=== PATIENT | female | born 1960 | race Two or more races ===

== ENCOUNTER 2020-08-23 09:58 | Outpatient (REF) | payer OTHER, SELFPAY ==
--- NOTE | 2020-08-23 10:12 | XR_ITS ---
EXAMINATION: XR KNEE, BILATERAL XR KNEE, RIGHT CLINICAL INFORMATION: Knee pain. COMPARISON: 08/08/2018 TECHNIQUE: AP bilateral knees one view. Right knee one view. FINDINGS: RIGHT KNEE: Moderate medial compartment arthritis, slight progression from previous. Marginal osteophytes in the lateral compartment. Genu varus. Likely narrowing of the patellofemoral joint space as seen on the lateral projection. Small ossification along the anterior aspect of the tibia on the lateral projection. No effusion. No fracture or dislocation. LEFT KNEE: Moderate medial compartment arthritis. Marginal spurring in the lateral compartment. IMPRESSION: Tricompartment arthritis right knee, more prominent in the medial compartment. Interval progression from previous.
== END 2020-08-23 09:59 | disposition home or self-care (01) ==
LOC: HO.XRAY 09:58
PROVIDERS: PCP Internal Medicine; Visit Provider Orthopaedic Surgery
DX: M17.0 Bilateral primary osteoarthritis of knee (principal)
CPT/HCPCS: 73560; 73565

== ENCOUNTER 2020-09-13 09:06 | Outpatient (REF) | payer OTHER, SELFPAY ==
--- NOTE | 2020-09-13 10:56 | ECG_ITS ---
Test Reason : CP Blood Pressure : / mmHG Vent. Rate : 087 BPM Atrial Rate : 087 BPM P-R Int : 124 ms QRS Dur : 088 ms QT Int : 378 ms P-R-T Axes : 057 026 -61 degrees QTc Int : 454 ms Sinus rhythm with Premature ventricular complexes Nonspecific ST abnormality Inferior leads Lateral leads Left ventricular hypertrophy with repolarization abnormality Abnormal ECG When compared with ECG of 09-MAY-2018 12:28, Premature ventricular complexes are now Present ST more depressed Lateral leads Referred By: Yokasta Lantigua Electronically Signed By:JESSE NARAYANAN MD
[2020-09-13 11:50] LABS: MANUAL DIFF FLAG NO
[2020-09-13 11:53] LABS: Basophils Percent Auto 0.6 % (0-2); Eosinophils Absolute Auto 0.1 X10*3/uL (0.0-0.4); Hematocrit 42.8 % (37-47); Hemoglobin 14.4 g/dl (12.0-16.0); Imm Gran Abs Auto 0.01 X10*3/uL (0.00-0.03); Imm Gran Pct Auto 0.2 % (0.0-0.4); Lymphocytes Absolute Auto 1.9 X10*3/uL (1.2-4.9); Lymphocytes Percent Auto 36.5 % (20-40); Mean Corpuscular HGB Conc 33.6 g/dl (31.0-35.0); Mean Corpuscular Hemoglobin 30.6 pg (27.0-33.0); Mean Corpuscular Volume 91.1 fL (80-98); Mean Platelet Volume 10.8 fL (9.4-12.3); Monocytes Absolute Auto 0.4 X10*3/uL (0.1-1.2); Monocytes Percent Auto 8.3 % (2-11); Neutrophils Absolute Auto 2.8 X10*3/uL (2.0-8.3); Neutrophils Percent Auto 53.4 % (45-73); Platelet Count 216 X10*3/uL (160-400); Red Cell Distribution Width 11.7 % (11.0-16.0); White Blood Count 5.2 X10*3/uL (4.8-10.8)
[2020-09-13 12:28] LABS: Anion Gap 12 (12-20); Blood Urea Nitrogen 20 mg/dL (9-16); Calcium 9.1 mg/dL (8.4-10.2); Carbon Dioxide 28 mmol/L (22-29); Chloride 106 mmol/L (96-108); Estimated Glomerular Filt Rate > 60; Glucose Random 119 mg/dL (60-115); Potassium 4.3 mmol/l (3.3-5.1); Sodium 142 mmol/L (135-145)
== END 2020-09-13 09:07 | disposition home or self-care (01) ==
LOC: HO.LAB 09:06
PROVIDERS: PCP Internal Medicine; Referring Provider Physician Assistant; Visit Provider Orthopaedic Surgery
DX: Z01.810 Encounter for preprocedural cardiovascular examination (principal); Z01.812 Encounter for preprocedural laboratory examination
CPT/HCPCS: 36415; 80048; 85025; 93005

== ENCOUNTER 2020-09-20 07:44 | Outpatient (RCR) | payer OTHER, SELFPAY ==
--- NOTE | 2020-09-20 11:51 | MHC.PT.EP ---
[facility] [place] Office [place] Office [place] Office [address] Braulio Gonzales [address] [phone] F: [phone] F: [phone] F: [phone] F: [phone] Physical Therapy Plan of Care Date of Evaluation: 09/20/20 Date of Surgery: Diagnosis: This is a 60 yo female presenting to skilled PT with a script for prehab primary OA of L knee Assessment: This is a 60 yo female presenting to skilled PT with a script for prehab primary OA of L knee. The patient comes in today for preparation of R knee surgery. Ortho reports a known history for many years of OA for both her knees. Per ortho note she has reached the point where she would like to consider doing the total knee arthroplasty (R is worse than the L at this time). She has had injections in the past but these were not helping. She reports some swelling but no locking or giving way. She has pain in the anterior and medial aspects of the knee. She has a hard time with walking and performing stairs. She is scheduled for her surgery on 10/17/20. She has not tried PT for her knees before. Assessment demos pain mainly in the AM and with weightbearing increasing to an 8/10. She has good ROM and strength at assessment but decreased gait pattern due to pain. She is set up for surgery at the beginning of Oct. Already reports good compliance with some exercises at home 2x/day. Spent time educating her on the rehab process and provided good HEP. She has a high co-pay and as she is compliant at home already patient to continue HEP on own. She is very motivated. She is an excellent candidate for PT following surgery based on age, functional limitations, gross anatomy and PMHx. Frequency and Duration: The patient will be seen 1x/wk as needed for 4wks Short Term Goals: I in HEP and understands rehab goals and expectations following surgery [employer] Goals: Maintain good ROM and MMT Treatment Plan: Modalities to reduce pain, spasms and effusion. Manual therapy to restore motion and function. Therapeutic exercise to improve strength and flexibility. Neuromuscular re-education for posture and balance. Therapeutic activities to return to functional activities of daily living. Please sign and return to therapist. Thank you for your referral.
--- NOTE | 2020-10-18 08:08 | MHC.PT.DC ---
[facility] [place] Office [place] Office [place] Office [address] Braulio Gonzales [address] [phone] F: [phone] F: [phone] F: [phone] F: [phone] Physical Therapy Discharge Report Diagnosis: This is a 60 yo female presenting to skilled PT with a script for prehab primary OA of L knee Date of Surgery: Date of Evaluation: 09/20/20 Date of Discharge: 10/18/20 Treatments to Date: 1 Cancellations to Date: 0 No Shows to Date: 0 Discharge Status: Achieved Goals Discharge Summary: This is a 60 yo female presenting to skilled PT with a script for prehab primary OA of L knee. The patient comes in today for preparation of R knee surgery. Ortho reports a known history for many years of OA for both her knees. Per ortho note she has reached the point where she would like to consider doing the total knee arthroplasty (R is worse than the L at this time). She has had injections in the past but these were not helping. She reports some swelling but no locking or giving way. She has pain in the anterior and medial aspects of the knee. She has a hard time with walking and performing stairs. She is scheduled for her surgery on 10/17/20. She has not tried PT for her knees before. Assessment demos pain mainly in the AM and with weightbearing increasing to an 8/10. She has good ROM and strength at assessment but decreased gait pattern due to pain. She is set up for surgery at the beginning of Oct. Already reports good compliance with some exercises at home 2x/day. Spent time educating her on the rehab process and provided good HEP. She has a high co-pay and as she is compliant at home already patient to continue HEP on own. She is very motivated. She is an excellent candidate for PT following surgery based on age, functional limitations, gross anatomy and PMHx. I kept her chart open for 30 days after eval and educated her on outpatient PT following operation Electronically signed by: Karrie Ojeda, PT Please sign and return to therapist. Thank you for your referral.
== END 2020-10-20 11:58 | disposition home or self-care (01) ==
LOC: HO.PTCHIC 07:44
PROVIDERS: PCP Internal Medicine; Visit Provider Physician Assistant
DX: M17.11 Unilateral primary osteoarthritis, right knee (principal)
CPT/HCPCS: 97110; 97161; 97530

== ENCOUNTER → 2020-10-05 12:02 | Outpatient (BNVA) | payer OTHER, SELFPAY | PROVIDERS: Visit Provider Physician Assistant | DX: Z76.89 Persons encountering health services in other specified circumstances (principal) ==

== ENCOUNTER 2020-10-08 08:32 | Outpatient (REF) | payer OTHER, SELFPAY | END 2020-10-08 08:33 | disposition home or self-care (01) | LOC: HO.LAB 08:32 | PROVIDERS: PCP Internal Medicine; Visit Provider Physician Assistant | DX: Z13.89 Encounter for screening for other disorder (principal) ==

== ENCOUNTER 2020-12-05 08:40 | Day surgery (SDC) | payer OTHER, SELFPAY ==
--- NOTE | 2020-11-14 | ECG_ITS ---
Test Reason : PREOP Blood Pressure : / mmHG Vent. Rate : 080 BPM Atrial Rate : 080 BPM P-R Int : 134 ms QRS Dur : 088 ms QT Int : 396 ms P-R-T Axes : 057 016 000 degrees QTc Int : 456 ms Sinus rhythm with Premature atrial complexes Left ventricular hypertrophy with repolarization abnormality Abnormal ECG When compared with ECG of 13-SEP-2020 12:02, Premature ventricular complexes are no longer Present Premature atrial complexes are now Present Referred By: Janet Herman Electronically Signed By:Radu Harry
[2020-11-14 14:00] VITALS: BP 156/79; PULSE 76; RESP 16; O2SAT 97; BMI 31.4
--- NOTE | 2020-11-14 14:17 | HO.ANESPROP2 ---
HPI - Anesthesia Eval Consult details Narrative: 60yo F for R TKA PCP cleared PONV Rescheduled d/t COVID [facility] Past Medical History Medical History (Updated 11/14/20 @ 13:59 by Marilee Cabral) Anxiety Arthritis GERD (gastroesophageal reflux disease) Hypertension Insomnia PONV (postoperative nausea and vomiting) Family History Family History Father No problems noted. Mother Heart disease Arthritis Blindness CVD (cardiovascular disease) Family history of problems with anesthesia: No Surgical History Surgical History (Updated 11/14/20 @ 13:58 by Marilee Cabral) History of arthroscopy of left knee (~01/2012) History of arthroscopy of right knee (~04/2012) History of breast mammoplasty (~2008) History of hysterectomy History of rectal sphincterotomy (~2001) History of tubal ligation Hx of cholecystectomy (~2001) History of Problems with Anesthesia: Yes (PONV) Social History Social History (Updated 11/14/20 @ 13:57 by Marilee Cabral) Alcohol intake: never Smoking Status: Never smoker Tobacco Type: Cigarette 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 14 day quarantine. No continuing respiratory symptoms. Remains without taste or smell. No CP. Some BRISENO at baseline. Activity limited to pain. Meds Allergies Allergy/AdvReac Type Severity Reaction Status Date / Time No Known Allergies Allergy Unknown Verified 11/14/20 13:57 Home Medications Medication Instructions Recorded Confirmed Type alendronate 70 mg tablet 70 mg PO QWEEK 08/13/20 11/14/20 History lisinopril 20 mg tablet 20 mg PO DAILY 08/13/20 11/14/20 History dicyclomine 10 mg capsule 10 mg PO DAILY cap 09/13/20 11/14/20 History naproxen 250 mg PO DAILY 11/14/20 11/14/20 History omeprazole [Prilosec] 20 mg PO DAILY 11/14/20 11/14/20 History Exam Exam Date and Time: November 14, 2020 1417 Height,Weight and Vital Signs: Height 5 ft Weight 73.028 kg Last Vital Signs Pulse 76 11/14/20 14:00 Resp 16 11/14/20 14:00 BP 156/79 H 11/14/20 14:00 Pulse Ox 97 11/14/20 14:00 Pertinent Lab Results Pertinent Lab Results: Laboratory Tests 10/08/20 08:45 Blood Type O Positive Antibody Screen NEGATIVE Laboratory Tests 09/13/20 09/13/20 11:15 11:15 WBC 5.2 Hgb 14.4 Hct 42.8 Plt Count 216 Sodium 142 Potassium 4.3 Chloride 106 Carbon Dioxide 28 BUN 20 H Creatinine 0.69 Narrative Narrative: EKG 11/14/19: SR with PAC's @ 80, LVH with repol abn Airway Mallampati Class: II TM Dist: >3cm Neck ROM: Full (Sore L trap) Loose/Missing/Broken Teeth: Yes (Molars missing, 1xcrown molar) Heart: Irreg Lungs: CTAB Assessment and Plan Assessment Anesthesia Assessment: Anesthesia Plan Discussed and PAT Visit
[2020-11-14 16:08] LABS: MRSA Nasal PCR NEGATIVE (Negative); SA Nasal PCR NEGATIVE (Negative)
--- NOTE | 2020-12-02 11:41 | HO.ANESPROP2 ---
Documented by User: Janet Arandaney 12/02/20 11:45 HPI - Anesthesia Eval Consult details Narrative: 60yo F for R TKA PCP cleared PONV Rescheduled d/t COVID policies [facility] Past Medical History Medical History Anxiety Arthritis GERD (gastroesophageal reflux disease) Hypertension Insomnia PONV (postoperative nausea and vomiting) Family History Family History Father No problems noted. Mother Heart disease Arthritis Blindness CVD (cardiovascular disease) Surgical History Surgical History History of arthroscopy of left knee (~01/2012) History of arthroscopy of right knee (~04/2012) History of breast mammoplasty (~2008) History of hysterectomy History of rectal sphincterotomy (~2001) History of tubal ligation Hx of cholecystectomy (~2001) Social History Social History Are you a primary hemodialysis patient care specialist to a significant other at home: No Do you presently have visiting nurse or other home services: No Alcohol intake: never Smoking Status: Never smoker Tobacco Type: Cigarette Use of substances other than those prescribed or required for medical reasons: No Have you been hit, kicked, punched, or otherwise hurt by someone within the past year? 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 Meds Allergies Allergy/AdvReac Type Severity Reaction Status Date / Time No Known Allergies Allergy Unknown Verified 11/14/20 13:57 Home Medications Medication Instructions Recorded Confirmed Type alendronate 70 mg tablet 70 mg PO QWEEK 08/13/20 11/14/20 History lisinopril 20 mg tablet 20 mg PO DAILY 08/13/20 11/14/20 History dicyclomine 10 mg capsule 10 mg PO DAILY cap 09/13/20 11/14/20 History naproxen 250 mg PO DAILY 11/14/20 11/14/20 History omeprazole [Prilosec] 20 mg PO DAILY 11/14/20 11/14/20 History diltiazem HCl 12/05/20 12/05/20 History Exam Exam Date and Time: Seen in PAT 11/14/20 Height,Weight and Vital Signs: Height 5 ft Weight 73.028 kg Last Vital Signs Pulse 76 11/14/20 14:00 Resp 16 11/14/20 14:00 BP 156/79 H 11/14/20 14:00 Pulse Ox 97 11/14/20 14:00 Pertinent Lab Results Pertinent Lab Results: Laboratory Tests 10/08/20 11/14/20 11/14/20 08:45 14:25 14:45 Nasal Screen MRSA (PCR) NEGATIVE Nasal S. aureus Screen NEGATIVE Nasal MRSA/S.aureus Interp SEE NOTE Blood Type O Positive O Positive Antibody Screen NEGATIVE NEGATIVE Laboratory Tests 09/13/20 09/13/20 11:15 11:15 WBC 5.2 Hgb 14.4 Hct 42.8 Plt Count 216 Sodium 142 Potassium 4.3 Chloride 106 Carbon Dioxide 28 BUN 20 H Creatinine 0.69 Narrative Narrative: EKG 11/14/19: SR with PAC's @ 80, LVH with repol abn Airway Mallampati Class: II TM Dist: >3cm Neck ROM: Full (sore left trap) Loose/Missing/Broken Teeth: Yes (molars missing, 1 x crowned molar) Heart: Irreg Lungs: CTAB Assessment and Plan Assessment Anesthesia Assessment: Anesthesia Plan Discussed and PAT Visit Documented by User: Julio Costa MD 12/05/20 09:57 [facility] Past Medical History Medical History Anxiety Arthritis GERD (gastroesophageal reflux disease) Hypertension Insomnia PONV (postoperative nausea and vomiting) Family History Family History Father No problems noted. Mother Heart disease Arthritis Blindness CVD (cardiovascular disease) Surgical History Surgical History History of arthroscopy of left knee (~01/2012) History of arthroscopy of right knee (~04/2012) History of breast mammoplasty (~2008) History of hysterectomy History of rectal sphincterotomy (~2001) History of tubal ligation Hx of cholecystectomy (~2001) Social History Social History Are you a primary hemodialysis patient care specialist to a significant other at home: No Do you presently have visiting nurse or other home services: No Alcohol intake: never Smoking Status: Never smoker Tobacco Type: Cigarette Use of substances other than those prescribed or required for medical reasons: No Have you been hit, kicked, punched, or otherwise hurt by someone within the past year? 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 Meds Allergies Allergy/AdvReac Type Severity Reaction Status Date / Time No Known Allergies Allergy Unknown Verified 11/14/20 13:57 Home Medications Medication Instructions Recorded Confirmed Type alendronate 70 mg tablet 70 mg PO QWEEK 08/13/20 11/14/20 History lisinopril 20 mg tablet 20 mg PO DAILY 08/13/20 11/14/20 History dicyclomine 10 mg capsule 10 mg PO DAILY cap 09/13/20 11/14/20 History naproxen 250 mg PO DAILY 11/14/20 11/14/20 History omeprazole [Prilosec] 20 mg PO DAILY 11/14/20 11/14/20 History diltiazem HCl 12/05/20 12/05/20 History Assessment and Plan Assessment Anesthesia Assessment: Anesthesia Plan Discussed, PAT Visit and Chart Reviewed Final Anesthetic Review NPO: Yes ASA Class: II Final Preanesthetic Review: No Changes in Pt Med Stat, Meds/Allgs Chart Reviewed, Consent Obtained/Reviewed and Anes Risks/Benef Reviewed Patient Risk: Intermediate Procedure Risk: Intermediate Anesthetic Plan Anesthetic Plan: MAC:, Spinal and Regional Block Disposition: Standard PACU
[2020-12-05] VITALS (11 sets, daily range): BP systolic 91–143; BP diastolic 57–87; PULSE 61–103; RESP 14–18; TEMP 36.3–37.2; O2SAT 94–100
--- NOTE | 2020-12-05 07:43 | MHC.SHP ---
Pre-Procedural Eval Section A The patient is an INPATIENT: No Changes since office visit: No Cold of Flu in the past 2 weeks, No New Medical Problems, No Changes in Medication and No Patient answered all questions The History & Physical has been completed within 30 days and I have reviewed it.: Yes Section B Chief Complaint: Osteoarthritis Right Knee Allergies: Allergies Allergy/AdvReac Type Severity Reaction Status Date / Time No Known Allergies Allergy Unknown Verified 11/14/20 13:57 Plan I have reviewed the history and physical and performed a pertinent physical examination on my patient. No changes have occurred unless specified.
[2020-12-05] MEDS: Gabapentin 600 MG TABLET PO (09:05)
[2020-12-05] MEDS: Scopolamine 1.5 MG PATCH.TD.3 TRANSDERMA (09:05)
[2020-12-05 09:12] LABS: COVID-19 Test Negative (Negative)
[2020-12-05] MEDS: ceFAZolin Sodium/Dextrose,Iso 2 GM/50 ML PIGGYBACK IV ×2 (09:12→16:22)
--- NOTE | 2020-12-05 11:01 | P.PCNOP_ITS ---
Brief Operative Note Date of procedure: 12/05/20 Pre-op diagnosis: OA RIGHT KNEE Post-op diagnosis: same Procedure: RIGHT TKA Anesthesia: regional and spinal Surgeon: Meagan Stewart Adult Basic Studies Teacher: Yokasta Lantigua Estimated blood loss (mL): 50 Condition: stable Disposition: PACU
[2020-12-05] MEDS: ondansetron HCL 4 MG/2 ML VIAL IVPUSH (12:00)
--- NOTE | 2020-12-05 14:40 | PC.NURSE ---
PT ARRIVED TO UNIT FROM PACU AROUND 1245. SLEEPING BUT AROUSABLE. DENIES PAIN AT THIS TIME. TOLERATING SMALL AMOUNTS LIQUID PO. DRESSING TO RIGHT KNEE D/I. UNABLE TO VOID. BLADDER SCANNED FOR 304ML. ENCOURAGED TO DRINK FLUIDS
[2020-12-05] MEDS: Lactated Ringers 500 ML 50 ML IV (15:06)
[2020-12-05] MEDS: oxyCODONE HCl Immed Release 5 MG TABLET 10 MG PO ×2 (16:20→23:50)
--- NOTE | 2020-12-05 16:46 | OP_ITS ---
SURGEON: Meagan Stewart MD PREOPERATIVE DIAGNOSIS: Osteoarthritis, right knee. POSTOPERATIVE DIAGNOSIS: Osteoarthritis, right knee. PROCEDURE PERFORMED: Right total knee arthroplasty - NexGen CR-Flex GSF, size E right femur, 5 x 10 mm monoblock tibial component, 32 mm monoblock patellar component. ESTIMATED BLOOD LOSS: COMPLICATIONS: ANESTHESIA: ASSISTANTS: ANG Lanza SPECIMENS: CLINICAL NOTE: This pleasant lady has had ongoing problems with osteoarthritis involving the right knee. She has failed nonoperative management; therefore, after explaining the risks, benefits, and alternatives and answering all her questions, it was mutually agreed upon to carry out the following procedure. DESCRIPTION OF PROCEDURE: Under a regional spinal anesthetic, the patient was placed supine on the operating table. Pneumatic tourniquet cuff was placed around the upper right thigh, inflated to 300 mmHg at the beginning of the case. The right knee was then prepped and draped in standard fashion with the right leg free. Surgical time-out was then performed. The patient was identified, procedure confirmed, site confirmed. Medical analogy and history reviewed. Preoperative antibiotics were given. Standard DVT prophylaxis was in place. Tranexamic acid was given as well. All other items were discussed and agreed upon. A standard midline incision to the knee was carried out, taken down through subcutaneous tissues. Hemostasis was achieved along the way using electrocautery, brought us down to the level of the extensor mechanism, where a medial parapatellar arthrotomy in a subvastus technique was performed. The patella was retracted to lateral gutter. Soft tissues elevated from the anterior aspect of the femur subperiosteally. At the level of the tibia, on the medial side, soft tissue was elevated subperiosteally, portion of the meniscus was excised, and the medial side of soft tissues were protected. Similarly on the lateral side, portion of the fat pad, portion of the meniscus excised, soft tissue elevated protecting the lateral side of soft tissues. The ACL was resected. We turned our attention to the femur. Standard intramedullary hole was established. Cutting guide was set for 5 degrees of valgus with standard cut. The cutting guide was held in place with pins. The surface was resected flat. The guide was removed. It was too tight to do the femoral sizing and therefore we turned our attention to the tibia. The remainder of the medial and lateral menisci were removed. The extramedullary guide was used in standard fashion roughening off the tibial tubercle, subcutaneous port of the tibia, and the middle of the ankle. The slope was set. A minimal resection referencing the medial side was selected. The surface was resected flat. We then turned our attention to the femur. Sizing guide was used in standard fashion. It sized to a size E. 3 degree external rotation pins were set. The all-in-one cutting guide was centered over the distal cut and held in place with pins. Following this, the anterior and anterior chamfer, posterior and posterior chamfer, and patellar recess cuts were all made. The lug holes were made. All the bony fragments were removed. The cutting guide was removed and we then turned our attention to the tibia. The tibia was sized to a size E and it was aligned as the extramedullary guide had been. It was held in place. A 10 mm trial liner was put into place along with a size E right used GSF femur and this demonstrated full extension, full flexion, excellent alignment, stable mediolaterally at 0, 30, 60, and 90 degrees of flexion. Turning our attention to the patella, the surface was resected flat. The size of 32 lug hole was made. Trial components put into place, fit nicely, tracked centrally with flexion and extension; therefore, the size E right CR-Flex GSF femur with a 5 x 10 mm monoblock tibial component, a 32 mm monoblock patellar component was selected and brought up on the table. All the trial components were removed after the peg holes for the tibia were made. Tourniquet was let down. Total tourniquet time of 39 minutes. The knee was examined. There was no significant bleeding. It was thoroughly irrigated. The permanent components were brought up the table, the tibia, followed by the femur, followed by patellar were all successfully and nicely press-fit into place. The knee was checked. It had full extension, full flexion, it was stable mediolaterally at 0, 30, 60, and 90 degrees of flexion and the patella tracked centrally and therefore proceeded to closure. Wound was thoroughly irrigated. The extensor mechanism was closed with #2 Quill suture. Skin was approximated using interrupted 2-0 Dexon. Skin was closed with garry. Sterile dressing was then applied. The patient was then transferred supine to the room bed and taken to recovery room in good condition. Intraoperatively, there was approximately 50 mL of blood loss. A second unit of tranexamic acid was given at the time of closure. There were no complications. MD JERRY Alejo/CRISTINA / [id number]
[2020-12-05] MEDS: Ketorolac Tromethamine 15 MG/ML VIAL IVPUSH (18:21)
--- NOTE | 2020-12-05 20:07 | CONS_ITS ---
DATE OF SERVICE: 12/05/2020 CONSULTING PHYSICIAN: Dr. Meagan Navarro [facility]. REASON FOR CONSULTATION: Medical management. HISTORY OF PRESENTING COMPLAINT: This is a 60-year-old female patient of Dr. Darell Inman, with past medical history significant for hypertension and osteoarthritis of both knees. The patient this morning underwent right total knee arthroplasty due to significant pain, not responding to pain medication, weight reduction. At the present time, the patient is complaining of right knee pain. She feels nauseous and unable to void. The patient also complaining of dry mouth. PAST MEDICAL HISTORY: Significant for history of hypertension, history of gastritis, history of osteoarthritis. PAST SURGICAL HISTORY: 1. She is status post bilateral knee arthroscopy in 2011. 2. History of breast mammoplasty. 3. History of hysterectomy. 4. Status post rectal sphincterotomy. 5. History of tubal ligation. 6. History of cholecystectomy in 2001. MEDICATIONS: The patient's medications upon admission are Fosamax 70 mg every weekly, vitamin D3 of 25 mcg daily, dicyclomine 10 mg daily, hydrocodone/Tylenol 1 tablet daily as needed, lisinopril 20 mg daily, Naprosyn 250 b.i.d., and trazodone 100 mg p.o. at bedtime. SOCIAL HISTORY: The patient lives with her daughter and sister. She denies history of smoking. No alcohol abuse. FAMILY HISTORY: The patient's father is . Her mother is also dizzy. She had coronary artery disease, arthritis, . ALLERGIES: THE PATIENT HAS NO KNOWN DRUG ALLERGIES. REVIEW OF SYSTEMS: HOUSE CARPENTER: The patient denies any headache or lightheadedness. CV: She denies any chest pain or palpitation. GASTROINTESTINAL: She complained of nausea. No vomiting, no abdominal pain or diarrhea. : She has difficulty voiding. Otherwise, no urinary frequency or urgency. All other systems are reviewed and are negative. PHYSICAL EXAMINATION: GENERAL: The patient resting in bed. The patient has difficulty talking due to dry mouth. VITAL SIGNS: Blood pressure 123/66, respiratory rate 17, she is afebrile, O2 saturation 100% on room air. HEENT: Pupils equal, round, and reactive to light and accommodation. Extraocular muscles are intact. Anicteric sclerae. NECK: Supple. LUNGS: Clear to auscultation bilaterally. HEART: Regular rate and rhythm. ABDOMEN: Obese, soft, nontender. Bowel sounds are audible. EXTREMITIES: Without clubbing, cyanosis, or edema. Right knee dressing is in place. NEURO: Nonfocal. DIAGNOSTIC DATA: EKG from November 14 reviewed and showed sinus rhythm with premature atrial complexes. LABORATORY DATA: Last obtained was in September of 2020, that showed a hematocrit of 42.8, hemoglobin 14.4. Sodium 142, potassium 4.3, chloride 106, bicarb 28, BUN 20, and a creatinine of 0.69, random blood sugar 119. Normal LFTs in the past. ASSESSMENT AND PLAN: This is a 60-year-old female patient with past medical history significant for hypertension and multiple surgeries, presented for an elective right total knee arthroplasty postoperative day 0, being followed for hypertension and medication management. 1. Right total knee arthroplasty postoperative day 0. The patient will be continued on current pain medications including Tylenol, Toradol, morphine sulfate, and oxycodone. We will follow the patient's CBC and electrolytes closely. We will add incentive spirometry, stool softeners, PT consult as per Ortho. 2. History of hypertension. As per patient, she takes lisinopril daily, which will be continued. Follow blood pressure. 3. Insomnia. Continue trazodone 100 mg at bedtime. Thank you for allowing us to participate in the care of this patient. We will follow the patient along with you. MD AGUILA Jesus/CRISTINA / [phone]
[2020-12-05] MEDS: traZODone HCL 100 MG TABLET PO (20:10)
[2020-12-05] MEDS: Acetaminophen 325 MG TABLET 650 MG PO (20:14)
[2020-12-05] MEDS: 0.9 % Sodium Chloride Flush 3 ML SYRINGE IVFLUSH (23:43)
[2020-12-06] VITALS (9 sets, daily range): BP systolic 108–140; BP diastolic 55–83; PULSE 86–100; RESP 16–18; TEMP 36.4–37.4; O2SAT 92–97; BMI 31.4
--- NOTE | 2020-12-06 | XR_ITS ---
EXAMINATION: XR KNEE, RIGHT CLINICAL INFORMATION: Total knee arthroplasty COMPARISON: Standing AP knees and right knee radiographs 08/23/2020 TECHNIQUE: AP and lateral views of the right knee are obtained portably. FINDINGS: There has been total knee arthroplasty. The hardware is intact. There is no fracture or dislocation. There is suprapatellar effusion, subcutaneous emphysema, and overlying skin garry as expected. XR/XR knee RT 2V IMPRESSION: Status post right total knee arthroplasty.
[2020-12-06] MEDS: Morphine Sulfate 2 MG/ML CARTRIDGE IVPUSH ×2 (04:06→16:31)
[2020-12-06 06:18] LABS: MANUAL DIFF FLAG NO
[2020-12-06] MEDS: Omeprazole 20 MG CAPSULE.DR PO (06:20)
[2020-12-06] MEDS: oxyCODONE HCl Immed Release 5 MG TABLET 10 MG PO ×3 (06:25→21:16)
[2020-12-06 06:51] LABS: Basophils Percent Auto 0.1 % (0-2); Hematocrit 36.4 % (37-47); Hemoglobin 12.2 g/dl (12.0-16.0); Imm Gran Abs Auto 0.03 X10*3/uL (0.00-0.03); Imm Gran Pct Auto 0.3 % (0.0-0.4); Lymphocytes Percent Auto 10.4 % (20-40); Mean Corpuscular HGB Conc 33.5 g/dl (31.0-35.0); Mean Corpuscular Hemoglobin 30.4 pg (27.0-33.0); Mean Corpuscular Volume 90.8 fL (80-98); Mean Platelet Volume 10.7 fL (9.4-12.3); Monocytes Absolute Auto 1.3 X10*3/uL (0.1-1.2); Monocytes Percent Auto 13.5 % (2-11); Neutrophils Absolute Auto 7.2 X10*3/uL (2.0-8.3); Neutrophils Percent Auto 75.7 % (45-73); Platelet Count 182 X10*3/uL (160-400); Red Blood Count 4.01 X10*6/uL (4.20-5.50); Red Cell Distribution Width 12.1 % (11.0-16.0); White Blood Count 9.6 X10*3/uL (4.8-10.8)
[2020-12-06 06:56] LABS: Anion Gap 13 (12-20); Blood Urea Nitrogen 17 mg/dL (9-16); Calcium 8.6 mg/dL (8.4-10.2); Carbon Dioxide 26 mmol/L (22-29); Chloride 104 mmol/L (96-108); Creatinine Clr Calc Pharmacy 78.8; Estimated Glomerular Filt Rate > 60; Glucose Fasting 142 mg/dL (60-99); Sodium 139 mmol/L (135-145)
--- NOTE | 2020-12-06 07:48 | P.PNOP_ITS ---
Subjective Subjective Date of Service: 12/06/20 Interval history: POD1 s/p RTKA. Pt. resting comfortably in bed. Pain well managed. No overnight events. Physical Exam Vital Signs: Vital Signs: Last Vital Signs Temp 99.4 F 12/06/20 03:24 Pulse 89 12/06/20 03:24 Resp 18 12/06/20 04:06 BP 114/55 L 12/06/20 03:24 Pulse Ox 92 12/06/20 03:24 Body Mass Index 31.4 Const: General: cooperative, healthy appearing and no acute distress Resp: Effort & Inspection: normal respiratory effort and able to speak in complete sentences Cardio: Rate: regular rate Peripheral pulses: Peripheral pulses 2+ throughout GI: Palpation (GI): Soft to palpation Skin: Lesions: no lesions Rashes: no rashes Extrem: Other: rt knee no ecchymosis, redness, drainage. Bandage is clean, dry, and intact. NVI Progress Note: A&P Assessment and plan (1) S/P total knee arthroplasty: Status: Acute Assessment and Plan: Continue pain mgmnt Begin ASA dvt ppx begin PT for rt knee TKA Dispo planning-Pending PT eval, pain mgmnt Fall Risk Details Current Medications: Current Medications Generic Name Dose Route Start Last Admin Trade Name Freq PRN Reason Stop Dose Admin Acetaminophen 650 mg 12/05/20 12:57 12/05/20 20:14 Acetaminophen 325 Mg Tablet PO 650 mg Q6H PRN Administration Pain, Mild (Pain Scale 1-3) Aspirin 325 mg 12/06/20 10:00 Aspirin 325 Mg Tablet PO BID [facility] Dicyclomine HCl 10 mg 12/06/20 09:00 Dicyclomine Hcl 10 Mg Capsule PO DAILY [facility] Ketorolac Tromethamine 15 mg 12/05/20 12:57 12/05/20 18:21 Ketorolac Tromethamine 15 Mg/Ml Vial IVPUSH 15 mg Q6H PRN Administration Pain, Mild (Pain Scale 1-3) Morphine Sulfate 2 mg 12/05/20 12:57 12/06/20 04:06 Morphine Sulfate 2 Mg/Ml Cartridge IVPUSH 2 mg Q2H PRN Administration Pain, Severe (Pain Scale 7-10) Naloxone HCl 0.2 mg 12/05/20 12:57 Naloxone Hcl 0.4 Mg/Ml Vial IVPUSH Q2M PRN Excessive sedation or RR < 8 Omeprazole 20 mg 12/06/20 06:30 12/06/20 06:20 Omeprazole 20 Mg Capsule.Dr PO 20 mg DAILY@0630 JUAN CARLOS Administration Ondansetron HCl 4 mg 12/05/20 12:57 Ondansetron Hcl 4 Mg/2 Ml Vial IVPUSH Q8H PRN Nausea and Vomiting Oxycodone HCl 10 mg 12/05/20 12:57 12/06/20 06:25 Oxycodone Hcl Immed Release 5 Mg Tablet PO 10 mg Q6H PRN Administration Pain, Moderate (Pain Scale 4-6 Senna 17.2 mg 12/05/20 12:57 Sennosides 8.6 Mg Tablet PO BEDTIME PRN Constipation Sodium Chloride 3 ml 12/05/20 16:00 12/05/20 23:43 0.9 % Sodium Chloride Flush 3 Ml Syringe IVFLUSH 3 ml QSHIFT JUAN CARLOS Administration Trazodone HCl 100 mg 12/05/20 21:00 12/05/20 20:10 Trazodone Hcl 100 Mg Tablet PO 100 mg BEDTIME JUAN CARLOS Administration Vitamin D 25 mcg 12/06/20 09:00 Cholecalciferol (Vitamin D3) 25 Mcg Tablet PO DAILY [facility] Time Spent With Patient Time: Total time spent is greater than 50% in coordination of care (as documented) at patient's floor/unit and/or counseling patient: Time with patient: less than 15 minutes
[2020-12-06] MEDS: Cholecalciferol (Vitamin D3) 25 MCG TABLET PO (08:27)
[2020-12-06] MEDS: Aspirin 325 MG TABLET PO ×2 (08:27→21:11)
[2020-12-06] MEDS: Dicyclomine HCl 10 MG CAPSULE PO (08:27)
[2020-12-06] MEDS: 0.9 % Sodium Chloride Flush 3 ML SYRINGE IVFLUSH ×3 (08:29→21:12)
--- NOTE | 2020-12-06 09:39 | MHC.CM.PN ---
EMR REVIEWED, CM MET WITH PT WHO IS ALERT AND ORIENTED, PT LIVES WITH SISTER AND DAUGHTER, PT REPORTS SHE IS INDEPENDENT AT HOME WITH ALL CARE, PT DENIES USE OF DME AND REPORTS HER SISTER HAS A WALKER AT HOME SHE CAN USE IF NECESSARY, PT DENIES ANY IN HOME SERVICES SUCH VNA OR SUPERVISOR PLASMA, PT WOULD LIKE TO COMPLETE HEALTH CARE PROXY WITH CM, CM WILL COMPLETE WITH PT LATER THIS MORNING, PT ABLE TO VERIFY PCP AND PHARMACY. PHARMACY: [facility]ED. PCP: SUKHDEV DON[facility] [place] [facility] [place] UNKNOWN BY PT, PT REPORTS HE ORDERS HER TRAZODONE, PT REPORTS ANXIETY FOR A LONG TIME AND FEELS STABLE ON MEDICATION, DENIES CURRENT SUICIDAL IDEATION.
--- NOTE | 2020-12-06 11:21 | HO.POSTANES ---
Post Anesthesia Evaluation Post Anesthesia Evaluation Vital Signs: Vital Signs Temp Pulse Resp BP Pulse Ox 12/06/20 08:58 86 128/64 97 12/06/20 07:00 97.5 F 86 16 128/64 97 12/06/20 04:06 18 12/06/20 03:24 99.4 F 89 18 114/55 L 92 Anesthesia: Spinal Mental Status: Awake Pain Control: Satisfactory Nausea/Vomiting: None Hydration: Adequate Anesthesia-Related Issues: No Anes. Related Issues
--- NOTE | 2020-12-06 13:43 | HO.PM.IMPN ---
Subjective Subjective Date of Service: 12/06/20 Interval History: Patient feels better this a.m. complaining of nausea knee pain is tolerable, no acute issues overnight able to keep breakfast down. Review of Systems General no headache, no dizziness no fever chills. CVS no chest pain, no palpitation. Respiratory no cough, no shortness of breath Gastrointestinal pos. nausea, no vomiting, no abdominal pain Physical Exam Vital Signs: Vital Signs: Last Vital Signs Temp 99.2 F 12/06/20 11:00 Pulse 88 12/06/20 12:44 Resp 18 12/06/20 11:00 BP 122/72 12/06/20 12:44 Pulse Ox 95 12/06/20 12:44 Body Mass Index 31.4 General patient resting comfortably ,no acute distress. Neck is supple no JVD. CVS regular rate rhythm, Respiratory lungs clear to auscultation, no respiratory distress, no wheeze, no rhonchi. Gastrointestinal abdomen soft, nontender, bowel sounds audible, no guarding , no rigidity. Extremities right knee dressing in place Neuro nonfocal , speech clear. Skin no rash Objective Data Current Medications Generic Name Dose Route Start Last Admin Trade Name Freq PRN Reason Stop Dose Admin Acetaminophen 650 mg 12/05/20 12:57 12/05/20 20:14 Acetaminophen 325 Mg Tablet PO 650 mg Q6H PRN Administration Pain, Mild (Pain Scale 1-3) Aspirin 325 mg 12/06/20 10:00 12/06/20 08:27 Aspirin 325 Mg Tablet PO 325 mg BID JUAN CARLOS Administration Dicyclomine HCl 10 mg 12/06/20 09:00 12/06/20 08:27 Dicyclomine Hcl 10 Mg Capsule PO 10 mg DAILY JUAN CARLOS Administration Ketorolac Tromethamine 15 mg 12/05/20 12:57 12/05/20 18:21 Ketorolac Tromethamine 15 Mg/Ml Vial IVPUSH 15 mg Q6H PRN Administration Pain, Mild (Pain Scale 1-3) Morphine Sulfate 2 mg 12/05/20 12:57 12/06/20 04:06 Morphine Sulfate 2 Mg/Ml Cartridge IVPUSH 2 mg Q2H PRN Administration Pain, Severe (Pain Scale 7-10) Naloxone HCl 0.2 mg 12/05/20 12:57 Naloxone Hcl 0.4 Mg/Ml Vial IVPUSH Q2M PRN Excessive sedation or RR < 8 Omeprazole 20 mg 12/06/20 06:30 12/06/20 06:20 Omeprazole 20 Mg Capsule. PO 20 mg DAILY@0630 JUAN CARLOS Administration Ondansetron HCl 4 mg 12/05/20 12:57 Ondansetron Hcl 4 Mg/2 Ml Vial IVPUSH Q8H PRN Nausea and Vomiting Oxycodone HCl 10 mg 12/05/20 12:57 12/06/20 12:02 Oxycodone Hcl Immed Release 5 Mg Tablet PO 10 mg Q6H PRN Administration Pain, Moderate (Pain Scale 4-6 Senna 17.2 mg 12/05/20 12:57 Sennosides 8.6 Mg Tablet PO BEDTIME PRN Constipation Sodium Chloride 3 ml 12/05/20 16:00 12/06/20 08:29 0.9 % Sodium Chloride Flush 3 Ml Syringe IVFLUSH 3 ml QSHIFT JUAN CARLOS Administration Trazodone HCl 100 mg 12/05/20 21:00 12/05/20 20:10 Trazodone Hcl 100 Mg Tablet PO 100 mg BEDTIME JUAN CARLOS Administration Vitamin D 25 mcg 12/06/20 09:00 12/06/20 08:27 Cholecalciferol (Vitamin D3) 25 Mcg Tablet PO 25 mcg DAILY JUAN CARLOS Administration Labs CBC & Chem 7: 12/06/20 05:56 12/06/20 05:56 Assessment and Plan (1) S/P total knee arthroplasty: Status: Acute (2) Hypertension: Status: Acute Assessment and Plan: 60-year-old female patient with past medical history significant for hypertension and multiple surgeries, presented for an elective right total kneerthroplasty postoperative day 0, being followed for hypertension and medication management. 1. Right total knee arthroplasty postoperative day 1 Good pain control, hematocrit dropped but stable, continue current pain medication, encourage incentive spirometry, continue PT. on aspirin for DVT prophylaxis. will add colace 2. History of hypertension. BP stable continue to hold lisinopril , patient does not take Cardizem at home. 3. Insomnia. Continue trazodone 100 mg at bedtime.
[2020-12-06] MEDS: Docusate Sodium 100 MG CAPSULE PO (21:12)
[2020-12-06] MEDS: traZODone HCL 100 MG TABLET PO (21:12)
[2020-12-07 03:39] VITALS: BP 131/61; PULSE 103; RESP 18; TEMP 37.2; O2SAT 91
[2020-12-07] MEDS: Omeprazole 20 MG CAPSULE.DR PO (06:14)
[2020-12-07 06:26] LABS: MANUAL DIFF FLAG NO
[2020-12-07 06:48] LABS: Basophils Percent Auto 0.3 % (0-2); Hematocrit 33.9 % (37-47); Hemoglobin 11.4 g/dl (12.0-16.0); Imm Gran Abs Auto 0.04 X10*3/uL (0.00-0.03); Imm Gran Pct Auto 0.3 % (0.0-0.4); Lymphocytes Absolute Auto 1.6 X10*3/uL (1.2-4.9); Lymphocytes Percent Auto 13.2 % (20-40); Mean Corpuscular HGB Conc 33.6 g/dl (31.0-35.0); Mean Corpuscular Hemoglobin 30.6 pg (27.0-33.0); Mean Corpuscular Volume 91.1 fL (80-98); Monocytes Absolute Auto 1.4 X10*3/uL (0.1-1.2); Monocytes Percent Auto 11.6 % (2-11); Neutrophils Absolute Auto 8.7 X10*3/uL (2.0-8.3); Neutrophils Percent Auto 74.6 % (45-73); Platelet Count 170 X10*3/uL (160-400); Red Blood Count 3.72 X10*6/uL (4.20-5.50); Red Cell Distribution Width 12.3 % (11.0-16.0); White Blood Count 11.7 X10*3/uL (4.8-10.8)
[2020-12-07 07:11] LABS: Anion Gap 13 (12-20); Blood Urea Nitrogen 11 mg/dL (9-16); Calcium 8.3 mg/dL (8.4-10.2); Carbon Dioxide 27 mmol/L (22-29); Chloride 101 mmol/L (96-108); Creatinine Clr Calc Pharmacy 86.7; Estimated Glomerular Filt Rate > 60; Glucose Fasting 117 mg/dL (60-99); Potassium 4.2 mmol/l (3.3-5.1); Sodium 137 mmol/L (135-145)
[2020-12-07 07:27] VITALS: BP 140/83; PULSE 104; RESP 17; TEMP 37.2; O2SAT 94
[2020-12-07] MEDS: oxyCODONE HCl Immed Release 5 MG TABLET 10 MG PO (07:34)
[2020-12-07] MEDS: Aspirin 325 MG TABLET PO (07:34)
[2020-12-07] MEDS: Dicyclomine HCl 10 MG CAPSULE PO (07:35)
[2020-12-07] MEDS: 0.9 % Sodium Chloride Flush 3 ML SYRINGE IVFLUSH (07:35)
[2020-12-07] MEDS: Docusate Sodium 100 MG CAPSULE PO (07:35)
[2020-12-07] MEDS: Cholecalciferol (Vitamin D3) 25 MCG TABLET PO (07:35)
[2020-12-07 08:27] VITALS: BP 140/83; PULSE 104; O2SAT 94
[2020-12-07] MEDS: Morphine Sulfate 2 MG/ML CARTRIDGE IVPUSH (09:26)
--- NOTE | 2020-12-07 09:42 | P.DS_ITS ---
DS: Providers Provider Date of Service: 12/07/20 Primary care physician: Darell Inman MD Consults: 12/05/20 12:57 Consult to Hospitalist Routine Consulting Provider: Hospitalist Reason for consultation: Medical Management DS: Diagnosis Discharge Diagnosis (1) S/P total knee arthroplasty: Status: Acute Problem details: Ms. Hawkins is a 60 yo female who presented to the office with ongoing right knee pain. She was found to have OA of the right knee and had failed all conservative treatment. She continued to have difficulty with ambulation and daily activities; therefore she consented to move forward with Right total knee arthroplasty. DS: Medications Discharge Medications Home Medications: Home Medications Medication Instructions Recorded Confirmed alendronate 70 mg tablet 70 mg PO QWEEK 08/13/20 11/14/20 lisinopril 20 mg tablet 20 mg PO DAILY 08/13/20 11/14/20 dicyclomine 10 mg capsule 10 mg PO DAILY cap 09/13/20 11/14/20 omeprazole 20 mg PO DAILY 11/14/20 11/14/20 diltiazem HCl 12/05/20 12/05/20 Previous Rx's Medication Instructions Recorded cholecalciferol (vitamin D3) 25 25 mcg PO DAILY 90 Days #90 cap 08/15/20 mcg (1,000 unit) capsule trazodone 100 mg tablet 100 mg PO BEDTIME #90 tab 11/14/20 acetaminophen 650 mg PO Q6H PRN 30 Days #240 tab 12/07/20 aspirin 325 mg PO BID 14 Days #28 tab 12/07/20 docusate sodium 100 mg PO BID 30 Days #60 cap 12/07/20 ondansetron HCl [Zofran] 4 mg PO Q8H PRN 7 Days #21 tab 12/07/20 oxycodone 10 mg PO Q6H PRN 7 Days #28 tab 12/07/20 DS: Summary Hospital Course Hospital Course: The patient underwent a successful right knee arthroplasty, was transferred to PACU and then to the floor to recover. During their stay, their vitals were stable, afebrile at 99.0F. Labs were unremarkable, H/H . POD 1 the patient was started on ASA for DVT ppx, they also received P.T. services twice a day. Prior to discharge, their dressing was changed, incision clean dry and intact, new Aquacel dressing applied and the plan was to be discharged home with VNA service s. Time Spent with Patient Time attestation: Total time spent providing and/or coordinating discharge services: Discharge coordination time: Less than 30 minutes (30 mins) Physical Exam Vital Signs: Vital Signs: Last Vital Signs Temp 99.0 F 12/07/20 07:27 Pulse 104 H 12/07/20 08:27 Resp 17 12/07/20 07:27 BP 140/83 H 12/07/20 08:27 Pulse Ox 94 12/07/20 08:27 Body Mass Index 31.4 Const: General: cooperative, healthy appearing and no acute distress Resp: Effort & Inspection: normal respiratory effort and able to speak in complete sentences Cardio: Rate: regular rate Peripheral pulses: Peripheral pulses 2+ throughout GI: Palpation (GI): Soft to palpation Skin: Lesions: no lesions Rashes: no rashes Extrem: Other: Rt knee no ecchymosis, redness or drainage. Bandage changed. Wound is well approximated, garry intact, no drainage. NVI. Calf supple nontender. DS: Data Data Completed and Pending Pending studies at discharge: Pending at discharge 12/05/20 10:48 Surgical [PTH] Routine Labs on day of discharge: Laboratory Tests 10/08/20 11/14/20 11/14/20 08:45 14:25 14:45 WBC RBC Hgb Hct MCV MCH MCHC RDW Plt Count MPV Immature Gran % (Auto) Neut % (Auto) Lymph % (Auto) [place] % (Auto) Eos % (Auto) Baso % (Auto) Lymph # (Auto) [place] # (Auto) Eos # (Auto) Baso # (Auto) Abs Immat Gran (auto) Absolute Neuts (auto) Absolute Nucleated RBC Nucleated RBC % (auto) Sodium Potassium Chloride Carbon Dioxide Anion Gap BUN Creatinine Estim Creat Clear Calc Estimated GFR Fasting Glucose Calcium Nasal Screen MRSA (PCR) NEGATIVE Nasal S. aureus Screen NEGATIVE Nasal MRSA/S.aureus Interp SEE NOTE COVID-19 ([facility]) COVID-19 Clin Com Blood Type O Positive O Positive Antibody Screen NEGATIVE NEGATIVE 12/05/20 12/05/20 12/06/20 08:44 08:56 05:56 WBC 9.6 RBC 4.01 L Hgb 12.2 Hct 36.4 L MCV 90.8 MCH 30.4 MCHC 33.5 RDW 12.1 Plt Count 182 MPV 10.7 Immature Gran % (Auto) 0.3 Neut % (Auto) 75.7 H Lymph % (Auto) 10.4 L [place] % (Auto) 13.5 H Eos % (Auto) 0.0 Baso % (Auto) 0.1 Lymph # (Auto) 1.0 L [place] # (Auto) 1.3 H Eos # (Auto) 0.0 Baso # (Auto) 0.0 Abs Immat Gran (auto) 0.03 Absolute Neuts (auto) 7.2 Absolute Nucleated RBC 0.000 Nucleated RBC % (auto) 0.0 Sodium Potassium Chloride Carbon Dioxide Anion Gap BUN Creatinine Estim Creat Clear Calc Estimated GFR Fasting Glucose Calcium Nasal Screen MRSA (PCR) Nasal S. aureus Screen Nasal MRSA/S.aureus Interp COVID-19 ([facility]) Negative COVID-19 Clin Com See Note Blood Type O Positive Antibody Screen NEGATIVE 12/06/20 12/07/20 12/07/20 05:56 06:01 06:01 WBC 11.7 H RBC 3.72 L Hgb 11.4 L Hct 33.9 L MCV 91.1 MCH 30.6 MCHC 33.6 RDW 12.3 Plt Count 170 MPV 11.0 Immature Gran % (Auto) 0.3 Neut % (Auto) 74.6 H Lymph % (Auto) 13.2 L [place] % (Auto) 11.6 H Eos % (Auto) 0.0 Baso % (Auto) 0.3 Lymph # (Auto) 1.6 [place] # (Auto) 1.4 H Eos # (Auto) 0.0 Baso # (Auto) 0.0 Abs Immat Gran (auto) 0.04 H Absolute Neuts (auto) 8.7 H Absolute Nucleated RBC 0.000 Nucleated RBC % (auto) 0.0 Sodium 139 137 Potassium 4.0 4.2 Chloride 104 101 Carbon Dioxide 26 27 Anion Gap 13 13 BUN 17 H 11 Creatinine 0.66 0.60 Estim Creat Clear Calc 78.8 86.7 Estimated GFR > 60 > 60 Fasting Glucose 142 H 117 H Calcium 8.6 8.3 L Nasal Screen MRSA (PCR) Nasal S. aureus Screen Nasal MRSA/S.aureus Interp COVID-19 ([facility]) COVID-19 Clin Com Blood Type Antibody Screen Discharge Plan Discharge Patient Disposition: Home Health Service Referrals: [facility] [Outside] Meagan Stewart MD [Physician] - Yokasta Lantigua PA-C [Physician Chain Saw Operator] - Discharge Medications: New acetaminophen 325 mg Tablet 650 mg PO Q6H PRN (Reason: Pain, Mild (Pain Scale 1-3)) 30 Days Qty: 240 RF: 0 aspirin 325 mg Tablet 325 mg PO BID 14 Days Qty: 28 RF: 0 oxycodone 10 mg tablet 10 mg PO Q6H PRN (Reason: Pain, Moderate (Pain Scale 4-6) 7 Days Qty: 28 RF: 0 docusate sodium 100 mg Capsule 100 mg PO BID 30 Days Qty: 60 RF: 0 ondansetron HCl [Zofran] 4 mg tablet 4 mg PO Q8H PRN (Reason: nausea and vomiting) 7 Days Qty: 21 RF: 0 Continued cholecalciferol (vitamin D3) 25 mcg (1,000 unit) capsule 25 mcg PO DAILY 90 Days Qty: 90 RF: 1 trazodone 100 mg tablet 100 mg PO BEDTIME Qty: 90 RF: 8 omeprazole 20 mg Capsule,Delayed Release(Dr/Ec) 20 mg PO DAILY RF: 0 diltiazem HCl 30 mg Tablet RF: 0 alendronate 70 mg tablet 70 mg PO QWEEK RF: 0 lisinopril 20 mg tablet 20 mg PO DAILY RF: 0 dicyclomine 10 mg capsule 10 mg PO DAILY RF: 0 Discontinued hydrocodone-acetaminophen 5-325 mg tablet 1 tab PO DAILY PRN (Reason: pain) Qty: 30 RF: 0 naproxen 250 mg tablet 250 mg PO DAILY RF: 0 Discharge Orders: Discharge Order (Routine); Ordered 12/07/20 Ordered By: Magaly Brown Activity Restrictions/Additional Instructions: Physical Therapy for ROM 0-120, quad strength, gait training. Use walker for ambulation Limit stair climbing, No shower, No tub bath, No driving Continue aspirin anticoagulant x 2weeks Keep Aquacel dressing clean, dry and intact. Follow up with orthopedics in 2 weeks
--- NOTE | 2020-12-07 10:15 | W.MHC.F2F ---
Service Date Service Date: 12/07/20 Reasons for Services Reason for physical therapy: home safety and mobility, therapeutic exercises, restore joint function, gait/transfer training and ADL training Reason for occupational therapy: home safety and mobility, therapeutic exercises, restore joint function, gait/transfer training and ADL training MD Overseeing Care: Meagan Stewart Homebound: Leaving the home is medically contraindicated at this time without the asist of a device and/or another person due th the listed conditions above and below. Reason homebound: unsteady gait / fall risk, leg weakness, pain with ambulation, poor balance / fall risk and unable to drive Homebound supporting statement: Pt. is considered homebound due to recent surgery. Unable to drive, poor balance, poor gait mechanics. Certification: Based on the above findings, I certify that this patient is confined to the home and needs intermittent group home care, physical therapy and/or speech therapy, or continues to need occupational therapy. The patient is under my care, and I have initiated the establishment of the plan of care. The patient will be followed by a physician who will periodically review the plan of care.
--- NOTE | 2020-12-07 10:54 | MHC.CM.PN ---
Addendum entered by Kiara Tucker RN 12/07/20 12:01: PER [facility] PT DOES NOT NEED [facility] ONLY HOME OT/PT, [facility] AWARE. Original Note: PT DISCHARGING TODAY WITH [facility] FOR HOME OT/PT, ORTHO PA MESSAGED REGARDING NEED FOR [facility], DAUGHTER TO TRANSPORT.
--- NOTE | 2020-12-07 11:30 | P.PNIM_ITS ---
Subjective Subjective Date of Service: 12/07/20 Interval History: Patient in good spirits, just took pain medication, good pain control, ambulated and did stairs with no difficulty this morning, gives history of fluctuating BP is at home. She denies lightheadedness dizziness no acute overnight issues. Review of Systems General no headache, no dizziness no fever chills. CVS no chest pain, no palpitation. Respiratory no cough, no shortness of breath Gastrointestinal no nausea, no vomiting, no abdominal pain Physical Exam Vital Signs: Vital Signs: Last Vital Signs Temp 99.0 F 12/07/20 07:27 Pulse 104 H 12/07/20 08:27 Resp 17 12/07/20 07:27 BP 140/83 H 12/07/20 08:27 Pulse Ox 94 12/07/20 08:27 Body Mass Index 31.4 General patient resting comfortably ,no acute distress. Neck is supple no JVD. CVS regular rate rhythm, Respiratory lungs clear to auscultation, no respiratory distress, no wheeze, no rhonchi. Gastrointestinal abdomen soft, nontender, bowel sounds audible, no guarding , no rigidity. Extremities right knee dressing in place Neuro nonfocal , speech clear. Skin no rash Objective Data Current Medications Generic Name Dose Route Start Last Admin Trade Name Freq PRN Reason Stop Dose Admin Aspirin 325 mg 12/06/20 10:00 12/07/20 07:34 Aspirin 325 Mg Tablet PO 325 mg BID JUAN CARLOS Administration Dicyclomine HCl 10 mg 12/06/20 09:00 12/07/20 07:35 Dicyclomine Hcl 10 Mg Capsule PO 10 mg DAILY JUAN CARLOS Administration Docusate Sodium 100 mg 12/06/20 21:00 12/07/20 07:35 Docusate Sodium 100 Mg Capsule PO 100 mg BID JUAN CARLOS Administration Ketorolac Tromethamine 15 mg 12/05/20 12:57 12/05/20 18:21 Ketorolac Tromethamine 15 Mg/Ml Vial IVPUSH 15 mg Q6H PRN Administration Pain, Mild (Pain Scale 1-3) Lisinopril 10 mg 12/07/20 09:00 12/07/20 09:26 Lisinopril 10 Mg Tablet PO 10 mg DAILY JUAN CARLOS Administration Protocol Morphine Sulfate 2 mg 12/05/20 12:57 12/07/20 09:26 Morphine Sulfate 2 Mg/Ml Cartridge IVPUSH 2 mg Q2H PRN Administration Pain, Severe (Pain Scale 7-10) Naloxone HCl 0.2 mg 12/05/20 12:57 Naloxone Hcl 0.4 Mg/Ml Vial IVPUSH Q2M PRN Excessive sedation or RR < 8 Omeprazole 20 mg 12/06/20 06:30 12/07/20 06:14 Omeprazole 20 Mg Capsule. PO 20 mg DAILY@0630 JUAN CARLOS Administration Ondansetron HCl 4 mg 12/05/20 12:57 Ondansetron Hcl 4 Mg/2 Ml Vial IVPUSH Q8H PRN Nausea and Vomiting Senna 17.2 mg 12/05/20 12:57 Sennosides 8.6 Mg Tablet PO BEDTIME PRN Constipation Sodium Chloride 3 ml 12/05/20 16:00 12/07/20 07:35 0.9 % Sodium Chloride Flush 3 Ml Syringe IVFLUSH 3 ml QSHIFT JUAN CARLOS Administration Trazodone HCl 100 mg 12/05/20 21:00 12/06/20 21:12 Trazodone Hcl 100 Mg Tablet PO 100 mg BEDTIME JUAN CARLOS Administration Vitamin D 25 mcg 12/06/20 09:00 12/07/20 07:35 Cholecalciferol (Vitamin D3) 25 Mcg Tablet PO 25 mcg DAILY JUAN CARLOS Administration Labs CBC & Chem 7: 12/07/20 06:01 12/07/20 06:01 Assessment and Plan (1) S/P total knee arthroplasty: Problem details: Ms. Hawkins is a 60 yo female who presented to the office with ongoing right knee pain. She was found to have OA of the right knee and had failed all conservative treatment. She continued to have difficulty with ambulation and daily activities; therefore she consented to move forward with Right total knee arthroplasty. Status: Acute (2) Primary osteoarthritis of right knee: Status: Acute (3) Hypertension: Status: Acute Assessment and Plan: 60-year-old female patient with past medical history significant for hypertension and multiple surgeries, presented for an elective right total kneerthroplasty postoperative day 0, being followed for hypertension and med ication management. 1. Right total knee arthroplasty postoperative day 1 Good pain control, hematocrit dropped further but stable, patient asymptomatic with no chest pain no shortness of breath or dizziness, continue current pain medication, encourage incentive spirometry, continue PT. on aspirin for DVT prophylaxis. Recommend to take increase fiber in diet and stool softeners to avoid constipation with pain meds. Patient medically stable for discharge. 2. History of hypertension. BP few high readings started patient on lisinopril 10 mg by mouth daily patient takes lisinopril 20 mg a day recommend her to take half pill at home and to increase dose of lisinopril if noted to have elevated blood pressure , also recommended to take lisinopril 10 mg b.i.d. if noted to have high blood pressure at night, patient does not take Cardizem at home. 3. Insomnia. Continue trazodone 100 mg at bedtime.
== END 2020-12-07 14:00 | disposition home health service (06) ==
LOC: HO.SSS 12-06 15:27 → HO.S3 12-06 15:27
PROVIDERS: Nurse Practitioner; Physician Assistant; PCP Internal Medicine; Visit Provider Orthopaedic Surgery
PROC: (CPT 27447; principal; 2020-12-05 10:10)
DX: M17.11 Unilateral primary osteoarthritis, right knee (principal); I10 Essential (primary) hypertension; R11.0 Nausea; G47.00 Insomnia, unspecified; Z79.899 Other long term (current) drug therapy
CPT/HCPCS: 27447; 36415; 73560; 80048; 85025; 86850; 86900; 86901; 87635; 87640; 87641; 88305; 88311; 93005; 97110; 97116; 97162; C1776; J0690; J1885; J2250; J2270; J2370; J2405

== ENCOUNTER → 2020-12-21 10:37 | Outpatient (BNVA) | payer OTHER, SELFPAY | PROVIDERS: PCP Internal Medicine; Visit Provider Physician Assistant ==

== ENCOUNTER → 2021-01-18 10:36 | Outpatient (BNVA) | payer OTHER, SELFPAY | PROVIDERS: PCP Internal Medicine; Visit Provider Orthopaedic Surgery ==

== ENCOUNTER 2021-02-14 15:00 | Outpatient (RCR) | payer OTHER, SELFPAY ==
--- NOTE | 2021-01-02 14:07 | MHC.PT.EP ---
[facility] [place] [facility] [place] Office [place] Office [address] Braulio Gonzales [address] [phone] F: [phone] F: [phone] F: [phone] F: [phone] Physical Therapy Plan of Care Date of Evaluation: 01/02/21 Date of Surgery: 12/05/20 Diagnosis: R TKR Assessment: Pt is a 60 y/o female s/p right TKR on 12/05/[address] Stewart. She received home PT until 12/26/20 and has been compliant w/ her exercises. She demonstrates 0-3-110 degrees of right knee ROM. She reports 8/10 pain. Assessment reveals decreased knee ROM, tenderness to palpation, impaired hip and knee strength, mild gait deviations, mild weight shifting and proprioceptive impairments, inflammation, pain, and decreased patella mobility. 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 Pt is an excellent PT candidate and will be seen 1x/week (high copay) for 8-10 weeks. Frequency and Duration: The patient will be seen 1x/week for 10 weeks Short Term Goals: -In 3 weeks, Pt to demonstrate 120 degrees right knee flexion ROM w/ heel slides. -In 5 weeks, Pt to demonstrate the ability to ascend/descend a flight of stairs in a reciprocal pattern. Skilled Nursing Goals: -In 8 weeks, Pt to provide return demonstration of occupation-specific activities w/ <4/10 pain. -In 10 weeks, Pt will improve LEFI by at least 10 points. Treatment Plan: Modalities to reduce pain, spasms and effusion. Manual therapy to restore motion and function. Therapeutic exercise to improve strength and flexibility. Neuromuscular re-education for posture and balance. Therapeutic activities to return to functional activities of daily living. Electronically signed by: Elise Mckinney PT, DPT Please sign and return to therapist. Thank you for your referral.
--- NOTE | 2021-07-04 14:47 | MHC.PT.DC ---
[facility] [place] [facility] [place] Office [address] Braulio Gonzales [address] [phone] F: [phone] F: [phone] F: [phone] F: [phone] Physical Therapy Discharge Report Diagnosis: R TKR Date of Surgery: 12/05/20 Date of Evaluation: 01/02/21 Date of Discharge: 07/04/21 Treatments to Date: 7 Cancellations to Date: 0 No Shows to Date: 0 Discharge Status: Improved Function Independent with HEP Discharge Summary: Pt did not f/u with final visit but was I with HEP Electronically signed by: Franchesca Brothers PT Please sign and return to therapist. Thank you for your referral.
== END 2021-07-04 14:47 | disposition home or self-care (01) ==
LOC: HO.PT 15:00
PROVIDERS: PCP Internal Medicine; Visit Provider Physician Assistant
DX: Z47.1 Aftercare following joint replacement surgery (principal); Z96.651 Presence of right artificial knee joint
CPT/HCPCS: 97110; 97140; 97161; 97530

== ENCOUNTER 2021-03-07 07:53 | Outpatient (REF) | payer OTHER, SELFPAY ==
--- NOTE | ~2021-03-07 | XR_ITS ---
EXAMINATION: 1. STANDING AP BILATERAL KNEE RADIOGRAPHS 2. LATERAL RIGHT KNEE X-RAY CLINICAL INFORMATION: Pain COMPARISON: Knee x-rays December 06, 2020 and August 23, 2020 TECHNIQUE: Standing AP views of both knees were obtained in addition to a lateral view of the right knee FINDINGS: Patient is status post right knee arthroplasty. Components are in expected orientation. No periprosthetic fracture is identified. No suprapatellar joint effusion. Mild soft tissue swelling of the anterior knee. Subtle vascular calcifications. Standing AP view of the left knee demonstrate moderately decreased medial joint space height with mildly decreased lateral joint space height. Mild tricompartmental marginal osteophytes are noted within the left knee. XR/XR knee standing BI IMPRESSION: -Expected postoperative appearance of the right knee without periprosthetic fracture or dislocation. -Similar moderate degenerative changes of the left knee.
--- NOTE | ~2021-03-07 | XR_ITS ---
EXAMINATION: 1. STANDING AP BILATERAL KNEE RADIOGRAPHS 2. LATERAL RIGHT KNEE X-RAY CLINICAL INFORMATION: Pain COMPARISON: Knee x-rays December 06, 2020 and August 23, 2020 TECHNIQUE: Standing AP views of both knees were obtained in addition to a lateral view of the right knee FINDINGS: Patient is status post right knee arthroplasty. Components are in expected orientation. No periprosthetic fracture is identified. No suprapatellar joint effusion. Mild soft tissue swelling of the anterior knee. Subtle vascular calcifications. Standing AP view of the left knee demonstrate moderately decreased medial joint space height with mildly decreased lateral joint space height. Mild tricompartmental marginal osteophytes are noted within the left knee. XR/XR knee RT 2V IMPRESSION: -Expected postoperative appearance of the right knee without periprosthetic fracture or dislocation. -Similar moderate degenerative changes of the left knee.
== END 2021-03-07 07:54 | disposition home or self-care (01) ==
LOC: HO.HOSX 07:53
PROVIDERS: Visit Provider Orthopaedic Surgery
DX: T84.84XA Pain due to internal orthopedic prosthetic devices, implants and grafts, initial encounter (principal); M25.562 Pain in left knee; Z96.651 Presence of right artificial knee joint
CPT/HCPCS: 73560; 73565

== ENCOUNTER 2021-03-24 15:45 | Outpatient (REF) | payer OTHER, SELFPAY ==
--- NOTE | ~2021-03-24 | XR_ITS ---
EXAMINATION: XR CERVICAL SPINE CLINICAL INFORMATION: Neck pain. COMPARISON: None TECHNIQUE: 3 views of the cervical spine were obtained. FINDINGS: There are no prevertebral soft tissue or bony abnormalities demonstrated. No compression fractures or subluxations are identified. Alignment is maintained at the atlanto-axial articulation. The disc spaces are preserved. No endplate changes are seen. The prevertebral soft tissues are normal. The foramina are patent. XR/XR cervical spine 2V IMPRESSION: Unremarkable cervical spine examination.
== END 2021-03-24 15:46 | disposition home or self-care (01) ==
LOC: HO.XRAY 15:45
PROVIDERS: PCP Internal Medicine; Visit Provider Internal Medicine
DX: M54.2 Cervicalgia (principal)
CPT/HCPCS: 72040

== ENCOUNTER 2021-06-08 09:00 | Outpatient (RCR) | payer OTHER, SELFPAY ==
--- NOTE | 2021-05-16 18:34 | MHC.PT.EP ---
[facility] [place] Office [place] Office [place] Office [address] [phone] F: [phone] F: [phone] F: [phone] F: [phone] Physical Therapy Plan of Care Date of Evaluation: Date of Surgery: Diagnosis: Cervicalgia Assessment: Pt is a 60yo F who presents to PT with L neck/UT pain for 6 mo. Pt presents with current impairments in pain, ROM, strength, posture, and soft tissue restrictions. Her signs and symptoms may be consistent with UT muscle spasm. She is limited functionally by turning her head, mopping at work, driving, and sleeping. She will benefit from skilled PT to address current impairments and facilitate return to pain-free PLOF. Frequency and Duration: The patient will be seen 2x/week for 4 weeks Short Term Goals: Pt will be I with HEP to promote self management of symptoms. 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 Pt will demonstrate statistically significant improvement in Neck Pain Disability Index Questionnaire. Pt will report pain 3/10 or less after functional activities. Treatment Plan: Modalities to reduce pain, spasms and effusion. Manual therapy to restore motion and function. Therapeutic exercise to improve strength and flexibility. Neuromuscular re-education for posture and balance. Therapeutic activities to return to functional activities of daily living. Electronically signed by: Princess Kimball, PT, DPT Please sign and return to therapist. Thank you for your referral.
--- NOTE | 2021-06-12 14:55 | MHC.PT.DC ---
[facility] [place] [facility] [place] Office [place] Office [address] Braulio Gonzales [address] [phone] F: [phone] F: [phone] F: [phone] F: [phone] Physical Therapy Discharge Report Diagnosis: Cervicalgia Date of Surgery: Date of Evaluation: 05/16/21 Date of Discharge: 06/12/21 Treatments to Date: 4 Cancellations to Date: 1 No Shows to Date: 3 Discharge Status: Independent with HEP Patient Elected to Stop Discharge Summary: Pt is being D/C from skilled PT services per her request. She is I with current HEP. Her plan is return to MD for further testing and obtain a heating pad. Electronically signed by: Princess Kimball PT, DPT Please sign and return to therapist. Thank you for your referral.
== END 2021-06-12 14:56 | disposition home or self-care (01) ==
LOC: HO.PT 09:00
PROVIDERS: PCP Internal Medicine; Visit Provider Internal Medicine
DX: M54.2 Cervicalgia (principal)
CPT/HCPCS: 97110; 97161

== ENCOUNTER 2021-07-14 08:56 | Outpatient (REF) | payer OTHER, SELFPAY ==
--- NOTE | ~2021-07-14 | XR_ITS ---
EXAMINATION: XR HIP, LEFT CLINICAL INFORMATION: Pain. COMPARISON: 06/18/2018 TECHNIQUE: Two views of the left hip. FINDINGS: There is no evidence of acute fracture or dislocation of the left hip. Left hip joint space is maintained. No significant spurring is appreciated. No abnormal lytic or sclerotic lesions are seen. XR/XR hip LT 1V IMPRESSION: No left hip abnormality appreciated.
[2021-07-14 09:21] LABS: MANUAL DIFF FLAG NO
[2021-07-14 09:27] LABS: Basophils Percent Auto 0.7 % (0-2); Eosinophils Absolute Auto 0.1 X10*3/uL (0.0-0.4); Eosinophils Percent Auto 1.3 % (0-4); Hemoglobin 14.8 g/dl (12.0-16.0); Imm Gran Abs Auto 0.01 X10*3/uL (0.00-0.03); Imm Gran Pct Auto 0.2 % (0.0-0.4); Lymphocytes Absolute Auto 1.8 X10*3/uL (1.2-4.9); Lymphocytes Percent Auto 40.9 % (20-40); Mean Corpuscular HGB Conc 33.6 g/dl (31.0-35.0); Mean Corpuscular Hemoglobin 30.6 pg (27.0-33.0); Mean Corpuscular Volume 90.9 fL (80-98); Mean Platelet Volume 10.1 fL (9.4-12.3); Monocytes Absolute Auto 0.4 X10*3/uL (0.1-1.2); Monocytes Percent Auto 9.6 % (2-11); Neutrophils Absolute Auto 2.1 X10*3/uL (2.0-8.3); Neutrophils Percent Auto 47.3 % (45-73); Platelet Count 195 X10*3/uL (160-400); Red Blood Count 4.84 X10*6/uL (4.20-5.50); Red Cell Distribution Width 12.2 % (11.0-16.0); White Blood Count 4.5 X10*3/uL (4.8-10.8)
[2021-07-14 09:57] LABS: Alanine Aminotransferase 22 U/L (0-31); Albumin Level 4.4 g/dL (3.5-5.0); Alkaline Phosphatase 58 U/L (39-117); Anion Gap 9 (12-20); Aspartate Amino Transferase 20 U/L (5-31); Bilirubin Total 0.8 mg/dL (0.0-1.0); Blood Urea Nitrogen 12 mg/dL (9-16); Calcium 9.5 mg/dL (8.4-10.2); Carbon Dioxide 28 mmol/L (22-29); Chloride 107 mmol/L (96-108); Cholesterol 216 mg/dL; Estimated Glomerular Filt Rate > 60; Glucose Fasting 95 mg/dL (60-99); HDL Cholesterol 56 mg/dL; LDL Cholesterol Calculated 135 mg/dl; Potassium 4.7 mmol/L (3.3-5.1); Sodium 139 mmol/L (135-145); Total Protein 7.2 g/dL (6.5-8.0); Triglycerides 128 mg/dL
[2021-07-14 10:12] LABS: Thyroid Stimulating Hormone 0.58 uIU/mL (0.32-4.0)
== END 2021-07-14 08:57 | disposition home or self-care (01) ==
LOC: HO.XRAY 08:56
PROVIDERS: PCP Internal Medicine; Visit Provider Internal Medicine
DX: Z00.00 Encounter for general adult medical examination without abnormal findings (principal); E11.9 Type 2 diabetes mellitus without complications; E03.9 Hypothyroidism, unspecified; M25.552 Pain in left hip
CPT/HCPCS: 36415; 73501; 80053; 80061; 84443; 85025

== ENCOUNTER 2021-07-20 14:23 | Outpatient (REF) | payer OTHER, SELFPAY ==
--- NOTE | ~2021-07-20 | MM_ITS ---
EXAMINATION: MM SCREENING DIGITAL BREAST TOMOSYNTHESIS, BILATERAL CLINICAL INFORMATION: Screening. Asymptomatic. Prior history breast reduction mammoplasty. The lifetime risk of breast cancer based on the Tyrer-Cuzick Model is 10%. COMPARISON: Mammography: 10/06/2019, 07/18/2018, 05/24/2017 TECHNIQUE: Digital breast tomosynthesis is performed in both the craniocaudal and mediolateral oblique views along with computer-aided detection (CAD). Synthesized 2D images are generated from the tomosynthesis. Additional bilateral exaggerated CC views and left MLO view are provided. FINDINGS: There are scattered areas of fibroglandular density (ACR BI-RADS breast composition Category b). There are no significant masses, abnormal calcifications, or other abnormalities. Parenchymal pattern is similar to prior studies. There is no developing density. Minor scarring consistent with reduction mammoplasty is stable. The axilla are unremarkable. No significant changes. MM/MM tomosynthesis screening BI IMPRESSION: No mammographic evidence of malignancy. ASSESSMENT: BI-RADS 2: Benign RECOMMENDATION: Routine annual mammography screening. This patient's information was entered into a reminder system with a target due date for their next mammogram.
== END 2021-07-20 14:24 | disposition home or self-care (01) ==
LOC: HO.MAMMO 14:23
PROVIDERS: PCP Internal Medicine; Visit Provider Internal Medicine
DX: Z12.31 Encounter for screening mammogram for malignant neoplasm of breast (principal)
CPT/HCPCS: 77063; 77067

== ENCOUNTER 2022-02-12 12:13 | Outpatient (REF) | payer OTHER, SELFPAY ==
--- NOTE | ~2022-02-12 | XR_ITS ---
EXAMINATION: XR KNEE, BILATERAL XR KNEE, RIGHT CLINICAL INFORMATION: Pain COMPARISON: 03/07/2021 TECHNIQUE: AP standing view of both knees. Lateral and sunrise views of the right knee. FINDINGS: Right knee: There is a total right knee arthroplasty. The femoral component articulates appropriately with the tibial and patellar components. No periprosthetic lucency or fracture. No joint effusion. The soft tissues are unremarkable. Left knee: No fracture or subluxation. Mild medial compartment joint space narrowing with small osteophytes of the medial and lateral compartments. XR/XR knee RT 2V IMPRESSION: Total right knee arthroplasty without evidence of failure. Mild degenerative changes of the left knee medial and lateral compartments.
--- NOTE | ~2022-02-12 | XR_ITS ---
EXAMINATION: XR KNEE, BILATERAL XR KNEE, RIGHT CLINICAL INFORMATION: Pain COMPARISON: 03/07/2021 TECHNIQUE: AP standing view of both knees. Lateral and sunrise views of the right knee. FINDINGS: Right knee: There is a total right knee arthroplasty. The femoral component articulates appropriately with the tibial and patellar components. No periprosthetic lucency or fracture. No joint effusion. The soft tissues are unremarkable. Left knee: No fracture or subluxation. Mild medial compartment joint space narrowing with small osteophytes of the medial and lateral compartments. XR/XR knee standing BI IMPRESSION: Total right knee arthroplasty without evidence of failure. Mild degenerative changes of the left knee medial and lateral compartments.
== END 2022-02-12 12:14 | disposition home or self-care (01) ==
LOC: HO.HOSX 12:13
PROVIDERS: Visit Provider Orthopaedic Surgery
DX: Z47.1 Aftercare following joint replacement surgery (principal); Z96.651 Presence of right artificial knee joint
CPT/HCPCS: 73560; 73565

== ENCOUNTER 2022-04-02 06:53 | Emergency (ER) | payer OTHER, SELFPAY ==
--- NOTE | ~2022-04-02 | XR_ITS ---
EXAMINATION: XR CHEST CLINICAL INFORMATION: Shortness of breath. Covid positive COMPARISON: None TECHNIQUE: Frontal view of the chest was obtained. FINDINGS: Lungs are grossly clear. Heart and pulmonary vessels are normal. XR/XR chest 1V IMPRESSION: No active disease.
[2022-04-02 07:08] VITALS: BP 177/81; PULSE 86; RESP 18; TEMP 36.9; O2SAT 97; BMI 33.9
--- NOTE | 2022-04-02 09:09 | ED.URI ---
HPI - URI/Sore Throat General Chief Complaint: Upper Respiratory Symptoms Stated Complaint: ammonia Time Seen by Provider: 04/02/22 08:29 Source: patient Mode of arrival: ambulatory Limitations: no limitations History of Present Illness HPI Narrative: 61-year-old female history of high blood pressure presents to ED for cough, loss of voice, and mild shortness of breath only when she has cough. Patient states having coughing fit due to recent COVID positive diagnosis that occurred last . Patient denies any shortness of breath at rest or exertion. Patient states only when coughing. Patient states having laryngitis. Patient denies any leg swelling, calf pain, coughing up blood, chest pain on inspiration, estrogen hormonal use, recent long travel, recent surgery, or any history of blood clots. Patient states vaccinated with Moderna booster with [email or web address]. Patient states no chest pain. Related Data Home Medications Medication Instructions Recorded Confirmed dicyclomine 10 mg capsule 10 mg PO DAILY cap 09/13/20 03/27/22 Previous Rx's Medication Instructions Recorded acetaminophen 325 mg tablet 650 mg PO Q6H PRN 30 Days #240 tab 12/07/20 docusate sodium 100 mg capsule 100 mg PO BID 30 Days #60 cap 12/07/20 ondansetron HCl 4 mg tablet 4 mg PO Q8H PRN 7 Days #21 tab 12/07/20 (Zofran) alendronate 70 mg tablet 70 mg PO QWEEK #14 tab 04/04/21 triamcinolone acetonide 0.5 % 1 appl TOPICAL TID #15 g 07/13/21 topical cream cholecalciferol (vitamin D3) 25 25 mcg PO DAILY #90 tab 10/16/21 mcg (1,000 unit) tablet lisinopril 20 mg tablet 20 mg PO DAILY #90 tab 01/16/22 meloxicam 15 mg tablet 15 mg PO DAILY #30 tab 02/12/22 hydrocodone 5 mg-acetaminophen 325 1 tab PO BID PRN 28 Days #28 tab 03/07/22 mg tablet trazodone 100 mg tablet 100 mg PO BEDTIME #90 tab 03/12/22 amoxicillin 250 mg capsule 250 mg PO Q8H #30 cap 03/27/22 omeprazole 20 mg capsule,delayed 40 mg PO DAILY #180 cap 03/29/22 release nirmatrelvir 300 mg (150 mg x See Rx Instructions PO PER PKG DIR 05/20/22 2)-ritonavir 100 mg tablet (EUA) #30 tab (Paxlovid 300 mg () Allergies Allergy/AdvReac Type Severity Reaction Status Date / Time No Known Allergies Allergy Unknown Verified 03/27/22 11:42 Review of Systems Review of Systems: COVID. Coughing. Yes all other systems are reviewed and are negative [facility] Past Medical History Medical History Anxiety Arthritis Back pain GERD (gastroesophageal reflux disease) Hypertension Hypertension Insomnia Obesity PONV (postoperative nausea and vomiting) Surgical History History of arthroscopy of left knee (~01/2012) History of breast mammoplasty (~2008) History of hysterectomy History of rectal sphincterotomy (~2001) History of tubal ligation Hx of cholecystectomy (~2001) S/P total knee arthroplasty Family History Family History Father No problems noted. 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 Cognitive needs: No Hearing needs: No Vision needs: Yes Physical Exam Vital Signs: Vital Signs: Last Vital Signs Temp 98.4 F 04/02/22 07:08 Pulse 86 04/02/22 07:08 Resp 18 04/02/22 07:08 BP 177/81 H 04/02/22 07:08 Pulse Ox 97 04/02/22 07:08 BMI result Body Mass Index 33.9 Const: General: cooperative, healthy appearing, comfortable, no acute distress, well developed, alert, awake and Physically active Orientation/consciousness: oriented to time and patient oriented x3 HEENT: Head: Yes normal to inspection, Yes No palpable skull fracture present, Yes normocephalic, Yes atraumatic and No abrasion Ears: hearing grossly normal bilaterally, external ears normal, TM's normal bilaterally, TM normal on the right, EAC's normal, mastoids normal and no periauricular adenopathy Throat: Yes posterior oropharynx normal, Yes tonsils normal and Yes uvula midline Eyes: General: appearance normal, both eyes and all related structures Neck: Neck: Yes normal visual inspection, Yes full ROM, Yes no lymphadenopathy, Yes no meningeal signs, Yes trachea midline, Yes supple, No anterior neck swelling and No tender Chest: Chest palpation & inspection: normal inspection of the chest and normal palpation of entire chest wall Resp: Effort & Inspection: normal respiratory effort and able to speak in complete sentences Auscultation: clear to auscultation bilaterally Cardio: Jugular venous distension: no JVD Heart sounds: S1 normal heart sound present and S2 normal heart sound present GI: Inspection: Yes normal to inspection, No abdominal wall ecchymosis and No caput medusae present Palpation (GI): Soft to palpation, not firm, nontender, no guarding and not rigid : General: No CVA tenderness and Yes no CVA tenderness Back/Spine/Pelvis: Back: no CVA tenderness, No CVA tenderness and No back tenderness Skin: General skin exam: no rashes or lesions noted and elasticity normal Neuro: General: oriented to time, patient oriented x3, gait normal and no meningeal signs Cranial nerves: Yes CN's II-XII intact bilaterally Extrem: Other: Lower extremities negative for swelling, pitting edema, or calf tenderness. General: Yes normal to inspection and Yes full ROM Psych: Appearance: grossly normal, well kempt and not disheveled Course Course Course Narrative: chest x-ray ordered. Reevaluation(s) Reevaluation #1: Chest x-ray negative for COVID pneumonia. Patient vital signs stable. Patient is not hypoxic. On O2 ambulation test oxygen saturation maintained at 97%. Not suspecting any heart attack, pulmonary embolus, CHF, or myocarditis. No indication for EKG or labs. Patient's main complaint was just coughing and loss of voice. Patient informed to return to the ED immediately if she has shortness of breath on rest on exertion, coughing up blood, leg swelling, calf pain, chest pain, or any other concerning symptoms. Time: 21:14 MDM - URI/Sore Throat MDM Narrative Medical decision making narrative: COVID Discharge Plan Discharge Clinical Impression: COVID-19 Patient Disposition: Home, Self-Care Instructions: COVID-19 (Coronavirus Disease 2019) (ED) Additional Instructions: return to the ED immediately for any chest pain, shortness of breath, coughing up blood, chest pain on inspiration, leg swelling, calf pain, or any other concerning symptoms. Recommend using [id number] portable pulse ox to check for oxygen level. Return to the ED immediately if oxygen saturation falls below 94/ 93%. Please follow-up with primary care provider. Prescriptions: No Action alendronate 70 mg tablet 70 mg PO QWEEK Qty: 14 4RF Rx Instructions: Tuesdays cholecalciferol (vitamin D3) 25 mcg (1,000 unit) tablet 25 mcg PO DAILY Qty: 90 1RF lisinopril 20 mg tablet 20 mg PO DAILY Qty: 90 8RF hydrocodone-acetaminophen 5-325 mg tablet 1 tab PO BID PRN (Reason: pain) 28 Days Qty: 28 0RF trazodone 100 mg tablet 100 mg PO BEDTIME Qty: 90 0RF omeprazole 20 mg capsule,delayed release(DR/EC) 40 mg PO DAILY Qty: 180 1RF Paxlovid (EUA) 150 mg x 2- 100 mg tablet See Rx Instructions PO PER PKG DIR Qty: 30 0RF Rx Instructions: PO PER PKG DIR acetaminophen 325 mg Tablet 650 mg PO Q6H PRN (Reason: Pain, Mild (Pain Scale 1-3)) 30 Days Qty: 240 0RF docusate sodium 100 mg Capsule 100 mg PO BID 30 Days Qty: 60 0RF ondansetron HCl [Zofran] 4 mg tablet 4 mg PO Q8H PRN (Reason: nausea and vomiting) 7 Days Qty: 21 0RF triamcinolone acetonide 0.5 % cream 1 appl topical TID Qty: 15 0RF amoxicillin 250 mg capsule 250 mg PO Q8H Qty: 30 0RF dicyclomine 10 mg capsule 10 mg PO DAILY 0RF meloxicam 15 mg tablet 15 mg PO DAILY Qty: 30 2RF Stand Alone Forms: Work/School Release Interventions: ED Discharge Assessment Last Done: 04/02/22 09:26 Discharge Date/Time: 04/02/22 09:26 Print Language: Guamanian
== END 2022-04-02 09:26 | disposition home or self-care (01) ==
PROVIDERS: Emergency Provider Emergency Medicine; PCP Internal Medicine
DX: U07.1 COVID-19 (principal)
CPT/HCPCS: 71045; 99283

== ENCOUNTER 2022-04-24 07:02 | Outpatient (REF) | payer OTHER, SELFPAY ==
--- NOTE | ~2022-04-24 | XR_ITS ---
EXAMINATION: XR HIP, LEFT CLINICAL INFORMATION: Hip pain COMPARISON: Radiographs left hip 07/14/2021, radiographs pelvis and left hip 06/18/2018. Pelvic ultrasound 07/10/2017. TECHNIQUE: AP view of the pelvis is performed along with AP and frog-lateral projections left hip. FINDINGS: There is probable transitional vertebrae at lumbosacral junction with degenerative disc changes. The SI joints and pubis show no diastases. The bony pelvis is intact. No destructive process. Normal bony mineralization. There is mild spurring superior aspect right hip greater trochanter similar to pelvic radiograph 2018. Left hip shows no fracture, dislocation, or destructive process. No hip joint narrowing or erosive change or chondrocalcinosis. Bowel gas unremarkable. Density left pelvis likely stool in sigmoid colon similar to pelvic radiograph 2018. Ultrasound report 2017 notes previous hysterectomy and oophorectomy. XR/XR hip LT w PEL1V IMPRESSION: -Normal left hip. -Degenerative disc changes lumbosacral junction with probable transitional vertebral body
== END 2022-04-24 07:03 | disposition home or self-care (01) ==
LOC: HO.HOSX 07:02
PROVIDERS: Visit Provider Physician Assistant
DX: M70.62 Trochanteric bursitis, left hip (principal); M79.18 Myalgia, other site
CPT/HCPCS: 20610; 73502; J1040

== ENCOUNTER 2022-07-26 14:49 | Outpatient (REF) | payer OTHER, SELFPAY ==
--- NOTE | ~2022-07-26 | MM_ITS ---
EXAMINATION: MM SCREENING DIGITAL BREAST TOMOSYNTHESIS, BILATERAL CLINICAL INFORMATION: Screening. Asymptomatic. Prior history reduction mammoplasty, 2009. The lifetime risk of breast cancer based on the Tyrer-Cuzick Model is 11%. COMPARISON: Mammography: 07/20/2021, 10/06/2019, 07/18/2018. TECHNIQUE: Digital breast tomosynthesis is performed in both the craniocaudal and mediolateral oblique views along with computer-aided detection (CAD). Synthesized 2D images are generated from the tomosynthesis. FINDINGS: There are scattered areas of fibroglandular density (ACR BI-RADS breast composition Category b). There are no significant masses, abnormal calcifications, or other abnormalities. Parenchymal pattern is similar to prior exams. No significant changes. MM/MM tomosynthesis screening BI IMPRESSION: No mammographic evidence of malignancy. ASSESSMENT: BI-RADS 1: Negative RECOMMENDATION: Routine annual mammography screening. This patient's information was entered into a reminder system with a target due date for their next mammogram.
== END 2022-07-26 14:50 | disposition home or self-care (01) ==
LOC: HO.MAMMO 14:49
PROVIDERS: PCP Internal Medicine; Visit Provider Internal Medicine
DX: Z12.31 Encounter for screening mammogram for malignant neoplasm of breast (principal)
CPT/HCPCS: 77063; 77067

== ENCOUNTER 2022-07-31 06:13 | Outpatient (REF) | payer OTHER, SELFPAY ==
[2022-07-31 06:31] LABS: MANUAL DIFF FLAG NO
[2022-07-31 07:18] LABS: Basophils Percent Auto 0.5 % (0-2); Eosinophils Absolute Auto 0.2 X10*3/uL (0.0-0.4); Hemoglobin 13.9 g/dl (12.0-16.0); Imm Gran Abs Auto 0.02 X10*3/uL (0.00-0.03); Imm Gran Pct Auto 0.4 % (0.0-0.4); Lymphocytes Absolute Auto 1.9 X10*3/uL (1.2-4.9); Lymphocytes Percent Auto 33.9 % (20-40); Mean Corpuscular HGB Conc 33.9 g/dl (31.0-35.0); Mean Corpuscular Hemoglobin 30.8 pg (27.0-33.0); Mean Corpuscular Volume 90.7 fL (80.0-98.0); Mean Platelet Volume 10.8 fL (9.4-12.3); Monocytes Absolute Auto 0.5 X10*3/uL (0.1-1.2); Monocytes Percent Auto 9.3 % (2-11); Neutrophils Percent Auto 52.9 % (45-73); Platelet Count 209 X10*3/uL (160-400); Red Blood Count 4.52 X10*6/uL (4.20-5.50); Red Cell Distribution Width 12.3 % (11.0-16.0); White Blood Count 5.6 X10*3/uL (4.8-10.8)
[2022-07-31 07:54] LABS: Alanine Aminotransferase 25 U/L (0-31); Albumin Level 4.2 g/dL (3.5-5.0); Alkaline Phosphatase 60 U/L (39-117); Anion Gap 14 (12-20); Aspartate Amino Transferase 24 U/L (5-31); Bilirubin Total 0.7 mg/dL (0.0-1.0); Blood Urea Nitrogen 13 mg/dL (9-16); Calcium 9.2 mg/dL (8.4-10.2); Carbon Dioxide 26 mmol/L (22-29); Chloride 104 mmol/L (96-108); Cholesterol 195 mg/dL; Estimated Glomerular Filt Rate > 60; Glucose Fasting 99 mg/dL (60-99); HDL Cholesterol 46 mg/dL; LDL Cholesterol Calculated 128 mg/dl; Potassium 4.2 mmol/L (3.3-5.1); Sodium 140 mmol/L (135-145); Total Protein 6.9 g/dL (6.5-8.0); Triglycerides 106 mg/dL
[2022-07-31 08:17] LABS: Thyroid Stimulating Hormone 0.85 uIU/mL (0.32-4.0)
== END 2022-07-31 06:14 | disposition home or self-care (01) ==
LOC: HO.LAB 06:13
PROVIDERS: PCP Internal Medicine; Visit Provider Internal Medicine
DX: E03.9 Hypothyroidism, unspecified (principal); E78.5 Hyperlipidemia, unspecified; I10 Essential (primary) hypertension; Z13.0 Encounter for screening for diseases of the blood and blood-forming organs and certain disorders involving the immune mechanism
CPT/HCPCS: 36415; 80053; 80061; 84443; 85025

== ENCOUNTER 2023-05-30 14:20 | Emergency (ER) | payer OTHER, SELFPAY ==
--- NOTE | ~2023-05-30 | CT_ITS ---
EXAMINATION: CT HEAD WITHOUT CONTRAST CLINICAL INFORMATION: Acute right-sided headache. COMPARISON: CT head 07/20/2019. TECHNIQUE: Contiguous axial imaging was performed from the skull base to vertex without intravenous administration of contrast. This CT examination was performed using dose optimization techniques as appropriate, variously including the following: *Automated exposure control *Adjustment of mA and/or kV according to patient size (this includes techniques or standardized protocols for targeted exams where dose is matched to indication/reason for exam; i.e. extremities or head) *Use of iterative reconstruction technique DLP: 641 mGy-cm FINDINGS: Unchanged largely calcified right anterior parafalcine extra-axial density (coronal image 85, series 7). Unchanged 0.6 cm noncalcified extra-axial soft tissue density along the high left frontoparietal convexity (coronal image 108, series 7). There is no evidence of acute intracranial hemorrhage or edematous territorial infarction. A few foci of hypoattenuation in the periventricular and deep white matter are consistent with mild microangiopathy. Chronic hypodensities in the bilateral basal ganglia, stable. Mena-white matter differentiation is preserved. Proportional prominence of the ventricles and sulcal spaces. No evidence for obstructive hydrocephalus. No abnormal mass effect or midline shift. No extra-axial fluid collections. No acute soft tissue or osseous abnormalities. Mucus retention cyst in the anterior right maxillary sinus. No air-fluid levels in the paranasal sinuses. The mastoids and middle ear cavities are clear. CT/CT head/brain wo IV con IMPRESSION: 1. No evidence of acute intracranial hemorrhage or edematous territorial infarction. 2. Stable subcentimeter extra-axial observations in the right anterior parafalcine region and high left frontoparietal convexity. These are suggestive of meningiomas and stability since 07/20/2019 is reassuring. However, definite characterization could be obtained with an MRI of the brain with and without IV contrast.
--- NOTE | ~2023-05-30 | XR_ITS ---
EXAMINATION: XR CHEST CLINICAL INFORMATION: Shortness of breath COMPARISON: Chest x-ray 04/02/2022 TECHNIQUE: 2 views of the chest were obtained. FINDINGS: No significant abnormality is noted involving the heart, lungs, mediastinum, bony thorax or soft tissues. Surgical clips right upper quadrant of the abdomen XR/XR chest 2V IMPRESSION: Unremarkable examination.
[2023-05-30 14:32] VITALS: BP 154/65; PULSE 46; RESP 16; TEMP 36.3; O2SAT 97; BMI 34.7
--- NOTE | 2023-05-30 14:32 | ED_ITS ---
HPI - General Adult General Chief complaint: Arrhythmia/Palpitations Stated complaint: Headache, pulse 41, SOB Time Seen by Provider: 05/30/23 15:28 Source: patient and family Limitations: no limitations History of Present Illness HPI narrative: 62-year-old female presents with headache and low heart rate. Patient has had right-sided headache for. At 3 days. The headache is moderate nature. Is not associated photo or phonophobia. There is no vision changes. No nausea or vomiting. Patient felt generally unwell and a little bit lightheaded earlier today. She took her blood pressure was slightly hypertensive in her pulse rate was read as 40. She got particularly nervous and came to the emergency department. Stressed the headache goes, there is no clear relieving or exacerbating features. She does not typically have headaches. She denies any focal neurologic deficits. She has no history of temporal arteritis or PMR. Patient denies any chest pain, palpitations. She has had no shortness of breath or shortness of breath with exertion. 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 Related Data Home Medications Medication Instructions Recorded Confirmed dicyclomine 10 mg capsule 10 mg PO DAILY 09/13/20 07/17/22 clobetasol 0.05 % topical ointment g topical 04/24/22 07/17/22 Previous Rx's Medication Instructions Recorded docusate sodium 100 mg capsule 100 mg PO BID 30 days #60 caps 12/07/20 ondansetron HCl 4 mg tablet 4 mg PO Q8H PRN nausea and 12/07/20 (Zofran) vomiting 7 days #21 tabs triamcinolone acetonide 0.5 % 1 appl topical TID #15 grams 07/13/21 topical cream trazodone 100 mg tablet 100 mg PO BEDTIME #90 tabs 06/07/22 alendronate 70 mg tablet 70 mg PO QWEEK #14 tabs 06/11/22 lisinopril 20 mg tablet 20 mg PO DAILY #90 tabs 01/28/23 hydrocodone 5 mg-acetaminophen 325 1 tab PO BID PRN pain 28 days #28 05/02/23 mg tablet tabs cholecalciferol (vitamin D3) 25 25 mcg PO DAILY #90 tabs 05/13/23 mcg (1,000 unit) tablet omeprazole 40 mg capsule,delayed 40 mg PO DAILY #90 caps 05/21/23 release Allergies Allergy/AdvReac Type Severity Reaction Status Date / Time No Known Allergies Allergy Unknown Verified 05/30/23 14:32 Review of Systems Review of Systems: CONSTITUTIONAL: Denies weight loss, fever and chills. HEENT: Denies changes in vision and hearing. RESPIRATORY: Denies SOB and cough. CV: Denies palpitations no CP. GI: Denies abdominal pain, nausea, vomiting and diarrhea. : Denies dysuria and urinary frequency. MSK: Denies myalgia and joint pain. SKIN: Denies rash and pruritus. NEUROLOGICAL: + headache and no syncope. PSYCHIATRIC: Denies recent changes in mood. Denies anxiety and depression. All other ROS are negative unless in HPI PMFSH Past Medical History Medical History Anxiety Arthritis Back pain GERD (gastroesophageal reflux disease) Hypertension Hypertension Insomnia Obesity PONV (postoperative nausea and vomiting) Surgical History History of arthroscopy of left knee (~01/2012) History of breast mammoplasty (~2008) History of hysterectomy History of rectal sphincterotomy (~2001) History of tubal ligation Hx of cholecystectomy (~2001) S/P total knee arthroplasty Family History Family History Father No problems noted. Mother Heart disease Arthritis Blindness CVD (cardiovascular disease) Social History Social History Household Members: Family Housing: Apartment Are you a primary animal care technician to a significant other at home: No Do you presently have visiting nurse or other home services: No Alcohol intake: never Patient Tobacco Use Status: Never used Tobacco Smoked in Last 30 Days: No e-Cigarette/Vaping Use: Never Used Second Hand Smoke Exposure: No Use of substances other than those prescribed or required for medical reasons: No Advance Directives: Yes Advance Directives on File: Yes Advance Directives Date on File: 12/08/20 Patient : No service: No Current occupational status: employed 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 Cognitive needs: No Hearing needs: No Vision needs: Yes Physical Exam ED Vital Signs: Vital Signs - 24 hr 05/30/23 14:32 05/30/23 16:01 05/30/23 17:53 Temperature 97.3 F 98.2 F Pulse Rate 46 L 78 82 Respiratory Rate 16 18 16 Blood Pressure 154/65 H 147/72 H 128/59 L Pulse Oximetry 97 98 98 Oxygen Delivery Method Room Air Room Air Room Air BMI result Body Mass Index 34.7 GEN: Well developed, no acute distress, alert, oriented HEENT: Normocephalic, atraumatic, normal external ears, nose appears normal, no oropharyngeal edema or exudates Eyes: Normal to appearance Neck: Supple, no lymphadenopathy Respiratory: Talks in complete sentences, no respiratory distress, clear to auscultation bilaterally Cardiovascular: Regular rate and rhythm, no murmurs rubs or gallops Abdomen: Soft, nontender, nondistended, no guarding, no rebound Back: No CVA tenderness Extremities: No clubbing cyanosis or edema Neurologic: No focal neurologic deficits, cranial nerves 2-12 intact, strength is 5/5 bilaterally Skin: No rash Course Course Course Narrative: This is an RME: Additional HPI, ROS, PE not included below will be deferred to primary provider. This is a 62-year-old female, with a past medical history of anxiety, arthritis, back pain, GERD, HTN, and insomnia, presenting to the emergency department with a complaint of headaches and tiredness x 5 days. Pt states that she has the headaches have been intermittent, had one at work today and she took her blood pressure and was noted to have a blood pressure at 154/79 and pulse of 41. Pt reporting right sided headache rating her pain, pulse dropped from 80 to 40s, no changes in her symptoms. She was told she has a hx of irregular heart rate, however has never been told she has atrial fibrillation and has not been seen by a lease administration supervisor. She is not on AC. She states +BRISENO, worsening since the onset of her symptoms. Plan: Labs, EKG , cxr Reevaluation(s) Reevaluation #1: Patient's workup is complete. She has no chest pain, shortness breath or palpitations. EKG did show bigeminy. Telemetry monitoring demonstrated frequent PVCs but no sustained V-tach or other cardiac dysrhythmia. There is no significant anemia, electrolyte abnormality, hypo or hyperglycemia as far as her headache goes, her ESR was 3. She does not have temporal arteritis. She does have some meningiomas that do not appear to cause any significant mass effect. I will refer her back to her primary care provider for a potential MRI to further characterize lesion seen on CT scan. She is aware of this finding. I will also refer the patient to a lease administration supervisor for the bigeminy to make sure there is no additional structural heart disease. Patient would like to be discharged at this time. Her headache has moderated. She feels comfortable going home. Time: 18:11 Medications Administered Discontinued Medications Generic Name Dose Route Start Last Admin Trade Name Ana PRN Reason Stop Dose Admin Acetaminophen 975 mg 05/30/23 16:10 05/30/23 16:41 Acetaminophen 325 Mg Tablet PO 05/30/23 16:11 975 mg ONCE ONE Administration Metoclopramide HCl 10 mg 05/30/23 16:10 05/30/23 16:42 Metoclopramide Hcl 10 Mg/2 Ml Vial IVPUSH 05/30/23 16:11 10 mg ONCE ONE Administration Medical Decision Making Medical Decision Making [facility] Narrative: 62-year-old female presents with right-sided headache and low heart rate. Examination was unremarkable. Her EKG shows bigeminy. She will be placed on a weaver dobby loom. Will check a CBC, chemistry, ESR. Will obtain a CT scan of the head to rule out mass effect especially given her age. Differential diagnosis of her headache includes migraine, temporal arteritis, tension headache, cluster headache, mass effect. Differential diagnosis for her heart rate is cardiac dysrhythmia, atrial fibrillation, atrial flutter, PACs, PVCs, heart block. Differential Diagnosis Differential Diagnoses: The differential diagnosis associated with the presentation includes (See above) Admission/Observation Consideration of admission/observation: Escalation of care including admission/observation considered Lab Data [facility] Lab Attestation statement: I reviewed the patient's lab results. 05/30/23 14:59 05/30/23 14:59 Labs: Lab Results 05/30/23 05/30/23 05/30/23 Range/Units 14:59 14:59 14:59 WBC 6.1 (4.8-10.8) X10*3/uL RBC 4.59 (4.20-5.50) X10*6/uL Hgb 14.2 (12.0-16.0) g/dl Hct 41.2 (37.0-47.0) % MCV 89.8 (80.0-98.0) fL MCH 30.9 (27.0-33.0) pg MCHC 34.5 (31.0-35.0) g/dl RDW 12.0 (11.0-16.0) % Plt Count 214 (160-400) X10*3/uL MPV 10.6 (9.4-12.3) fL Immature Gran % (Auto) 0.3 (0.0-0.4) % Neut % (Auto) 51.5 (45-73) % Lymph % (Auto) 37.3 (20-40) % [place] % (Auto) 8.1 (2-11) % Eos % (Auto) 2.0 (0-4) % Baso % (Auto) 0.8 (0-2) % Lymph # (Auto) 2.3 (1.2-4.9) X10*3/uL [place] # (Auto) 0.5 (0.1-1.2) X10*3/uL Eos # (Auto) 0.1 (0.0-0.4) X10*3/uL Baso # (Auto) 0.1 (0.0-0.2) X10*3/uL Abs Immat Gran (auto) 0.02 (0.00-0.03) X10*3/uL Absolute Neuts (auto) 3.2 (2.0-8.3) x10*3/uL Absolute Nucleated RBC 0.000 (0.0-0.012) X10*3/uL Nucleated RBC % (auto) 0.0 (0.0-0.2) /100WBC ESR (0-20) MM/HR Sodium 140 (135-145) mmol/L Potassium 3.6 (3.3-5.1) mmol/L Chloride 106 (96-108) mmol/L Carbon Dioxide 23 (22-29) mmol/L Anion Gap 16 (12-20) BUN 14 (9-16) mg/dL Creatinine 0.87 (0.5-1.4) mg/dL Estim Creat Clear Calc 58.9 Estimated GFR > 60 Random Glucose 118 H (60-115) mg/dL Calcium 9.8 D (8.4-10.2) mg/dL Total Bilirubin 0.4 (0.0-1.0) mg/dL Direct Bilirubin 0.1 (0.0-0.5) mg/dL AST 23 (5-31) U/L ALT 32 H (0-31) U/L Alkaline Phosphatase 75 (39-117) U/L Troponin I High Sens < 2.7 (<3.5-17.0) ng/L B-Natriuretic Peptide (<100) pg/mL Total Protein 7.3 (6.5-8.0) g/dL Albumin 4.3 (3.5-5.0) g/dL 05/30/23 05/30/23 Range/Units 14:59 16:10 WBC (4.8-10.8) X10*3/uL RBC (4.20-5.50) X10*6/uL Hgb (12.0-16.0) g/dl Hct (37.0-47.0) % MCV (80.0-98.0) fL MCH (27.0-33.0) pg MCHC (31.0-35.0) g/dl RDW (11.0-16.0) % Plt Count (160-400) X10*3/uL MPV (9.4-12.3) fL Immature Gran % (Auto) (0.0-0.4) % Neut % (Auto) (45-73) % Lymph % (Auto) (20-40) % [place] % (Auto) (2-11) % Eos % (Auto) (0-4) % Baso % (Auto) (0-2) % Lymph # (Auto) (1.2-4.9) X10*3/uL [place] # (Auto) (0.1-1.2) X10*3/uL Eos # (Auto) (0.0-0.4) X10*3/uL Baso # (Auto) (0.0-0.2) X10*3/uL Abs Immat Gran (auto) (0.00-0.03) X10*3/uL Absolute Neuts (auto) (2.0-8.3) x10*3/uL Absolute Nucleated RBC (0.0-0.012) X10*3/uL Nucleated RBC % (auto) (0.0-0.2) /100WBC ESR 3 (0-20) MM/HR Sodium (135-145) mmol/L Potassium (3.3-5.1) mmol/L Chloride (96-108) mmol/L Carbon Dioxide (22-29) mmol/L Anion Gap (12-20) BUN (9-16) mg/dL Creatinine (0.5-1.4) mg/dL Estim Creat Clear Calc Estimated GFR Random Glucose (60-115) mg/dL Calcium (8.4-10.2) mg/dL Total Bilirubin (0.0-1.0) mg/dL Direct Bilirubin (0.0-0.5) mg/dL AST (5-31) U/L ALT (0-31) U/L Alkaline Phosphatase (39-117) U/L Troponin I High Sens (<3.5-17.0) ng/L B-Natriuretic Peptide 48 (<100) pg/mL Total Protein (6.5-8.0) g/dL Albumin (3.5-5.0) g/dL Independent Interpretation I performed an independent interpretation of an: EKG (Sinus rhythm heart rate 88 with bigeminy. Save LVH, nonspecific ST T wave changes.), Rhythm Strip (Frequent PVCs.) and CT Scan (Head: No acute intracranial bleeding) Radiology Impression Discussion of test interpretation with radiology: I have reviewed the radiologis t's reading. Radiologist Impression: CT/CT head/brain wo IV con IMPRESSION: 1.? No evidence of acute intracranial hemorrhage or edematous territorial infarction. 2.? Stable subcentimeter extra-axial observations in the right anterior parafalcine region and high left frontoparietal convexity. These are suggestive of meningiomas and stability since 07/20/2019 is reassuring. However, definite characterization could be obtained with an MRI of the brain with and without IV contrast. ? ? Dictated By: Lidia Ochoa Signed By: <Electronically signed by Doris Ochoa in [place]> 05/30/23 [id number] Independent Historian Clinical information obtained from an independent historian. History obtained from or confirmed by: Other (Family) Tests considered The following testing was considered but not selected: MRI brain Prescription Management I considered prescription management with: Pain Medication Chronic Conditions Patient?s care impacted by: Hypertension Discharge Plan Discharge Clinical Impression: Right-sided headache, Bigeminy Patient Disposition: Home, Self-Care Instructions: Acute Headache (ED) Prescriptions: No Action trazodone 100 mg tablet 100 mg PO BEDTIME Qty: 90 7RF alendronate 70 mg tablet 70 mg PO QWEEK Qty: 14 4RF Rx Instructions: Tuesdays lisinopril 20 mg tablet 20 mg PO DAILY Qty: 90 8RF hydrocodone-acetaminophen 5-325 mg tablet 1 tab PO BID PRN (Reason: pain) 28 Days Qty: 28 0RF cholecalciferol (vitamin D3) 25 mcg (1,000 unit) tablet 25 mcg PO DAILY Qty: 90 1RF omeprazole 40 mg capsule,delayed release(DR/EC) 40 mg PO DAILY Qty: 90 3RF docusate sodium 100 mg Capsule 100 mg PO BID 30 Days Qty: 60 0RF ondansetron HCl [Zofran] 4 mg tablet 4 mg PO Q8H PRN (Reason: nausea and vomiting) 7 Days Qty: 21 0RF triamcinolone acetonide 0.5 % cream 1 appl topical TID Qty: 15 0RF dicyclomine 10 mg capsule 10 mg PO DAILY clobetasol 0.05 % ointment topical Referrals: Radu Harry MD [Physician] -
--- NOTE | 2023-05-30 14:39 | ECG_ITS ---
Test Reason : BRADYCARDIA Blood Pressure : / mmHG Vent. Rate : 088 BPM Atrial Rate : 088 BPM P-R Int : 126 ms QRS Dur : 090 ms QT Int : 386 ms P-R-T Axes : 053 008 -11 degrees QTc Int : 467 ms Sinus rhythm with Premature supraventricular complexes and with frequent Premature ventricular complexes Minimal voltage criteria for LVH, may be normal variant ( R in aVL ) Nonspecific ST and T wave abnormality Abnormal ECG When compared with ECG of 14-NOV-2020 15:05, Premature ventricular complexes are now Present Referred By: Praveena Cooper Electronically Signed By:Radu Harry
[2023-05-30 15:05] LABS: MANUAL DIFF FLAG NO
[2023-05-30 15:19] LABS: Basophils Absolute Auto 0.1 X10*3/uL (0.0-0.2); Basophils Percent Auto 0.8 % (0-2); Eosinophils Absolute Auto 0.1 X10*3/uL (0.0-0.4); Hematocrit 41.2 % (37.0-47.0); Hemoglobin 14.2 g/dl (12.0-16.0); Imm Gran Abs Auto 0.02 X10*3/uL (0.00-0.03); Imm Gran Pct Auto 0.3 % (0.0-0.4); Lymphocytes Absolute Auto 2.3 X10*3/uL (1.2-4.9); Lymphocytes Percent Auto 37.3 % (20-40); Mean Corpuscular HGB Conc 34.5 g/dl (31.0-35.0); Mean Corpuscular Hemoglobin 30.9 pg (27.0-33.0); Mean Corpuscular Volume 89.8 fL (80.0-98.0); Mean Platelet Volume 10.6 fL (9.4-12.3); Monocytes Absolute Auto 0.5 X10*3/uL (0.1-1.2); Monocytes Percent Auto 8.1 % (2-11); Neutrophils Absolute Auto 3.2 x10*3/uL (2.0-8.3); Neutrophils Percent Auto 51.5 % (45-73); Platelet Count 214 X10*3/uL (160-400); Red Blood Count 4.59 X10*6/uL (4.20-5.50); White Blood Count 6.1 X10*3/uL (4.8-10.8)
[2023-05-30 15:32] LABS: B Type Natriuretic Peptide 48 pg/mL (<100)
[2023-05-30 15:39] LABS: Troponin-I High Sensitivity < 2.7 ng/L (<3.5-17.0)
[2023-05-30 15:52] LABS: Alanine Aminotransferase 32 U/L (0-31); Albumin Level 4.3 g/dL (3.5-5.0); Alkaline Phosphatase 75 U/L (39-117); Anion Gap 16 (12-20); Aspartate Amino Transferase 23 U/L (5-31); Bilirubin Direct 0.1 mg/dL (0.0-0.5); Bilirubin Total 0.4 mg/dL (0.0-1.0); Blood Urea Nitrogen 14 mg/dL (9-16); Calcium 9.8 mg/dL (8.4-10.2); Carbon Dioxide 23 mmol/L (22-29); Chloride 106 mmol/L (96-108); Creatinine Clr Calc Pharmacy 58.9; Estimated Glomerular Filt Rate > 60; Glucose Random 118 mg/dL (60-115); Potassium 3.6 mmol/L (3.3-5.1); Sodium 140 mmol/L (135-145); Total Protein 7.3 g/dL (6.5-8.0)
[2023-05-30 16:01] VITALS: BP 147/72; PULSE 78; RESP 18; O2SAT 98
[2023-05-30] MEDS: Acetaminophen 325 MG TABLET 975 MG PO (16:41)
[2023-05-30] MEDS: Metoclopramide HCl 10 MG/2 ML VIAL IVPUSH (16:42)
[2023-05-30 17:13] LABS: Erythrocyte Sedimentation Rate 3 MM/HR (0-20)
[2023-05-30 17:53] VITALS: BP 128/59; PULSE 82; RESP 16; TEMP 36.8; O2SAT 98
== END 2023-05-30 18:35 | disposition home or self-care (01) ==
PROVIDERS: Physician Assistant Medical; Emergency Provider Emergency Medicine; PCP Internal Medicine
DX: R51.9 Headache, unspecified (principal); R00.8 Other abnormalities of heart beat; R06.00 Dyspnea, unspecified; I10 Essential (primary) hypertension; Z79.899 Other long term (current) drug therapy
CPT/HCPCS: 36415; 70450; 71046; 80048; 80076; 83880; 84484; 85025; 85652; 93005; 99284; 99285; J2765

== ENCOUNTER → 2023-05-30 14:39 | Outpatient (BNV) | payer OTHER, SELFPAY | PROVIDERS: Emergency Provider Emergency Medicine; PCP Internal Medicine; Visit Provider Internal Medicine Cardiovascular Disease | DX: R00.1 Bradycardia, unspecified (principal) | CPT/HCPCS: 93010 ==

== ENCOUNTER 2023-07-03 14:28 | Outpatient (AMB) | payer OTHER, SELFPAY ==
[2023-07-03 14:31] VITALS: BP 150/64; PULSE 49; BMI 34.2
--- NOTE | 2023-07-03 14:31 | A.OFFVIS_ITS ---
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 Flute Polisher Required: No Accompanied by: Self / Same As Patient Allergies No Known Allergies Allergy (Unknown, Verified 07/03/23 14:33) Medication List - Last Reconciled 07/03/23 by Radu Harry MD alendronate 70 mg PO QWEEK cholecalciferol (vitamin D3) 25 mcg PO DAILY clobetasol 0.05% grams topical dicyclomine 10 mg PO DAILY lisinopril 20 mg PO DAILY omeprazole 40 mg PO DAILY trazodone 100 mg PO BEDTIME triamcinolone acetonide 0.5% 1 appl topical TID HPI HPI Comments History of Present Illness Details [age] year female who is here for 1st office visit. Recently she was and [facility] for headache. She had EKG performed at that time which showed ventricular bigeminy. Her heart rate was 40 beats per minute and the PVCs were not perfused. She did not have any dizziness or palpitations at that time and mainly presented for headache and elevated blood pressure. She said she was observed and discharged home eventually. She has strong family history of coronary disease. She has hypertension and currently taking lisinopril. She has longstanding history of dyspnea on exertion. She is not an asthmatic. She is saying her weight has been stable but she is overweight. 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 [facility] Medical History Anxiety Arthritis Back pain GERD (gastroesophageal reflux disease) Hypertension Hypertension Insomnia Obesity PONV (postoperative nausea and vomiting) Surgical History History of arthroscopy of left knee (~01/2012) History of breast mammoplasty (~2008) History of hysterectomy History of rectal sphincterotomy (~2001) History of tubal ligation Hx of cholecystectomy (~2001) S/P total knee arthroplasty Family History Father No problems noted. 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 Cognitive needs: No Hearing needs: No Vision needs: Yes Review of Systems Const Denies chills, Denies daytime sleepiness, Denies fatigue, Denies fever(s), Denies frequent falls, Denies night sweats, Denies snoring, Denies weakness, Denies weight gain and Denies weight loss Eyes Denies loss of vision ENT Denies dizziness and Denies hearing loss Card Denies chest pain, Denies chest pain with activity, Denies syncope, Denies rapid heart rate, Denies edema, Denies claudication, Denies leg edema, Denies lightheadedness, Denies palpitations, Denies dyspnea, Denies dyspnea on exertion and Denies orthopnea Resp Denies cough, Denies excessive phlegm production, Denies dyspnea, Denies dyspnea on exertion, Denies snoring and Denies wheezing GI Denies abdominal pain, Denies hematochezia, Denies change in bowel habits, Denies change in stool character, Denies heartburn, Denies nausea and Denies vomiting Denies hematuria, Denies urinary frequency and Denies dysuria Musc Denies arthralgias, Denies muscle weakness, Denies numbness and Denies tingling Skin/Breast Denies nail changes and Denies rash Neuro Denies Abnormal speech present, Denies dizziness, Denies syncope, Denies frequent falls, Denies loss of vision, Denies memory loss, Denies numbness, Denies tingling and Denies weakness Psych Denies depression and Denies memory loss Endo Denies fatigue and Denies palpitations Aller/Immun Denies wheezing Physical Exam Vital Signs: Last Vital Signs Pulse 49 L 07/03/23 14:31 BP 150/64 H 07/03/23 14:31 BMI result Body Mass Index 34.2 GENERAL APPEARANCE: in no acute distress, pleasant. NECK: no carotid bruit, no jugular venous distention. SKIN: no suspicious lesions, warm and dry. HEART: no murmurs, regular rate and rhythm. Bradycardic. LUNGS: clear to auscultation bilaterally. ABDOMEN: soft, nontender. EXTREMITIES: no edema. PERIPHERAL PULSES: equal. NEUROLOGIC: No gross deficits, AAO X 3 Neuro Speech: No Abnormal speech present Assessment & Plan Assessment & Plan (1) Hypertension: Code(s): I10 - Essential (primary) hypertension (2) Chest pain: Code(s): R07.9 - Chest pain, unspecified (3) Asymptomatic PVCs: Code(s): I49.3 - Ventricular premature depolarization Plan 62 year female who is here for ventricular bigeminy diagnosed while she was in the ER for headaches. Blood pressure control is not good currently. I am adding hydrochlorothiazide. She is bradycardic because she does not perfuse the premature ventricular complexes. She is asymptomatic from bradycardia point of view currently. Given her frequent premature ventricular complexes and dyspnea, I will check echocardiogram to rule out any cardiomyopathy. Also she has been experiencing chest discomfort and shortness of breath with activities. She has strong family history of coronary artery disease. We will arrange exercise stress test for her. Will also see the response of premature ventricular complexes with activity. If they are suppressed with exercise then that he is generally consider a good sign. Thank you for allowing me to participate in the care of your patient. Please feel free to contact me if you have any questions. Orders: Orders CA stress test Today R07.9 - Chest pain, unspecified CA echo transthoracic complete Today I49.3 - Ventricular premature depolarization Medications: New hydrochlorothiazide 12.5 mg PO DAILY 60 tabs 3RF I10 - Essential (primary) hypertension Coding Level of Care Code New Pt Level 4 (95371) Diagnoses Hypertension I10 Chest pain R07.9 Asymptomatic PVCs I49.3
== END 2023-07-03 15:00 | disposition home or self-care (01) ==
PROVIDERS: PCP Internal Medicine; Referring Provider Internal Medicine; Visit Provider Internal Medicine Cardiovascular Disease
DX: I10 Essential (primary) hypertension (principal); R07.9 Chest pain, unspecified; I49.3 Ventricular premature depolarization
CPT/HCPCS: 99204

== ENCOUNTER → 2023-07-03 14:28 | Outpatient (BNVA) | payer OTHER, SELFPAY | PROVIDERS: PCP Internal Medicine; Referring Provider Internal Medicine; Visit Provider Internal Medicine Cardiovascular Disease ==

== ENCOUNTER 2023-07-18 09:31 | Outpatient (AMB) | payer OTHER, SELFPAY ==
[2023-07-18 09:39] VITALS: BP 132/54; PULSE 46; O2SAT 98; BMI 33.2
--- NOTE | 2023-07-18 09:39 | MHC.PC.OV ---
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: No Accompanied by: Self / Same As Patient Allergies No Known Allergies Allergy (Unknown, Verified 07/18/23 09:40) Medication List - Last Reconciled 07/18/23 by Darell Inman MD alendronate 70 mg PO QWEEK cholecalciferol (vitamin D3) 25 mcg PO DAILY clobetasol 0.05% grams topical dicyclomine 10 mg PO DAILY hydrochlorothiazide 12.5 mg PO DAILY hydrocodone-acetaminophen 5-325 mg 1 tab PO BID PRN 28 days lisinopril 20 mg PO DAILY omeprazole 40 mg PO DAILY trazodone 100 mg PO BEDTIME triamcinolone acetonide 0.5% 1 appl topical TID Tobacco use date assessed: 03/27/22 Fall risk assessment: No Falls in past year Last assessed Fall Risk: 07/18/23 Dental Screening Dental Screen Date: 07/18/23 Did you have a dental visit in the last 12 months?: Yes Did you have a dental problem in the last 6 months where you did not have access to dental care?: No Was dental information given to patient?: Patient has dentist HPI Annual Exam HPI Details HTN osteoporosis and chronic back pain; stable [facility] Medical History Obesity Back pain Hypertension PONV (postoperative nausea and vomiting) Arthritis GERD (gastroesophageal reflux disease) Anxiety Insomnia Hypertension Surgical History S/P total knee arthroplasty History of breast mammoplasty (~2008) History of rectal sphincterotomy (~2001) Hx of cholecystectomy (~2001) History of tubal ligation History of arthroscopy of left knee (~01/2012) History of hysterectomy Family History Father No problems noted. 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 Cognitive needs: No Hearing needs: No Vision needs: Yes Questionnaire Thrive Questionnaire Date Thrive assessed: 07/18/23 I am a: Patient What is your living situation today?: I have a steady place to live Within the past 12 months, did the food you bought not last and you didn't have the money to get more?: Never true Within the past 12 months, did you worry whether your food would run out before you got money to buy more?: Never true Do you have trouble paying for medicines?: No Do you have trouble getting transportation to medical appointments?: No Do you have trouble paying your heating and electricity bill?: No Do you have trouble taking care of your child, family member or friend?: No Do you have trouble with day-to-day activities such as bathing, preparing meals, shopping, managing finances, etc.?: No Are you currently unemployed and looking for a job?: No Are you interested in more education?: No Please select the resources that you would like help with: None Currently or been in a relationship where the following occur: no concerns reported AUDIT C Alcohol Use Questionnaire (AUDIT-C) 1. How often do you have a drink containing alcohol?: 2-4 times a month 2. How many drinks containing alcohol do you have on a typical day when you are drinking?: 1 or 2 3. How often do you have six or more drinks on one occasion?: Never Total Score: 2 Score Reviewed/Action Taken: Yes KAYLIN-7 AMB Questionnaire KAYLIN-7 Date KAYLIN - 7 assessed: 07/18/23 Feeling nervous, anxious, or on edge: 0 = Not at all Not being able to stop or control worryin = Not at all Worrying too much about different things: 0 = Not at all Trouble relaxin = Not at all Being so restless that it is hard to sit still: 0 = Not at all Becoming easily annoyed or irritable: 0 = Not at all Feeling afraid as if something awful might happen: 0 = Not at all Total KAYLIN-7 score (0-4 normal; 5-9 mild; 10-14 moderate; 15-21 severe): 0 Source: Developed by Drs. Luis Corona, Kerry Kelly, Robbi Coley and colleagues, with an educational alin from [employer]. Review of Systems Const Denies chills, Denies fatigue, Denies headache(s) and Denies weight loss Eyes Denies change in vision, Denies diplopia and Denies eye pain ENT Denies vertigo, Denies dizziness, Denies headache(s) and Denies nasal discharge Card Denies chest pain, Denies rapid heart rate and Denies dyspnea on exertion Resp Denies chest congestion, Denies cough, Denies pain with cough and Denies dyspnea on exertion GI Denies abdominal pain, Denies hematochezia and Denies change in bowel habits Musc Denies myalgias, Denies arthralgias and Denies joint swelling Skin/Breast Denies lesions and Denies unusual bruising Neuro Denies vertigo, Denies dizziness, Denies headache(s) and Denies focal weakness Endo Denies fatigue Physical exam (Primary Care) Vital Signs: Last Vital Signs Pulse 46 L 07/18/23 09:39 BP 132/54 L 07/18/23 09:39 Pulse Ox 98 07/18/23 09:39 Oxygen Delivery Method Room Air 07/18/23 09:39 BMI result Body Mass Index 33.2 Tobacco/Smoking Status: Tobacco use Status Tobacco use date assessed 03/27/22 07/18/23 09:45 Patient Tobacco Use Status Never used Tobacco 07/18/23 09:45 e-Cigarette/Vaping Use Never Used 07/18/23 09:45 Thrive Assessment: Date of Thrive Assessment Date Thrive assessed 07/18/23 07/18/23 09:45 Currently or been in a relationship where the following occur: no concerns reported Const General: cooperative, healthy appearing and no acute distress Orientation/consciousness: oriented to person, oriented to place and oriented to time [facility] Head: Yes normal to inspection, Yes normocephalic and Yes atraumatic Mouth: Normal oral and palatal mucosa present and tongue normal Throat: Yes posterior oropharynx normal and Yes uvula midline Eyes General: appearance normal, both eyes and all related structures Neck Neck: Yes normal visual inspection, Yes full ROM and Yes no lymphadenopathy Thyroid: Thyroid normal Carotids: normal carotid upstroke Chest Chest palpation & inspection: normal inspection of the chest Resp Effort & Inspection: normal respiratory effort and able to speak in complete sentences Auscultation: clear to auscultation bilaterally Cardio Jugular venous distension: no JVD Palpation: normal PMI Rate: regular rate Rhythm: regular rhythm Heart sounds: S1 normal heart sound present and S2 normal heart sound present GI Inspection: Yes normal to inspection Palpation (GI): Soft to palpation and No hepatosplenomegaly present Auscultation: normal bowel sounds General: Yes no CVA tenderness Back/Spine/Pelvis Back: no CVA tenderness Skin General skin exam: no rashes or lesions noted Neuro General: oriented to person, oriented to place and oriented to time Extrem General: Yes normal to inspection and Yes full ROM Assessment and Plan Assessment & Plan (1) Physical exam: Code(s): Z00.00 - Encounter for general adult medical examination without abnormal findings (2) Hypertension: Code(s): I10 - Essential (primary) hypertension Qualifiers: Hypertension type: primary hypertension Qualified Code(s): I10 - Essential (primary) hypertension (3) Osteoporosis: Code(s): M81.0 - Age-related osteoporosis without current pathological fracture Qualifiers: Osteoporosis type: age-related Orders: Orders Lipid Panel Today E78.5 - Hyperlipidemia, unspecified Thyroid Stimulating Hormone Today E03.9 - Hypothyroidism, unspecified Complete Blood Count Auto Diff Today D64.9 - Anemia, unspecified Comprehensive [place]. Panel Fast Today N28.9 - Disorder of kidney and ureter, unspecified Coding Level of Care Code Est Pt Prev Care >65y(41443) Diagnoses Physical exam Z00.00 Primary hypertension I10 Hypertension type: primary hypertension Osteoporosis M81.0 Osteoporosis type: age-related
== END 2023-07-18 10:14 | disposition home or self-care (01) ==
PROVIDERS: Visit Provider Internal Medicine
DX: Z00.00 Encounter for general adult medical examination without abnormal findings (principal); I10 Essential (primary) hypertension; M81.0 Age-related osteoporosis without current pathological fracture
CPT/HCPCS: 99397

== ENCOUNTER 2023-07-19 06:04 | Outpatient (REF) | payer OTHER, SELFPAY ==
[2023-07-19 06:12] LABS: MANUAL DIFF FLAG NO
[2023-07-19 07:18] LABS: Basophils Percent Auto 0.5 % (0-2); Eosinophils Absolute Auto 0.1 X10*3/uL (0.0-0.4); Eosinophils Percent Auto 1.4 % (0-4); Hematocrit 42.5 % (37.0-47.0); Hemoglobin 14.6 g/dl (12.0-16.0); Imm Gran Abs Auto 0.02 X10*3/uL (0.00-0.03); Imm Gran Pct Auto 0.3 % (0.0-0.4); Lymphocytes Absolute Auto 2.5 X10*3/uL (1.2-4.9); Lymphocytes Percent Auto 32.3 % (20-40); Mean Corpuscular HGB Conc 34.4 g/dl (31.0-35.0); Mean Corpuscular Hemoglobin 31.2 pg (27.0-33.0); Mean Corpuscular Volume 90.8 fL (80.0-98.0); Monocytes Absolute Auto 0.8 X10*3/uL (0.1-1.2); Monocytes Percent Auto 10.4 % (2-11); Neutrophils Absolute Auto 4.2 x10*3/uL (2.0-8.3); Neutrophils Percent Auto 55.1 % (45-73); Platelet Count 228 X10*3/uL (160-400); Red Blood Count 4.68 X10*6/uL (4.20-5.50); Red Cell Distribution Width 11.9 % (11.0-16.0); White Blood Count 7.6 X10*3/uL (4.8-10.8)
[2023-07-19 07:43] LABS: Alanine Aminotransferase 35 U/L (0-31); Albumin Level 4.6 g/dL (3.5-5.0); Alkaline Phosphatase 71 U/L (39-117); Anion Gap 13 (12-20); Aspartate Amino Transferase 27 U/L (5-31); Bilirubin Total 0.7 mg/dL (0.0-1.0); Blood Urea Nitrogen 23 mg/dL (9-16); Calcium 10.4 mg/dL (8.4-10.2); Carbon Dioxide 29 mmol/L (22-29); Chloride 102 mmol/L (96-108); Cholesterol 218 mg/dL (<200); Estimated Glomerular Filt Rate > 60; Glucose Fasting 108 mg/dL (60-99); HDL Cholesterol 45 mg/dL (>40); LDL Cholesterol Calculated 146 mg/dL (<100); Potassium 4.6 mmol/L (3.3-5.1); Sodium 139 mmol/L (135-145); Total Protein 7.7 g/dL (6.5-8.0); Triglycerides 135 mg/dL (<150)
== END 2023-07-19 06:05 | disposition home or self-care (01) ==
LOC: HO.LAB 06:04
PROVIDERS: PCP Internal Medicine; Visit Provider Internal Medicine
DX: D64.9 Anemia, unspecified (principal); N28.9 Disorder of kidney and ureter, unspecified; E78.5 Hyperlipidemia, unspecified; E03.9 Hypothyroidism, unspecified
CPT/HCPCS: 36415; 80053; 80061; 84443; 85025

== ENCOUNTER → 2023-08-01 07:35 | Outpatient (REF) | payer OTHER, SELFPAY ==
--- NOTE | 2023-08-01 07:38 | CA_ITS ---
Transthoracic Echocardiogram Patient (Last, First, Middle): Ute Hawkins, Gender: Female Date of : 1960 Age: 63 Procedure Date: 08/01/2023 Procedure Type: Transthoracic Echocardiogram Location: OP Height: 149.86 cm Weight: 74.84 kg BSA: 1.70 m2 Heart Rate: 61 bpm BP: 138 / 64 mmHg Family Consumer Science Teacher: SB Referring MD: Radu Harry MD Rn Admissions: Radu Harry MD Symptoms: I49.3 - Ventricular premature depolarization Study Quality: Adequate w contrast ECG Rhythm: Frequent ventricular premature beats Conclusions: - There is normal left ventricular wall thickness. The left ventricular systolic function is borderline reduced. The visually estimated ejection fraction is between 45-50%. - LV is dilated. - Normal right ventricular cavity size and systolic function. Findings Procedure Information Contrast agent, definity, is being given per protocol without apparent complications. Left Ventricle There is normal left ventricular wall thickness. The left ventricular systolic function is borderline reduced. The visually estimated ejection fraction is between 45-50%. Abnormal diastolic function is noted. Spectral Doppler is indicative of a pseudonormal filling pattern. E/E prime ratio is >15, consistent with elevated filling pressures. LV is dilated. Right Ventricle Normal right ventricular cavity size and systolic function. Atria The left atrium is normal in size. Aortic Valve Normal aortic valve structure and function. There is no aortic valve stenosis. There is no aortic valve regurgitation. Mitral Valve The mitral valve appears normal. There is trace mitral valve regurgitation. There is no mitral valve stenosis. Pulmonic Valve The pulmonic valve is normal. There is trace pulmonic valve regurgitation. Tricuspid Valve Likely normal tricuspid valve structure and function. Tricuspid regurgitation envelope is inadequate for calculation of right ventricular systolic pressure. Normal right atrial pressure. Great Vessels All visible segments of the aorta are normal in size. The visualized portions of the pulmonary artery and branches are normal. Venous The inferior vena cava is normal in size and collapses greater than 50% with inspiration. Pericardium/Pleural There is no evidence of pericardial effusion. Prior Study Comparison Changes noted compared to prior study dated: 06/10/2018. Borderline LV dysfunction with LV is dilated now. Measurements 2D Linear Measurements IVSd: 0.95 0.6-0.9/0.6-1.0 cm LVIDd: 5.91 3.9-5.3/4.2-5.9 cm LVIDd Index: 3.48 2.4-3.2/2.2-3.1 cm/m2 LVIDs: 4.54 2.0-3.6 cm LVPWd: 0.61 0.7-1.1 cm LA Diam: 3.90 2.7-3.8/3.0-4.0 cm LAIDs Index: 2.29 1.5-2.3 cm/m2 LV Mass: 219.17 67-162/88-224 g LV Mass Index: 128.92 43-95/49-115 g/m2 LVOT Diam: 2.10 3.0+(-)1.3 cm 2D Systolic Function EF 4C: 59.40 >55% EF 2C: 52.70 >55% EF BiP: 56.70 >55% Mitral Valve MV Pk E: 0.83 MV PK A: 0.78 MV Decel Time: 208.00 E/A: 1.10 E'Lateral: 6.53 E'Medial: 4.90 E/E' Med: 17.00 E/E' Lat: 12.70 PHT: 61.00 MVA PHT: 3.61 Decel [place]: 4.00 Aortic Valve AoV Pk Jac: 1.00 AoV Pk Grad: 4.00 PANCHO: 2.17 LVOT LVOT Pk Jac: 0.61 LVOT Mn Jac: 0.44 LVOT VTI: 0.16 LVOT Pk Grad: 1.00 LVOT Mn Grad: 1.00 LVOT Diam: 2.10 LVOT Area: 3.46 Diastolic Function MV Pk E: 0.83 MV Pk A: 0.78 E/A: 1.10 E'Medial: 4.90 E/E' Med: 17.00 E' Laterial: 6.53 E/E' Lat: 12.70 Right Ventricle TAPSE (mm): 23.60 TVS' Jac: 10.00 Tricuspid Valve RA Press: 3.00 Great Vessels Aorta Sinus of Valsalva: 2.70 2.0-3.5 cm Ao Asc: 3.10 2.1-3.4 cm Pulmonary Valve PV Pk Jac: 0.98 Peak PV Grad: 4.00 Updated in Other Vendor System with Status of Final Radu Harry MD electronically signed on 08/01/2023 2:10:39 PM with status of Final
--- NOTE | 2023-08-01 07:38 | CA_ITS ---
Acquisition Time: 2023-08-01 08:48:14 Total Exercise Time: 00:05:06 Test Indications: Abnormal ECG CP Medications: LISINOPRIL OMEPRAZOLE TRAZADONE OMEPRAZOLE HCTZ Protocol: MIKHAIL Max HR: 146 BPM 94% of Pred: 155 BPM Max BP: 184/082 mmHG Max Work Load: 7.0 METS Exercise stress test exercise 5 min 6 sec of Mikhail protocol achieving 94% MPHR, with 8/10 chest tightness with poking feeling, with isolated PVCs and Vetricular bigeminy, with normotensive response to exercise, with horizontal ST depressions. Chest pain gradually improved to 0/10 with rest. Test reviewed with Dr. Harry. Referred By: Radu Harry Overread By: Aisha Stein
== END ==
LOC: HO.CARD 07:35
PROVIDERS: PCP Internal Medicine; Visit Provider Internal Medicine Cardiovascular Disease
DX: R07.9 Chest pain, unspecified (principal); I49.3 Ventricular premature depolarization
CPT/HCPCS: 93017; 93306; Q9957

== ENCOUNTER → 2023-08-01 07:38 | Outpatient (BNV) | payer OTHER, SELFPAY | PROVIDERS: PCP Internal Medicine; Visit Provider Nurse Practitioner | DX: R07.89 Other chest pain (principal); R94.31 Abnormal electrocardiogram [ECG] [EKG] | CPT/HCPCS: 93016; 93018; 93306 ==

== ENCOUNTER 2023-08-01 14:23 | Outpatient (REF) | payer OTHER, SELFPAY ==
--- NOTE | ~2023-08-01 | MM_ITS ---
EXAMINATION: MM SCREENING DIGITAL BREAST TOMOSYNTHESIS, BILATERAL CLINICAL INFORMATION: Screening. Asymptomatic. The patient is status post bilateral breast reduction. COMPARISON: Mammography: This study is compared with prior exams dating back to 2017. TECHNIQUE: Digital breast tomosynthesis is performed in both the craniocaudal and mediolateral oblique views along with computer-aided detection (CAD). Synthesized 2D images are generated from the tomosynthesis. FINDINGS: There are scattered areas of fibroglandular density (ACR BI-RADS breast composition Category b). There are no significant masses, abnormal calcifications, or other abnormalities. Post reduction changes are present. MM/MM tomosynthesis screening BI IMPRESSION: No mammographic evidence of malignancy. ASSESSMENT: BI-RADS BI-RADS 2 - Benign Findings RECOMMENDATION: Routine annual mammography screening. 1 year F/U This examination should not preclude the clinical evaluation of a suspicious palpable abnormality. This patient's information was entered into a reminder system with a target due date for their next mammogram.
== END 2023-08-01 14:24 | disposition home or self-care (01) ==
LOC: HO.MAMMO 14:23
PROVIDERS: PCP Internal Medicine; Visit Provider Internal Medicine
DX: Z12.31 Encounter for screening mammogram for malignant neoplasm of breast (principal)
CPT/HCPCS: 77063; 77067

== ENCOUNTER → 2023-08-01 15:00 | Outpatient (BNV) | payer OTHER, SELFPAY | PROVIDERS: PCP Internal Medicine; Visit Provider Radiology Diagnostic Radiology | DX: Z12.31 Encounter for screening mammogram for malignant neoplasm of breast (principal) | CPT/HCPCS: 77063; 77067 ==

== ENCOUNTER 2023-08-13 09:06 | Outpatient (REF) | payer OTHER, SELFPAY ==
[2023-08-13 10:33] LABS: Hematocrit 42.5 % (37.0-47.0); Hemoglobin 14.7 g/dl (12.0-16.0); Mean Corpuscular HGB Conc 34.6 g/dl (31.0-35.0); Mean Corpuscular Volume 89.7 fL (80.0-98.0); Platelet Count 233 X10*3/uL (160-400); Red Blood Count 4.74 X10*6/uL (4.20-5.50); Red Cell Distribution Width 12.2 % (11.0-16.0); White Blood Count 5.2 X10*3/uL (4.8-10.8)
[2023-08-13 10:38] LABS: Prothrombin Time 11.6 SEC (11.1-13.3)
[2023-08-13 10:59] LABS: Anion Gap 11 (12-20); Blood Urea Nitrogen 12 mg/dL (9-16); Calcium 9.6 mg/dL (8.4-10.2); Carbon Dioxide 27 mmol/L (22-29); Chloride 103 mmol/L (96-108); Estimated Glomerular Filt Rate > 60; Glucose Random 100 mg/dL (60-115); Potassium 4.1 mmol/L (3.3-5.1); Sodium 137 mmol/L (135-145)
== END 2023-08-13 09:07 | disposition home or self-care (01) ==
LOC: HO.LAB 09:06
PROVIDERS: PCP Internal Medicine; Visit Provider Internal Medicine Cardiovascular Disease
DX: I42.9 Cardiomyopathy, unspecified (principal)
CPT/HCPCS: 36415; 80048; 85027; 85610

== ENCOUNTER → 2023-08-15 23:59 | Outpatient (BNV) | payer OTHER, SELFPAY | PROVIDERS: PCP Internal Medicine; Visit Provider Internal Medicine Cardiovascular Disease | DX: I42.9 Cardiomyopathy, unspecified (principal) | CPT/HCPCS: 93458; 99152 ==

== ENCOUNTER 2023-08-29 13:04 | Outpatient (AMB) | payer OTHER, SELFPAY ==
[2023-08-29 13:10] VITALS: BP 132/60; PULSE 46; BMI 33.7
--- NOTE | 2023-08-29 13:10 | A.OFFVIS_ITS ---
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 Custodian Required: No Allergies No Known Allergies Allergy (Unknown, Verified 08/29/23 13:12) Medication List - Last Reconciled 08/29/23 by Aisha Stein NP alendronate 70 mg PO QWEEK cholecalciferol (vitamin D3) 25 mcg PO DAILY clobetasol 0.05% grams topical dicyclomine 10 mg PO DAILY hydrochlorothiazide 12.5 mg PO DAILY hydrocodone-acetaminophen 5-325 mg 1 tab PO BID PRN 28 days lisinopril 20 mg PO DAILY omeprazole 40 mg PO DAILY spironolactone 25 mg PO DAILY trazodone 100 mg PO BEDTIME triamcinolone acetonide 0.5% 1 appl topical TID HPI HPI Comments History of Present Illness Details 63-year-old female presents for a follow -up after cardiac cath. She feels the same. She has very mild bruising on her right radial artery that is appropriately healing,. She reports palpitations are less often. Cardiac cath shows normal coronary artieres with recommendation of risk factor reduction. [facility] Medical History Obesity Back pain Hypertension PONV (postoperative nausea and vomiting) Arthritis GERD (gastroesophageal reflux disease) Anxiety Insomnia Hypertension Surgical History S/P total knee arthroplasty History of breast mammoplasty (~2008) History of rectal sphincterotomy (~2001) Hx of cholecystectomy (~2001) History of tubal ligation History of arthroscopy of left knee (~01/2012) History of hysterectomy Family History Father No problems noted. 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 Cognitive needs: No Hearing needs: No Vision needs: Yes Review of Systems ENT Reports dizziness Card Denies chest pain, Denies chest pain at rest, Denies chest pain with activity, Denies rapid heart rate, Denies pedal edema, Denies edema, Denies leg edema, Denies lightheadedness, Denies palpitations, Denies dyspnea, Denies dyspnea on exertion and Denies orthopnea Resp Denies cough, Denies dyspnea and Denies dyspnea on exertion GI Denies hematochezia and Denies change in stool character Musc Denies abnormal gait, Reports limited range of motion, Reports muscle cramps, Denies muscle weakness, Denies numbness, Denies radiating pain into limb, Denies stiffness and Denies tingling Neuro Denies abnormal gait, Reports dizziness, Denies numbness and Denies tingling Endo Denies palpitations Physical Exam Vital Signs: Last Vital Signs Pulse 46 L 08/29/23 13:10 BP 132/60 08/29/23 13:10 BMI result Body Mass Index 33.7 Assessment & Plan Assessment & Plan Patient Instructions: Advised heart healthy diet -discussed in details. Tight control on blood pressure. Physical activity encouraged. If PVCs occur more often - report to the office. Physical activity as tolerated and weight reduction encouraged. Return in six months to see Dr. Harry. Sooner if needed. Will discuss with Dr. Harry about cholesterol panel/medications. Coding Level of Care Code Est Pt Level 3 (43971)
== END 2023-08-29 13:37 | disposition home or self-care (01) ==
PROVIDERS: PCP Internal Medicine; Visit Provider Nurse Practitioner
DX: I42.9 Cardiomyopathy, unspecified (principal); Z98.890 Other specified postprocedural states
CPT/HCPCS: 99213

== ENCOUNTER → 2023-08-29 13:04 | Outpatient (BNVA) | payer OTHER, SELFPAY | PROVIDERS: PCP Internal Medicine; Visit Provider Nurse Practitioner ==

== ENCOUNTER 2023-08-29 13:40 | Outpatient (REF) | payer OTHER, SELFPAY ==
[2023-08-29 15:28] LABS: Appearance Urine Clear; Color Urine Straw; Glucose Urine UA Negative (Negative); Leukocyte Esterase Urine Negative (Negative); Nitrite Urine Negative (Negative); PH 6.5 (5.0-9.0); Specific Gravity - Urine 1.015 (1.005-1.025); Urine Blood Negative (Negative); Urine Ketones Negative (Negative); Urine Protein Negative (Neg-Trace)
== END 2023-08-29 13:41 | disposition home or self-care (01) ==
LOC: HO.LAB 13:40
PROVIDERS: PCP Physician Assistant; Visit Provider Physician Assistant
DX: R30.0 Dysuria (principal)
CPT/HCPCS: 81003

== ENCOUNTER → 2023-09-04 07:49 | Outpatient (REF) | payer OTHER, SELFPAY ==
--- NOTE | 2023-09-04 07:52 | HM_ITS ---
Conclusion: 1. Patient was monitored for total period of 1 day 2. Baseline was normal sinus with average heart of 82 beats per minute 3. No significant pauses noted 4. Very frequent PVCs noted with total burden of 26.6% 5. No patient reported events MTDD
== END ==
LOC: HO.CARD 07:49
PROVIDERS: PCP Internal Medicine; Visit Provider Nurse Practitioner
DX: I49.3 Ventricular premature depolarization (principal)
CPT/HCPCS: 93225

== ENCOUNTER → 2023-09-04 07:52 | Outpatient (BNV) | payer OTHER, SELFPAY | PROVIDERS: PCP Internal Medicine; Visit Provider Internal Medicine Cardiovascular Disease | DX: I49.3 Ventricular premature depolarization (principal) | CPT/HCPCS: 93227 ==

== ENCOUNTER 2023-09-24 08:39 | Outpatient (AMB) | payer OTHER, SELFPAY ==
--- NOTE | 2023-09-24 09:13 | AM.OFFVISNUR ---
Intake Intake Visit Reasons: EKG Allergies No Known Allergies Allergy (Unknown, Verified 08/29/23 13:12) Nursing Note EKG patient on flecainide 50 MG. Patient reports feeling good, no complaints. EKG left on Dr. Wolfe desk. Office Procedures EKG 29439-[id number], Complete Coding CPT Codes EKG - CPT: 65490-Gfztshdsiwvyxypon, Complete ([id number])
== END 2023-09-24 08:52 | disposition home or self-care (01) ==
PROVIDERS: PCP Internal Medicine; Visit Provider Internal Medicine Cardiovascular Disease
DX: I49.3 Ventricular premature depolarization (principal); R94.31 Abnormal electrocardiogram [ECG] [EKG]
CPT/HCPCS: 93010

== ENCOUNTER → 2023-09-24 08:39 | Outpatient (BNVA) | payer OTHER, SELFPAY | PROVIDERS: PCP Internal Medicine; Visit Provider Internal Medicine Cardiovascular Disease | DX: I49.3 Ventricular premature depolarization (principal); R00.8 Other abnormalities of heart beat | CPT/HCPCS: 93005 ==

== ENCOUNTER 2023-10-12 07:48 | Outpatient (REF) | payer OTHER, SELFPAY ==
[2023-10-12 08:37] LABS: Anion Gap 14 (12-20); Blood Urea Nitrogen 17 mg/dL (9-16); Calcium 9.8 mg/dL (8.4-10.2); Carbon Dioxide 25 mmol/L (22-29); Chloride 104 mmol/L (96-108); Cholesterol 115 mg/dL (<200); Estimated Glomerular Filt Rate > 60; Glucose Random 106 mg/dL (60-115); HDL Cholesterol 43 mg/dL (>40); LDL Cholesterol Calculated 54 mg/dL (<100); Potassium 4.3 mmol/L (3.3-5.1); Sodium 139 mmol/L (135-145); Triglycerides 90 mg/dL (<150)
== END 2023-10-12 07:49 | disposition home or self-care (01) ==
LOC: HO.LAB 07:48
PROVIDERS: Visit Provider Nurse Practitioner
DX: E78.00 Pure hypercholesterolemia, unspecified (principal)
CPT/HCPCS: 36415; 80048; 80061

== ENCOUNTER 2023-10-14 14:41 | Outpatient (AMB) | payer OTHER, SELFPAY ==
[2023-10-14 14:46] VITALS: BP 130/62; PULSE 65; BMI 33.0
--- NOTE | 2023-10-14 14:46 | A.OFFVIS_ITS ---
Intake Vital Signs 10/14/23 14:46 Height 4 ft 11 in Weight 163 lb 9.328 oz BMI 33.0 BP 130/62 Blood Pressure Location Lt brachial Position Sitting Pulse 65 Pulse Source Pulse Oximeter Intake Visit Reasons: 3 mth f/up Intake Note: 3 mnth f/u patient feel ok Meal Temperer Required: No Accompanied by: Self / Same As Patient Allergies No Known Allergies Allergy (Unknown, Verified 10/14/23 14:48) Medication List - Last Reconciled 10/14/23 by Radu Harry MD alendronate 70 mg PO QWEEK atorvastatin 40 mg PO DAILY cholecalciferol (vitamin D3) 25 mcg PO DAILY dicyclomine 10 mg PO DAILY flecainide 100 mg PO Q12H 90 days hydrochlorothiazide 12.5 mg PO DAILY hydrocodone-acetaminophen 5-325 mg 1 tab PO BID PRN 28 days lisinopril 20 mg PO DAILY metoprolol succinate ER 25 mg PO DAILY omeprazole 40 mg PO DAILY spironolactone 25 mg PO DAILY trazodone 100 mg PO BEDTIME triamcinolone acetonide 0.5% 1 appl topical TID HPI HPI Comments History of Present Illness Details 63-year-old female who is here for 1st o ffice visit. Recently she was and [facility] for headache. She had EKG performed at that time which showed ventricular bigeminy. Her heart rate was 40 beats per minute and the PVCs were not perfused. She did not have any dizziness or palpitations at that time and mainly presented for headache and elevated blood pressure. She said she was observed and discharged home eventually. She has strong family history of coronary disease. She has hypertension and currently taking lisinopril. She has longstanding history of dyspnea on exertion. She is not an asthmatic. She is saying her weight has been stable but she is overweight. 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 10/14/2023: She returns for follow-up. She underwent cardiac catheterization which did not show any significant coronary disease. After that she was started on flecainide 50 mg twice a day. Subsequent EKG showed frequent premature ventricular complexes. She was advised to increase the flecainide 100 mg twice a day. She returns today and is complaining of a lot of GI complaints. She has previous GI issues include a acid reflux but is saying that since she increase the medications she feels bloated and get some dominant discomfort. She is saying she was getting these symptoms before but there were since we increased the flecainide. Her pulse is quite regular today and is in 60s compared with 40s before because she previously did not perfuse the premature ventricular complexes. Other complaints currently. [facility] Medical History Obesity Back pain Hypertension PONV (postoperative nausea and vomiting) Arthritis GERD (gastroesophageal reflux disease) Anxiety Insomnia Hypertension Surgical History S/P total knee arthroplasty History of breast mammoplasty (~2008) History of rectal sphincterotomy (~2001) Hx of cholecystectomy (~2001) History of tubal ligation History of arthroscopy of left knee (~01/2012) History of hysterectomy Family History Father No problems noted. 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 Cognitive needs: No Hearing needs: No Vision needs: Yes Review of Systems Const Reports chills, Reports fatigue, Reports fever(s), Reports frequent falls, Reports weakness, Reports weight gain and Reports weight loss ENT Reports dizziness Card Reports chest pain, Reports leg edema, Reports lightheadedness, Reports palpitations, Reports dyspnea and Reports dyspnea on exertion Resp Reports cough, Reports dyspnea and Reports dyspnea on exertion GI Reports hematochezia Musc Reports abnormal gait, Reports muscle weakness, Reports numbness, Reports radiating pain into limb and Reports tingling Neuro Reports abnormal gait, Reports dizziness, Reports frequent falls, Reports numbness, Reports tingling and Reports weakness Endo Reports fatigue and Reports palpitations Physical Exam Vital Signs: Last Vital Signs Pulse 65 10/14/23 14:46 BP 130/62 10/14/23 14:46 BMI result Body Mass Index 33.0 GENERAL APPEARANCE: in no acute distress, pleasant. NECK: no carotid bruit, no jugular venous distention. SKIN: no suspicious lesions, warm and dry. HEART: no murmurs, regular rate and rhythm. LUNGS: clear to auscultation bilaterally. ABDOMEN: soft, nontender. EXTREMITIES: no edema. PERIPHERAL PULSES: equal. NEUROLOGIC: No gross deficits, AAO X 3 Assessment & Plan Assessment & Plan (1) Cardiomyopathy: Code(s): I42.9 - Cardiomyopathy, unspecified (2) Hypertension: Code(s): I10 - Essential (primary) hypertension Qualifiers: Hypertension type: primary hypertension Qualified Code(s): I10 - Essential (primary) hypertension (3) PVC (premature ventricular contraction): Code(s): I49.3 - Ventricular premature depolarization Plan Pleasant 63 female is here for follow-up. She has frequent premature ventricular complexes and mild cardiomyopathy. Cardiac catheterization did not show any significant coronary disease. She was started on flecainide and the dose was increased to 100 mg twice a day but it appears she cannot tolerate the does well. We discussed about options and we have decided to decrease the morning dose to 50 mg once a day and continue the evening dose at 100 mg daily. If with this strategy the PVCs are suppressed we will continue the same dose. On the other hand if she cannot tolerate it then we may have to look at other options. I have also discussed with her about alternatives to medications including ablation. Currently we have decided to continue medications to see if he can make some progress. Once her PVCs were suppressed consistently for few months we will check the echocardiogram. Thank you for allowing me to participate in the care of your patient. Please feel free to contact me if you have any questions. Medications: New flecainide 1 tablet in morning and 2 tablets in the evening orally every 12 hours; 180 tabs 3RF Discontinued flecainide Discontinued Reason: None 100 mg PO Q12H 180 tabs 1RF 90 days Coding Level of Care Code Est Pt Level 4 (20356) Diagnoses Cardiomyopathy I42.9 Primary hypertension I10 Hypertension type: primary hypertension PVC (premature ventricular contraction) I49.3
== END 2023-10-14 15:10 | disposition home or self-care (01) ==
PROVIDERS: PCP Internal Medicine; Visit Provider Internal Medicine Cardiovascular Disease
DX: I42.9 Cardiomyopathy, unspecified (principal); I10 Essential (primary) hypertension; I49.3 Ventricular premature depolarization
CPT/HCPCS: 99214

== ENCOUNTER → 2023-10-14 14:41 | Outpatient (BNVA) | payer OTHER, SELFPAY | PROVIDERS: PCP Internal Medicine; Visit Provider Internal Medicine Cardiovascular Disease ==

== ENCOUNTER 2023-12-18 14:37 | Outpatient (AMB) | payer OTHER, SELFPAY ==
[2023-12-18 15:20] VITALS: BP 120/60; PULSE 56; BMI 32.0
--- NOTE | 2023-12-18 15:20 | A.OFFVIS_ITS ---
Intake Vital Signs 12/18/23 15:20 Height 4 ft 11 in Weight 158 lb 4.67 oz BMI 32.0 BP 120/60 Blood Pressure Location Lt brachial Position Sitting Pulse 56 Intake Visit Reasons: 2 mth f/up Intake Note: pt its here in office for a 2 month f/up pt states that lately shes been noticing more of shortness of breath. Senior Qc Technician Required: No Accompanied by: Self / Same As Patient Allergies No Known Allergies Allergy (Unknown, Verified 10/14/23 14:48) Medication List - Last Reconciled 12/18/23 by Radu Harry MD alendronate 70 mg PO QWEEK atorvastatin 40 mg PO DAILY cholecalciferol (vitamin D3) 25 mcg PO DAILY dicyclomine 10 mg PO DAILY 30 days flecainide 1 tablet in morning and 2 tablets in the evening orally every 12 hours; hydrochlorothiazide 12.5 mg PO DAILY 90 days hydrocodone-acetaminophen 5-325 mg 1 tab PO BID PRN 28 days lisinopril 20 mg PO DAILY metoprolol succinate ER 25 mg PO DAILY 90 days omeprazole 40 mg PO DAILY spironolactone 25 mg PO DAILY trazodone 100 mg PO BEDTIME triamcinolone acetonide 0.5% 1 appl topical TID HPI HPI Comments History of Present Illness Details 63-year-old female who is here for 1st o ffice visit. Recently she was and [facility] for headache. She had EKG performed at that time which showed ventricular bigeminy. Her heart rate was 40 beats per minute and the PVCs were not perfused. She did not have any dizziness or palpitations at that time and mainly presented for headache and elevated blood pressure. She said she was observed and discharged home eventually. She has strong family history of coronary disease. She has hypertension and currently taking lisinopril. She has longstanding history of dyspnea on exertion. She is not an asthmatic. She is saying her weight has been stable but she is overweight. 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 10/14/2023: She returns for follow-up. She underwent cardiac catheterization which did not show any significant coronary disease. After that she was started on flecainide 50 mg twice a day. Subsequent EKG showed frequent premature ventricular complexes. She was advised to increase the flecainide 100 mg twice a day. She returns today and is complaining of a lot of GI complaints. She has previous GI issues include a acid reflux but is saying that since she increase the medications she feels bloated and get some dominant discomfort. She is saying she was getting these symptoms before but there were since we increased the flecainide. Her pulse is quite regular today and is in 60s compared with 40s before because she previously did not perfuse the premature ventricular complexes. Other complaints currently. 12/18/23: She returns for follow-up. She has been doing well. No palpitations. Repeat EKG here showing sinus bradycardia without any PVCs. She is tolerating flecainide 50 mg in the morning and 100 at night better then 100 mg twice a day. No symptoms/signs of heart failure. [facility] Medical History Obesity Back pain Hypertension PONV (postoperative nausea and vomiting) Arthritis GERD (gastroesophageal reflux disease) Anxiety Insomnia Hypertension Surgical History S/P total knee arthroplasty History of breast mammoplasty (~2008) History of rectal sphincterotomy (~2001) Hx of cholecystectomy (~2001) History of tubal ligation History of arthroscopy of left knee (~01/2012) History of hysterectomy Family History Father No problems noted. 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 Cognitive needs: No Hearing needs: No Vision needs: Yes Review of Systems Const Denies chills, Denies fatigue, Denies fever(s), Denies frequent falls, Denies weakness, Denies weight gain and Denies weight loss ENT Denies dizziness Card Denies chest pain, Denies leg edema, Denies lightheadedness, Denies palpitations, Denies dyspnea and Denies dyspnea on exertion Resp Denies cough, Denies dyspnea and Denies dyspnea on exertion GI Denies hematochezia Musc Denies abnormal gait, Denies muscle weakness, Denies numbness, Denies radiating pain into limb and Denies tingling Neuro Denies abnormal gait, Denies dizziness, Denies frequent falls, Denies numbness, Denies tingling and Denies weakness Endo Denies fatigue and Denies palpitations Physical Exam Vital Signs: Last Vital Signs Pulse 56 12/18/23 15:20 BP 120/60 12/18/23 15:20 BMI result Body Mass Index 32.0 GENERAL APPEARANCE: in no acute distress, pleasant. NECK: no carotid bruit, no jugular venous distention. SKIN: no suspicious lesions, warm and dry. HEART: no murmurs, regular rate and rhythm. Bradycardic. LUNGS: clear to auscultation bilaterally. ABDOMEN: soft, nontender. EXTREMITIES: no edema. PERIPHERAL PULSES: equal. NEUROLOGIC: No gross deficits, AAO X 3 Office Procedures EKG Details: Sinus bradycardia, can not rule out inferior infarct, normal axis, nonspecific T-wave changes, QTC 409 milliseconds. [id number], Complete Assessment & Plan Assessment & Plan (1) PVC (premature ventricular contraction): Code(s): I49.3 - Ventricular premature depolarization (2) Cardiomyopathy: Code(s): I42.9 - Cardiomyopathy, unspecified Plan Very pleasant 63-year-old female who is here for follow-up. She has background history of hypertension and premature ventricular complexes. Her echocardiography showed EF 45-50%. She had cardiac catheterization which showed no coronary disease. She was started on flecainide and we were able to suppress the PVCs quite well at this stage. Clinically stable. We will repeat limited echocardiogram on her to reassess the ejection fraction. If EF is stable then she will stay on flecainide long-term. On the other hand if she can not tolerate flecainide then we may have to look for alternative medications or refer her for ablation. I have discussed this in detail with the patient. Follow-up with us in 3 months. Thank you for allowing me to participate in the care of your patient. Please feel free to contact me if you have any questions. Coding Level of Care Code Est Pt Level 4 (16496) Diagnoses PVC (premature ventricular contraction) I49.3 Cardiomyopathy I42.9 CPT Codes EKG - CPT: 53295-[id number], Complete ([id number])
== END 2023-12-18 15:52 | disposition home or self-care (01) ==
PROVIDERS: PCP Internal Medicine; Visit Provider Internal Medicine Cardiovascular Disease
DX: I49.3 Ventricular premature depolarization (principal); I42.9 Cardiomyopathy, unspecified
CPT/HCPCS: 93010; 99214

== ENCOUNTER → 2023-12-18 14:37 | Outpatient (BNVA) | payer OTHER, SELFPAY | PROVIDERS: PCP Internal Medicine; Visit Provider Internal Medicine Cardiovascular Disease | DX: I49.3 Ventricular premature depolarization (principal); I42.9 Cardiomyopathy, unspecified | CPT/HCPCS: 93005 ==

== ENCOUNTER 2024-01-15 13:04 | Outpatient (AMB) | payer OTHER, SELFPAY ==
[2024-01-15 13:05] VITALS: BP 114/68; PULSE 68; O2SAT 98; BMI 31.5
--- NOTE | 2024-01-15 13:05 | MHC.PC.OV ---
Vital Signs 01/15/24 13:05 Height 4 ft 11 in Weight 156 lb BMI 31.5 BP 114/68 Blood Pressure Location Lt brachial Position Sitting Pulse 68 Pulse Source Pulse Oximeter Pulse Oximetry (%) 98 Oxygen Delivery Method Room Air Intake Visit Reasons: ongoing cough Web Coordinator Required: No It Support Manager: Not Required per policy Accompanied by: Self / Same As Patient Allergies No Known Allergies Allergy (Unknown, Verified 01/15/24 13:05) Medication List - Last Reconciled 01/16/24 by Darell Inman MD albuterol sulfate 90 mcg/actuation (ProAir HFA) 2 puffs PO Q6H PRN alendronate 70 mg PO QWEEK atorvastatin 40 mg PO DAILY cephalexin 250 mg PO Q6H cholecalciferol (vitamin D3) 25 mcg PO DAILY dicyclomine 10 mg PO DAILY 30 days flecainide 1 tablet in morning and 2 tablets in the evening orally every 12 hours; hydrochlorothiazide 12.5 mg PO DAILY 90 days hydrocodone-acetaminophen 5-325 mg 1 tab PO BID PRN 28 days lisinopril 20 mg PO DAILY metoprolol succinate ER 25 mg PO DAILY 90 days omeprazole 40 mg PO DAILY spironolactone 25 mg PO DAILY trazodone 100 mg PO BEDTIME triamcinolone acetonide 0.5% 1 appl topical TID Tobacco use date assessed: 01/15/24 Fall risk assessment: No Falls in past year Last assessed Fall Risk: 01/15/24 Dental Screening Dental Screen Date: 01/15/24 Did you have a dental visit in the last 12 months?: No Did you have a dental problem in the last 6 months where you did not have access to dental care?: No Was dental information given to patient?: Patient has dentist HPI ongoing cough HPI Details cough and congestion for a few weeks [facility] Medical History Obesity Back pain Hypertension PONV (postoperative nausea and vomiting) Arthritis GERD (gastroesophageal reflux disease) Anxiety Insomnia Hypertension Surgical History S/P total knee arthroplasty History of breast mammoplasty (~2008) History of rectal sphincterotomy (~2001) Hx of cholecystectomy (~2001) History of tubal ligation History of arthroscopy of left knee (~01/2012) History of hysterectomy Family History Father No problems noted. 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 1. Little interest or pleasure in doing things: not at all 2. Feeling down, depressed, or hopeless: not at all 3. Trouble falling or staying asleep, or sleeping too much: not at all 4. Feeling tired or having little energy: not at all 5. Poor appetite or overeating: not at all 6. Feeling bad about yourself - or that you are a failure or have let yourself or your family down: not at all 7. Trouble concentrating on things, such as reading the newspaper or watching television: not at all 8. Moving or speaking so slowly that other people could have noticed. Or the opposite - being so fidgety or restless that you have been moving around a lot more than usual: not at all 9. Thoughts that you would be better off or of hurting yourself in some way: not at all Total score: 0 Depression Screening Interpretation: Negative Depression Screening Done: Yes Source: Developed by Drs. Luis Corona, Kerry Kelly, Robbi Coley and colleagues, with an educational alin from [employer]. Thrive Questionnaire Date Thrive assessed: 01/15/24 I am a: Patient What is your living situation today?: I have a steady place to live Within the past 12 months, did the food you bought not last and you didn't have the money to get more?: Never true Within the past 12 months, did you worry whether your food would run out before you got money to buy more?: Never true Do you have trouble paying for medicines?: No Do you have trouble getting transportation to medical appointments?: No Do you have trouble paying your heating and electricity bill?: No Do you have trouble taking care of your child, family member or friend?: No Do you have trouble with day-to-day activities such as bathing, preparing meals, shopping, managing finances, etc.?: No Are you currently unemployed and looking for a job?: No Are you interested in more education?: No Please select the resources that you would like help with: None THRIVE Score: 0 AUDIT C Alcohol Use Questionnaire (AUDIT-C) 1. How often do you have a drink containing alcohol?: 2-4 times a month 2. How many drinks containing alcohol do you have on a typical day when you are drinking?: 1 or 2 3. How often do you have six or more drinks on one occasion?: Never Total Score: 2 Score Reviewed/Action Taken: Yes KAYLIN-7 AMB Questionnaire KAYLIN-7 Date KAYLIN - 7 assessed: 01/15/24 Feeling nervous, anxious, or on edge: 0 = Not at all Not being able to stop or control worryin = Not at all Worrying too much about different things: 0 = Not at all Trouble relaxin = Not at all Being so restless that it is hard to sit still: 0 = Not at all Becoming easily annoyed or irritable: 0 = Not at all Feeling afraid as if something awful might happen: 0 = Not at all Total KAYLIN-7 score (0-4 normal; 5-9 mild; 10-14 moderate; 15-21 severe): 0 Source: Developed by Drs. Luis Corona, Kerry Kelly, Robbi Coley and colleagues, with an educational alin from [employer]. Review of Systems Const Denies chills, Denies headache(s) and Denies weight loss ENT Denies headache(s) Card Denies chest pain, Denies syncope and Denies irregular heart rhythm Resp Denies chest congestion GI Denies abdominal pain, Denies change in stool character, Denies nausea and Denies vomiting Musc Denies deformity and Denies joint swelling Neuro Denies syncope and Denies headache(s) Physical exam (Primary Care) Vital Signs: Last Vital Signs Pulse 68 01/15/24 13:05 BP 114/68 01/15/24 13:05 Pulse Ox 98 01/15/24 13:05 Oxygen Delivery Method Room Air 01/15/24 13:05 BMI result Body Mass Index 31.5 Tobacco/Smoking Status: Tobacco use Status Tobacco use date assessed 01/15/24 01/15/24 13:07 Patient Tobacco Use Status Never used Tobacco 01/15/24 13:07 e-Cigarette/Vaping Use Never Used 01/15/24 13:07 PHQ-9: PHQ-9 Score PHQ-9: Total score 0 01/15/24 13:17 Depression Screening Interpretation: Negative Thrive Assessment: Date of Thrive Assessment Date Thrive assessed 01/15/24 01/15/24 13:07 Const General: cooperative, comfortable, no acute distress and alert Neck Neck: Yes no lymphadenopathy Thyroid: Thyroid normal Resp Effort & Inspection: normal respiratory effort Auscultation: clear to auscultation bilaterally Percussion: percussion normal Cardio Jugular venous distension: no JVD Palpation: normal PMI Rate: regular rate Rhythm: regular rhythm Heart sounds: S1 normal heart sound present and S2 normal heart sound present GI Inspection: Yes normal to inspection Palpation (GI): No hepatosplenomegaly present Skin General skin exam: no rashes or lesions noted Extrem General: Yes no clubbing, cyanosis or edema Assessment and Plan Assessment & Plan (1) Cough: Code(s): R05.9 - Cough, unspecified Plan: cxr and rx Orders: Orders XR chest 2V 01/15/24 R05.9 - Cough, unspecified Medications: New cephalexin 250 mg PO Q6H 20 caps 0RF albuterol sulfate 90 mcg/actuation (ProAir HFA) 2 puffs PO Q6H PRN 18 grams 8RF bronchospasm Coding Level of Care Code Est Pt Level 3 (24172) Diagnoses Cough R05.9 Additional Codes PHQ-9 - 18961 - PHQ-9 Billing: ([id number])
== END 2024-01-15 13:32 | disposition home or self-care (01) ==
PROVIDERS: PCP Internal Medicine; Visit Provider Internal Medicine
DX: R05.9 Cough, unspecified (principal)
CPT/HCPCS: 99213

== ENCOUNTER 2024-01-15 13:39 | Outpatient (REF) | payer OTHER, SELFPAY ==
--- NOTE | ~2024-01-15 | XR_ITS ---
EXAMINATION: XR CHEST CLINICAL INFORMATION: Cough, unspecified COMPARISON: Chest 05/30/2023 TECHNIQUE: 2 views of the chest were obtained. FINDINGS: No significant abnormality is noted involving the heart, lungs, mediastinum, bony thorax or soft tissues. Surgical clips in the right upper quadrant are consistent with prior cholecystectomy. XR/XR chest 2V IMPRESSION: Unremarkable examination.
== END 2024-01-15 13:40 | disposition home or self-care (01) ==
LOC: HO.XRAY 13:39
PROVIDERS: PCP Internal Medicine; Visit Provider Internal Medicine
DX: R05.9 Cough, unspecified (principal)
CPT/HCPCS: 71046

== ENCOUNTER 2024-02-18 06:47 | Emergency (ER) | payer OTHER, SELFPAY ==
[2024-02-18 07:14] VITALS: BP 117/60; PULSE 64; RESP 16; TEMP 36.2; O2SAT 97; BMI 30.9
--- NOTE | 2024-02-18 07:33 | ED_ITS ---
HPI - URI/Sore Throat General Chief Complaint: Upper Respiratory Symptoms Stated Complaint: throat pain Time Seen by Provider: 02/18/24 07:19 Source: patient Mode of arrival: ambulatory Limitations: no limitations History of Present Illness HPI Narrative: patient with 2 months of sore throat and cough. Patient was recently on PCN with no improvement, describes post nasal drip MD elicited complaint: cough and sore throat Onset (ago): month(s) Consistency: intermittent Severity: mild Related Data Previous Rx's ?Medication ?Instructions ?Recorded triamcinolone acetonide 0.5 % 1 appl topical TID #15 grams 07/13/21 topical cream omeprazole 40 mg capsule,delayed 40 mg PO DAILY #90 caps 05/21/23 release trazodone 100 mg tablet 100 mg PO BEDTIME #90 tabs 06/10/23 atorvastatin 40 mg tablet 40 mg PO DAILY #90 tabs 09/02/23 alendronate 70 mg tablet 70 mg PO QWEEK #14 tabs 09/04/23 flecainide 50 mg tablet See Rx Instructions PO Q12H #180 10/14/23 tabs dicyclomine 10 mg capsule 10 mg PO DAILY 30 days #30 caps 11/07/23 spironolactone 25 mg tablet 25 mg PO DAILY #60 tabs 11/07/23 cholecalciferol (vitamin D3) 25 25 mcg PO DAILY #90 tabs 11/10/23 mcg (1,000 unit) tablet hydrochlorothiazide 12.5 mg tablet 12.5 mg PO DAILY 90 days #90 tabs 11/12/23 metoprolol succinate 25 mg 25 mg PO DAILY 90 days #90 tabs 11/12/23 tablet,extended release 24 hr albuterol sulfate 90 mcg/actuation 2 puff PO Q6H PRN bronchospasm #18 01/15/24 aerosol inhaler (ProAir HFA) grams cephalexin 250 mg capsule 250 mg PO Q6H #20 caps 01/15/24 hydrocodone 5 mg-acetaminophen 325 1 tab PO BID PRN pain 28 days #28 02/03/24 mg tablet tabs lisinopril 20 mg tablet 20 mg PO DAILY #90 tabs 02/03/24 fluticasone furoate 27.5 1 spray intranasal DAILY #9.1 mL 02/18/24 mcg/actuation nasal spray,suspension (Flonase Sensimist) Allergies Allergy/AdvReac Type Severity Reaction Status Date / Time No Known Allergies Allergy Unknown Verified 02/18/24 07:17 Review of Systems Review of Systems: Yes all other systems are reviewed and are negative Neurologic: Denies Sensory deficit (Neuro) [facility] Past Medical History Medical History Obesity Back pain Hypertension PONV (postoperative nausea and vomiting) Arthritis GERD (gastroesophageal reflux disease) Anxiety Insomnia Hypertension Surgical History S/P total knee arthroplasty History of breast mammoplasty (~2008) History of rectal sphincterotomy (~2001) Hx of cholecystectomy (~2001) History of tubal ligation History of arthroscopy of left knee (~01/2012) History of hysterectomy Family History Family History Father No problems noted. 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 Cognitive needs: No Hearing needs: No Vision needs: Yes Physical Exam Vital Signs: Vital Signs: Last Vital Signs Temp 97.2 F 02/18/24 07:14 Pulse 64 02/18/24 07:14 Resp 16 02/18/24 07:14 BP 117/60 02/18/24 07:14 Pulse Ox 97 02/18/24 07:14 O2 Del Method Room Air 02/18/24 07:14 BMI result Body Mass Index 30.9 Const: General: healthy appearing Nutritional Appearance: average body habitus Orientation/consciousness: oriented to person and patient oriented x3 Limitations: no limitations HEENT: Head: Yes normal to inspection Ears: external ears normal General nose exam: Normal external nose present Mouth: Normal oral and palatal mucosa present and oropharynx normal Throat: Yes posterior oropharynx normal Eyes: General: appearance normal, both eyes and all related structures Neck: Other: supple Neck: Yes normal visual inspection Chest: Chest palpation & inspection: normal inspection of the chest Resp: Auscultation: clear to auscultation bilaterally Cardio: Jugular venous distension: no JVD Rate: regular rate Rhythm: regular rhythm Heart sounds: S1 normal heart sound present and S2 normal h eart sound present GI: Inspection: Yes normal to inspection Palpation (GI): Soft to palpation, nontender and No hepatosplenomegaly present Auscultation: normal bowel sounds : General: Yes no CVA tenderness Back/Spine/Pelvis: Back: no CVA tenderness Skin: General skin exam: no rashes or lesions noted Neuro: General: oriented to person and patient oriented x3 Cranial nerves: Yes CN's II-XII intact bilaterally Motor exam (neuro): 5/5 motor strength present throughout Sensory Exam: No Sensory deficit (Neuro) Extrem: General: Yes normal to inspection Psych: Appearance: grossly normal Course Reevaluation(s) Reevaluation #1: patient with normal ears, throat, lung and neck exam. will check RSV, COVID, Flu and strep but most likely post nasal drip will treat with flonase for sinusitis Time: 07:36 Reevaluation #2: strep and viral panel negative will dc on flonase Time: 08:34 Medical Decision Making Differential Diagnosis Differential Diagnoses: The differential diagnosis associated with the presentation includes (strep throat, RSV, Flu, covid, and sinusitis were all considered) Lab Data Labs: Lab Results 02/18/24 Range/Units 07:21 Influenza Type A (PCR) NEGATIVE (Negative) Influenza Type B (PCR) NEGATIVE (Negative) RSV RNA Qual (PCR) NEGATIVE (Negative) SARS-CoV-2 RNA (RT-PCR) NEGATIVE (Negative) S. pyogenes GrpA LANCE Negative (Negative) Tests considered The following testing was considered but not selected: CXR considered but patient afebrile, clear lungs, normal oxygen Prescription Management I considered prescription management with: Antibiotic (No evidence of bacterial infection ) Discharge Plan Discharge Clinical Impression: Sinusitis Patient Disposition: Home, Self-Care Instructions: Rhinosinusitis (ED) Prescriptions: New Flonase Sensimist 27.5 mcg/actuation spray,suspension 1 spray intranasal DAILY Qty: 9.1 0RF Rx Instructions: into each nostril No Action omeprazole 40 mg capsule,delayed release(DR/EC) 40 mg PO DAILY Qty: 90 3RF trazodone 100 mg tablet 100 mg PO BEDTIME Qty: 90 7RF atorvastatin 40 mg tablet 40 mg PO DAILY Qty: 90 1RF Rx Instructions: OBTAIN FASTING LAB WORK IN 3 MONTHS alendronate 70 mg tablet 70 mg PO QWEEK Qty: 14 4RF Rx Instructions: Tuesdays spironolactone 25 mg tablet 25 mg PO DAILY Qty: 60 11RF dicyclomine 10 mg capsule 10 mg PO DAILY 30 Days Qty: 30 0RF cholecalciferol (vitamin D3) 25 mcg (1,000 unit) tablet 25 mcg PO DAILY Qty: 90 1RF hydrochlorothiazide 12.5 mg tablet 12.5 mg PO DAILY 90 Days Qty: 90 3RF metoprolol succinate 25 mg tablet extended release 24 hr 25 mg PO DAILY 90 Days Qty: 90 3RF hydrocodone-acetaminophen 5-325 mg tablet 1 tab PO BID PRN (Reason: pain) 28 Days Qty: 28 0RF lisinopril 20 mg tablet 20 mg PO DAILY Qty: 90 8RF triamcinolone acetonide 0.5 % cream 1 appl topical TID Qty: 15 0RF cephalexin 250 mg capsule 250 mg PO Q6H Qty: 20 0RF albuterol sulfate [ProAir HFA] 90 mcg/actuation HFA aerosol inhaler 2 puff PO Q6H PRN (Reason: bronchospasm) Qty: 18 8RF flecainide 50 mg tablet See Rx Instructions PO Q12H Qty: 180 3RF Rx Instructions: 1 tablet in morning and 2 tablets in the evening orally every 12 hours; Referrals: Darell Inman MD [Primary Care Provider] - 5 days Print Language: Cuban
[2024-02-18 08:02] LABS: IDNOW Serial# 08D9AD1C; Strep A Nucleic Acid Negative (Negative)
[2024-02-18 08:10] LABS: Influenza A PCR NEGATIVE (Negative); Influenza B PCR NEGATIVE (Negative); Resp Syncy Virus RNA Qual PCR NEGATIVE (Negative); SARS COV2 PCR INHOUSE NEGATIVE (Negative)
[2024-02-18 09:20] VITALS: BP 112/66
[2024-02-18 09:22] VITALS: O2SAT 98
[2024-02-18 09:25] VITALS: BP 112/66; PULSE 58; RESP 18; TEMP 36.1; O2SAT 99
== END 2024-02-18 09:26 | disposition home or self-care (01) ==
PROVIDERS: Emergency Provider Emergency Medicine; PCP Internal Medicine
DX: J32.9 Chronic sinusitis, unspecified (principal); J02.9 Acute pharyngitis, unspecified; R05.9 Cough, unspecified; I10 Essential (primary) hypertension; Z79.899 Other long term (current) drug therapy; Z03.818 Encounter for observation for suspected exposure to other biological agents ruled out
CPT/HCPCS: 0241U; 87651; 99283; 99284

== ENCOUNTER 2024-03-03 08:49 | Outpatient (AMB) | payer OTHER, SELFPAY ==
[2024-03-03 08:51] VITALS: BP 100/58; PULSE 53; O2SAT 98; BMI 30.3
--- NOTE | 2024-03-03 08:51 | A.OFFPC_ITS ---
Vital Signs 03/03/24 08:51 Height 4 ft 11 in Weight 150 lb BMI 30.3 BP 100/58 L Blood Pressure Location Lt brachial Position Sitting Pulse 53 Pulse Source Pulse Oximeter Pulse Oximetry (%) 98 Oxygen Delivery Method Room Air Intake Visit Reasons: sore throat, coughing since 01/15/24 Grocery Associate Required: No Director Sales: Not Required per policy Accompanied by: Self / Same As Patient Allergies No Known Allergies Allergy (Unknown, Verified 03/03/24 08:52) Medication List - Last Reconciled 03/03/24 by Darell Inman MD albuterol sulfate 90 mcg/actuation (ProAir HFA) 2 puffs PO Q6H PRN alendronate 70 mg PO QWEEK atorvastatin 40 mg PO DAILY cephalexin 250 mg PO Q6H cholecalciferol (vitamin D3) 25 mcg PO DAILY dicyclomine 10 mg PO DAILY 30 days flecainide 1 tablet in morning and 2 tablets in the evening orally every 12 hours; fluticasone furoate 27.5 mcg/actuation (Flonase Sensimist) 1 spray intranasal DAILY hydrochlorothiazide 12.5 mg PO DAILY 90 days hydrocodone-acetaminophen 5-325 mg 1 tab PO BID PRN 28 days lisinopril 20 mg PO DAILY metoprolol succinate ER 25 mg PO DAILY 90 days omeprazole 40 mg PO DAILY spironolactone 25 mg PO DAILY trazodone 100 mg PO BEDTIME triamcinolone acetonide 0.5% 1 appl topical TID Tobacco use date assessed: 01/15/24 Fall risk assessment: No Falls in past year Last assessed Fall Risk: 03/03/24 Dental Screening Dental Screen Date: 01/15/24 HPI sore throat, coughing since 01/15/24 HPI Details sore throat for 6 weeks; neg covid [facility] Medical History Obesity Back pain Hypertension PONV (postoperative nausea and vomiting) Arthritis GERD (gastroesophageal reflux disease) Anxiety Insomnia Hypertension Surgical History S/P total knee arthroplasty History of breast mammoplasty (~2008) History of rectal sphincterotomy (~2001) Hx of cholecystectomy (~2001) History of tubal ligation History of arthroscopy of left knee (~01/2012) History of hysterectomy Family History Father No problems noted. 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 Luis Corona, Kerry Kelly, Robbi Coley and colleagues, with an educational alin from [employer]. Review of Systems Const Denies chills, Denies headache(s) and Denies weight loss ENT Denies headache(s) Card Denies chest pain, Denies syncope, Denies irregular heart rhythm and Denies dyspnea Resp Denies chest congestion, Denies cough and Denies dyspnea GI Denies abdominal pain, Denies change in stool character, Denies nausea and Denies vomiting Musc Denies deformity and Denies joint swelling Neuro Denies syncope and Denies headache(s) Physical exam (Primary Care) Vital Signs: Last Vital Signs Pulse 53 03/03/24 08:51 BP 100/58 L 03/03/24 08:51 Pulse Ox 98 03/03/24 08:51 Oxygen Delivery Method Room Air 03/03/24 08:51 BMI result Body Mass Index 30.3 Tobacco/Smoking Status: Tobacco use Status Tobacco use date assessed 01/15/24 03/03/24 08:52 Patient Tobacco Use Status Never used Tobacco 03/03/24 08:52 e-Cigarette/Vaping Use Never Used 03/03/24 08:52 Thrive Assessment: Date of Thrive Assessment Date Thrive assessed 01/15/24 03/03/24 08:52 Const General: cooperative, comfortable, no acute distress and alert [facility] Other: normal Neck Neck: Yes no lymphadenopathy Thyroid: Thyroid normal Resp Effort & Inspection: normal respiratory effort Auscultation: clear to auscultation bilaterally Percussion: percussion normal Cardio Jugular venous distension: no JVD Palpation: normal PMI Rate: regular rate Rhythm: regular rhythm Heart sounds: S1 normal heart sound present and S2 normal heart sound present GI Inspection: Yes normal to inspection Palpation (GI): No hepatosplenomegaly present Skin General skin exam: no rashes or lesions noted Extrem General: Yes no clubbing, cyanosis or edema Assessment and Plan Assessment & Plan (1) Throat pain: Code(s): R07.0 - Pain in throat Plan: rx and ent ref Orders: Referrals Ear/Nose/Throat Referral R07.0 - Pain in throat Medications: New doxycycline hyclate 100 mg PO BID 30 tabs 0RF Refilled hydrocodone-acetaminophen 5-325 mg 1 tab PO BID 28 days PRN 28 tabs 0RF pain Coding Level of Care Code Est Pt Level 3 (13755) Diagnoses Throat pain R07.0
== END 2024-03-03 09:09 | disposition home or self-care (01) ==
PROVIDERS: PCP Internal Medicine; Visit Provider Internal Medicine
DX: R07.0 Pain in throat (principal)
CPT/HCPCS: 99213

== ENCOUNTER 2024-03-04 14:35 | Outpatient (AMB) | payer OTHER, SELFPAY ==
[2024-03-04 15:11] VITALS: BP 116/60; PULSE 55; O2SAT 98; BMI 30.1
--- NOTE | 2024-03-04 15:11 | A.OFFVIS_ITS ---
Vital Signs 03/04/24 15:11 Height 4 ft 11 in Weight 149 lb BMI 30.1 BP 116/60 Blood Pressure Location Lt brachial Position Sitting Pulse 55 Pulse Source Monitor Pulse Oximetry (%) 98 Oxygen Delivery Method Room Air Intake Visit Reasons: r/s 03/03/24 6 mos followup km pt Intake Note: 6 month followup pt feels good with ekg Allergies No Known Allergies Allergy (Unknown, Verified 03/03/24 08:52) Medication List - Last Reconciled 03/04/24 by Aisha Stein NP albuterol sulfate 90 mcg/actuation (ProAir HFA) 2 puffs PO Q6H PRN alendronate 70 mg PO QWEEK atorvastatin 40 mg PO DAILY cephalexin 250 mg PO Q6H cholecalciferol (vitamin D3) 25 mcg PO DAILY dicyclomine 10 mg PO DAILY 30 days doxycycline hyclate 100 mg PO BID flecainide 1 tablet in morning and 2 tablets in the evening orally every 12 hours; fluticasone furoate 27.5 mcg/actuation (Flonase Sensimist) 1 spray intranasal DAILY hydrochlorothiazide 12.5 mg PO DAILY 90 days hydrocodone-acetaminophen 5-325 mg 1 tab PO BID PRN 28 days lisinopril 20 mg PO DAILY metoprolol succinate ER 25 mg PO DAILY 90 days omeprazole 40 mg PO DAILY spironolactone 25 mg PO DAILY trazodone 100 mg PO BEDTIME triamcinolone acetonide 0.5% 1 appl topical TID HPI Comments Details: 63-year-old female presents today for follow-up. She reports she has been doing well. She is tolerating flecanide without any concerns. She denies chest pains, palpitations, or shortness of breath. 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 [facility] Medical History Obesity Back pain Hypertension PONV (postoperative nausea and vomiting) Arthritis GERD (gastroesophageal reflux disease) Anxiety Insomnia Hypertension Surgical History S/P total knee arthroplasty History of breast mammoplasty (~2008) History of rectal sphincterotomy (~2001) Hx of cholecystectomy (~2001) History of tubal ligation History of arthroscopy of left knee (~01/2012) History of hysterectomy Family History Father No problems noted. 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 Cognitive needs: No Hearing needs: No Vision needs: Yes (glasses) Review of Systems Const Denies weakness ENT Denies dizziness Card Denies chest pain, Denies chest pain with activity, Denies syncope, Denies rapid heart rate, Denies pedal edema, Denies edema, Denies leg edema, Denies lightheadedness, Denies palpitations, Denies dyspnea, Denies dyspnea on exertion and Denies orthopnea Resp Denies cough, Denies dyspnea and Denies dyspnea on exertion GI Denies hematochezia and Denies change in stool character Musc Denies abnormal gait, Denies muscle cramps, Denies muscle weakness, Denies numbness, Denies radiating pain into limb and Denies tingling Neuro Denies abnormal gait, Denies dizziness, Denies syncope, Denies numbness, Denies tingling and Denies weakness Endo Denies palpitations Physical Exam Vital Signs: Last Vital Signs Pulse 55 03/04/24 15:11 BP 116/60 03/04/24 15:11 Pulse Ox 98 03/04/24 15:11 Oxygen Delivery Method Room Air 03/04/24 15:11 BMI result Body Mass Index 30.1 Const General: healthy appearing and no acute distress Orientation/consciousness: patient oriented x3 HEENT Head: Yes normal to inspection Eyes General: appearance normal, both eyes and all related structures Neck Neck: Yes normal visual inspection Chest Chest palpation & inspection: normal inspection of the chest Resp Effort & Inspection: normal respiratory effort Auscultation: clear to auscultation bilaterally Cardio Jugular venous distension: no JVD Palpation: normal PMI Rate: regular rate Rhythm: regular rhythm Heart sounds: S1 normal heart sound present, S2 normal heart sound present, no click, no gallops, no murmurs and no rubs GI Inspection: Yes normal to inspection Palpation (GI): Soft to palpation Skin General skin exam: no rashes or lesions noted Neuro General: patient oriented x3 Extrem General: Yes normal to inspection Psych Appearance: grossly normal Office Procedures EKG Details: EKG today. Sinus Bradycardia. Nonspecific ST abnormality. Rate 54 pm. QRS 92ms. QTc 403ms. MI 172ms. [id number], Complete Assessment & Plan Assessment & Plan (1) Asymptomatic PVCs: Code(s): I49.3 - Ventricular premature depolarization Category: Medical Plan: EKG today shows sinus rhythm. Cardiac Catherization showed no CAD. PVCs suppressed with Flecanide use. (2) Cardiomyopathy: Code(s): I42.9 - Cardiomyopathy, unspecified Category: Medical Plan: Will repeat limited echocardiogram on her to reassess the ejection fraction. In 07/2023 ejection fraction is between 45-50%. Orders: Orders CA echo limited 03/04/24 I42.9 - Cardiomyopathy, unspecified, I49.3 - Ventricular premature depolarization Medications: Changed From spironolactone 25 mg PO DAILY 60 tabs 11RF To spironolactone 25 mg PO DAILY 90 days 90 tabs 3RF Coding Level of Care Code Est Pt Level 3 (35833) Diagnoses Asymptomatic PVCs I49.3 Cardiomyopathy I42.9 CPT Codes EKG - CPT: 00581-[id number], Complete ([id number])
== END 2024-03-04 15:39 | disposition home or self-care (01) ==
PROVIDERS: PCP Internal Medicine; Visit Provider Nurse Practitioner
DX: I49.3 Ventricular premature depolarization (principal); I42.9 Cardiomyopathy, unspecified
CPT/HCPCS: 93010; 99213

== ENCOUNTER → 2024-03-04 14:35 | Outpatient (BNVA) | payer OTHER, SELFPAY | PROVIDERS: PCP Internal Medicine; Visit Provider Nurse Practitioner | DX: I49.3 Ventricular premature depolarization (principal); I42.9 Cardiomyopathy, unspecified | CPT/HCPCS: 93005 ==

== ENCOUNTER → 2024-03-25 07:48 | Outpatient (REF) | payer OTHER, SELFPAY ==
--- NOTE | 2024-03-25 07:51 | CA_ITS ---
Transthoracic Echocardiogram Patient (Last, First, Middle): Ute Hawkins, Gender: Female Date of : 1960 Age: 63 Procedure Date: 03/25/2024 Procedure Type: Transthoracic Echocardiogram Location: OP Height: 149.86 cm Weight: 67.59 kg BSA: 1.63 m2 Heart Rate: 52 bpm BP: 120 / 64 mmHg [place] Superintendent: LILLIAN Referring MD: Aisha Stein NP Cost Manager: Larry Ravi MD Symptoms: I42.9 - Cardiomyopathy, unspecified Study Quality: Fair w contrast ECG Rhythm: Bradycardia Conclusions: - Normal LV ejection fraction 55-60% with impaired relaxation filling pattern Findings Left Ventricle Normal left ventricular size, thickness, and systolic function. The visually estimated ejection fraction is between 55-60%. Spectral Doppler is indicative of an impaired relaxation filling pattern. Prior Study Comparison Changes noted compared to prior study dated: 08/01/2023. LV function has improved Measurements 2D Linear Measurements IVSd: 0.75 0.6-0.9/0.6-1.0 cm LVIDd: 5.59 3.9-5.3/4.2-5.9 cm LVIDd Index: 3.43 2.4-3.2/2.2-3.1 cm/m2 LVIDs: 3.77 2.0-3.6 cm LVPWd: 0.81 0.7-1.1 cm LV Mass: 198.16 67-162/88-224 g LV Mass Index: 121.57 43-95/49-115 g/m2 LVOT Diam: 1.80 3.0+(-)1.3 cm 2D Systolic Function EF 4C: 50.90 >55% EF 2C: 60.30 >55% EF BiP: 56.20 >55% Mitral Valve MV Pk E: 0.70 MV PK A: 0.76 MV Decel Time: 216.00 E/A: 0.90 E'Lateral: 7.29 E'Medial: 4.68 E/E' Med: 15.00 E/E' Lat: 9.70 PHT: 63.00 MVA PHT: 3.49 Decel Cottle: 3.25 LVOT LVOT Pk Jac: 0.77 LVOT Mn Jac: 0.47 LVOT VTI: 0.19 LVOT Pk Grad: 2.00 LVOT Mn Grad: 1.00 LVOT Diam: 1.80 LVOT Area: 2.54 Diastolic Function MV Pk E: 0.70 MV Pk A: 0.76 E/A: 0.90 E'Medial: 4.68 E/E' Med: 15.00 E' Laterial: 7.29 E/E' Lat: 9.70 Right Ventricle TAPSE (mm): 17.80 Tricuspid Valve RA Press: 3.00 Updated in Other Vendor System with Status of Final Larry Ravi MD electronically signed on 03/25/2024 2:01:28 PM with status of Final
== END ==
LOC: HO.CARD 07:48
PROVIDERS: PCP Internal Medicine; Visit Provider Nurse Practitioner
DX: I42.9 Cardiomyopathy, unspecified (principal); I49.3 Ventricular premature depolarization
CPT/HCPCS: 93308; Q9957

== ENCOUNTER → 2024-03-25 07:51 | Outpatient (BNV) | payer OTHER, SELFPAY | PROVIDERS: PCP Internal Medicine; Visit Provider Internal Medicine Cardiovascular Disease | DX: I42.9 Cardiomyopathy, unspecified (principal); R93.1 Abnormal findings on diagnostic imaging of heart and coronary circulation | CPT/HCPCS: 93308; 93321 ==

== ENCOUNTER 2024-04-15 15:41 | Outpatient (AMB) | payer OTHER, SELFPAY ==
[2024-04-15 15:44] VITALS: BP 100/50; PULSE 57; BMI 29.9
--- NOTE | 2024-04-15 15:44 | MHC.OFFVIS ---
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: No Accompanied by: Self / Same As Patient Allergies No Known Allergies Allergy (Unknown, Verified 03/03/24 08:52) Medication List - Last Reconciled 04/15/24 by Radu Harry MD albuterol sulfate 90 mcg/actuation (ProAir HFA) 2 puffs PO Q6H PRN alendronate 70 mg PO QWEEK atorvastatin 40 mg PO DAILY cholecalciferol (vitamin D3) 25 mcg PO DAILY dicyclomine 10 mg PO DAILY 30 days doxycycline hyclate 100 mg PO BID flecainide 1 tablet in morning and 2 tablets in the evening orally every 12 hours; fluticasone furoate 27.5 mcg/actuation (Flonase Sensimist) 1 spray intranasal DAILY hydrochlorothiazide 12.5 mg PO DAILY 90 days hydrocodone-acetaminophen 5-325 mg 1 tab PO BID PRN 28 days lisinopril 20 mg PO DAILY metoprolol succinate ER 25 mg PO DAILY 90 days omeprazole 40 mg PO DAILY spironolactone 25 mg PO DAILY 90 days trazodone 100 mg PO BEDTIME triamcinolone acetonide 0.5% 1 appl topical TID HPI Comments Details: 63-year-old female who is here for 1st office visit. Recently she was and [facility] for headache. She had EKG performed at that time which showed ventricular bigeminy. Her heart rate was 40 beats per minute and the PVCs were not perfused. She did not have any dizziness or palpitations at that time and mainly presented for headache and elevated blood pressure. She said she was observed and discharged home eventually. She has strong family history of coronary disease. She has hypertension and currently taking lisinopril. She has longstanding history of dyspnea on exertion. She is not an asthmatic. She is saying her weight has been stable but she is overweight. 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 10/14/2023: She returns for follow-up. She underwent cardiac catheterization which did not show any significant coronary disease. After that she was started on flecainide 50 mg twice a day. Subsequent EKG showed frequent premature ventricular complexes. She was advised to increase the flecainide 100 mg twice a day. She returns today and is complaining of a lot of GI complaints. She has previous GI issues include a acid reflux but is saying that since she increase the medications she feels bloated and get some dominant discomfort. She is saying she was getting these symptoms before but there were since we increased the flecainide. Her pulse is quite regular today and is in 60s compared with 40s before because she previously did not perfuse the premature ventricular complexes. Other complaints currently. 12/18/23: She returns for follow-up. She has been doing well. No palpitations. Repeat EKG here showing sinus bradycardia without any PVCs. She is tolerating flecainide 50 mg in the morning and 100 at night better then 100 mg twice a day. No symptoms/signs of heart failure. 04/15/24: She is here for follow-up. Complaining of dizziness and lightheadedness. Blood pressure is 100/50. She is saying she has lost some weight and it appears she lost approximately 20 lb since 10/30/2023. I have advised her to stop the hydrochlorothiazide. Repeat echocardiography from 03/30/2024 has shown normal ejection fraction 55-60% without any wall motion abnormalities. [facility] Medical History Obesity Back pain Hypertension PONV (postoperative nausea and vomiting) Arthritis GERD (gastroesophageal reflux disease) Anxiety Insomnia Hypertension Surgical History S/P total knee arthroplasty History of breast mammoplasty (~2008) History of rectal sphincterotomy (~2001) Hx of cholecystectomy (~2001) History of tubal ligation History of arthroscopy of left knee (~01/2012) History of hysterectomy Family History Father No problems noted. 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 Cognitive needs: No Hearing needs: No Vision needs: Yes (glasses) Review of Systems Const Denies chills, Denies fatigue, Denies fever(s), Denies frequent falls, Denies weakness, Denies weight gain and Denies weight loss ENT Denies dizziness Card Denies chest pain, Denies leg edema, Denies lightheadedness, Denies palpitations, Denies dyspnea and Denies dyspnea on exertion Resp Denies cough, Denies dyspnea and Denies dyspnea on exertion GI Denies hematochezia Musc Denies abnormal gait, Denies muscle weakness, Denies numbness, Denies radiating pain into limb and Denies tingling Neuro Denies abnormal gait, Denies dizziness, Denies frequent falls, Denies numbness, Denies tingling and Denies weakness Endo Denies fatigue and Denies palpitations Physical Exam Vital Signs: Last Vital Signs Pulse 57 04/15/24 15:44 BP 100/50 L 04/15/24 15:44 BMI result Body Mass Index 29.9 GENERAL APPEARANCE: in no acute distress, pleasant. NECK: no carotid bruit, no jugular venous distention. SKIN: no suspicious lesions, warm and dry. HEART: no murmurs, regular rate and rhythm. Bradycardic. LUNGS: clear to auscultation bilaterally. ABDOMEN: soft, nontender. EXTREMITIES: no edema. PERIPHERAL PULSES: equal. NEUROLOGIC: No gross deficits, AAO X 3 Office Procedures EKG Details: Sinus bradycardia 57 beats per minute, inferior infarct, QTC 424 milliseconds. [id number], Complete Assessment & Plan Assessment & Plan (1) PVC (premature ventricular contraction): Code(s): I49.3 - Ventricular premature depolarization Category: Medical (2) Cardiomyopathy: Code(s): I42.9 - Cardiomyopathy, unspecified Category: Medical (3) Hypertension: Code(s): I10 - Essential (primary) hypertension Category: Medical Qualifiers: Hypertension type: primary hypertension Qualified Code(s): I10 - Essential (primary) hypertension Plan 63 year female who is here for follow-up. She was seen for incidental diagnosis of premature ventricular complexes and nonischemic cardiomyopathy with mildly reduced ejection fraction. Clinically she has not developed any congestive heart failure. She underwent cardiac catheterization which did not show any coronary artery disease. Subsequent to that she was started on flecainide and metoprolol and since then had significant improvement in PVC burden and echocardiography in 03/30/2024 is showing normal ejection fraction. I have advised her to continue same medications with the exception of hydrochlorothiazide which we are stopping because of low blood pressure and dizziness. I have advised her to keep herself well hydrated. She will see us back in 4-6 months. Thank you for allowing me to participate in the care of your patient. Please feel free to contact me if you have any questions. Medications: Discontinued hydrochlorothiazide Discontinued Reason: Doctor's Order 12.5 mg PO DAILY 90 days 90 tabs 3RF I10 - Essential (primary) hypertension Coding Level of Care Code Est Pt Level 4 (89019) Diagnoses PVC (premature ventricular contraction) I49.3 Cardiomyopathy I42.9 Primary hypertension I10 Hypertension type: primary hypertension CPT Codes EKG - CPT: 64390-[id number], Complete ([id number])
== END 2024-04-15 16:05 | disposition home or self-care (01) ==
PROVIDERS: PCP Internal Medicine; Visit Provider Internal Medicine Cardiovascular Disease
DX: I49.3 Ventricular premature depolarization (principal); I42.9 Cardiomyopathy, unspecified; I10 Essential (primary) hypertension
CPT/HCPCS: 93010; 99214

== ENCOUNTER → 2024-04-15 15:41 | Outpatient (BNVA) | payer OTHER, SELFPAY | PROVIDERS: PCP Internal Medicine; Visit Provider Internal Medicine Cardiovascular Disease | DX: I10 Essential (primary) hypertension (principal); I49.3 Ventricular premature depolarization; I42.9 Cardiomyopathy, unspecified; R51.9 Headache, unspecified | CPT/HCPCS: 93005 ==

== ENCOUNTER 2024-07-06 14:32 | Outpatient (REF) | payer OTHER, SELFPAY ==
[2024-07-06 15:16] LABS: MANUAL DIFF FLAG NO
[2024-07-06 15:51] LABS: Basophils Absolute Auto 0.1 X10*3/uL (0.0-0.2); Basophils Percent Auto 0.8 % (0-2); Eosinophils Absolute Auto 0.2 X10*3/uL (0.0-0.4); Eosinophils Percent Auto 3.9 % (0-4); Hematocrit 39.5 % (37.0-47.0); Hemoglobin 13.8 g/dl (12.0-16.0); Imm Gran Abs Auto 0.02 X10*3/uL (0.00-0.03); Imm Gran Pct Auto 0.3 % (0.0-0.4); Lymphocytes Absolute Auto 2.5 X10*3/uL (1.2-4.9); Lymphocytes Percent Auto 40.5 % (20-40); Mean Corpuscular HGB Conc 34.9 g/dl (31.0-35.0); Mean Corpuscular Hemoglobin 31.7 pg (27.0-33.0); Mean Corpuscular Volume 90.6 fL (80.0-98.0); Mean Platelet Volume 10.1 fL (9.4-12.3); Monocytes Absolute Auto 0.5 X10*3/uL (0.1-1.2); Monocytes Percent Auto 8.4 % (2-11); Neutrophils Absolute Auto 2.8 x10*3/uL (2.0-8.3); Neutrophils Percent Auto 46.1 % (45-73); Platelet Count 242 X10*3/uL (160-400); Red Blood Count 4.36 X10*6/uL (4.20-5.50); Red Cell Distribution Width 11.9 % (11.0-16.0); White Blood Count 6.2 X10*3/uL (4.8-10.8)
[2024-07-08 06:58] LABS: Class Alternaria alternata 0; Class Aspergillus fumigatus 0; Class Bermuda Grass 0; Class Birch 0; Class Cat Dander 0; Class Cladosporium herbarum 0; Class Cockroach 0; Class Common Ragweed 0; Class Cottonwood 0; Class Derm. pterony 0; Class Dermatophagoides farinae 0; Class Dog Dander 0; Class Elm 0; Class Maple Box Elder 0; Class Mountain Cedar 0; Class Mouse Urine Protein 0; Class Mugwort 0; Class Oak 0; Class Penicillium crysogenum 0; Class Rough Pigweed 0; Class Sheep Sorrel 0; Class Sycamore 0; Class Timothy Grass 0; Class Walnut Tree 0; Class White Ash 0; Class White Mulberry 0; D001 IgE D pteronyssinus <0.10 kU/L; D002 - IgE D farinae <0.10 kU/L; E001 - IgE Cat Dander <0.10 kU/L; E005 - IgE Dog Dander <0.10 kU/L; E072-IgE Mouse Urine <0.10 kU/L; G002 IgE Bermuda Grass <0.10 kU/L; G006 - IgE Timothy Grass <0.10 kU/L; I006-IgE Cockroach, German <0.10 kU/L; Immunoglobulin E 15 kU/L (<OR=114); M001 IgE Penicillium chrysogen <0.10 kU/L; M002 - IgE Cladosporium herbar <0.10 kU/L; M003 - IgE Aspergillus fumigat <0.10 kU/L; M006 - IgE Alternaria alternat <0.10 kU/L; T001 IgE Maple/Box Elder <0.10 kU/L; T003 IgE Common Silver Birch <0.10 kU/L; T006 - IgE Cedar, Mountain <0.10 kU/L; T007 - IgE Oak, White <0.10 kU/L; T008 IgE Elm, American <0.10 kU/L; T010 - IgE Walnut <0.10 kU/L; T011 - IgE Maple Leaf Sycamore <0.10 kU/L; T014 - IgE Cottonwood <0.10 kU/L; T015 - IgE Ash, White <0.10 kU/L; T070 - IgE White Mulberry <0.10 kU/L; W001 - IgE Ragweed, Short <0.10 kU/L; W006 - IgE Mugwort <0.10 kU/L; W014 IgE Pigweed, Common <0.10 kU/L; W018 IgE Sheep Sorrel <0.10 kU/L
== END 2024-07-06 14:33 | disposition home or self-care (01) ==
LOC: HO.LAB 14:32
PROVIDERS: PCP Internal Medicine; Referring Provider Internal Medicine; Visit Provider Nurse Practitioner Family
DX: Z91.09 Other allergy status, other than to drugs and biological substances (principal)
CPT/HCPCS: 36415; 82785; 85025; 86003

== ENCOUNTER 2024-07-06 14:32 | Outpatient (AMB) | payer OTHER, SELFPAY ==
[2024-07-06 14:36] VITALS: BP 128/74; PULSE 55; O2SAT 99; BMI 29.8
--- NOTE | 2024-07-06 14:36 | MHC.OFFVIS ---
Vital Signs 07/06/24 14:36 Height 4 ft 11 in Weight 147 lb 11.355 oz BMI 29.8 BP 128/74 Blood Pressure Location Lt brachial Position Sitting Pulse 55 Pulse Source Pulse Oximeter Pulse Oximetry (%) 99 Oxygen Delivery Method Room Air Intake Visit Reasons: Cough Allergies No Known Allergies Allergy (Unknown, Verified 07/06/24 14:40) HPI HPI Cough: Details: Ute is a pleasant 63 year old female, never smoker with underlying nonischemic cardiomyopathy, HTN, GERD and anxiety. She was referred by PCP for pulmonary evaluation. She reports progressively worsning dry cough, wheezing and dyspnea with exertion. She was given keflex and sent for CXR in January with no improvement in cough and CXR unremarkable. She was also given an albuterol inhaler at this time with minimal effect. In February given doxycyline for sore throat, with no change in cough. She reports seasonal allergies, using flonase PRN with good effect. She has been evaluated by cardiology, right heart cath 2022 with no evidence of CAD, LVEF mildly reduced. She denies prior h/o asthma. She reports multiple first degree family members with asthma and allergies. She denies any occupational exposures. [facility] Medical History Obesity Back pain Hypertension PONV (postoperative nausea and vomiting) Arthritis GERD (gastroesophageal reflux disease) Anxiety Insomnia Hypertension Surgical History S/P total knee arthroplasty History of breast mammoplasty (~2008) History of rectal sphincterotomy (~2001) Hx of cholecystectomy (~2001) History of tubal ligation History of arthroscopy of left knee (~01/2012) History of hysterectomy Family History Father No problems noted. 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 Cognitive needs: No Hearing needs: No Vision needs: Yes (glasses) Review of Systems Const Denies chills, Denies excessive sweating, Denies fever(s), Denies headache(s) and Denies night sweats Eyes Denies dry eyes, Denies irritation and Denies itchy eyes ENT Reports Normal hearing present, Denies headache(s), Denies nasal congestion, Denies nasal discharge, Denies post nasal drip and Denies sore throat Card Denies chest pain, Denies chest pain at rest, Denies chest pain with activity, Denies claudication, Denies leg edema, Denies dyspnea, Denies orthopnea and Denies paroxysmal nocturnal dyspnea Resp Denies chest congestion, Denies excessive phlegm production, Denies pain on inspiration, Denies pain with cough, Denies dyspnea and Denies stridor Musc Denies myalgias Neuro Reports Normal hearing present and Denies headache(s) Endo Denies excessive sweating Jose Martin/Lymph Denies lymphadenopathy Aller/Immun Denies itchy eyes and Denies seasonal rhinorrhea Physical Exam Vital Signs: Last Vital Signs Pulse 55 07/06/24 14:36 BP 128/74 07/06/24 14:36 Pulse Ox 99 07/06/24 14:36 Oxygen Delivery Method Room Air 07/06/24 14:36 BMI result Body Mass Index 29.8 Const General: cooperative, healthy appearing, comfortable, no acute distress, well developed and alert Orientation/consciousness: patient oriented x3 Limitations: no limitations HEENT Head: Yes normal to inspection, Yes normocephalic and Yes atraumatic Ears: hearing grossly normal bilaterally and external ears normal Eyes General: appearance normal, both eyes and all related structures Eyelids: Yes eyelids normal Sclerae: sclerae normal EOM: EOMs intact bilaterally Neck Neck: Yes normal visual inspection and Yes no lymphadenopathy Lymphatic: no lymphadenopathy noted Chest Chest palpation & inspection: normal inspection of the chest Resp Effort & Inspection: normal respiratory effort, able to speak in complete sentences, no audible wheezes, no cough, no stridor, not tachypneic, no tripod positioning and no use of accessory muscles Auscultation: clear to auscultation bilaterally Cardio Jugular venous distension: no JVD Rate: regular rate Rhythm: regular rhythm Skin Other: warm, dry General skin exam: no rashes or lesions noted Neuro General: patient oriented x3 Cranial nerves: Yes Normal hearing present Cognition (Neuro): normal cognition Gait exam (Neuro): Normal gait present Extrem General: Yes normal to inspection, Yes capillary refill normal, Yes no clubbing, cyanosis or edema and Yes no pedal edema Psych Appearance: grossly normal and well kempt Speech and movement: Normal speech and movement present and Clear speech present Affect: normal affect Attitude: cooperative Thought process: Normal thought process present Thought content: Normal thought content present Insight: Good insight present (Psych) Judgement: Good judgement present (Psych) Results Reviewed Results Reviewed: [address] [address] XRay Report Signed Patient: Ute Hawkins MR#: [id number] : 1960 Acct:[id number] Age/Sex: 63 / F ADM Date: 01/15/24 Loc: [facility] Attending Dr: Darell Inman MD Ordering Physician: Darell Inman MD Date of Service: 01/15/24 Procedure(s): XR chest 2V Accession Number(s): [id number] cc: Darell Inman MD~ EXAMINATION: XR CHEST CLINICAL INFORMATION: Cough, unspecified COMPARISON: Chest 05/30/2023 TECHNIQUE: 2 views of the chest were obtained. FINDINGS: No significant abnormality is noted involving the heart, lungs, mediastinum, bony thorax or soft tissues. Surgical clips in the right upper quadrant are consistent with prior cholecystectomy. XR/XR chest 2V IMPRESSION: Unremarkable examination. 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 Unclear etiology of cough. CXR unremarkable, will send for CT chest. Will send for RAST to assess for an allergic component. Will also send for PFT to assess for any obstructive defect contributing to symptoms. All questions were answered and patient is in agreement of plan. Will follow up to review results or sooner if needed. Orders: Orders CT chest wo IV con Today R05.9 - Cough, unspecified Resp Allergy Profile Region I 07/06/24 Z91.09 - Other allergy status, other than to drugs and biological substances Complete Blood Count Auto Diff 07/06/24 Z91.09 - Other allergy status, other than to drugs and biological substances Immunoglobulin E 07/06/24 Z91.09 - Other allergy status, other than to drugs and biological substances PFT pulmonary function test Today R05.9 - Cough, unspecified, R06.09 - Other forms of dyspnea Coding Level of Care Code New Pt Level 4 (17806) Diagnoses Cough R05.9 Dyspnea on exertion R06.09 Environmental allergies Z91.09
== END 2024-07-06 15:02 | disposition home or self-care (01) ==
PROVIDERS: PCP Internal Medicine; Referring Provider Internal Medicine; Visit Provider Nurse Practitioner Family
DX: R05.9 Cough, unspecified (principal); R06.09 Other forms of dyspnea; Z91.09 Other allergy status, other than to drugs and biological substances
CPT/HCPCS: 99204

== ENCOUNTER 2024-07-30 07:39 | Outpatient (REF) | payer OTHER, SELFPAY ==
--- NOTE | ~2024-07-30 | FL_ITS ---
EXAMINATION: XR FLUOROSCOPY UPPER GI WITH AIR CLINICAL INFORMATION: Dysphagia COMPARISON: None TECHNIQUE: Fluoroscopic air contrast upper GI examination was performed utilizing standard techniques with thin and thick barium and effervescent granules. Numerous spot images were obtained. FINDINGS: Lateral cine images of the oropharynx and hypopharynx demonstrate normal swallow mechanism with normal epiglottic inversion and soft palate elevation. No tracheal penetration, glottic or subglottic aspiration identified. No nasopharyngeal reflux present. Hypopharyngeal structures appear normal without evidence of mass or diverticulum. There was no significant cricopharyngeal achalasia. Dual and single contrast images of the esophagus demonstrate normal caliber and contour. There is felinization of the mid and distal esophageal mucosa. No stricture, mass, or ulcerations identified. Esophageal peristalsis is moderately disorganized. There is [id number] narrowing of the GE junction with smooth bird beak appearance, most consistent achalasia. A small type I hiatal hernia is present. Minimal gastroesophageal reflux is seen in the distal esophagus. Dual contrast and single contrast images of the stomach demonstrated a normal contour. The areae gastricae have a minimally prominent appearance, possible mild gastritis. No masses or ulcerations are identified. Small round filling defect in the antrum is most consistent with a small hyperplastic polyp. Contrast freely passed into the gastric antrum and duodenal bulb without delay. Single and air-contrast images of the duodenal bulb demonstrate no abnormality. The duodenal sweep has a normal appearance, course, and mucosal fold appearance. The imaged proximal jejunum has a normal fold pattern and caliber. There are cholecystectomy clips present. FLUOROSCOPY TIME: 4 minutes 14 seconds Number of Spot Images: 9 Number of Cine: 14 DOSE AREA PRODUCT: 2755 uGy-m2 (microgray-meter squared) FL/FL barium swallow with air IMPRESSION: 1. Felinization of the mid and distal esophageal mucosa. This is a benign finding associated with chronic reflux. 2. Moderately disorganized esophageal peristalsis 3. Mild to moderate narrowing of the GE junction that most likely represents achalasia. 4. Minimally prominent appearance of the areae gastrica, suggestive of possible mild gastritis. 5. Small type I hiatal hernia with minimal gastroesophageal reflux. This procedure was performed by Garry Duong PA-C, and supervised by Dr. Stein Electronically signed by: Lukas Stein MD 07/30/2024 01:21 PM EDT RP
== END 2024-07-30 07:40 | disposition home or self-care (01) ==
LOC: HO.XRAY 07:39
PROVIDERS: PCP Internal Medicine; Visit Provider Otolaryngology
DX: R13.10 Dysphagia, unspecified (principal)
CPT/HCPCS: 74221

== ENCOUNTER → 2024-07-30 07:43 | Outpatient (BNV) | payer OTHER, SELFPAY | PROVIDERS: PCP Internal Medicine; Visit Provider Radiology Diagnostic Radiology | DX: R13.10 Dysphagia, unspecified (principal) | CPT/HCPCS: 74246 ==

== ENCOUNTER 2024-08-04 15:43 | Outpatient (REF) | payer OTHER, SELFPAY ==
--- NOTE | ~2024-08-04 | MM_ITS ---
EXAMINATION: MM SCREENING DIGITAL BREAST TOMOSYNTHESIS, BILATERAL CLINICAL INFORMATION: Screening. Asymptomatic. COMPARISON: Mammography: Comparison is made with available priors TECHNIQUE: Digital breast mammography with tomosynthesis is performed in both the craniocaudal and mediolateral oblique views along with computer-aided detection (CAD). FINDINGS: There are scattered areas of fibroglandular density (ACR BI-RADS breast composition Category b). Bilateral reduction mammoplasty. There are no significant masses, abnormal calcifications, or other abnormalities. MM/MM tomosynthesis screening BI IMPRESSION: No mammographic evidence of malignancy. ASSESSMENT: BI-RADS BI-RADS 2 - Benign Findings RECOMMENDATION: Routine annual mammography screening. 1 year F/U This examination should not preclude the clinical evaluation of a suspicious palpable abnormality. This patient's information was entered into a reminder system with a target due date for their next mammogram. Electronically signed by: Mary Tenorio DO 08/16/2024 05:30 PM EDT
== END 2024-08-04 15:44 | disposition home or self-care (01) ==
LOC: HO.MAMMO 15:43
PROVIDERS: PCP Internal Medicine; Visit Provider Internal Medicine
DX: Z12.31 Encounter for screening mammogram for malignant neoplasm of breast (principal)
CPT/HCPCS: 77063; 77067

== ENCOUNTER → 2024-08-04 15:45 | Outpatient (BNV) | payer OTHER, SELFPAY | PROVIDERS: PCP Internal Medicine; Visit Provider Internal Medicine | DX: Z12.31 Encounter for screening mammogram for malignant neoplasm of breast (principal) | CPT/HCPCS: 77063; 77067 ==

== ENCOUNTER 2024-08-17 13:36 | Outpatient (AMB) | payer OTHER, SELFPAY ==
[2024-08-17 13:41] VITALS: BP 126/72; PULSE 71; O2SAT 97; BMI 28.9
--- NOTE | 2024-08-17 13:41 | MHC.PC.OV ---
Vital Signs 08/17/24 13:41 Height 4 ft 11 in Weight 143 lb BMI 28.9 BP 126/72 Blood Pressure Location Lt brachial Position Sitting Pulse 71 Pulse Source Pulse Oximeter Pulse Oximetry (%) 97 Oxygen Delivery Method Room Air Intake Visit Reasons: annual exam Treating Inspector Required: No Accompanied by: Self / Same As Patient Allergies No Known Allergies Allergy (Unknown, Verified 08/17/24 13:43) Medication List - Last Reconciled 08/18/24 by Darell Inman MD albuterol sulfate 90 mcg/actuation (ProAir HFA) 2 puffs PO Q6H PRN alendronate 70 mg PO QWEEK atorvastatin 40 mg PO DAILY cholecalciferol (vitamin D3) 25 mcg PO DAILY dicyclomine 10 mg PO DAILY 30 days flecainide 1 tablet in morning and 2 tablets in the evening orally every 12 hours; fluticasone furoate 27.5 mcg/actuation (Flonase Sensimist) 1 spray intranasal DAILY hydrocodone-acetaminophen 5-325 mg 1 tab PO BID PRN 28 days metoprolol succinate ER 25 mg PO DAILY 90 days omeprazole 40 mg PO DAILY spironolactone 25 mg PO DAILY 90 days trazodone 100 mg PO BEDTIME triamcinolone acetonide 0.5% 1 appl topical TID Tobacco use date assessed: 01/15/24 Fall risk assessment: No Falls in past year Last assessed Fall Risk: 08/17/24 Dental Screening Dental Screen Date: 01/15/24 HPI annual exam HPI Details hyperlipidemia osteoporosis and afib on rx; doing well and compliant [facility] Medical History Obesity Back pain Hypertension PONV (postoperative nausea and vomiting) Arthritis GERD (gastroesophageal reflux disease) Anxiety Insomnia Hypertension Surgical History S/P total knee arthroplasty History of breast mammoplasty (~2008) History of rectal sphincterotomy (~2001) Hx of cholecystectomy (~2001) History of tubal ligation History of arthroscopy of left knee (~01/2012) History of hysterectomy Family History Father No problems noted. 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 1. Little interest or pleasure in doing things: not at all 2. Feeling down, depressed, or hopeless: not at all 3. Trouble falling or staying asleep, or sleeping too much: not at all 4. Feeling tired or having little energy: not at all 5. Poor appetite or overeating: not at all 6. Feeling bad about yourself - or that you are a failure or have let yourself or your family down: not at all 7. Trouble concentrating on things, such as reading the newspaper or watching television: not at all 8. Moving or speaking so slowly that other people could have noticed. Or the opposite - being so fidgety or restless that you have been moving around a lot more than usual: not at all 9. Thoughts that you would be better off or of hurting yourself in some way: not at all Total score: 0 Depression Screening Interpretation: Negative Depression Screening Done: Yes 62895 - PHQ-9 Billing: Yes Source: Developed by Drs. Luis Corona, Kerry Kelly, Robbi Coley and colleagues, with an educational alin from [employer]. Thrive Questionnaire Date Thrive assessed: 01/15/24 KAYLIN-7 AMB Questionnaire KAYLIN-7 Date KAYLIN - 7 assessed: 01/15/24 Source: Developed by Drs. Luis Corona, Kerry Kelly, Robbi Coley and colleagues, with an educational alin from [employer]. Review of Systems Const Denies chills, Denies fatigue, Denies headache(s) and Denies weight loss Eyes Denies change in vision, Denies diplopia and Denies eye pain ENT Denies vertigo, Denies dizziness, Denies headache(s) and Denies nasal discharge Card Denies chest pain, Denies rapid heart rate and Denies dyspnea on exertion Resp Denies chest congestion, Denies cough, Denies pain with cough and Denies dyspnea on exertion GI Denies abdominal pain, Denies hematochezia and Denies change in bowel habits Musc Denies myalgias, Denies arthralgias and Denies joint swelling Skin/Breast Denies lesions and Denies unusual bruising Neuro Denies vertigo, Denies dizziness, Denies headache(s) and Denies focal weakness Endo Denies fatigue Physical exam (Primary Care) Vital Signs: Last Vital Signs Pulse 71 08/17/24 13:41 BP 126/72 08/17/24 13:41 Pulse Ox 97 08/17/24 13:41 Oxygen Delivery Method Room Air 08/17/24 13:41 BMI result Body Mass Index 28.9 Tobacco/Smoking Status: Tobacco use Status Tobacco use date assessed 01/15/24 08/17/24 13:41 Patient Tobacco Use Status Never used Tobacco 08/17/24 13:41 Tobacco use type Cigarette 08/17/24 13:46 e-Cigarette/Vaping Use Never Used 08/17/24 13:41 PHQ-9: PHQ-9 Score PHQ-9: Total score 0 08/17/24 13:46 Depression Screening Interpretation: Negative Thrive Assessment: Date of Thrive Assessment Date Thrive assessed 01/15/24 08/17/24 13:41 Const General: cooperative, healthy appearing and no acute distress Orientation/consciousness: oriented to person, oriented to place and oriented to time [facility] Head: Yes normal to inspection, Yes normocephalic and Yes atraumatic Mouth: Normal oral and palatal mucosa present and tongue normal Throat: Yes posterior oropharynx normal and Yes uvula midline Eyes General: appearance normal, both eyes and all related structures Neck Neck: Yes normal visual inspection, Yes full ROM and Yes no lymphadenopathy Thyroid: Thyroid normal Carotids: normal carotid upstroke Chest Chest palpation & inspection: normal inspection of the chest Resp Effort & Inspection: normal respiratory effort and able to speak in complete sentences Auscultation: clear to auscultation bilaterally Cardio Jugular venous distension: no JVD Palpation: normal PMI Rate: regular rate Rhythm: regular rhythm Heart sounds: S1 normal heart sound present and S2 normal heart sound present GI Inspection: Yes normal to inspection Palpation (GI): Soft to palpation and No hepatosplenomegaly present Auscultation: normal bowel sounds General: Yes no CVA tenderness Back/Spine/Pelvis Back: no CVA tenderness Skin General skin exam: no rashes or lesions noted Neuro General: oriented to person, oriented to place and oriented to time Extrem General: Yes normal to inspection and Yes full ROM Coding Level of Care Code Est Pt Prev Care >65y(49661) Diagnoses Physical exam Z00.00 Osteoporosis M81.0 Osteoporosis type: age-related Hypercholesteremia E78.00 Assessment & Plan Assessment & Plan (1) Physical exam: Code(s): Z00.00 - Encounter for general adult medical examination without abnormal findings Category: Medical Plan: stable; do labs (2) Osteoporosis: Code(s): M81.0 - Age-related osteoporosis without current pathological fracture Category: Medical Qualifiers: Osteoporosis type: age-related Plan: stable; same rx (3) Hypercholesteremia: Code(s): E78.00 - Pure hypercholesterolemia, unspecified Category: Medical Plan: stable; same rx Orders: Orders Lipid Panel 08/17/24 Z13.220 - Encounter for screening for lipoid disorders Comprehensive [place]. Panel Fast 08/17/24 Z13.9 - Encounter for screening, unspecified
== END 2024-08-17 14:00 | disposition home or self-care (01) ==
PROVIDERS: PCP Internal Medicine; Visit Provider Internal Medicine
DX: Z00.00 Encounter for general adult medical examination without abnormal findings (principal); M81.0 Age-related osteoporosis without current pathological fracture; E78.00 Pure hypercholesterolemia, unspecified

== ENCOUNTER → 2024-08-17 13:36 | Outpatient (BNVA) | payer OTHER, SELFPAY | PROVIDERS: PCP Internal Medicine; Visit Provider Internal Medicine ==

== ENCOUNTER 2024-08-21 13:36 | Outpatient (REF) | payer OTHER, SELFPAY ==
--- NOTE | ~2024-08-21 | CT_ITS ---
EXAMINATION: CT CHEST WITHOUT CONTRAST CLINICAL INFORMATION: Cough COMPARISON: Chest radiograph 05/30/2023 TECHNIQUE: Multidetector volumetric CT imaging of the chest was done. Axial MIP volume rendering provided. Sagittal and coronal reformatted images were obtained. This CT examination was performed using dose optimization techniques as appropriate, variously including the following: *Automated exposure control *Adjustment of mA and/or kV according to patient size (this includes techniques or standardized protocols for targeted exams where dose is matched to indication/reason for exam; i.e. extremities or head) *Use of iterative reconstruction technique DLP: 143 mGy-cm FINDINGS: UNLOADER: Surgical clips are present in the gallbladder fossa. Heart size normal. LUNGS AND PLEURA: No significant emphysematous changes are seen. There is mild bronchial thickening without bronchiectasis. No infiltrates, effusions or lung masses are seen. MEDIASTINUM: There is a 1.8 cm rim calcified right thyroid nodule present. Dedicated thyroid ultrasound would be useful for further evaluation. Heart size is normal. No mediastinal or hilar lymphadenopathy. CORONARY ARTERY CALCIFICATION: None visualized on this study. AXILLA: No lymphadenopathy. UPPER ABDOMEN: Surgical clips are present in the gallbladder fossa OSSEOUS STRUCTURES: Unremarkable. CT/CT chest wo IV con IMPRESSION: 1. Mild bronchial thickening without bronchiectasis. 2. 1.8 cm rim calcified right thyroid nodule. Dedicated thyroid ultrasound would be useful for further evaluation. Fleischner guidelines were followed. Electronically signed by: Yahir Carcamo MD 10/06/2024 03:24 PM [facility] [place]
== END 2024-08-21 13:37 | disposition home or self-care (01) ==
LOC: HO.CT 13:36
PROVIDERS: PCP Internal Medicine; Visit Provider Nurse Practitioner Family
DX: R05.9 Cough, unspecified (principal)
CPT/HCPCS: 71250

== ENCOUNTER 2024-08-31 13:29 | Outpatient (AMB) | payer OTHER, SELFPAY ==
--- NOTE | 2024-08-31 13:32 | MHC.OFFVIS ---
Vital Signs 08/31/24 13:34 Height 4 ft 11 in Weight 148 lb 12.992 oz BMI 30.1 BP 142/68 H Blood Pressure Location Rt brachial Position Sitting Pulse 58 Pulse Source Pulse Oximeter Pulse Oximetry (%) 97 Oxygen Delivery Method Room Air Intake Visit Reasons: Cough Allergies No Known Allergies Allergy (Unknown, Verified 08/31/24 13:37) HPI HPI Cough: Details: Ute is a pleasant 63 year old female, never smoker with underlying nonischemic cardiomyopathy, HTN, GERD and anxiety. She was initially referred for worsening dry cough, wheezing and dyspnea on exertion with suboptimal response to Keflex, doxycycline and antihistamines. She reports improvement overall and cough however continues with dyspnea and wheezing. Today she presents to review PFT. Chest CT has not been officially read by Radiology at this time. Of note, she did undergo barium swallow evaluation which revealed chronic GERD and has an appointment with GI in November. She is moderately controlled on omeprazole reporting intermittent in reflux symptoms. [facility] Medical History Obesity Back pain Hypertension PONV (postoperative nausea and vomiting) Arthritis GERD (gastroesophageal reflux disease) Anxiety Insomnia Hypertension Surgical History S/P total knee arthroplasty History of breast mammoplasty (~2008) History of rectal sphincterotomy (~2001) Hx of cholecystectomy (~2001) History of tubal ligation History of arthroscopy of left knee (~01/2012) History of hysterectomy Family History Father No problems noted. 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 Cognitive needs: No Hearing needs: No Vision needs: Yes (glasses) Review of Systems Const Denies chills, Denies excessive sweating, Denies fever(s), Denies headache(s) and Denies night sweats Eyes Denies dry eyes, Denies irritation and Denies itchy eyes ENT Reports Normal hearing present, Denies headache(s), Denies nasal congestion, Denies nasal discharge, Denies post nasal drip and Denies sore throat Card Denies chest pain, Denies chest pain at rest, Denies chest pain with activity, Denies claudication, Denies leg edema, Denies orthopnea and Denies paroxysmal nocturnal dyspnea Resp Denies chest congestion, Denies excessive phlegm production, Denies pain on inspiration, Denies pain with cough and Denies stridor Musc Denies myalgias Neuro Reports Normal hearing present and Denies headache(s) Endo Denies excessive sweating Jose Martin/Lymph Denies lymphadenopathy Aller/Immun Denies itchy eyes and Denies seasonal rhinorrhea Physical Exam Vital Signs: Last Vital Signs Pulse 58 08/31/24 13:34 BP 142/68 H 08/31/24 13:34 Pulse Ox 97 08/31/24 13:34 Oxygen Delivery Method Room Air 08/31/24 13:34 BMI result Body Mass Index 30.1 Const General: cooperative, healthy appearing, comfortable, no acute distress, well developed and alert Orientation/consciousness: patient oriented x3 Limitations: no limitations HEENT Head: Yes normal to inspection, Yes normocephalic and Yes atraumatic Ears: hearing grossly normal bilaterally and external ears normal Eyes General: appearance normal, both eyes and all related structures Eyelids: Yes eyelids normal Sclerae: sclerae normal EOM: EOMs intact bilaterally Neck Neck: Yes normal visual inspection and Yes no lymphadenopathy Lymphatic: no lymphadenopathy noted Chest Chest palpation & inspection: normal inspection of the chest Resp Effort & Inspection: normal respiratory effort, able to speak in complete sentences, no audible wheezes, no cough, no stridor, not tachypneic, no tripod positioning and no use of accessory muscles Auscultation: clear to auscultation bilaterally Cardio Jugular venous distension: no JVD Rate: regular rate Rhythm: regular rhythm Skin Other: warm, dry General skin exam: no rashes or lesions noted Neuro General: patient oriented x3 Cranial nerves: Yes Normal hearing present Cognition (Neuro): normal cognition Gait exam (Neuro): Normal gait present Extrem General: Yes normal to inspection, Yes capillary refill normal, Yes no clubbing, cyanosis or edema and Yes no pedal edema Psych Appearance: grossly normal and well kempt Speech and movement: Normal speech and movement present and Clear speech present Affect: normal affect Attitude: cooperative Thought process: Normal thought process present Thought content: Normal thought content present Insight: Good insight present (Psych) Judgement: Good judgement present (Psych) Assessment & Plan Assessment & Plan (1) Asthma: Code(s): J45.909 - Unspecified asthma, uncomplicated Category: Medical (2) Cough: Code(s): R05.9 - Cough, unspecified Category: Medical (3) Dyspnea on exertion: Code(s): R06.09 - Other forms of dyspnea Category: Medical Plan Reviewed PFT which revealed normal spirometry however did reveal increased TLC and DLCO which is suggestive of underlying asthma. Will empirically trial ICS. Discussed importance of oral hygiene to prevent thrush. RAST negative. Awaiting final read from Radiology. She may also have underlying contribution from GERD, encouraged reflux diet and discussed ways to minimize reflux. Encouraged to follow-up with GI sooner if reflux symptoms worsen. All questions were answered and patient is in agreement of plan. Will follow up in 6-8 weeks to review response to inhaler or sooner if needed. Medications: New fluticasone propionate 44 mcg/actuation 2 puffs inhalation BID 10.6 grams 6RF Coding Level of Care Code Est Pt Level 4 (61356) Diagnoses Asthma J45.909 Cough R05.9 Dyspnea on exertion R06.09
[2024-08-31 13:34] VITALS: BP 142/68; PULSE 58; O2SAT 97; BMI 30.1
== END 2024-08-31 14:13 | disposition home or self-care (01) ==
PROVIDERS: PCP Internal Medicine; Visit Provider Nurse Practitioner Family
DX: J45.909 Unspecified asthma, uncomplicated (principal); R05.9 Cough, unspecified; R06.09 Other forms of dyspnea
CPT/HCPCS: 99214

== ENCOUNTER → 2024-08-31 13:29 | Outpatient (BNVA) | payer OTHER, SELFPAY | PROVIDERS: PCP Internal Medicine; Visit Provider Nurse Practitioner Family ==

== ENCOUNTER 2024-09-01 12:48 | Outpatient (REF) | payer OTHER, SELFPAY ==
--- NOTE | ~2024-09-01 | XR_ITS ---
EXAMINATION: XR SHOULDER, LEFT CLINICAL INFORMATION: Pain left shoulder, question acromioclavicular dislocation. COMPARISON: Chest radiograph of 01/15/2024. TECHNIQUE: Four views of the left shoulder. FINDINGS: Degenerative changes in the imaged thoracic spine. Prominent diffuse interstitial opacities in the imaged portions of the upper lungs. Please refer to dedicated chest exams for further evaluation. Moderate degenerative changes at the left acromioclavicular joint with hypertrophic change. There appears to have been interval widening of the acromioclavicular space, characteristic of disruption, currently measuring 0.9 cm and measuring approximately 0.3 cm on chest radiograph of 01/15/2024. Please note accuracy of measurement is limited due to technical differences of the 2 exams. Tiny linear radiodensity just distal to the distal end of the clavicle of indeterminate age could be related to trauma/fracture versus chronic/degenerative process. Ill-defined sclerotic focus overlying the left humeral head, possibly a bone island versus soft tissue calcification although area not fully imaged on prior exam. XR/XR shoulder LT min 2V IMPRESSION: 1. Moderate degenerative changes at the left acromioclavicular joint with hypertrophic change. There appears to have been interval widening of the acromioclavicular space, characteristic of disruption, currently measuring 0.9 cm and measuring approximately 0.3 cm on chest radiograph of 01/15/2024. Please note accuracy of measurement is limited due to technical differences of the 2 exams. 2. Tiny linear radiodensity just distal to the distal end of the clavicle of indeterminate age could be related to trauma/fracture versus chronic/degenerative process. 3. Ill-defined sclerotic focus overlying the left humeral head, possibly a bone island versus soft tissue calcification although area not fully imaged on prior exam. This study was presented to me on September 09, 2024 for interpretation. PSA staff will provide results to referring provider at this time. Electronically signed by: Iqra Lo MD 09/09/2024 10:15 AM EDT
== END 2024-09-01 12:49 | disposition home or self-care (01) ==
LOC: HO.XRAY 12:48
PROVIDERS: PCP Internal Medicine; Visit Provider Internal Medicine
DX: M25.512 Pain in left shoulder (principal)
CPT/HCPCS: 73030

== ENCOUNTER 2024-09-01 12:48 | Outpatient (AMB) | payer OTHER, SELFPAY ==
[2024-09-01 12:48] VITALS: BP 132/70; PULSE 53; O2SAT 98; BMI 29.5
--- NOTE | 2024-09-01 12:48 | MHC.PC.OV ---
Vital Signs 09/01/24 12:48 Height 4 ft 11 in Weight 146 lb BMI 29.5 BP 132/70 Blood Pressure Location Lt brachial Position Sitting Pulse 53 Pulse Source Pulse Oximeter Pulse Oximetry (%) 98 Oxygen Delivery Method Room Air Intake Visit Reasons: Sabino HutchinsSanam fell down 13 steps Platform Power Technician Required: No Accompanied by: Self / Same As Patient Allergies No Known Allergies Allergy (Unknown, Verified 09/01/24 12:49) Medication List - Last Reconciled 09/01/24 by Darell Inman MD albuterol sulfate 90 mcg/actuation (ProAir HFA) 2 puffs PO Q6H PRN alendronate 70 mg PO QWEEK atorvastatin 40 mg PO DAILY cholecalciferol (vitamin D3) 25 mcg PO DAILY dicyclomine 10 mg PO DAILY 30 days flecainide 1 tablet in morning and 2 tablets in the evening orally every 12 hours; fluticasone furoate 27.5 mcg/actuation (Flonase Sensimist) 1 spray intranasal DAILY fluticasone propionate 44 mcg/actuation 2 puffs inhalation BID hydrocodone-acetaminophen 5-325 mg 1 tab PO BID PRN 28 days metoprolol succinate ER 25 mg PO DAILY 90 days omeprazole 40 mg PO DAILY spironolactone 25 mg PO DAILY 90 days trazodone 100 mg PO BEDTIME triamcinolone acetonide 0.5% 1 appl topical TID Tobacco use date assessed: 01/15/24 Dental Screening Dental Screen Date: 01/15/24 HPI Sabino Reynaga fell down 13 steps HPI Details fell down a flight of stairs a week ago and injured her left shoulder; XR at [facility] revealed no fracture, but clinically may have a partial AC dislocation; will repeat the xr [facility] Medical History Obesity Back pain Hypertension PONV (postoperative nausea and vomiting) Arthritis GERD (gastroesophageal reflux disease) Anxiety Insomnia Hypertension Surgical History S/P total knee arthroplasty History of breast mammoplasty (~2008) History of rectal sphincterotomy (~2001) Hx of cholecystectomy (~2001) History of tubal ligation History of arthroscopy of left knee (~01/2012) History of hysterectomy Family History Father No problems noted. 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 Luis Corona, Kerry Kelly, Robbi Coley and colleagues, with an educational alin from [employer] Review of Systems Const Denies chills, Denies headache(s) and Denies weight loss ENT Denies headache(s) Card Denies chest pain, Denies syncope, Denies irregular heart rhythm and Denies dyspnea Resp Denies chest congestion, Denies cough and Denies dyspnea GI Denies abdominal pain, Denies change in stool character, Denies nausea and Denies vomiting Musc Denies deformity and Denies joint swelling Neuro Denies syncope and Denies headache(s) Physical exam (Primary Care) Vital Signs: Last Vital Signs Pulse 53 09/01/24 12:48 BP 132/70 09/01/24 12:48 Pulse Ox 98 09/01/24 12:48 Oxygen Delivery Method Room Air 09/01/24 12:48 BMI result Body Mass Index 29.5 Tobacco/Smoking Status: Tobacco use Status Tobacco use date assessed 01/15/24 09/01/24 12:51 Patient Tobacco Use Status Never used Tobacco 09/01/24 12:51 Tobacco use type Cigarette 09/01/24 12:51 e-Cigarette/Vaping Use Never Used 09/01/24 12:51 Thrive Assessment: Date of Thrive Assessment Date Thrive assessed 01/15/24 09/01/24 12:51 Const General: cooperative, comfortable, no acute distress and alert Neck Neck: Yes no lymphadenopathy Thyroid: Thyroid normal Resp Effort & Inspection: normal respiratory effort Auscultation: clear to auscultation bilaterally Percussion: percussion normal Cardio Jugular venous distension: no JVD Palpation: normal PMI Rate: regular rate Rhythm: regular rhythm Heart sounds: S1 normal heart sound present and S2 normal heart sound present GI Inspection: Yes normal to inspection Palpation (GI): No hepatosplenomegaly present Skin General skin exam: no rashes or lesions noted Extrem General: Yes no clubbing, cyanosis or edema Coding Level of Care Code Est Pt Level 3 (35328) Diagnoses Shoulder pain M25.519 Assessment & Plan Assessment & Plan (1) Shoulder pain: Code(s): M25.519 - Pain in unspecified shoulder Category: Medical Plan: repeat xr Orders: Orders XR shoulder LT min 2V Today M25.519 - Pain in unspecified shoulder
== END 2024-09-01 13:11 | disposition home or self-care (01) ==
PROVIDERS: PCP Internal Medicine; Visit Provider Internal Medicine
DX: M25.519 Pain in unspecified shoulder (principal)

== ENCOUNTER 2024-09-16 14:42 | Outpatient (AMB) | payer OTHER, SELFPAY ==
[2024-09-16 15:20] VITALS: BP 134/60; PULSE 59; BMI 29.7
--- NOTE | 2024-09-16 15:20 | A.OFFVIS_ITS ---
Vital Signs 09/16/24 15:20 Height 4 ft 11 in Weight 147 lb 4.301 oz BMI 29.7 BP 134/60 Blood Pressure Location Lt brachial Position Sitting Pulse 59 Intake Visit Reasons: 6 month follow-up Morning Babysitter Required: No Accompanied by: Self / Same As Patient Allergies No Known Allergies Allergy (Unknown, Verified 09/01/24 12:49) Medication List - Last Reconciled 09/16/24 by Radu Harry MD albuterol sulfate 90 mcg/actuation (ProAir HFA) 2 puffs PO Q6H PRN alendronate 70 mg PO QWEEK atorvastatin 40 mg PO DAILY budesonide 90 mcg/actuation (Pulmicort Flexhaler) 1 inh inhalation BID cholecalciferol (vitamin D3) 25 mcg PO DAILY dicyclomine 10 mg PO DAILY 30 days flecainide 1 tablet in morning and 2 tablets in the evening orally every 12 hours; metoprolol succinate ER 25 mg PO DAILY 90 days omeprazole 40 mg PO DAILY spironolactone 25 mg PO DAILY 90 days trazodone 100 mg PO BEDTIME triamcinolone acetonide 0.5% 1 appl topical TID HPI Comments Details: 64-year-old female who is here for 1st office visit. Recently she was and [facility] Department for headache. She had EKG performed at that time which showed ventricular bigeminy. Her heart rate was 40 beats per minute and the PVCs were not perfused. She did not have any dizziness or palpitations at that time and mainly presented for headache and elevated blood pressure. She said she was observed and discharged home eventually. She has strong family history of coronary disease. She has hypertension and currently taking lisinopril. She has longstanding history of dyspnea on exertion. She is not an asthmatic. She is saying her weight has been stable but she is overweight. 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 10/14/2023: She returns for follow-up. She underwent cardiac catheterization which did not show any significant coronary disease. After that she was started on flecainide 50 mg twice a day. Subsequent EKG showed frequent premature ventricular complexes. She was advised to increase the flecainide 100 mg twice a day. She returns today and is complaining of a lot of GI complaints. She has previous GI issues include a acid reflux but is saying that since she increase the medications she feels bloated and get some dominant discomfort. She is saying she was getting these symptoms before but there were since we increased the flecainide. Her pulse is quite regular today and is in 60s compared with 40s before because she previously did not perfuse the premature ventricular complexes. Other complaints currently. 12/18/23: She returns for follow-up. She has been doing well. No palpitations. Repeat EKG here showing sinus bradycardia without any PVCs. She is tolerating flecainide 50 mg in the morning and 100 at night better then 100 mg twice a day. No symptoms/signs of heart failure. 04/15/24: She is here for follow-up. Complaining of dizziness and lightheadedness. Blood pressure is 100/50. She is saying she has lost some weight and it appears she lost approximately 20 lb since 10/30/2023. I have advised her to stop the hydrochlorothiazide. Repeat echocardiography from 03/30/2024 has shown normal ejection fraction 55-60% without any wall motion abnormalities. 09/16/2024: She is here for follow-up. Doing well. No symptoms. EKGs showing sinus bradycardia without any PVCs. Blood pressure well controlled. [facility] Medical History Obesity Back pain Hypertension PONV (postoperative nausea and vomiting) Arthritis GERD (gastroesophageal reflux disease) Anxiety Insomnia Hypertension Surgical History S/P total knee arthroplasty History of breast mammoplasty (~2008) History of rectal sphincterotomy (~2001) Hx of cholecystectomy (~2001) History of tubal ligation History of arthroscopy of left knee (~01/2012) History of hysterectomy Family History Father No problems noted. 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 Cognitive needs: No Hearing needs: No Vision needs: Yes (glasses) Review of Systems Const Denies chills, Denies fatigue, Denies fever(s), Denies weight gain and Denies weight loss ENT Denies dizziness Card Denies chest pain, Denies leg edema, Denies lightheadedness, Denies palpitations, Denies dyspnea on exertion, Denies orthopnea and Denies other Resp Denies cough and Denies dyspnea on exertion GI Denies hematochezia and Denies change in stool character Musc Denies abnormal gait, Denies muscle weakness, Denies numbness, Denies radiating pain into limb and Denies tingling Neuro Denies abnormal gait, Denies dizziness, Denies numbness and Denies tingling Endo Denies fatigue and Denies palpitations Physical Exam Vital Signs: Last Vital Signs Pulse 59 09/16/24 15:20 BP 134/60 09/16/24 15:20 BMI result Body Mass Index 29.7 GENERAL APPEARANCE: in no acute distress, pleasant. NECK: no carotid bruit, no jugular venous distention. SKIN: no suspicious lesions, warm and dry. HEART: no murmurs, regular rate and rhythm. Bradycardic. LUNGS: clear to auscultation bilaterally. ABDOMEN: soft, nontender. EXTREMITIES: no edema. PERIPHERAL PULSES: equal. NEUROLOGIC: No gross deficits, AAO X 3 Office Procedures EKG Details: Sinus bradycardia 59 beats per minute, normal axis, nonspecific ST changes, QTC 470 milliseconds. [id number], Complete Assessment & Plan Assessment & Plan (1) PVC (premature ventricular contraction): Code(s): I49.3 - Ventricular premature depolarization Category: Medical (2) Cardiomyopathy: Code(s): I42.9 - Cardiomyopathy, unspecified Category: Medical (3) Hypertension: Code(s): I10 - Essential (primary) hypertension Category: Medical Qualifiers: Hypertension type: primary hypertension Qualified Code(s): I10 - Essential (primary) hypertension Plan 64 year female who is here for follow-up. She was seen for incidental diagnosis of premature ventricular complexes and nonischemic cardiomyopathy with mildly reduced ejection fraction. Clinically she has not developed any congestive heart failure. She underwent cardiac catheterization which did not show any coronary artery disease. Subsequent to that she was started on flecainide and metoprolol and since then had significant improvement in PVC burden and echocardiography in 03/30/2024 has shown normal ejection fraction. She will continue same medications for now. I have explained to her that if she had recurrence of PVCs or could not tolerate flecainide in the future or felt that she wants to get off the flecainide then we may have to pursue PVC ablation. Thank you for allowing me to participate in the care of your patient. Please feel free to contact me if you have any questions. Medications: Discontinued beclomethasone dipropionate 40 mcg/actuation (Qvar RediHaler) Discontinued Reason: Insurance Denied 2 inhalations inhalation BID 10.6 grams 3RF Coding Level of Care Code Est Pt Level 4 (81874) Diagnoses PVC (premature ventricular contraction) I49.3 Cardiomyopathy I42.9 Primary hypertension I10 Hypertension type: primary hypertension CPT Codes EKG - CPT: 46803-[id number], Complete ([id number])
== END 2024-09-16 15:46 | disposition home or self-care (01) ==
PROVIDERS: PCP Internal Medicine; Visit Provider Internal Medicine Cardiovascular Disease
DX: I49.3 Ventricular premature depolarization (principal); I42.9 Cardiomyopathy, unspecified; I10 Essential (primary) hypertension
CPT/HCPCS: 93010; 99214

== ENCOUNTER → 2024-09-16 14:42 | Outpatient (BNVA) | payer OTHER, SELFPAY | PROVIDERS: PCP Internal Medicine; Visit Provider Internal Medicine Cardiovascular Disease | DX: I49.3 Ventricular premature depolarization (principal); I42.9 Cardiomyopathy, unspecified; I10 Essential (primary) hypertension; Z79.899 Other long term (current) drug therapy | CPT/HCPCS: 93005 ==

== ENCOUNTER 2024-09-30 13:20 | Outpatient (AMB) | payer OTHER, SELFPAY ==
--- NOTE | 2024-09-30 13:31 | A.OFFVIS_ITS ---
Intake Visit Reasons: New prob - Left Shoulder AC Joint seperation Intake Note: Ute a 64 year old left hand dominant female who presents today for an evaluation of left shoulder pain s/p fall on 08/21/24. Patient reports having a fall down stairs. She presented to [facility] ER where x-rays were performed. She then followed up with her PCP who ordered an x-ray and was referred to orthopedics. Currently her pain is a 9 out of 10 with lifting items. States bilateral shoulder pain with her left shoulder being the worse. Pain with ROM. No previous tx. Finds some relief ibuprofen. No numbness or tingling. Allergies No Known Allergies Allergy (Unknown, Verified 09/30/24 13:32) Medication List - Last Reconciled 09/30/24 by Yokasta Lantigua PA-C albuterol sulfate 90 mcg/actuation (ProAir HFA) 2 puffs PO Q6H PRN alendronate 70 mg PO QWEEK atorvastatin 40 mg PO DAILY budesonide 90 mcg/actuation (Pulmicort Flexhaler) 1 inh inhalation BID cholecalciferol (vitamin D3) 25 mcg PO DAILY dicyclomine 10 mg PO DAILY 30 days flecainide 1 tablet in morning and 2 tablets in the evening orally every 12 hours; metoprolol succinate ER 25 mg PO DAILY 90 days omeprazole 40 mg PO DAILY spironolactone 25 mg PO DAILY 90 days trazodone 100 mg PO BEDTIME triamcinolone acetonide 0.5% 1 appl topical TID HPI HPI New prob - Left Shoulder AC Joint seperation: Details: 64-year-old female presents to the office today for an injury she sustained to her left shoulder on 08/21/2024. She states she fell and went to put her arm out to catch herself. She was seen initially at [facility] emergency department where x-rays were obtained and she was placed in a sling. She followed up with her primary care doctor who repeated the x-rays and referred her to our office for ortho eval. She has been out of work to date [facility] Medical History Obesity Back pain Hypertension PONV (postoperative nausea and vomiting) Arthritis GERD (gastroesophageal reflux disease) Anxiety Insomnia Hypertension Surgical History S/P total knee arthroplasty History of breast mammoplasty (~2008) History of rectal sphincterotomy (~2001) Hx of cholecystectomy (~2001) History of tubal ligation History of arthroscopy of left knee (~01/2012) History of hysterectomy Family History Father No problems noted. 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 No open wounds. She does have a prominent AC joint with mild tenderness. This is reducible. Forward flexion to 175 degrees. Neurovascularly intact. Results Reviewed Results Reviewed: X-rays of the left shoulder obtained on 09/01 show grade 2 left AC separation Assessment & Plan Assessment & Plan (1) Separation of left acromioclavicular joint: Code(s): S43.102A - Unspecified dislocation of left acromioclavicular joint, initial encounter Category: Medical Plan Discussed options today which include physical therapy to work on scapular stabilization and gentle range of motion. I cautioned any type of repetitive use and lifting for the next 2 weeks however she can return to work as she is right-hand dominant and does have help with her job to assist her when necessary. She will continue to increase activities as tolerated and return to see us if there are worsening symptoms or any concerns. Orders: Orders PT Evaluation and Treatment Today S43.102A - Unspecified dislocation of left acromioclavicular joint, initial encounter Coding Level of Care Code Est Pt Level 3 (47547) Complex EM visit Add On G2211 Diagnoses Separation of left acromioclavicular joint S43.102A
== END 2024-09-30 13:45 | disposition home or self-care (01) ==
PROVIDERS: PCP Internal Medicine; Visit Provider Physician Assistant
DX: S43.102A Unspecified dislocation of left acromioclavicular joint, initial encounter (principal)
CPT/HCPCS: 99213

== ENCOUNTER → 2024-09-30 13:20 | Outpatient (BNVA) | payer OTHER, SELFPAY | PROVIDERS: PCP Internal Medicine; Visit Provider Physician Assistant ==

== ENCOUNTER → 2024-11-02 14:48 | Outpatient (BNVA) | payer OTHER, SELFPAY | PROVIDERS: PCP Internal Medicine; Visit Provider Nurse Practitioner Family ==

== ENCOUNTER 2024-11-02 14:51 | Outpatient (AMB) | payer OTHER, SELFPAY ==
--- NOTE | 2024-11-02 14:49 | A.OFFVIS_ITS ---
Vital Signs 11/02/24 14:51 Height 4 ft 11 in BP 108/64 Blood Pressure Location Lt brachial Position Sitting Pulse 55 Pulse Source Pulse Oximeter Pulse Oximetry (%) 97 Oxygen Delivery Method Room Air Intake Visit Reasons: Cough Allergies No Known Allergies Allergy (Unknown, Verified 11/02/24 14:51) HPI HPI Cough: Details: Ute is a pleasant 64 year old female, never smoker with underlying nonischemic cardiomyopathy, HTN, GERD and anxiety. At the last visit, she was started on pulmicort however had difficulties using device. She continues to report intermittent wheezing and dyspnea on exertion. She reports cough is very infrequent and denies chest tightness. She denies any visits to urgent care or hospitalizations related to respiratory distress since the last visit. [facility] Medical History Obesity Back pain Hypertension PONV (postoperative nausea and vomiting) Arthritis GERD (gastroesophageal reflux disease) Anxiety Insomnia Hypertension Surgical History S/P total knee arthroplasty History of breast mammoplasty (~2008) History of rectal sphincterotomy (~2001) Hx of cholecystectomy (~2001) History of tubal ligation History of arthroscopy of left knee (~01/2012) History of hysterectomy Family History Father No problems noted. 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 Cognitive needs: No Hearing needs: No Vision needs: Yes (glasses) Review of Systems Const Denies chills, Denies excessive sweating, Denies fever(s), Denies headache(s) and Denies night sweats Eyes Denies dry eyes, Denies irritation and Denies itchy eyes ENT Reports Normal hearing present, Denies headache(s), Denies nasal congestion, Den ies nasal discharge, Denies post nasal drip and Denies sore throat Card Denies chest pain, Denies chest pain at rest, Denies chest pain with activity, Denies claudication, Denies leg edema, Denies orthopnea and Denies paroxysmal nocturnal dyspnea Resp Denies chest congestion, Denies excessive phlegm production, Denies pain on inspiration, Denies pain with cough and Denies stridor Musc Denies myalgias Neuro Reports Normal hearing present and Denies headache(s) Endo Denies excessive sweating Jose Martin/Lymph Denies lymphadenopathy Aller/Immun Denies itchy eyes and Denies seasonal rhinorrhea Physical Exam Vital Signs: Last Vital Signs Pulse 55 11/02/24 14:51 BP 108/64 11/02/24 14:51 Pulse Ox 97 11/02/24 14:51 Oxygen Delivery Method Room Air 11/02/24 14:51 Const General: cooperative, healthy appearing, comfortable, no acute distress, well developed and alert Orientation/consciousness: patient oriented x3 Limitations: no limitations HEENT Head: Yes normal to inspection, Yes normocephalic and Yes atraumatic Ears: hearing grossly normal bilaterally and external ears normal Eyes General: appearance normal, both eyes and all related structures Eyelids: Yes eyelids normal Sclerae: sclerae normal EOM: EOMs intact bilaterally Neck Neck: Yes normal visual inspection and Yes no lymphadenopathy Lymphatic: no lymphadenopathy noted Chest Chest palpation & inspection: normal inspection of the chest Resp Effort & Inspection: normal respiratory effort, able to speak in complete sentences, no audible wheezes, no cough, no stridor, not tachypneic, no tripod positioning and no use of accessory muscles Auscultation: clear to auscultation bilaterally Cardio Jugular venous distension: no JVD Rate: regular rate Rhythm: regular rhythm Skin Other: warm, dry General skin exam: no rashes or lesions noted Neuro General: patient oriented x3 Cranial nerves: Yes Normal hearing present Cognition (Neuro): normal cognition Gait exam (Neuro): Normal gait present Extrem General: Yes normal to inspection, Yes capillary refill normal, Yes no clubbing, cyanosis or edema and Yes no pedal edema Psych Appearance: grossly normal and well kempt Speech and movement: Normal speech and movement present and Clear speech present Affect: normal affect Attitude: cooperative Thought process: Normal thought process present Thought content: Normal thought content present Insight: Good insight present (Psych) Judgement: Good judgement present (Psych) Results Reviewed Results Reviewed: [address] [address] [address] Scan Report Signed Patient: Ute Hawkins MR#: [id number] : 1960 Acct:[id number] Age/Sex: 64 / F ADM Date: 08/21/24 Loc: HO.CT Attending Dr: Zeinab Rice NP Ordering Physician: Zeinab Rice NP Date of Service: 08/21/24 Procedure(s): CT chest wo IV con Accession Number(s): [id number] cc: Darell Inman MD; Zeinab Rice NP~ EXAMINATION: CT CHEST WITHOUT CONTRAST CLINICAL INFORMATION: Cough COMPARISON: Chest radiograph 05/30/2023 TECHNIQUE: Multidetector volumetric CT imaging of the chest was done. Axial MIP volume rendering provided. Sagittal and coronal reformatted images were obtained. This CT examination was performed using dose optimization techniques as appropriate, variously including the following: *Automated exposure control *Adjustment of mA and/or kV according to patient size (this includes techniques or standardized protocols for targeted exams where dose is matched to indication/reason for exam; i.e. 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 Heart size normal. LUNGS AND PLEURA: No significant emphysematous changes are seen. There is mild bronchial thickening without bronchiectasis. No infiltrates, effusions or lung masses are seen. MEDIASTINUM: There is a 1.8 cm rim calcified right thyroid nodule present. Dedicated thyroid ultrasound would be useful for further evaluation. Heart size is normal. No mediastinal or hilar lymphadenopathy. CORONARY ARTERY CALCIFICATION: None visualized on this study. AXILLA: No lymphadenopathy. UPPER ABDOMEN: Surgical clips are present in the gallbladder fossa OSSEOUS STRUCTURES: Unremarkable. CT/CT chest wo IV con IMPRESSION: 1. Mild bronchial thickening without bronchiectasis. 2. 1.8 cm rim calcified right thyroid nodule. Dedicated thyroid ultrasound would be useful for further evaluation. Fleischner guidelines were followed. Electronically signed by: Yahir Carcamo MD 10/06/2024 03:24 PM EST RP Dictated By: Yahir Carcamo MD Signed By: <Electronically signed by Yahir Carcamo MD in OV> 10/06/24 1524 DD/ 1400 TD/TT: 08/21/24 1427 Disaster Recovery Coordinator: JOLYNN Assessment & Plan Assessment & Plan (1) Asthma: Code(s): J45.909 - Unspecified asthma, uncomplicated Category: Medical (2) Cough: Code(s): R05.9 - Cough, unspecified Category: Medical (3) Dyspnea on exertion: Code(s): R06.09 - Other forms of dyspnea Category: Medical Plan Educated patient on use of pulmicort. Encouraged to start using in addition to albuterol MDI. Reviewed chest CT which revealed mild bronchial thickening. PCP notified of incidental thyroid nodule. All questions were answered and patient is in agreement of plan. Will follow up in 3 months or sooner if needed. Coding Level of Care Code Est Pt Level 4 (61235) Diagnoses Asthma J45.909 Cough R05.9 Dyspnea on exertion R06.09
--- OUTSIDE RECORDS SUMMARY | 2024-11-02 14:50 | XMS_ITS ---
Author Organization [facility] Address [address] [place] [address] Care Team Providers Care Silk Snapper Name Role Phone Storm DENNIS, Darell Primary Care Provider Luis Escalera Unavailable [phone] REASON FOR VISIT refill dicyclomine MEDICATIONS Medication SIG (Take, Route, Fr equency, Duration) Notes Start Date End Date Status Dicyclomine HCl 10 MG 1 or 2 Orally Ever y 6 hours as needed for abdominal discomfort/cramps/bloating for 30 day(s) 11/07/2023 Active Encounters Encounter Location Date Provider Diagnosis [facility] [address] [place] [address] 11/07/2023 Luis Murguia PLAN OF TREATMENT Medication Medication Name Sig Start Date Stop Date Notes Dicyclomine HCl 10 MG 1 or 2 Orally Ever y 6 hours as needed for abdominal discomfort/cramps/bloating for 30 day(s) 11/07/2023 Next Appt Details Provider Name:Luis Murguia , 12/01/2024 02:20:00 PM, [address], [address], [place], [address],
--- OUTSIDE RECORDS SUMMARY | 2024-11-02 14:50 | XMS_ITS | Patient Health Record ---
Author Organization [facility] Address [address] [place] [address] Care Team Providers Care Counter Waitress/Waiter Name Role Phone Darell Inman MD Primary Care Provider Bob Mcnamara Unavailable [phone] Reason For Referral No Information Medications Medication SIG (Take, Route, Fr equency, Duration) Notes Start Date End Date Status Vicodin 5-300 MG 1 tablet as needed O rally every 6 hrs Active Social History Tobacco use other than smoking: Question Answer Notes Are you an other tobacco user? No Problems Problem Type SNOMED Code ICD Code Onset Dates Problem Status W/U Status Risk Notes Problem Plantar fascial fibromatosis (76493288) Plantar fascial fibromatosis (M72.2) Active confirmed Plan Of Treatment Pending Test Test Name Order Date X ray : Foot, right 2V 10/25/2015 84596 I&D ABSCESS- SIMPLE,SINGLE 015 Insurance Providers Payer Name Payer Address Payer Phone Subscriber Number Group Number Insured Name Patient Relationship to Insured Coverage Start Date Coverage End Date [facility] [address] [place] [address] [phone] [id number] Self - patient is the insured Medical (General) History Medical History History ICD Code Stomach ulcer Surgical History Surgery Date(Month/Year) hysterectomy 1999 gall stones
--- OUTSIDE RECORDS SUMMARY | 2024-11-02 14:50 | XMS_ITS | Patient Health Record ---
Author Organization [facility] Address [address] [place] [address] Care Team Providers Care Rug Sizer Name Role Phone Darell Inman MD Primary Care Provider Unavaila Luis Pritchard Unavailable [phone] REASON FOR REFERRAL No Information MEDICATIONS Medication SIG (Take, Route, Fr equency, Duration) Notes Start Date End Date Status Dicyclomine HCl 10 MG TAKE 1 TO 2 CAPSUL ES BY MOUTH EVERY 6 HRS NEEDED FOR ABDOMINAL BLOATING/CRAMPS/DISCOMFORT for 90 Active vicodin Active Lisinopril Active Vitamin D Active Naproxen Active traZODone HCl 100 MG Orally Active Dicyclomine HCl 10 MG 1 or 2 Orally Ever y 6 hours as needed for abdominal discomfort/cramps/bloating for 30 day(s) 11/07/2023 Active Tylenol Active Omeprazole 20 MG 1 Orally Once a day Active IMMUNIZATIONS Vaccine Route Administration Date Status Comme nts Flu vaccine no Preserv 3 and > Unknown 08/11/2016 Admin istered Influenza Unknown 08/11/2020 Administered SOCIAL HISTORY Sex Assigned At : Social History Observation Description Sex Assigned At Unknown PROBLEMS Problem Type ICD Code Onset Dates Problem Status W/U Status Risk SNOMED Code Notes Problem Irritable bowel syndrome (K58.9) Active confirmed Irritable bowel syndrome (58574702) Problem Encounter for screening for malignant neoplasm of colon (Z12.11) Active confirmed 565978901 Problem Encounter for screening for malignant neoplasm of rectum (Z12.12) Active confirmed Screening for malignant neoplasm of rectum (281073735) Problem Gastroesophageal reflux disease, esophagitis presence not specified (K21.9) Active confirmed 856737793 Problem Hiatal hernia (K44.9) Active confirmed 44087007 Problem Abdominal pain, acute, left upper quadrant (R10.12) Active confirmed Left upper quadrant pain (656060162) Encounters Encounter Location Date Provider Diagnosis [facility] [address] [place] [address] 11/07/2023 Luis Murguia [facility] [address] [place] [address] 02/11/2024 Luis Murguia PLAN OF TREATMENT Future Test Test Name Order Date UPPER GI ENDOSCOPY 09/20/2016 COLONOSCOPY 09/20/2016 Next Appt Details Provider Name:Luis Murguia , 12/01/2024 02:20:00 PM, [address], [address], [place], [address], Insurance Providers Payer Name Payer Address Payer Phone Subscriber Number Group Number Insured Name Patient Relationship to Insured Coverage Start Date Coverage End Date [facility] [address] [address] [place] [phone] [id number] IZZY FARRELL Self - patient is the insured MEDICAL (GENERAL) HISTORY Medical History History ICD Code Denies [place],DM,CVA,Lung disease,renal dise ase GERD--EGD in 2006-Large HH, gastritis, + H.pylori(s/p Rx), normal duodenal bx, neg. Gupta's and no sig. esophagitis Colonosocpy 04/2007--negative except for internal hemorrhoids Hypothyroidism IBS History of iron def anemia with negative w/u as above ERCP with sphincterotomy and CBD stone r emoval --2001 Spinal stenosis Urinary incontinence Hypertension Colonoscopy 2017 was negative EGD [id number] HH--no esophagit is nor Gupta's COVID 10/2020 Surgical History Surgery Date(Month/Year) BEE Right knee replacement in 11/2020 at [facility]--preop ERCP with sphinct erotomy with removal of a common bile duct stone 2001 BTL
[2024-11-02 14:51] VITALS: BP 108/64; PULSE 55; O2SAT 97
--- OUTSIDE RECORDS SUMMARY | 2024-11-02 14:53 | XMS_ITS ---
Author Organization [facility] Address [address] [place] [address] Care Team Providers Care Home School Teacher Name Role Phone Darell Inman MD Primary Care Provider Unavaila Luis Pritchard Unavailable [phone] REASON FOR VISIT GASSY Encounters Encounter Location Date Provider Diagnosis [facility] [address] [place] [address] 02/11/2024 Luis Murguia PLAN OF TREATMENT Next Appt Details Provider Name:Luis Murguia , 12/01/2024 02:20:00 PM, [address], [address], [place], [address],
== END 2024-11-02 15:23 | disposition home or self-care (01) ==
PROVIDERS: PCP Internal Medicine; Visit Provider Nurse Practitioner Family
DX: J45.909 Unspecified asthma, uncomplicated (principal); R05.9 Cough, unspecified; R06.09 Other forms of dyspnea
CPT/HCPCS: 99214

== ENCOUNTER 2024-11-17 13:45 | Outpatient (RCR) | payer OTHER, SELFPAY ==
--- NOTE | 2024-11-17 16:28 | MHC.PT.EP ---
[facility] [place] Office [place] Office [place] Office [address] Braulio Gonzales [address] [phone] F: [phone] F: [phone] F: [phone] F: [phone] Physical Therapy Plan of Care Date of Evaluation: 11/17/24 Date of Surgery: NA Diagnosis: L AC JT SEPARATION Assessment: Pt IS 64 YO F REFERRED TO PT FROM [facility] ([facility]) WITH L ACJT SEPARATION. Pt FELL DOWN A FLIGHT OF STAIRS ON 09/21/24. Pt REPORTS OVERALL BETTER THAN AT INITIAL FALL. PRESENTS WITH GOOD OVERALL ROM AND DECENT STRENGTH. 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 INCREASED AWARENESS POSTURE AND SHLDER CARE 2 I HEP WITH DC EX PLAN Functional Mental Disability Teacher Goals: 1. DECREASED L SHLDER PAIN AT LEAST 50% WITH ADLS Treatment Plan: Modalities to reduce pain, spasms and effusion. Manual therapy to restore motion and function. Therapeutic exercise to improve strength and flexibility. Neuromuscular re-education for posture and balance. Therapeutic activities to return to functional activities of daily living. Electronically signed by: RIO PETTY PT Please sign and return to therapist. Thank you for your referral.
--- NOTE | 2024-12-15 13:01 | MHC.PT.DC ---
[facility] [place] Office [place] Office [place] Office [address] Braulio Gonzales [address] [phone] F: [phone] F: [phone] F: [phone] F: [phone] Physical Therapy Discharge Report Diagnosis: L AC JT SEPARATION Date of Surgery: NA Date of Evaluation: 11/17/24 Date of Discharge: 12/15/24 Treatments to Date: 1 Cancellations to Date: No Shows to Date: Discharge Status: Visit Non-compliance Discharge Summary: Pt SEEN FOR INIT EVAL ONLY. PER ASSESSMENT Pt IS 64 YO F REFERRED TO PT [facility] WITH L ACJT SEPARATION. Pt FELL DOWN A FLIGHT OF STAIRS ON 09/21/24. Pt REPORTS OVERALL BETTER THAN AT INITIAL FALL. PRESENTS WITH GOOD OVERALL ROM AND DECENT STRENGTH. 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 Thank you for your referral.
== END 2024-12-15 13:02 | disposition home or self-care (01) ==
LOC: HO.PT 13:45
PROVIDERS: PCP Internal Medicine; Visit Provider Physician Assistant
DX: S43.102A Unspecified dislocation of left acromioclavicular joint, initial encounter (principal); W10.9XXA Fall (on) (from) unspecified stairs and steps, initial encounter
CPT/HCPCS: 97110; 97161; 97535

== ENCOUNTER 2024-12-03 12:49 | Outpatient (REF) | payer OTHER, SELFPAY ==
--- NOTE | ~2024-12-03 | US_ITS ---
EXAMINATION: US THYROID CLINICAL INFORMATION: Nontoxic single thyroid nodule. COMPARISON: None available. TECHNIQUE: Linear transducer grayscale and color Doppler examination with attention to the region of the thyroid. FINDINGS: SIZE: Measurements of the thyroid lobes and nodules are given in sagittal, anteroposterior and transverse dimensions respectively. Right Thyroid Lobe: 5.2 x 2.0 x 2.0 cm, volume 10.5 mL. Parenchyma: The gland echotexture is homogeneous. Thyroid vascularity is normal. Left Thyroid Lobe: 5.6 x 1.8 x 2.0 cm, volume 10.5 mL. Parenchyma: The gland echotexture is homogeneous. Thyroid vascularity is normal. Isthmus: 0.2 cm in maximum AP dimension. Estimated total number of nodules greater than or equal to 1 cm: one. Couture Dressmaker nodules are described as follows: 1. Location: Right lower pole. Size: 1.6 x 1.6 x 1.7 cm, volume 2.13 mL. Nodule characteristics: Composition: Solid (2). Echogenicity: Undetermined Shape: Wider Margins: Smooth (0). Echogenic Foci: Peripheral calcifications (2). ACR TI-RADS total points: 5 ACR TI-RADS category: 4 2. Location: Left upper pole. Size: 0.6 x 0.3 x 0.6 cm, volume 0.062 mL. Nodule characteristics: Composition: Solid (2). Echogenicity: Hypoechoic (2). Shape: Wider Margins: Smooth (0). Echogenic Foci: None (0). ACR TI-RADS total points: 4 ACR TI-RADS category: 4 NODES: No lymphadenopathy is seen in the tissue surrounding the thyroid gland. US/US thyroid IMPRESSION: Suspicious nodule right lower pole. Recommend ultrasound-guided aspiration biopsy. ACR TI-RADS RECOMMENDATION REFERENCE: Ultrasound-guided fine-needle aspiration, followup ultrasound, no further follow up. * TR1 (0 point) and TR2 (2 points): No FNA or follow up. * TR3 (3 points): FNA if more than or equal to 2.5 cm in maximum dimension, followup ultrasound in 1, 3 and 5 years if 1.5 to 2.4 cm in maximum dimension. * TR4 (4-6 points): FNA if more than or equal to 1.5 cm in maximum dimension, followup ultrasound in 1, 2, 3 and 5 years if 1 to 1.4 cm in maximum dimension. * TR5 (more than or equal to 7 points): FNA if more than or equal to 1 cm in maximum dimension, followup ultrasound every year for 5 years if 0.5 to 0.9 cm in maximum dimension. * TR3, TR4 or TR5 nodules that are below the size threshold for followup receive no follow up. Electronically signed by: Aime Trejo MD 12/07/2024 08:54 AM MAGUE
--- OUTSIDE RECORDS SUMMARY | 2024-12-03 15:08 | XMS_ITS ---
Author Organization [facility] Address [address] [place] [address] Care Team Providers Care Protozoologist Name Role Phone Storm DENNIS, Darell Primary Care Provider Luis Escalera Unavailable [phone] Encounters Encounter Location Date Provider Diagnosis [facility] [address] [place] [address] 12/01/2024 Luis Murguia PLAN OF TREATMENT Next Appt Details Provider Name:Luis Murguia , 04/13/2025 10:10:00 AM, [address], [address], [place], [address],
--- OUTSIDE RECORDS SUMMARY | 2024-12-03 15:09 | XMS_ITS | Clinical Summary ---
Author Organization [facility] Address [address] [place] [address] Phone Care Team Providers Care Painter Railroad Car Name Role Phone Unavailable Primary Care Provider Unavailabl e Encounters Date Type Department Care Team Description 09/30/2024 [facility] [address] [place] [address] Gabriela Arteaga MD Syncope and collapse 09/29/2024 [facility] [address] [place] [address] Gabriela Arteaga MD Syncope and collapse 09/28/2024 [facility] [address] [place] [address] Gabriela Arteaga MD Syncope and collapse from Last 3 Months Social History Tobacco Use Types Packs/Day Years Used Date Smoking Tobacco: Never Assessed Sex and Gender Information Value Date Recorded Sex Assigned at Not on file Gender Identity Not on file Sexual Orientation Not on file Plan of Treatment Health Maintenance Due Date Last Done Comments Breast Cancer Screening 1960 DTaP,Tdap,and Td Vaccines (1 - Tdap) 1977 Zoster Vaccines (1 of 2) 2008 Pneumococcal Vaccine: 65+ Ye ars (1 of 1 - PCV) 2023 COVID-19 Vaccine ( - 2023-2 5 season) 2024 Influenza Vaccine (#1) 2024 Colorectal Cancer Screening: Colonoscopy 09/25/2024 Depression Screening 09/25/2024 Falls Risk Assessment 09/25/2024 Hepatitis C Screening 09/25/2024 Osteoporosis Screening (Bone Density Screening) 09/25/2024 Social Influencers of Health Screening 09/25/2024 RSV Immunization Patients 60 + Years Old (1 - 1-dose 75+ series) 2033 HIB Vaccines Aged Out No longer eligi ble based on patient's age to complete this topic HPV Vaccines Aged Out No longer eligi ble based on patient's age to complete this topic Hepatitis A Vaccines Aged Out No long er eligible based on patient's age to complete this topic Hepatitis B Vaccines Aged Out No long er eligible based on patient's age to complete this topic IPV Vaccines Aged Out No longer eligi ble based on patient's age to complete this topic MMR Vaccines Aged Out No longer eligi ble based on patient's age to complete this topic Meningococcal ACWY Vaccine Aged Out N o longer eligible based on patient's age to complete this topic RSV Immunization Patients Un andrew 20 months Aged Out No longer eligible b ased on patient's age to complete this topic Varicella Vaccines Aged Out No longer eligible based on patient's age to complete this topic Insurance Payer Benefit Plan / Group Subscriber ID Effective Dates Phone Address [facility] [id number] 2023-Present [id number] [place] [address]
--- OUTSIDE RECORDS SUMMARY | 2024-12-03 15:09 | XMS_ITS ---
Author Organization [facility] Address [address] [place] [address] Care Team Providers Care Crate Icer Name Role Phone Darell Inman MD Primary Care Provider Unavaila Luis Pritchard Unavailable [phone] REASON FOR VISIT GASSY Encounters Encounter Location Date Provider Diagnosis [facility] [address] [place] [address] 02/11/2024 Luis Murguia PLAN OF TREATMENT Next Appt Details Provider Name:Luis Murguia , 04/13/2025 10:10:00 AM, [address], [address], [place], [address],
--- OUTSIDE RECORDS SUMMARY | 2024-12-03 15:09 | XMS_ITS ---
Author Organization [facility] Address [address] [place] [address] Care Team Providers Care Medical Records Analyst Name Role Phone Darell Inman MD Primary Care Provider Luis Escalera Unavailable [phone] REASON FOR VISIT Patient presents today for issues with swallowing Encounters Encounter Location Date Provider Diagnosis [facility] [address] [facility] [address] [place] [address] 12/01/2024 Luis Murguia PLAN OF TREATMENT Next Appt Details Provider Name:Luis Murguia , 04/13/2025 10:10:00 AM, [address], [address], [place], [address],
--- OUTSIDE RECORDS SUMMARY | 2024-12-03 15:09 | XMS_ITS | Patient Health Record ---
Author Organization [facility] Address [address] [place] [address] Care Team Providers Care Dance Costume Designer Name Role Phone Darell Inman MD Primary Care Provider Unavaila Luis Pritchard Unavailable [phone] REASON FOR REFERRAL No Information MEDICATIONS Medication [...] syndrome (K58.9) Active confirmed Irritable bowel syndrome (05800065) Problem Encounter for screening for malignant neoplasm of colon (Z12.11) Active confirmed 025384781 Problem Encounter for screening for malignant neoplasm of rectum (Z12.12) Active confirmed Screening for malignant neoplasm of rectum (614929073) Problem Gastroesophageal reflux disease, esophagitis presence not specified (K21.9) Active confirmed 719203875 Problem Hiatal hernia (K44.9) Active confirmed 58592480 Problem Abdominal pain, acute, left upper quadrant (R10.12) Active confirmed Left upper quadrant pain (263086999) Encounters Encounter Location Date Provider Diagnosis [facility] [address] [place] [address] 12/01/2024 Luis Murguia [facility] [address] [place] [address] 02/11/2024 Luis Murguia [facility] [address] [place] [address] 12/01/2024 Luis Murguia PLAN OF TREATMENT Future Test Test Name Order Date UPPER GI ENDOSCOPY 09/20/2016 COLONOSCOPY 09/20/2016 Next Appt Details Provider Name:Luis Ford Blade , 04/13/2025 10:10:00 AM, [address], [address], [place], [address], Insurance Providers Payer Name Payer Address Payer Phone Subscriber Number Group Number Insured Name Patient Relationship to Insured Coverage Start Date Coverage End Date [facility] [address] [place] [phone] [id number] IZZY FARRELL Self - patient is the insured MEDICAL (GENERAL) HISTORY Medical History History ICD Code Denies [place],DM,CVA,Lung disease,renal dise ase GERD--EGD in 2006-Large HH, gastritis, + H.pylori(s/p Rx), normal duodenal bx, neg. Gupta's and no sig. esophagitis Colonosocpy 04/2007--negative except for internal hemorrhoids Hypothyroidism IBS History of iron def anemia with negative w/u as above ERCP with sphincterotomy and CBD stone r emoval 12-25-2001 Spinal stenosis Urinary incontinence Hypertension Colonoscopy 2017 was negative EGD [id number]-jzzsf HH--no esophagit is nor Gupta's COVID 10/2020 Surgical History Surgery Date(Month/Year) BEE Right knee replacement in 11/2020 at [facility]--preop ERCP with sphinct erotomy with removal of a common bile duct stone 2001 BTL
== END 2024-12-03 12:50 | disposition home or self-care (01) ==
LOC: HO.US 12:49
PROVIDERS: PCP Internal Medicine; Visit Provider Internal Medicine
DX: E04.1 Nontoxic single thyroid nodule (principal)
CPT/HCPCS: 76536

== ENCOUNTER → 2024-12-03 12:51 | Outpatient (BNV) | payer OTHER, SELFPAY | PROVIDERS: PCP Internal Medicine; Visit Provider Radiology Diagnostic Radiology | DX: E04.1 Nontoxic single thyroid nodule (principal) | CPT/HCPCS: 76536 ==

== ENCOUNTER 2025-01-06 06:53 | Emergency (ER) | payer OTHER, SELFPAY ==
--- NOTE | ~2025-01-06 | XR_ITS ---
EXAMINATION: XR LUMBAR SPINE 2-3 VIEWS HISTORY: pain COMPARISON: Comparison is made with the prior examination dated 07/08/2017. FINDINGS: AP, lateral, and coned down views of the lumbar spine are submitted. The bones are osteopenic. Five nonrib-bearing lumbar vertebral bodies are identified, maintaining normal height and alignment without evidence of fracture or spondylolisthesis. There is mild degenerative disc disease with disc space narrowing and osteophyte formation. The posterior elements are intact. The visualized paraspinal soft tissues are unremarkable. XR/XR lumbar spine 2-3V IMPRESSION: Osteopenia. Mild degenerative disc disease. Electronically signed by: Luis He MD 01/06/2025 11:00 AM [facility]
--- NOTE | ~2025-01-06 | XR_ITS ---
EXAMINATION: XR CHEST 2 VIEWS HISTORY: cough COMPARISON: Comparison is made with the prior examination dated 01/15/2024. FINDINGS: PA and lateral views of the chest are submitted. The lungs are expanded and clear. There is no pleural effusion, pneumothorax, or pulmonary vascular congestion. The heart is normal in size. There is degenerative disc disease of the spine. XR/XR chest 2V IMPRESSION: No acute cardiopulmonary abnormality. Electronically signed by: Luis He MD 01/06/2025 10:58 AM [facility]
--- NOTE | ~2025-01-06 | CT_ITS ---
EXAMINATION: CT HEAD WITHOUT IV CONTRAST HISTORY: worsening headaches. TECHNIQUE: Unenhanced helical CT of the head was performed per standard departmental protocol. Coronal and sagittal reformats of the head were also evaluated. One or more of the following techniques was used for dose reduction: Automated exposure control, adjustment of the mA and/or kV according to patient size, use of iterative reconstruction technique. DLP: 628 mGy-cm COMPARISON: Comparison is made with the prior examination dated 05/30/2023. FINDINGS: BRAIN: Again seen is a right parafalcine calcification at the vertex measuring 10 mm in size, consistent with a calcified meningioma. An 8 mm partially calcified extra-axial nodule is again seen in the left frontal region compatible with a 2nd meningioma. These are unchanged from the prior study. The brain parenchyma is otherwise unremarkable. There is normal shankar/white differentiation. The ventricular system is normal in size and configuration. There is no mass effect or midline shift. No intra- or extra-axial fluid collections are identified. SINUSES: There is a polyp versus mucous retention cyst in the right maxillary sinus. The mastoid air cells and middle ear cavities are well pneumatized. ORBITS: The visualized orbits are unremarkable. BONES/SOFT TISSUES: The extracranial soft tissues are unremarkable. The calvarium is intact. No suspicious lytic or sclerotic lesions. CT/CT head/brain wo IV con IMPRESSION: Stable small meningiomas as described. No acute intracranial abnormality. Electronically signed by: Luis He MD 01/06/2025 10:46 AM [facility]
[2025-01-06 06:59] VITALS: BP 156/57; PULSE 67; RESP 16; TEMP 36.3; O2SAT 98; BMI 29.7
[2025-01-06 07:31] LABS: MANUAL DIFF FLAG NO
[2025-01-06 07:34] LABS: Basophils Absolute Auto 0.1 X10*3/uL (0.0-0.2); Basophils Percent Auto 0.6 % (0-2); Eosinophils Percent Auto 0.1 % (0-4); Hemoglobin 13.9 g/dl (12.0-16.0); Imm Gran Abs Auto 0.02 X10*3/uL (0.00-0.03); Imm Gran Pct Auto 0.2 % (0.0-0.4); Lymphocytes Percent Auto 22.2 % (20-40); Mean Corpuscular HGB Conc 35.6 g/dl (31.0-35.0); Mean Corpuscular Hemoglobin 31.2 pg (27.0-33.0); Mean Corpuscular Volume 87.4 fL (80.0-98.0); Mean Platelet Volume 9.8 fL (9.4-12.3); Monocytes Absolute Auto 0.9 X10*3/uL (0.1-1.2); Monocytes Percent Auto 10.5 % (2-11); Neutrophils Absolute Auto 5.8 x10*3/uL (2.0-8.3); Neutrophils Percent Auto 66.4 % (45-73); Platelet Count 186 X10*3/uL (160-400); Red Blood Count 4.46 X10*6/uL (4.20-5.50); Red Cell Distribution Width 11.5 % (11.0-16.0); White Blood Count 8.8 X10*3/uL (4.8-10.8)
[2025-01-06 07:52] LABS: Alanine Aminotransferase 24 U/L (0-31); Albumin Level 4.2 g/dL (3.5-5.0); Alkaline Phosphatase 49 U/L (39-117); Anion Gap 12 (12-20); Aspartate Amino Transferase 30 U/L (5-31); Bilirubin Total 1.1 mg/dL (0.0-1.0); Blood Urea Nitrogen 10 mg/dL (9-16); Calcium 9.1 mg/dL (8.4-10.2); Carbon Dioxide 24 mmol/L (22-29); Chloride 105 mmol/L (96-108); Creatinine Clr Calc Pharmacy 61.3; Estimated Glomerular Filt Rate > 60; Glucose Random 112 mg/dL (60-115); Potassium 3.5 mmol/L (3.3-5.1); Sodium 137 mmol/L (135-145); Total Protein 7.3 g/dL (6.5-8.0)
[2025-01-06 08:03] LABS: Appearance Urine Clear; Color Urine Yellow; Glucose Urine UA Negative (Negative); Leukocyte Esterase Urine Negative (Negative); Nitrite Urine Negative (Negative); PH 6.5 (5.0-9.0); Urine Blood Negative (Negative); Urine Ketones 15 mg/dL (Negative); Urine Protein Negative (Neg-Trace)
[2025-01-06 08:06] LABS: Bacteria Urine None Seen (None Seen); Hyaline Casts Urine 0-2 /LPF (0-2); RBC Urine 0-2 /HPF (0-2); Squamous Epithelial Cell Urine 0-2 /HPF (0-2); WBC Urine 0-5 /HPF (0-5)
[2025-01-06 08:19] LABS: Influenza A PCR NEGATIVE (Negative); Influenza B PCR NEGATIVE (Negative); Resp Syncy Virus RNA Qual PCR NEGATIVE (Negative); SARS COV2 PCR INHOUSE NEGATIVE (Negative)
--- NOTE | 2025-01-06 10:01 | ED.URI ---
HPI - URI/Sore Throat General Chief Complaint: Upper Respiratory Symptoms Stated Complaint: headache Time Seen by Provider: 01/06/25 10:22 Source: patient Mode of arrival: ambulatory Limitations: no limitations History of Present Illness ED Provider: SRINATH ROCHA PA-C HPI Narrative: 64 year old female with pmhx significant for asthma, HDL, cardiomyopathy, HTN, GERD, obesity presents to the ED today for evaluation of headache x2-3 weeks. Headache is generalized. She finds temporary relief with motrin. She admits to an increase in headaches following a fall in September of 2024. She is not on AC. She denies any new injury/ trauma/ falls. She has since followed up with neurologist. Reports associated nausea without vomiting. Denies vision changes/ photophobia. Denies dizziness, fever/chills, neck pain, nasal congestion. She also endorses acute on chronic lower back pain. Taking Motrin at home with minimal relief. She reports hx of spinal stenosis. Denies any new injury/ trauma. Denies saddle anesthesia, bowel or bladder incontinence or retention. No hx IVDU. No hx spinal surgery. Related Data Previous Rx's ?Medication ?Instructions ?Recorded triamcinolone acetonide 0.5 % 1 appl topical TID #15 grams 07/13/21 topical cream dicyclomine 10 mg capsule 10 mg PO DAILY 30 days #30 caps 11/07/23 cholecalciferol (vitamin D3) 25 25 mcg PO DAILY #90 tabs 11/10/23 mcg (1,000 unit) tablet albuterol sulfate 90 mcg/actuation 2 puff PO Q6H PRN bronchospasm #18 01/15/24 aerosol inhaler (ProAir HFA) grams spironolactone 25 mg tablet 25 mg PO DAILY 90 days #90 tabs 03/04/24 omeprazole 40 mg capsule,delayed 40 mg PO DAILY #90 caps 03/14/24 release alendronate 70 mg tablet 70 mg PO QWEEK #14 tabs 07/21/24 trazodone 100 mg tablet 100 mg PO BEDTIME #90 tabs 08/17/24 budesonide 90 mcg/actuation breath 1 inh inhalation BID #1 ea 09/16/24 activated powder inhaler (Pulmicort Flexhaler) atorvastatin 40 mg tablet 40 mg PO DAILY #90 tabs 09/17/24 metoprolol succinate 25 mg 25 mg PO DAILY 90 days #90 tabs 12/08/24 tablet,extended release 24 hr flecainide 50 mg tablet See Rx Instructions PO Q12H #240 12/11/24 tabs rhswhza-prdrcaydsxcim-mqkxdcaz 250 1 tab PO .qd PRN headache #7 tabs 01/06/25 mg-250 mg-65 mg tablet (Excedrin Migraine) diphenhydramine HCl 50 mg tablet 50 mg PO Q8H PRN headache #14 tabs 01/06/25 (Benadryl Allergy) lidocaine 5 % topical patch 1 patch topical DAILY #15 ea 01/06/25 (Lidoderm) prednisone 20 mg tablet 60 mg (3 x 20 mg) PO DAILY 4 days 01/06/25 #12 tabs Allergies Allergy/AdvReac Type Severity Reaction Status Date / Time No Known Allergies Allergy Unknown Verified 01/06/25 07:03 Review of Systems Review of Systems: Constitutional: No fever, chills, fatigue, night sweats, weight changes ENT/Mouth: No ear pain, hearing loss, nasal congestion, sinus pain, rhinorrhea, sore throat Eyes: No eye pain, swelling, redness, vision changes, discharge Cardio: No chest pain, palpitations, BRISENO, orthopnea, peripheral edema Pulm: No SOB, cough, sputum, wheezing, dyspnea, hemoptysis GI: No nausea, vomiting, hematemesis, abdominal pain, diarrhea, constipation, hematochezia, melena : No irregular bleeding, dysuria, frequency, urgency, hesitancy, hematuria, flank pain, urinary flow changes, urinary incontinence or retention MSK: No neck pain, joint pain, myalgias, +back pain Skin: No lesions, rashes Neuro: No weakness, numbness, paresthesias, LOC, dizziness, +headache Psych: No anxiety/panic, depression, SI/HI, AH/VH All other systems reviewed and are negative. [facility] Past Medical History Attestation statement: The following information was validated with the patient. Source: old records reviewed and nursing notes reviewed Medical History Obesity Back pain Hypertension PONV (postoperative nausea and vomiting) Arthritis GERD (gastroesophageal reflux disease) Anxiety Insomnia Hypertension Surgical History S/P total knee arthroplasty History of breast mammoplasty (~2008) History of rectal sphincterotomy (~2001) Hx of cholecystectomy (~2001) History of tubal ligation History of arthroscopy of left knee (~01/2012) History of hysterectomy Family History Family History Father No problems noted. 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 Skin: Warm, dry, intact. No rashes or lesions. Head: Normocephalic, atraumatic. EENT: Hearing is intact b/l. Conjunctiva clear. PERRLA. EOM intact. Moist mucous membranes.?no tenderness to percussion over maxillary or frontal sinuses. Neck: Supple without LAD Cardiac: Chest wall symmetric. RRR Lungs: Normal respiratory effort without accessory muscle use. CTA bilaterally. Abdomen: Soft, non-tender, non-distended. No rebound tenderness or guarding. Positive BS x4. Back: +ttp of midline lumbar spine without step-off deformity Ext: Upper and lower extremities atraumatic, without tenderness, deformity, swelling or erythema Neuro: NIH 0. AOx3. Normal speech. Strength 5/5 intact throughout. Sensation intact to light touch. NV intact distally. normal finger to nose, heel to morales. Ambulating with steady gait. Psych: Appropriate mood and affect. Responds appropriately to questions. NIH Stroke Scale Internal: Initial- Upon Arrival Time: 11:00 Level of Consciousness: Alert Level of Consciousness Questions: Answers both questions correctly Level of Consciousness Commands: Performs both tasks correctly Best Gaze: Normal Visual: No visual loss Facial Palsy: Normal Motor Arm (Right): No drift Motor Arm (Left): No drift Motor Leg (Right): No drift Motor Leg (Left): No drift Limb Ataxia: Absent Sensory: Normal Best Language: No aphasia Dysarthia: Normal Extinction and Inattention: No abnormality Score: 0 Course Course Course Narrative: 64 yo female with PMH of asthma, HLD, cardiomyopathy, GERD, obesity, HTN c/o head pressure and low back pain for 3 days. She has nausea. No fevers, no nasal congestion. She is not on blood thinners. Has had recent headaches after a fall in September has had persistent headaches states she had a TBI then. No blood thinners, has lower back pain on and off due to spinal stenosis, no new injuries, no b/b incontinence and no saddle anesthesia. She notes her pain has been there on and off in the past. She has no sinus disease. At this time will obtain UA, labs, CT head given prior head injury and headache, CXR and lumbar spine. No signs of cauda equina this is a RAPID medical screening exam the rest of the history and physical exam is to be done by the main provider. Reevaluation(s) Reevaluation #1: CBC without leukocytosis or left shift. no anemia, h&h stable. chemistry without acute electrolyte abnormality requiring intervention. no elizabeth. liver function around baseline. UA without infection. negative covid, flu, rsv. CXR unremarkable. no pneumonia or effusion. xr lumbar spine showing osteopenia. no acute fracture. Ct head showing stable meningiomas without acute intracranial abnormality. meningiomas unchanged from prior scans. > discussed all work up results w/ patient. reports relief of CLANCY w/ toradol. prednisone given for back pain. advised to follow up with neurology. Patient has remained stable throughout ED visit today. Discussed worrisome signs and symptoms and when to return to the ED. All questions answered at this time. Patient is agreeable with disposition and stable for discharge. Medications Administered Discontinued Medications Generic Name Dose Route Start Last Admin Trade Name Ana PRN Reason Stop Dose Admin Ketorolac Tromethamine 30 mg 01/06/25 11:23 01/06/25 12:08 Ketorolac Tromethamine 30 Mg/Ml Vial IM 01/06/25 11:24 30 mg ONCE ONE Administration Prednisone 60 mg 01/06/25 12:15 01/06/25 12:02 Prednisone 20 Mg Tablet PO 01/06/25 12:16 60 mg ONCE ONE Administration Medical Decision Making Medical Decision Making [facility] Narrative: 64 year old female with pmhx significant for asthma, HDL, cardiomyopathy, HTN, GERD, obesity presents to the ED today for evaluation of headache x2-3 weeks. hypertensive, vitals otherwise wnl. she is nontoxic appearing and in NAD. she is alert and oriented, exam is nonfocal. cerebellum intact. ambulating w/ steady gait. she is ttp along midline lumbar spine without step off deformity. no back pain red flags. Differential diagnosis includes migraine vs tension type headache. No headache red flags. Neurologic exam without evidence of meningismus. No focal neurologic findings. Presentation not consistent with acute intracranial bleed including SAH. Presentation not consistent with acute DISK AND TAPE MACHINE TENDER infection including meningitis or brain abscess. Temporal arteritis unlikely, as is acute angle closure glaucoma given history and physical findings. Presentation not consistent with other acute, emergent causes of headache at this time. Plan to treat symptomatically with pain medication. Plan: labs, viral swabs, UA, cxr, imaging, pain control, re-assessment. Differential Diagnosis Differential Diagnoses: The differential diagnosis associated with the presentation includes as above. Admission/Observation not indicated. Lab Data [facility] Lab Attestation statement: I reviewed the patient's lab results. as above. 01/06/25 07:18 01/06/25 07:18 Labs: Lab Results 01/06/25 01/06/25 Range/Units 07:18 07:25 WBC 8.8 (4.8-10.8) X10*3/uL RBC 4.46 (4.20-5.50) X10*6/uL Hgb 13.9 (12.0-16.0) g/dl Hct 39.0 (37.0-47.0) % MCV 87.4 (80.0-98.0) fL MCH 31.2 (27.0-33.0) pg MCHC 35.6 H (31.0-35.0) g/dl RDW 11.5 (11.0-16.0) % Plt Count 186 (160-400) X10*3/uL MPV 9.8 (9.4-12.3) fL Immature Gran % (Auto) 0.2 (0.0-0.4) % Neut % (Auto) 66.4 (45-73) % Lymph % (Auto) 22.2 (20-40) % [place] % (Auto) 10.5 (2-11) % Eos % (Auto) 0.1 (0-4) % Baso % (Auto) 0.6 (0-2) % Lymph # (Auto) 2.0 (1.2-4.9) X10*3/uL [place] # (Auto) 0.9 (0.1-1.2) X10*3/uL Eos # (Auto) 0.0 (0.0-0.4) X10*3/uL Baso # (Auto) 0.1 (0.0-0.2) X10*3/uL Abs Immat Gran (auto) 0.02 (0.00-0.03) X10*3/uL Absolute Neuts (auto) 5.8 (2.0-8.3) x10*3/uL Absolute Nucleated RBC 0.000 (0.0-0.012) X10*3/uL Nucleated RBC % (auto) 0.0 (0.0-0.2) /100WBC Sodium 137 (135-145) mmol/L Potassium 3.5 (3.3-5.1) mmol/L Chloride 105 (96-108) mmol/L Carbon Dioxide 24 (22-29) mmol/L Anion Gap 12 (12-20) BUN 10 (9-16) mg/dL Creatinine 0.75 (0.5-1.4) mg/dL Estim Creat Clear Calc 61.3 Estimated GFR > 60 Random Glucose 112 (60-115) mg/dL Calcium 9.1 D (8.4-10.2) mg/dL Total Bilirubin 1.1 H (0.0-1.0) mg/dL AST 30 (5-31) U/L ALT 24 (0-31) U/L Alkaline Phosphatase 49 (39-117) U/L Total Protein 7.3 (6.5-8.0) g/dL Albumin 4.2 (3.5-5.0) g/dL Urine Color Yellow Urine Appearance Clear Urine pH 6.5 (5.0-9.0) Ur Specific [place] 1.020 (1.005-1.025) Urine Protein Negative (Neg-Trace) mg/dL Urine Glucose (UA) Negative (Negative) mg/dL Urine Ketones 15 (Negative) mg/dL Urine Blood Negative (Negative) Urine Nitrite Negative (Negative) Ur Leukocyte Esterase Negative (Negative) Urine RBC 0-2 (0-2) /HPF Urine WBC 0-5 (0-5) /HPF Ur Squamous Epith Cells 0-2 (0-2) /HPF Urine Bacteria None Seen (None Seen) Hyaline Casts 0-2 (0-2) /LPF Influenza Type A (PCR) NEGATIVE (Negative) Influenza Type B (PCR) NEGATIVE (Negative) RSV RNA Qual (PCR) NEGATIVE (Negative) SARS-CoV-2 RNA (RT-PCR) NEGATIVE (Negative) Independent Interpretation I performed an independent interpretation of an: Plain X-Ray and CT Scan Interpretation: CT head without midline shift, no bleed CXR without infiltrate or consolidation XR lumbar spine without compression fracture Radiology Impression Discussion of test interpretation with radiology: I have reviewed the radiologist's reading. Radiologist Impression: Procedure(s): CT head/brain wo IV con Accession Number(s): [id number] cc: Cristal Cordova DO; Darell Inman MD~ Report Number: [id number]: Total DLP = 628.00 mGy-cm EXAMINATION: CT HEAD WITHOUT IV CONTRAST HISTORY: worsening headaches. TECHNIQUE: Unenhanced helical CT of the head was performed per standard departmental protocol. Coronal and sagittal reformats of the head were also evaluated. One or more of the following techniques was used for dose reduction: Automated exposure control, adjustment of the mA and/or kV according to patient size, use of iterative reconstruction technique. DLP: 628 mGy-cm COMPARISON: Comparison is made with the prior examination dated 05/30/2023. FINDINGS: BRAIN: Again seen is a right parafalcine calcification at the vertex measuring 10 mm in size, consistent with a calcified meningioma. An 8 mm partially calcified extra-axial nodule is again seen in the left frontal region compatible with a 2nd meningioma. These are unchanged from the prior study. The brain parenchyma is otherwise unremarkable. There is normal shankar/white differentiation. The ventricular system is normal in size and configuration. There is no mass effect or midline shift. No intra- or extra-axial fluid collections are identified. SINUSES: There is a polyp versus mucous retention cyst in the right maxillary sinus. The mastoid air cells and middle ear cavities are well pneumatized. ORBITS: The visualized orbits are unremarkable. BONES/SOFT TISSUES: The extracranial soft tissues are unremarkable. The calvarium is intact. No suspicious lytic or sclerotic lesions. CT/CT head/brain wo IV con IMPRESSION: Stable small meningiomas as described. No acute intracranial abnormality. Electronically signed by: Luis He MD 01/06/2025 10:46 AM EST RP Procedure(s): XR chest 2V Accession Number(s): [id number] cc: Cristal Cordova DO; Darell Inman MD~ EXAMINATION: XR CHEST 2 VIEWS HISTORY: cough COMPARISON: Comparison is made with the prior examination dated 01/15/2024. FINDINGS: PA and lateral views of the chest are submitted. The lungs are expanded and clear. There is no pleural effusion, pneumothorax, or pulmonary vascular congestion. The heart is normal in size. There is degenerative disc disease of the spine. XR/XR chest 2V IMPRESSION: No acute cardiopulmonary abnormality. Electronically signed by: Luis He MD 01/06/2025 10:58 AM EST RP Procedure(s): XR lumbar spine 2-3V Accession Number(s): [id number] cc: Cristal Cordova DO; Darell Inman MD~ EXAMINATION: XR LUMBAR SPINE 2-3 VIEWS HISTORY: pain COMPARISON: Comparison is made with the prior examination dated 07/08/2017. FINDINGS: AP, lateral, and coned down views of the lumbar spine are submitted. The bones are osteopenic. Five nonrib-bearing lumbar vertebral bodies are identified, maintaining normal height and alignment without evidence of fracture or spondylolisthesis. There is mild degenerative disc disease with disc space narrowing and osteophyte formation. The posterior elements are intact. The visualized paraspinal soft tissues are unremarkable. XR/XR lumbar spine 2-3V IMPRESSION: Osteopenia. Mild degenerative disc disease. Electronically signed by: Luis He MD 01/06/2025 11:00 AM [facility] [place] Record Review External record reviewed: Inpatient record, Office record, Outpatient record, Prior outpatient labs and Prior outpatient radiology Prescription Management I considered prescription management with: Pain Medication and Other (prednisone) Chronic Conditions Patient?s care impacted by: Hypertension and Other (spinal stenosis) Social Determinants Patient?s care significantly limited by Social Determinants of Health including: Other Social Determinant of Health Critical Care Time Critical Care Time Critical Care Time: No Discharge Plan Discharge Clinical Impression: Meningioma, DDD (degenerative disc disease), lumbar Patient Disposition: Home, Self-Care Instructions: Meningioma (ED), Back Pain (ED), Degenerative Disc Disease (ED) Additional Instructions: You have been evaluated in the Emergency Department today for headache/ head pressure and back pain. Your evaluation did not show evidence of medical conditions requiring emergent intervention at this time, and your pain improved with medication in the ED. As discussed, your blood work is reassuring. Your urine is negative for infection. Your chest xray does not show pneumonia. You tested negative for covid, flu, and rsv. The xray of your low back shows chronic degenerative changes without evidence of fracture. The CT scan of your brain shows chronic, stable appearing meningiomas within your brain. These are unchanged from your prior study. I want you to take the following 3 medications together every 6 hours as needed for headache, nausea or vomiting. ? - Reglan 10 mg - Benadryl 50 mg - Excedrin migraine After you take these medications, lie down in a dark quiet room and try to fall asleep. These medications will make you sleepy, do not drive or work after taking these medications. I have also sent a course of steroids to your pharmacy for your back pain. Take these as prescribed. You were provided a dose in ED today so please take your next dose tomorrow. Apply lidocaine patches as needed for pain. Please follow up with your primary care physician within two days. Please follow up with neurology to monitor headaches and meningiomas. Return to the Emergency Department if you experience worsening or uncontrolled pain, vision changes, recurrent vomiting, difficulty with normal activities, abnormal behavior, difficulty walking, numbness, weakness, or any other concerning symptoms. Prescriptions: New lidocaine [Lidoderm] 5 % adhesive patch,medicated 1 patch topical DAILY Qty: 15 0RF Rx Instructions: leave on most painful area for up to 12 hrs Benadryl Allergy 50 mg tablet 50 mg PO Q8H PRN (Reason: headache) Qty: 14 0RF Excedrin Migraine 250-250-65 mg tablet 1 tab PO .qd PRN (Reason: headache) Qty: 7 0RF prednisone 20 mg tablet 60 mg PO DAILY 4 Days Qty: 12 0RF No Action dicyclomine 10 mg capsule 10 mg PO DAILY 30 Days Qty: 30 0RF cholecalciferol (vitamin D3) 25 mcg (1,000 unit) tablet 25 mcg PO DAILY Qty: 90 1RF omeprazole 40 mg capsule,delayed release(DR/EC) 40 mg PO DAILY Qty: 90 3RF alendronate 70 mg tablet 70 mg PO QWEEK Qty: 14 4RF Rx Instructions: Tuesdays trazodone 100 mg tablet 100 mg PO BEDTIME Qty: 90 1RF Pulmicort Flexhaler 90 mcg/actuation aerosol powdr breath activated 1 inh inhalation BID Qty: 1 6RF atorvastatin 40 mg tablet 40 mg PO DAILY Qty: 90 3RF Rx Instructions: OBTAIN FASTING LAB WORK IN 3 MONTHS metoprolol succinate 25 mg tablet extended release 24 hr 25 mg PO DAILY 90 Days Qty: 90 3RF flecainide 50 mg tablet See Rx Instructions PO Q12H Qty: 240 1RF Rx Instructions: 1 tablet in morning and 2 tablets in the evening orally every 12 hours; triamcinolone acetonide 0.5 % cream 1 appl topical TID Qty: 15 0RF albuterol sulfate [ProAir HFA] 90 mcg/actuation HFA aerosol inhaler 2 puff PO Q6H PRN (Reason: bronchospasm) Qty: 18 8RF spironolactone 25 mg tablet 25 mg PO DAILY 90 Days Qty: 90 3RF Referrals: [facility] [place] Neuro/Sleep [Provider Group] (meningiomas, headache) Darell Inman MD [Primary Care Provider] - Interventions: ED Discharge Assessment Last Done: 01/06/25 12:10 Discharge Date/Time: 01/06/25 12:11 Print Language: French
[2025-01-06] MEDS: predniSONE 20 MG TABLET 60 MG PO (12:02)
[2025-01-06] MEDS: Ketorolac Tromethamine 30 MG/ML VIAL IM (12:08)
[2025-01-06 12:10] VITALS: BP 156/57; PULSE 67; RESP 16; TEMP 36.3; O2SAT 98
== END 2025-01-06 12:11 | disposition home or self-care (01) ==
PROVIDERS: Emergency Provider Emergency Medicine; PCP Internal Medicine
DX: D32.9 Benign neoplasm of meninges, unspecified (principal); M51.369 Other intervertebral disc degeneration, lumbar region without mention of lumbar back pain or lower extremity pain; R29.700 NIHSS score 0; Z03.818 Encounter for observation for suspected exposure to other biological agents ruled out; J45.909 Unspecified asthma, uncomplicated
CPT/HCPCS: 0241U; 70450; 71046; 72100; 80053; 81001; 85025; 96372; 99283; 99284; J1885

== ENCOUNTER → 2025-01-06 10:03 | Outpatient (BNV) | payer OTHER, SELFPAY | PROVIDERS: Emergency Provider Emergency Medicine; PCP Internal Medicine; Visit Provider Radiology Diagnostic Radiology | DX: D32.0 Benign neoplasm of cerebral meninges (principal); M54.50 Low back pain, unspecified; R05.9 Cough, unspecified | CPT/HCPCS: 70450; 71046; 72100 ==

== ENCOUNTER 2025-02-04 14:00 | Outpatient (REF) | payer OTHER, SELFPAY | END 2025-02-04 14:01 | disposition home or self-care (01) | LOC: HO.LAB 14:00 | PROVIDERS: PCP Internal Medicine; Visit Provider Student in an Organized Health Care Education/Training Program | DX: E04.2 Nontoxic multinodular goiter (principal) | CPT/HCPCS: 36415; 84443 ==

== ENCOUNTER 2025-02-04 14:00 | Outpatient (AMB) | payer OTHER, SELFPAY ==
--- NOTE | 2025-02-04 14:06 | A.OFFVIS_ITS ---
Vital Signs 02/04/25 14:09 Height 4 ft 11 in Weight 150 lb 5.684 oz BMI 30.4 BP 132/68 Blood Pressure Location Lt brachial Position Sitting Pulse 58 Pulse Source Pulse Oximeter Pulse Oximetry (%) 98 Oxygen Delivery Method Room Air Intake Visit Reasons: Nontoxic single thyroid nodule Intake Note: New patient internally referred by PCP for Nontoxic Single Thyroid Nodule. Horticultural Farmer Required: No Accompanied by: Self / Same As Patient Allergies No Known Allergies Allergy (Unknown, Verified 02/04/25 14:10) Medication List - Last Reconciled 02/04/25 by Pam Araya MD albuterol sulfate 90 mcg/actuation (ProAir HFA) 2 puffs PO Q6H PRN alendronate 70 mg PO QWEEK zupjxwc-wbnfxalmkmmky-yyofyfbk 250-250-65 mg (Excedrin Migraine) 1 tab PO .qd PRN atorvastatin 40 mg PO DAILY budesonide 90 mcg/actuation (Pulmicort Flexhaler) 1 inh inhalation BID cholecalciferol (vitamin D3) 25 mcg PO DAILY dicyclomine 10 mg PO DAILY 30 days diphenhydramine HCl (Benadryl Allergy) 50 mg PO Q8H PRN flecainide 1 tablet in morning and 2 tablets in the evening orally every 12 hours; lidocaine 5% (Lidoderm) 1 patch topical DAILY metoprolol succinate ER 25 mg PO DAILY 90 days omeprazole 40 mg PO DAILY spironolactone 25 mg PO DAILY 90 days trazodone 100 mg PO BEDTIME triamcinolone acetonide 0.5% 1 appl topical TID HPI Comments Details: 64-year-old female coming in today for initial evaluation of nontoxic multinodular goiter. CT chest done in August 2024 for evaluation of cough showed a 1.8 cm calcified right thyroid nodule. Ultrasound thyroid 12/03/2024, I reviewed the images myself which showed a dominant right lower pole 1.7 cm solid, hypoechoic, TR 4 category nodule with peripheral calcification. This meets criteria for FNA. Another subcentimeter left upper pole TR 4 category nodule noted. No prior history of thyroid disorder or medication. Patient currently denies heat or cold intolerance, diarrhea or constipation, hair loss, anxiety, , mood changes, changes in appearance of eyes or vision ch anges, tremors, increased diaphoresis or dry skin. ? Reports low energy, intermittent palpitations has history of Afib Patient denies, pain on swallowing or voice changes or difficulty breathing. Reports intermittent difficulty swallowing for some years. Patient denies any history of childhood neck radiation. Denies having ever used lithium, amiodarone or biotin supplements. Patient denies any family history of thyroid cancer. 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 COMPARISON: None available. TECHNIQUE: Linear transducer grayscale and color Doppler examination with attention to the region of the thyroid. FINDINGS: SIZE: Measurements of the thyroid lobes and nodules are given in sagittal, anteroposterior and transverse dimensions respectively. Right Thyroid Lobe: 5.2 x 2.0 x 2.0 cm, volume 10.5 mL. Parenchyma: The gland echotexture is homogeneous. Thyroid vascularity is normal. Left Thyroid Lobe: 5.6 x 1.8 x 2.0 cm, volume 10.5 mL. Parenchyma: The gland echotexture is homogeneous. Thyroid vascularity is normal. Isthmus: 0.2 cm in maximum AP dimension. Estimated total number of nodules greater than or equal to 1 cm: one. Manager Film nodules are described as follows: 1. Location: Right lower pole. Size: 1.6 x 1.6 x 1.7 cm, volume 2.13 mL. Nodule characteristics: Composition: Solid (2). Echogenicity: Undetermined Shape: Wider Margins: Smooth (0). Echogenic Foci: Peripheral calcifications (2). ACR TI-RADS total points: 5 ACR TI-RADS category: 4 2. Location: Left upper pole. Size: 0.6 x 0.3 x 0.6 cm, volume 0.062 mL. Nodule characteristics: Composition: Solid (2). Echogenicity: Hypoechoic (2). Shape: Wider Margins: Smooth (0). Echogenic Foci: None (0). ACR TI-RADS total points: 4 ACR TI-RADS category: 4 NODES: No lymphadenopathy is seen in the tissue surrounding the thyroid gland. US/US thyroid IMPRESSION: Suspicious nodule right lower pole. Recommend ultrasound-guided aspiration biopsy. CT CHEST WITHOUT CONTRAST 08/21/24 CLINICAL INFORMATION: Cough COMPARISON: Chest radiograph 05/30/2023 TECHNIQUE: Multidetector volumetric CT imaging of the chest was done. Axial MIP volume rendering provided. Sagittal and coronal reformatted images were obtained. This CT examination was performed using dose optimization techniques as appropriate, variously including the following: *Automated exposure control *Adjustment of mA and/or kV according to patient size (this includes techniques or standardized protocols for targeted exams where dose is matched to indication/reason for exam; i.e. extremities or head) *Use of iterative reconstruction technique DLP: 143 mGy-cm FINDINGS: DOCKMASTER: Surgical clips are present in the gallbladder fossa. Heart size normal. LUNGS AND PLEURA: No significant emphysematous changes are seen. There is mild bronchial thickening without bronchiectasis. No infiltrates, effusions or lung masses are seen. MEDIASTINUM: There is a 1.8 cm rim calcified right thyroid nodule present. Dedicated thyroid ultrasound would be useful for further evaluation. Heart size is normal. No mediastinal or hilar lymphadenopathy. CORONARY ARTERY CALCIFICATION: None visualized on this study. AXILLA: No lymphadenopathy. UPPER ABDOMEN: Surgical clips are present in the gallbladder fossa OSSEOUS STRUCTURES: Unremarkable. CT/CT chest wo IV con IMPRESSION: 1. Mild bronchial thickening without bronchiectasis. 2. 1.8 cm rim calcified right thyroid nodule. Dedicated thyroid ultrasound would be useful for further evaluation. [facility] Medical History (Updated 02/04/25 @ 14:12 by Pam Araya MD) Multinodular goiter Obesity Back pain Hypertension PONV (postoperative nausea and vomiting) Arthritis GERD (gastroesophageal reflux disease) Anxiety Insomnia Hypertension Surgical History S/P total knee arthroplasty History of breast mammoplasty (~2008) History of rectal sphincterotomy (~2001) Hx of cholecystectomy (~2001) History of tubal ligation History of arthroscopy of left knee (~01/2012) History of hysterectomy Family History Father No problems noted. 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 CT chest done in August 2024 for evaluation of cough showed a 1.8 cm calcified right thyroid nodule. Ultrasound thyroid 12/03/2024, I reviewed the images myself which showed a dominant right lower pole 1.7 cm solid, hypoechoic, TR 4 category nodule with peripheral calcification. This meets criteria for FNA. Another subcentimeter left upper pole TR 4 category nodule noted. I explained that it is common to have thyroid nodules. About 95% of the time these nodules are benign. However if the nodule is > 1 cm in size or suspicious on ultrasound then a fine need aspiration biopsy is recommended. We discussed that a FNAB involves 4-5 passes with a small gauge needle and material obtained is sent off for cytology.If the cytopathology is benign then the nodule will be followed annually with repeat ultrasounds. However if it is suspicious or malignant, we will need to discuss further management. Indeterminate cytology can be further investigated with repeat FNA, genetic testing or empiric lobectomy. Malignant cytology is managed with either lobectomy or total thyroidectomy. We discussed briefly that thyroid cancer is, in most patients, an indolent disease that does not affect mortality. We will arrange for FNA of the right lower 1.7 cm thyroid nodule at next available opening and patient will follow up with me in clinic thereafter for results and further decision making. Plan: -ordered TSH with reflex free T4 -scheduled for FNA of the right lower 1.7 cm thyroid nodule and a follow up 2 weeks after to discuss results Plan I spent 45 minutes in reviewing the record, seeing the patient and documenting in the medical record. Orders: Orders TSH reflex Free T4 Today E04.2 - Nontoxic multinodular goiter US biopsy thyroid Today E04.2 - Nontoxic multinodular goiter Patient Instructions: We will book you for right thyroid nodule biopsy and a follow up 2 weeks after to discuss results Do labs today Coding Level of Care Code New Pt Level 4 (85993) Diagnoses Multinodular goiter E04.2 Time Spent (min) 45
[2025-02-04 14:09] VITALS: BP 132/68; PULSE 58; O2SAT 98; BMI 30.4
--- OUTSIDE RECORDS SUMMARY | 2025-02-04 17:31 | XMS_ITS ---
Author Organization [facility] Address [address] [place] [address] Care Team Providers Care Soda Clerk Name Role Phone Storm DENNIS, Darell Primary Care Provider Luis Escalera [phone] REASON FOR VISIT GASSY Encounters Encounter Location Date Provider Diagnosis [facility] [address] [place] [address] 02/11/2024 Luis Murguia Plan Of Treatment Next Appt Details Provider Name:Luis Murguia , 04/13/2025 10:10:00 AM, [address], [address], [place], [address], Progress Notes * ANGELICA FARRELLOB:1960 (63 yo F)Acc No.[id number]:02/11/2024 Patient:?BUD IZZY :1960???Age:63 Y???Sex:Female Address:[address] [facility] [place] [place] [address] * true * Date:? Generated for Printi ng/Falynng/eTransmitting on:?02/04/2025 05:31 PM EDT
--- OUTSIDE RECORDS SUMMARY | 2025-02-04 17:31 | XMS_ITS | Patient Health Record ---
Author Organization [facility] Address [address] [facility] [address] [facility] [place] [address] Care Team Providers Care Structural Steel Engineer Name Role Phone Darell Inman MD Primary Care Provider Bob Mcnamara Unavailable [phone] Reason For Referral No Information Medications Medication [...] Status Risk Notes Problem Plantar fascial fibromatosis (88315774) Plantar fascial fibromatosis (M72.2) Active confirmed Plan Of Treatment Pending Test Test Name Order Date X ray : Foot, right 2V 10/25/2015 73941 I&D ABSCESS- SIMPLE,SINGLE 015 Insurance Providers Payer Name Payer Address Payer Phone Subscriber Number Group Number Insured Name Patient Relationship to Insured Coverage Start Date Coverage End Date [facility] [address] [facility] [place] [address] [id number] Self - patient is the insured Medical (General) History Medical History History ICD Code Stomach ulcer Surgical History Surgery Date(Month/Year) hysterectomy 1999 gall stones
--- OUTSIDE RECORDS SUMMARY | 2025-02-04 17:31 | XMS_ITS | Patient Health Record ---
Author Organization [facility] Address [address] [place] [address] Care Team Providers Care Title Lawyer Name Role Phone Darell Inman MD Primary Care Provider Unavaila Luis Pritchard Unavailable [phone] Reason For Referral No Information Medications Medication [...] MG 1 Orally Once a day Active Immunizations Vaccine Route Administration Date Status Comme nts Flu vaccine no Preserv 3 and > Unknown 08/11/2016 Admin istered Influenza Unknown 08/11/2020 Administered Problems Problem Type SNOMED Code ICD Code Onset Dates Problem Status W/U Status Risk Notes Problem Irritable bowel syndrome (06204786) Irritable bowel syndrome (K58.9) Active confirmed Problem 078129214 Encounter for screening for malignant neoplasm of colon (Z12.11) Active confirmed Problem Screening for malignant neoplasm of rectum (660603936) Encounter for screening for malignant neoplasm of rectum (Z12.12) Active confirmed Problem 066574415 Gastroesophageal reflux disease, esophagitis presence not specified (K21.9) Active confirmed Problem 97400922 Hiatal hernia (K44.9) Active confirmed Problem Left upper quadrant pain (016786222) Abdominal pain, acute, left upper quadrant (R10.12) Active confirmed Encounters Encounter Location Date Provider Diagnosis [facility] [address] [place] [address] 02/11/2024 Luis Murguia [facility] [address] [place] [address] 12/01/2024 Luis Murguia Plan Of Treatment Future Test Test Name Order Date UPPER GI ENDOSCOPY 09/20/2016 COLONOSCOPY 09/20/2016 Next Appt Details Provider Name:Luis Murguia , 04/13/2025 10:10:00 AM, [address], [address], [place], [address], Insurance Providers Payer Name Payer Address Payer Phone Subscriber Number Group Number Insured Name Patient Relationship to Insured Coverage Start Date Coverage End Date [facility] [address] [place] [phone] [id number] IZZY FARRELL Self - patient is the insured Medical (General) History Medical History History ICD Code Denies [place],DM,CVA,Lung disease,renal dise ase GERD--EGD in 2006-Large HH, gastritis, + H.pylori(s/p Rx), normal duodenal bx, neg. Gupta's and no sig. esophagitis Colonosocpy 04/2007--negative except for internal hemorrhoids Hypothyroidism IBS History of iron def anemia with negative w/u as above ERCP with sphincterotomy and CBD stone r emoval 2-14-2001 Spinal stenosis Urinary incontinence Hypertension Colonoscopy 2017 was negative EGD 6567-qcekqxzl-powbg HH--no esophagit is nor Gupta's COVID 10/2020 Surgical History Surgery Date(Month/Year) BEE Right knee replacement in 11/2020 [place] [facility]preop ERCP with sphinct erotomy with removal of a common bile duct stone 2001 BTL
--- OUTSIDE RECORDS SUMMARY | 2025-02-04 17:31 | XMS_ITS ---
Author Organization [facility] Address [address] [place] [address] Care Team Providers Care Tank Truck Mechanic Name Role Phone Storm DENNIS, Darell Primary Care Provider Lusi Escalera [phone] Encounters Encounter Location Date Provider Diagnosis [facility] [address] [place] [address] 12/01/2024 Luis Murguia Plan Of Treatment Next Appt Details Provider Name:Lius Murguia , 04/13/2025 10:10:00 AM, [address], [address], [place], [address], Progress Notes * ANGELICA FARRELLOB:1960 (64 yo F)Acc No.[id number]:12/01/2024 Patient:?JEANA FARRELLLYN :1960???Age:64 Y???Sex:Female Address:[place] [address] Subjective: * Chief Complaints: * ??? * Medical History:? * Surgical History:? * Hospitalization/Major Diagno stic Procedure:? * Medications:? Objective: Assessment: Plan: * Treatment: * Procedure Codes:? * true * Date:? Generated for Printi ng/Falynng/eTransmitting on:?02/04/2025 05:31 PM EDT
--- OUTSIDE RECORDS SUMMARY | 2025-02-04 17:32 | XMS_ITS | Clinical Summary ---
Author Organization [facility] Address [address] [place] [address] Phone Care Team Providers Care Pattern Fitter Name Role Phone Unavailable Primary Care Provider Unavailabl e Social History Tobacco Use Types Packs/Day Years Used Date Smoking Tobacco: Never Assessed Comments Unknown Sex and Gender Information Value Date Recorded Sex Assigned at Not on file Legal Sex Female 10:09 AM EST Gender Identity Not on file Sexual Orientation Not on file Plan of Treatment Health Maintenance Due Date Last Done Comments Breast Cancer Screening 1960 DTaP,Tdap,and Td Vaccines (1 - Tdap) 1977 Pneumococcal Vaccine: 50+ Ye ars (1 of 1 - PCV) 2008 Zoster Vaccines (1 of 2) 2008 COVID-19 Vaccine ( - 2023-2 5 season) [...] patient's age to complete this topic Meningococcal B Vacine Aged Out No lo nger eligible based on patient's age to complete this topic RSV Immunization Patients Un andrew 20 months Aged Out No longer eligible b ased on patient's age to complete this topic Varicella Vaccines Aged Out No longer eligible based on patient's age to complete this topic Insurance [facility]
--- OUTSIDE RECORDS SUMMARY | 2025-02-04 17:32 | XMS_ITS ---
Author Organization [facility] Address [address] [place] [address] Care Team Providers Care Petroleum Refining Firer Name Role Phone Storm DENNIS, Darell Primary Care Provider Luis Escalera [phone] REASON FOR VISIT Patient presents today for issues with swallowing Encounters Encounter Location Date Provider Diagnosis [facility] [address] [place] [address] 12/01/2024 Luis Murguia Plan Of Treatment Next Appt Details Provider Name:Luis Murguia , 04/13/2025 10:10:00 AM, [address], [address], [place], [address], Progress Notes * BUDJOSHMICHAELOB:1960 (64 yo F)Acc No.[id number]:12/01/2024 Progress Notes Patient:?JOSH FARRELLN Provider:?Luis Murguia MD :1960???Age:64 Y???Sex:Female D ate:12/01/2024 Address:[address], [place] Pcp:Darell Inman MD Subjective: * Chief Complaints: * ???1. Patient presents today for issues with swallowing. * Medical History:? Objective: * Vitals:? Assessment: Plan: * Treatment: * * The named appointment provid er may or may not be the originator of this progress note, and it is not deemed complete until electronically signed by the appointment provider. Sign off status: Pending * Provider:?Luis Murguia MD Date:? 025 Generated for Pietro knight/Dilip/Cindyitting on:?02/04/2025 05:31 PM EDT
== END 2025-02-04 14:34 | disposition home or self-care (01) ==
LOC: HO.ENCR 14:01
PROVIDERS: PCP Internal Medicine; Visit Provider Student in an Organized Health Care Education/Training Program
DX: E04.2 Nontoxic multinodular goiter (principal)
CPT/HCPCS: 99204

== ENCOUNTER 2025-02-10 07:39 | Outpatient (REF) | payer OTHER, SELFPAY ==
--- OUTSIDE RECORDS SUMMARY | 2025-02-10 07:41 | XMS_ITS ---
Author Organization [facility] Address [address] [place] [address] Care Team Providers Care Athlete Manager Name Role Phone Storm DENNIS, Darell Primary Care Provider Luis Escalera [phone] REASON FOR VISIT GASSY Encounters Encounter Location Date Provider Diagnosis [facility] [address] [place] [address] 02/11/2024 Luis Murguia Plan Of Treatment Next Appt Details Provider Name:Luis Murguia , 04/13/2025 10:10:00 AM, [address], [address], [place], [address], Progress Notes * ANGELICA FARRELLOB:1960 (63 yo F)Acc No.[id number]:02/11/2024 Patient:?BUDJEANAIZZY :1960???Age:63 Y???Sex:Female Address:[address] [facility] [place] [address] * true * Date:? Generated for Printi ng/Falynng/eTransmitting on:?02/10/2025 07:41 AM EDT
--- OUTSIDE RECORDS SUMMARY | 2025-02-10 07:42 | XMS_ITS | Patient Health Record ---
Author Organization [facility] Address [address] [place] [place] [address] Care Team Providers Care Vocational Ed Instructor Name Role Phone Darell Inman MD Primary Care Provider Bob Mcnamara Unavailable [phone] Reason For Referral No Information Medications Medication [...] Status Risk Notes Problem Plantar fascial fibromatosis (20593885) Plantar fascial fibromatosis (M72.2) Active confirmed Plan Of Treatment Pending Test Test Name Order Date X ray : Foot, right 2V 10/25/2015 97958 I&D ABSCESS- SIMPLE,SINGLE 015 Insurance Providers Payer Name Payer Address Payer Phone Subscriber Number Group Number Insured Name Patient Relationship to Insured Coverage Start Date Coverage End Date [facility] [address] [place] [address] [id number] Self - patient is the insured Medical (General) History Medical History History ICD Code Stomach ulcer Surgical History Surgery Date(Month/Year) hysterectomy 1999 gall stones
--- OUTSIDE RECORDS SUMMARY | 2025-02-10 07:42 | XMS_ITS ---
Author Organization [facility] Address [address] [place] [address] Care Team Providers Care Pipe Stem Repairer Name Role Phone Storm DENNIS, Darell Primary Care Provider Luis Escalera [phone] REASON FOR VISIT Patient presents today for issues with swallowing Encounters Encounter Location Date Provider Diagnosis [facility] [address] [place] [address] 12/01/2024 Luis Murguia Plan Of Treatment Next Appt Details Provider Name:Luis Murguia , 04/13/2025 10:10:00 AM, [address], [address], [place], [address], Progress Notes * BUDJOSHMICHAELOB:1960 (64 yo F)Acc No.[id number]:12/01/2024 Progress Notes Patient:?JOSH FARRELLN Provider:?Luis Murguia MD :1960???Age:64 Y???Sex:Female D ate:12/01/2024 Address:[address], [place] Pcp:Darell Inman MD Subjective: * Chief Complaints: [...] MD Date:? 025 Generated for Pietro knight/Dilip/Cindyitting on:?02/10/2025 07:42 AM EDT
--- OUTSIDE RECORDS SUMMARY | 2025-02-10 07:42 | XMS_ITS | Clinical Summary ---
Author Organization [facility] Address [address] [place] [address] Phone Care Team Providers Care Belt Polisher Name Role Phone Unavailable Primary Care Provider [...] patient's age to complete this topic Insurance [facility]
--- OUTSIDE RECORDS SUMMARY | 2025-02-10 07:42 | XMS_ITS ---
Author Organization [facility] Address [address] [place] [address] Care Team Providers Care Vp Emerging Media Name Role Phone Storm DENNIS, Darell Primary Care Provider Luis Escalera [phone] Encounters Encounter Location Date Provider Diagnosis [facility] [address] [place] [address] 12/01/2024 Luis Murguia Plan Of Treatment Next Appt Details Provider Name:Luis Murguia , 04/13/2025 10:10:00 AM, [address], [address], [place], [address], Progress Notes * ANGELICA FARRELLOB:1960 (64 yo F)Acc No.[id number]:12/01/2024 Patient:?JOSH FARRELLN :1960???Age:64 Y???Sex:Female Address:[place] [address] Subjective: * Chief Complaints: * ??? * Medical History:? * Surgical History:? * Hospitalization/Major Diagno stic Procedure:? * Medications:? Objective: Assessment: Plan: * Treatment: * Procedure Codes:? * true * Date:? Generated for Baironi antonia/Falynng/eTransmitting on:?02/10/2025 07:41 AM EDT
--- NOTE | 2025-02-10 08:26 | PCN2_ITS ---
Brief Operative Note Date of procedure: 02/10/25 Pre-op diagnosis: right inferior 1.7 cm thyroid nodule FNA biopsy Post-op diagnosis: same Procedure: THYROID FINE NEEDLE ASPIRATION PROCEDURE NOTE ? PROCEDURE PERFORMED: Ultrasound-guided FNA of thyroid nodule ? OPERATORS: Dr. Pam Araya ? INDICATION: right inferior 1.7 cm thyroid nodule ; FNA performed to assess for malignancy ? DESCRIPTION OF PROCEDURE: The indications for FNA (to assess for malignancy) were reviewed with the patient in detail. Potential complications (e.g., bleeding, infection, damage to local structures, absence of clear diagnosis after FNA) were reviewed. Alternatives to FNA including conservative observation or surgery were described. The patient understood and agreed to proceed. This was documented by the signing of the written informed consent form. A time-out was performed to confirm the patient's identity and the site of planned FNA. The nodule of interest was identified using ultrasound (14 MHz linear array probe). The site of FNA was then draped in the usual fashion and c arefully cleaned and prepared using alcohol swabs. The skin at the previously-identified site of needle insertion was iced and sprayed with numbing spray. Under ultrasound guidance, _4_ passes were performed using a 1.5-inch, 25-gauge needle, and sample was obtained via capillary action. The needle tip was clearly visualized to be within the nodule at the time of sampling for 4__ of _4_ passes The patient tolerated the procedure well. There were no immediate complications. A small adhesive bandage was applied, and the patient was advised to take acetaminophen (rather than NSAIDs) for any discomfort and to report any signs of inflammation/infection or marked swelling. IMPRESSION: Technically successful ultrasound-guided fine needle aspiration of right inferior 1.7 cm thyroid nodule . PLAN: The patient was advised that I will provide follow-up regarding the cytology result and any subsequent plans. Pam Araya MD Endocrinology Attending Condition: stable Disposition: same day
== END 2025-02-10 07:40 | disposition home or self-care (01) ==
LOC: HO.US 07:39
PROVIDERS: PCP Internal Medicine; Visit Provider Student in an Organized Health Care Education/Training Program
DX: E04.2 Nontoxic multinodular goiter (principal)
CPT/HCPCS: 10005; 88173; 88305

== ENCOUNTER → 2025-02-10 07:39 | Outpatient (BNV) | payer OTHER, SELFPAY | PROVIDERS: PCP Internal Medicine; Visit Provider Student in an Organized Health Care Education/Training Program | DX: E04.1 Nontoxic single thyroid nodule (principal) | CPT/HCPCS: 10005 ==

== ENCOUNTER 2025-03-03 13:46 | Outpatient (AMB) | payer OTHER, SELFPAY ==
[2025-03-03 13:49] VITALS: BP 126/68; PULSE 59; O2SAT 96; BMI 30.6
--- NOTE | 2025-03-03 13:49 | A.OFFVIS_ITS ---
Vital Signs 3 03/03/25 13:49 Height 4 ft 11 in Weight 151 lb 7.321 oz BMI 30.6 BP 126/68 Blood Pressure Location Lt brachial Position Sitting Pulse 59 Pulse Source Pulse Oximeter Pulse Oximetry (%) 96 Oxygen Delivery Method Room Air Intake Visit Reasons: Biopsy f/u Intake Note: Patient present today for biopsy results. Tire Center Manager Required: No Accompanied by: se Allergies No Known Allergies Allergy (Unknown, Verified 03/03/25 13:54) HPI Comments Details: 64-year-old female coming in today for follow up of nontoxic multinodular goiter. HPI CT chest done in August 2024 for evaluation of cough showed a 1.8 cm calcified right thyroid nodule. Ultrasound thyroid 12/03/2024, I reviewed the images myself which showed a dominant right lower pole 1.7 cm solid, hypoechoic, TR 4 category nodule with peripheral calcification. This meets criteria for FNA. Another subcentimeter left upper pole TR 4 category nodule noted. No prior history of thyroid disorder or medication. Patient currently denies heat or cold intolerance, diarrhea or constipation, hair loss, anxiety, , mood changes, changes in appearance of eyes or vision changes, tremors, increased diaphoresis or dry skin. ? Reports low energy, intermittent palpitations has history of Afib Patient denies, pain on swallowing or voice changes or difficulty breathing. Reports intermittent difficulty swallowing for some years. Patient denies any history of childhood neck radiation. Denies having ever used lithium, amiodarone or biotin supplements. Patient denies any family history of thyroid cancer. 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 Physical exam General: sitting comfortably in no acute distress HEENT: normocephalic/atraumatic, moist oral mucosa Neck: supple, symmetrical, no thyromegaly , no dorsocervical or supraclavicular fat pads Cardiac: normal heart sounds Pulm: normal breath sounds B/L, no added breath sounds Abd: not distended, no tenderness Extremities: no edema, no signs of myxedema Laboratory Tests 07/19/23 06:10 TSH 0.80 Laboratory Tests 02/04/25 15:22 TSH 0.80 US THYROID 12/03/24 CLINICAL INFORMATION: Nontoxic single thyroid nodule. COMPARISON: None available. TECHNIQUE: Linear transducer grayscale and color Doppler examination with attention to the region of the thyroid. FINDINGS: SIZE: Measurements of the thyroid lobes and nodules are given in sagittal, anteroposterior and transverse dimensions respectively. Right Thyroid Lobe: 5.2 x 2.0 x 2.0 cm, volume 10.5 mL. Parenchyma: The gland echotexture is homogeneous. Thyroid vascularity is normal. Left Thyroid Lobe: 5.6 x 1.8 x 2.0 cm, volume 10.5 mL. Parenchyma: The gland echotexture is homogeneous. Thyroid vascularity is normal. Isthmus: 0.2 cm in maximum AP dimension. Estimated total number of nodules greater than or equal to 1 cm: one. Screw Machine Set Up Operator Tool nodules are described as follows: 1. Location: Right lower pole. Size: 1.6 x 1.6 x 1.7 cm, volume 2.13 mL. Nodule characteristics: Composition: Solid (2). Echogenicity: Undetermined Shape: Wider Margins: Smooth (0). Echogenic Foci: Peripheral calcifications (2). ACR TI-RADS total points: 5 ACR TI-RADS category: 4 2. Location: Left upper pole. Size: 0.6 x 0.3 x 0.6 cm, volume 0.062 mL. Nodule characteristics: Composition: Solid (2). Echogenicity: Hypoechoic (2). Shape: Wider Margins: Smooth (0). Echogenic Foci: None (0). ACR TI-RADS total points: 4 ACR TI-RADS category: 4 NODES: No lymphadenopathy is seen in the tissue surrounding the thyroid gland. US/US thyroid IMPRESSION: Suspicious nodule right lower pole. Recommend ultrasound-guided aspiration biopsy. CT CHEST WITHOUT CONTRAST 08/21/24 CLINICAL INFORMATION: Cough COMPARISON: Chest radiograph 05/30/2023 TECHNIQUE: Multidetector volumetric CT imaging of the chest was done. Axial MIP volume rendering provided. Sagittal and coronal reformatted images were obtained. This CT examination was performed using dose optimization techniques as appropriate, variously including the following: *Automated exposure control *Adjustment of mA and/or kV according to patient size (this includes techniques or standardized protocols for targeted exams where dose is matched to indication/reason for exam; i.e. extremities or head) *Use of iterative reconstruction technique DLP: 143 mGy-cm FINDINGS: DIESEL ENGINE SPECIALIST: Surgical clips are present in the gallbladder fossa. Heart size normal. LUNGS AND PLEURA: No significant emphysematous changes are seen. There is mild bronchial thickening without bronchiectasis. No infiltrates, effusions or lung masses are seen. MEDIASTINUM: There is a 1.8 cm rim calcified right thyroid nodule present. Dedicated thyroid ultrasound would be useful for further evaluation. Heart size is normal. No mediastinal or hilar lymphadenopathy. CORONARY ARTERY CALCIFICATION: None visualized on this study. AXILLA: No lymphadenopathy. UPPER ABDOMEN: Surgical clips are present in the gallbladder fossa OSSEOUS STRUCTURES: Unremarkable. CT/CT chest wo IV con IMPRESSION: 1. Mild bronchial thickening without bronchiectasis. 2. 1.8 cm rim calcified right thyroid nodule. Dedicated thyroid ultrasound would be useful for further evaluation. [facility] Medical History (Updated 02/04/25 @ 14:12 by Pam Araya MD) Multinodular goiter Obesity Back pain Hypertension PONV (postoperative nausea and vomiting) Arthritis GERD (gastroesophageal reflux disease) Anxiety Insomnia Hypertension Surgical History S/P total knee arthroplasty History of breast mammoplasty (~2008) History of rectal sphincterotomy (~2001) Hx of cholecystectomy (~2001) History of tubal ligation History of arthroscopy of left knee (~01/2012) History of hysterectomy Family History Father No problems noted. 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 CT chest done in August 2024 for evaluation of cough showed a 1.8 cm calcified right thyroid nodule. Ultrasound thyroid 12/03/2024, I reviewed the images myself which showed a dominant right lower pole 1.7 cm solid, hypoechoic, TR 4 category nodule with peripheral calcification. This meets criteria for FNA. Another subcentimeter left upper pole TR 4 category nodule noted. 02/10/2025: FNA biopsy of the right inferior 1.7 cm nodule came back as benign, [place] category 2. I explained to the patient benign results me less than 3% chance of malignancy, at this point we will plan to repeat an ultrasound in 1 year. Plan: -ordered thyroid ultrasound to be done in January 2026 with follow up in February 2026 -ordered TSH with reflex free T4 to be done prior to follow up in 1 year Plan See above Orders: Orders 2 US thyroid 01/24/26 E04.2 - Nontoxic multinodular goiter TSH reflex Free T4 01/24/26 E04.2 - Nontoxic multinodular goiter Patient Instructions: Do blood work in January 2026 Do ultrasound of the thyroid in January 2026, someone will call you to schedule this Follow up in February 2026 in clinic with me to discuss results Coding Level of Care Code Est Pt Level 3 (36212) Diagnoses Multinodular goiter E04.2
--- OUTSIDE RECORDS SUMMARY | 2025-03-03 16:26 | XMS_ITS | Patient Health Record ---
Author Organization [facility] Address [address] [place] [address] Care Team Providers Care Coconut Jelly Roller Name Role Phone Darell Inman MD Primary Care Provider Unavaila Luis Pritchard Unavailable [phone] Reason For Referral No Information Medications Medication [...] Status Risk Notes Problem Irritable bowel syndrome (19545816) Irritable bowel syndrome (K58.9) Active confirmed Problem 041952349 Encounter for screening for malignant neoplasm of colon (Z12.11) Active confirmed Problem Screening for malignant neoplasm of rectum (760597247) Encounter for screening for malignant neoplasm of rectum (Z12.12) Active confirmed Problem [id number] Gastroesophageal reflux disease, esophagitis presence not specified (K21.9) Active confirmed Problem 14157915 Hiatal hernia (K44.9) Active confirmed Problem Left upper quadrant pain (652152778) Abdominal pain, acute, left upper quadrant (R10.12) Active confirmed Encounters Encounter Location Date Provider Diagnosis [facility] [address] [place] [address] 12/01/2024 Luis Murguia Plan Of Treatment Future Test Test Name Order Date UPPER GI ENDOSCOPY 09/20/2016 COLONOSCOPY 09/20/2016 Next Appt Details Provider Name:Luis Murguia , 04/13/2025 10:10:00 AM, [address], [address], [place], [address], Insurance Providers Payer Name Payer Address Payer Phone Subscriber Number Group Number Insured Name Patient Relationship to Insured Coverage Start Date Coverage End Date [facility] [address] [place] [phone] [id number] IZZY FARRELL Self - patient is the insured Medical (General) History Medical History History ICD Code Denies [place],DM,CVA,Lung disease,renal dise ase GERD--EGD in 2006-Large HH, gastritis, + H.pylori(s/p Rx), normal duodenal bx, neg. Gupta's and no sig. esophagitis Colonosocpy 04/2007--negative except for internal hemorrhoids Hypothyroidism IBS History of iron def anemia with negative w/u as above ERCP with sphincterotomy and CBD stone r emoval 12-25-2001 Spinal stenosis Urinary incontinence Hypertension Colonoscopy 2017 was negative EGD [id number] HH--no esophagit is nor Gupta's COVID 10/2020 Surgical History Surgery Date(Month/Year) BEE Right knee replacement in 11/2020 at [facility]--preop ERCP with sphinct erotomy with removal of a common bile duct stone 2001 BTL
--- OUTSIDE RECORDS SUMMARY | 2025-03-03 16:26 | XMS_ITS ---
Author Organization [facility] Address [address] [place] [address] Care Team Providers Care Slack Line Yarder Name Role Phone Storm DENNIS, Darell Primary Care Provider Luis Escalera [phone] REASON FOR VISIT GASSY Encounters Encounter Location Date Provider Diagnosis [facility] [address] [place] [address] 02/11/2024 Luis Murguia Plan Of Treatment Next Appt Details Provider Name:Luis Murguia , 04/13/2025 10:10:00 AM, [address], [address], [place], [address], Progress Notes * ANGELICA FARRELLOB:1960 (63 yo F)Acc No.[id number]:02/11/2024 Patient:?IZZY FARRELL :1960???Age:63 Y???Sex:Female Address:[address] [place] [address] * true * Date:? Generated for Printi ng/Falynng/eTransmitting on:?03/03/2025 04:26 PM EDT
--- OUTSIDE RECORDS SUMMARY | 2025-03-03 16:27 | XMS_ITS | Patient Health Record ---
Author Organization [facility] Address [address] [facility] [address] Care Team Providers Care Pivot Maker Name Role Phone Darell Inman MD Primary Care Provider oBb Mcnamara Unavailable [phone] Reason For Referral No Information Medications Medication [...] Status Risk Notes Problem Plantar fascial fibromatosis (77895883) Plantar fascial fibromatosis (M72.2) Active confirmed Plan Of Treatment Pending Test Test Name Order Date X ray : Foot, right 2V 10/25/2015 02512 I&D ABSCESS- SIMPLE,SINGLE 015 Insurance Providers Payer Name Payer Address Payer Phone Subscriber Number Group Number Insured Name Patient Relationship to Insured Coverage Start Date Coverage End Date [facility] [address] [facility] [place] [address] [id number] Self - patient is the insured Medical (General) History Medical History History ICD Code Stomach ulcer Surgical History Surgery Date(Month/Year) hysterectomy 1999 gall stones
--- OUTSIDE RECORDS SUMMARY | 2025-03-03 16:27 | XMS_ITS | Clinical Summary ---
Author Organization [facility] Address [address] [place] [address] Phone Care Team Providers Care Riveting Machine Operator Name Role Phone Unavailable Primary Care Provider [...] Vaccine ( - 2023-2 5 season) 2024 Colorectal Cancer Screening: Colonoscopy 09/25/2024 Depression Screening 09/25/2024 Falls Risk Assessment 09/25/2024 Hepatitis C Screening 09/25/2024 Osteoporosis Screening (Bone Density Screening) 09/25/2024 Social Influencers of Health Screening 09/25/2024 Influenza Vaccine (Season Ended) 2025 RSV Immunization Adult Patie nts (1 - 1-dose 75+ series) 2033 HIB [...] age to complete this topic Meningococcal B Vaccine Aged Out No l onger eligible based on patient's age to complete this topic RSV Immunization Patients Un andrew 20 months Aged Out No longer eligible b ased on patient's age to complete this topic Varicella Vaccines Aged Out No longer eligible based on patient's age to complete this topic Insurance [facility]
--- OUTSIDE RECORDS SUMMARY | 2025-03-03 16:27 | XMS_ITS ---
Author Organization [facility] Address [address] [place] [address] Care Team Providers Care Full Service Vending Driver Name Role Phone Storm DENNIS, Darell Primary Care Provider Luis Escalera [phone] Encounters Encounter Location Date Provider Diagnosis [facility] [address] [place] [address] 12/01/2024 Luis Murguia Plan Of Treatment Next Appt Details Provider Name:Luis Murguia , 04/13/2025 10:10:00 AM, [address], [address], [place], [address], Progress Notes * ANGELICA FARRELLOB:1960 (64 yo F)Acc No.[id number]:12/01/2024 Patient:?JEANA FARRELLLYN :1960???Age:64 Y???Sex:Female Address: [place] [address] Subjective: * Chief Complaints: * ??? * Medical History:? * Surgical History:? * Hospitalization/Major Diagno stic Procedure:? * Medications:? Objective: Assessment: Plan: * Treatment: * Procedure Codes:? * true * Date:? Generated for Printi ng/Falynng/eTransmitting on:?03/03/2025 04:26 PM EDT
--- OUTSIDE RECORDS SUMMARY | 2025-03-03 16:27 | XMS_ITS ---
Author Organization [facility] Address [address] [place] [address] Care Team Providers Care Senior Linux Systems Engineer Name Role Phone Storm DENNIS, Darell Primary Care Provider Luis Escalera [phone] REASON FOR VISIT Patient presents today for issues with swallowing Encounters Encounter Location Date Provider Diagnosis [facility] [address] [place] [address] 12/01/2024 Luis Murguia Plan Of Treatment Next Appt Details Provider Name:Lusi Murguia , 04/13/2025 10:10:00 AM, [address], [address], [place], [address], Progress Notes * BUDJOSHMICHAELOB:1960 (64 yo F)Acc No.[id number]:12/01/2024 Progress Notes Patient:?JOSH FARRELLN Provider:?Luis Murguia MD :1960???Age:64 Y???Sex:Female D ate:12/01/2024 Address:[address] [address], [place] Pcp:Darell Inman MD Subjective: * Chief Complaints: [...] MD Date:? 025 Generated for Pietro knight/Dilip/Cindyitting on:?03/03/2025 04:27 PM EDT
== END 2025-03-03 14:12 | disposition home or self-care (01) ==
LOC: HO.ENCR 13:46
PROVIDERS: PCP Internal Medicine; Visit Provider Student in an Organized Health Care Education/Training Program
DX: E04.2 Nontoxic multinodular goiter (principal)
CPT/HCPCS: 99213

== ENCOUNTER 2025-03-23 09:01 | Outpatient (AMB) | payer OTHER, SELFPAY ==
--- NOTE | 2025-03-23 09:08 | MHC.PC.OV ---
Vital Signs 03/23/25 09:10 Height 4 ft 11 in Weight 150 lb BMI 30.3 BP 124/68 Blood Pressure Location Lt brachial Position Sitting Intake Visit Reasons: DIL[facility] from [facility] Gun Stock Checker Required: No Accompanied by: Self / Same As Patient Allergies No Known Allergies Allergy (Unknown, Verified 03/23/25 09:25) Medication List - Last Reconciled 03/23/25 by Jaqueline Lyons MD albuterol sulfate 90 mcg/actuation (ProAir HFA) 2 puffs PO Q6H PRN alendronate 70 mg PO QWEEK sxszfeh-hsbldqhafztdt-aihpeqoi 250-250-65 mg (Excedrin Migraine) 1 tab PO .qd PRN atorvastatin 40 mg PO DAILY budesonide 90 mcg/actuation (Pulmicort Flexhaler) 1 inh inhalation BID dicyclomine 10 mg PO DAILY 30 days diphenhydramine HCl (Benadryl Allergy) 50 mg PO Q8H PRN flecainide 1 tablet in morning and 2 tablets in the evening orally every 12 hours; metoprolol succinate ER 25 mg PO DAILY 90 days omeprazole 40 mg PO DAILY spironolactone 25 mg PO DAILY trazodone 100 mg PO BEDTIME triamcinolone acetonide 0.5% 1 appl topical TID Tobacco use date assessed: 03/23/25 Fall risk assessment: 1 Fall in past year Last assessed Fall Risk: 03/23/25 Dental Screening Dental Screen Date: 03/23/25 Did you have a dental visit in the last 12 months?: Yes Did you have a dental problem in the last 6 months where you did not have access to dental care?: No Was dental information given to patient?: Patient has dentist HPI HPI Comments History of Present Illness Details The patient is a 64-year-old female presenting with chronic condition management and transfer of care. She has a documented history of osteoporosis, for which she takes alendronate, though her bone health requires reassessment due to the absence of a recent bone densitometry. The patient manages hypercholesterolemia with atorvastatin and has an established condition of multinodular goiter monitored by endocrinology. Persistent eczema is noted, prompting consideration of Betamethasone for better symptomatic control. She has a notable history of a traumatic fall with ongoing post-surgical pain. Additionally, migraines persist, managed by neurology, where sleep issues may also be addressed. Updates for a mammogram and Tdap vaccine are due, ensuring adherence to preventive health measures. Lastly, familial bereavement may hold significance in the patient's social context. Has cardiomyopathy follow by cardiology and last ejection fraction was 55-60% last year. Seems euvolemic with no symptoms. [facility] Medical History (Updated 03/23/25 @ 09:41 by Jaqueline Lyons MD) Multinodular goiter Obesity Back pain Hypertension PONV (postoperative nausea and vomiting) Arthritis GERD (gastroesophageal reflux disease) Anxiety Insomnia Hypertension Surgical History S/P total knee arthroplasty History of breast mammoplasty (~2008) History of rectal sphincterotomy (~2001) Hx of cholecystectomy (~2001) History of tubal ligation History of arthroscopy of left knee (~01/2012) History of hysterectomy Family History Father No problems noted. 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 1. Little interest or pleasure in doing things: not at all 2. Feeling down, depressed, or hopeless: not at all 3. Trouble falling or staying asleep, or sleeping too much: not at all 4. Feeling tired or having little energy: not at all 5. Poor appetite or overeating: not at all 6. Feeling bad about yourself - or that you are a failure or have let yourself or your family down: not at all 7. Trouble concentrating on things, such as reading the newspaper or watching television: not at all 8. Moving or speaking so slowly that other people could have noticed. Or the opposite - being so fidgety or restless that you have been moving around a lot more than usual: not at all 9. Thoughts that you would be better off or of hurting yourself in some way: not at all Total score: 0 Depression Screening Interpretation: Negative Depression Screening Done: Yes 39896 - PHQ-9 Billing: Yes Source: Developed by Drs. Luis Corona, Kerry Kelly, Robbi Coley and colleagues, with an educational alin from [employer]. Thrive Questionnaire Date Thrive assessed: 03/23/25 I am a: Patient What is your living situation today?: I have a steady place to live Within the past 12 months, did the food you bought not last and you didn't have the money to get more?: Sometimes True Within the past 12 months, did you worry whether your food would run out before you got money to buy more?: I choose not to answer this question Do you have trouble paying for medicines?: No Do you have trouble getting transportation to medical appointments?: No Do you have trouble paying your heating and electricity bill?: No Do you have trouble taking care of your child, family member or friend?: No Do you have trouble with day-to-day activities such as bathing, preparing meals, shopping, managing finances, etc.?: No Are you currently unemployed and looking for a job?: No Are you interested in more education?: No Please select the resources that you would like help with: None Currently or been in a relationship where the following occur: I choose not to answer THRIVE Score: 1 AUDIT C Alcohol Use Questionnaire (AUDIT-C) 1. How often do you have a drink containing alcohol?: Never Total Score: 0 Score Reviewed/Action Taken: No KAYLIN-7 AMB Questionnaire KAYLIN-7 Date KAYLIN - 7 assessed: 03/23/25 Feeling nervous, anxious, or on edge: 0 = Not at all Not being able to stop or control worryin = Nearly every day Worrying too much about different things: 0 = Not at all Trouble relaxin = Not at all Being so restless that it is hard to sit still: 0 = Not at all Becoming easily annoyed or irritable: 0 = Not at all Feeling afraid as if something awful might happen: 0 = Not at all Total KAYLIN-7 score (0-4 normal; 5-9 mild; 10-14 moderate; 15-21 severe): 3 Source: Developed by Drs. Luis Corona, Kerry Kelly, Robbi Coley and colleagues, with an educational alin from [employer]. KAYLIN-7 Assessment Billing KAYLIN-7 Assessment Tool: KAYLIN-7 Assessment 79037 Review of Systems Const All systems reviewed & are unremarkable except as noted in HPI and below Card Denies chest pain at rest, Denies chest pain with activity, Denies edema, Denies irregular heart rhythm, Denies claudication, Denies dyspnea, Denies dyspnea on exertion, Denies orthopnea, Denies paroxysmal nocturnal dyspnea and Denies slow heart rate Resp Denies cough, Denies dyspnea and Denies dyspnea on exertion GI Denies abdominal pain, Denies change in bowel habits, Denies excessive flatus, Denies nausea and Denies vomiting Skin/Breast Denies bleeding lesions, Denies changing lesions and Denies rash Neuro Denies behavioral changes and Denies lack of coordination Psych Denies behavioral changes Physical exam (Primary Care) Vital Signs: Last Vital Signs BP 124/68 03/23/25 09:10 BMI result Body Mass Index 30.3 BMI Assessment/Plan discussion: High BMI High, discussed plan: lifestyle, weight reduction, dietary and physical activity Tobacco/Smoking Status: Tobacco use Status Tobacco use date assessed 03/23/25 03/23/25 09:16 Patient Tobacco Use Status Never used Tobacco 03/23/25 09:16 Tobacco use type 03/23/25 09:16 e-Cigarette/Vaping Use Never Used 03/23/25 09:16 PHQ-9: PHQ-9 Score PHQ-9: Total score 0 03/23/25 09:28 Depression Screening Interpretation: Negative Thrive Assessment: Date of Thrive Assessment Date Thrive assessed 03/23/25 03/23/25 09:16 Currently or been in a relationship where the following occur: I choose not to answer Resp Effort & Inspection: normal respiratory effort Auscultation: clear to auscultation bilaterally Cardio Jugular venous distension: no JVD Rate: regular rate Rhythm: regular rhythm Heart sounds: S1 normal heart sound present and S2 normal heart sound present Extrem General: Yes full ROM Immunizations Boostrix Tdap 2.5 Lf unit-8 mcg-5 Lf/0.5 mL intramuscular syringe Performing Provider: Jaqueline Lyons MD [facility] Administered by: SANTO Miles on 03/23/25 09:34 Dose Route Admin Location Dispensed Lot Number Expiration Date NDC Pelt Salter 0.5 mL IM Left Deltoid 0.5 mL [id number] 07/06/27 42292-549-14 [employer] VIS Given Date VIS Provided VIS Publication Date 03/23/25 Single Vaccine 24 Eligibility Eligibility Date Funding Source Not [facility] Eligible 03/23/25 Private Coding Level of Care Code Est Pt Level 4 (92351) Complex EM visit Add On G2211 Diagnoses Osteoporosis M81.0 Osteoporosis type: age-related Cardiomyopathy I42.9 Hypercholesteremia E78.00 Eczema L30.9 Additional Codes PHQ-9 - 81900 - PHQ-9 Billing: Yes ([id number]) KAYLIN-7 Assessment Billing - KAYLIN-7 Assessment Tool: KAYLIN-7 Assessment 63220 ([id number]) Time Spent (min) 23 Assessment & Plan Assessment & Plan (1) Osteoporosis: Code(s): M81.0 - Age-related osteoporosis without current pathological fracture Category: Medical Qualifiers: Osteoporosis type: age-related (2) Cardiomyopathy: Code(s): I42.9 - Cardiomyopathy, unspecified Category: Medical (3) Hypercholesteremia: Code(s): E78.00 - Pure hypercholesterolemia, unspecified Category: Medical (4) Eczema: Code(s): L30.9 - Dermatitis, unspecified Category: Medical Plan We will proceed with a bone densitometry to evaluate her osteoporosis status and maintain alendronate therapy. The management plan for hypercholesterolemia involves the continued use of atorvastatin. Endocrinology will monitor her multinodular goiter. Betamethasone ointment is prescribed to alleviate eczema symptoms. Migraine management will be supported through neurology. We will provide the Tdap vaccine today, adhering to vaccination guidelines, and the patient will undergo a mammogram as due. Support for emotional wellbeing following her sister's passing was suggested. Patient was informed and verbally consented to the use of an ambient scribe for clinic note documentation during this visit. During our discussion, I addressed the management of her osteoporosis, underscoring the importance of resuming bone density monitoring. For eczema, we evaluated potential treatments and transitioned her to Betamethasone. We reviewed the established plan for hypercholesterolemia with atorvastatin and acknowledged ongoing endocrine evaluation for her multinodular goiter. I confirmed neurology's role in addressing migraines and sleep concerns. Through this visit, we reinforced the preventative strategies including vaccination updates and regular screenings like the mammogram. Awareness of her familial loss was regarded with empathetic acknowledgment, and I assured her of support services if desired. Orders: Orders MM tomosynthesis screening BI Today Z12.31 - Encounter for screening mammogram for malignant neoplasm of breast XR DEXA axial skeleton Today Z78.0 - Asymptomatic menopausal state Lipid Panel 5 Months E78.5 - Hyperlipidemia, unspecified TDaP Immunization Today Z23 - Encounter for immunization Vitamin D 25-OH Total 5 Months E55.9 - Vitamin D deficiency, unspecified Comprehensive [place]. Panel Fast 5 Months E78.00 - Pure hypercholesterolemia, unspecified Patient Instructions: - Continue taking alendronate and atorvastatin as prescribed. - Apply Betamethasone ointment to affected areas as directed. - Follow up with neurology for migraine and sleep management. - Receive the Tdap vaccine at this visit. - Attend the scheduled mammogram. - Contact our office with any new symptoms or concerns. - Consider support services for emotional wellbeing if needed.
[2025-03-23 09:10] VITALS: BP 124/68; BMI 30.3
--- OUTSIDE RECORDS SUMMARY | 2025-03-23 09:27 | XMS_ITS | Patient Health Record ---
Author Organization [facility] Address [address] [place] [address] Care Team Providers Care Learning Officer Name Role Phone Darell Inman MD Primary Care Provider Unavaila Luis Pritchard Unavailable [phone] Reason For Referral No Information Medications Medication [...] Status Risk Notes Problem Irritable bowel syndrome (65750514) Irritable bowel syndrome (K58.9) Active confirmed Problem 214233726 Encounter for screening for malignant neoplasm of colon (Z12.11) Active confirmed Problem Screening for malignant neoplasm of rectum (205001745) Encounter for screening for malignant neoplasm of rectum (Z12.12) Active confirmed Problem 686711781 Gastroesophageal reflux disease, esophagitis presence not specified (K21.9) Active confirmed Problem 09276446 Hiatal hernia (K44.9) Active confirmed Problem Left upper quadrant pain (766316568) Abdominal pain, acute, left upper quadrant (R10.12) Active confirmed Encounters Encounter Location Date Provider Diagnosis [facility] [address] [place] [address] 12/01/2024 Luis Murguia Plan Of Treatment Future Test Test Name Order Date UPPER GI ENDOSCOPY 09/20/2016 COLONOSCOPY 09/20/2016 Next Appt Details Provider Name:Luis Murguia , 04/13/2025 10:10:00 AM, [address], [address], [place], [address], Insurance Providers Payer Name Payer Address Payer Phone Subscriber Number Group Number Insured Name Patient Relationship to Insured Coverage Start Date Coverage End Date [facility] [address] [place] [phone] [id number] IZZY FARRELL Self - patient is the insured Medical (General) History Medical History History ICD Code Denies [place],DM,CVA,Lung disease,renal dise ase GERD--EGD in 2006-Large HH, gastritis, + H.pylori(s/p Rx), normal duodenal bx, neg. Gupta's and no sig. esophagitis Colonosocpy 04/2007--negative except for internal hemorrhoids Hypothyroidism IBS History of iron def anemia with negative w/u as above ERCP with sphincterotomy and CBD stone r emoval 12-25-2001 Spinal stenosis Urinary incontinence Hypertension Colonoscopy 2017 was negative EGD 3123-eneqbtjc-zyjpj HH--no esophagit is nor Gupta's COVID 10/2020 Surgical History Surgery Date(Month/Year) BEE Right knee replacement in 11/2020 at [facility]--preop ERCP with sphinct erotomy with removal of a common bile duct stone 2001 BTL
--- OUTSIDE RECORDS SUMMARY | 2025-03-23 09:27 | XMS_ITS ---
Author Organization [facility] Address [address] [place] [address] Care Team Providers Care Asphalt Paver Operator Name Role Phone Storm DENNIS, Darell Primary Care Provider Luis Escalera [phone] REASON FOR VISIT GASSY Encounters Encounter Location Date Provider Diagnosis [facility] [address] [place] [address] 02/11/2024 Luis Murguia Plan Of Treatment Next Appt Details Provider Name:Luis Murguia , 04/13/2025 10:10:00 AM, [address], [address], [place], [address], Progress Notes * ANGELICA FARRELLOB:1960 (63 yo F)Acc No.[id number]:02/11/2024 Patient:?BUDJEANAIZZY :1960???Age:63 Y???Sex:Female Address:[address] [facility] [place] [address] * true * Date:? Generated for Printi ng/Falynng/eTransmitting on:?03/23/2025 09:27 AM EDT
--- OUTSIDE RECORDS SUMMARY | 2025-03-23 09:27 | XMS_ITS ---
Author Organization [facility] Address [address] [place] [address] Care Team Providers Care Baker Second Name Role Phone Storm DENNIS, Darell Primary Care Provider Luis Escalera [phone] Encounters Encounter Location Date Provider Diagnosis [facility] [address] [place] [address] 12/01/2024 Luis Murguia Plan Of Treatment Next Appt Details Provider Name:Luis Murguia , 04/13/2025 10:10:00 AM, [address], [address], [place], [address], Progress Notes * ANGELICA FARRELLOB:1960 (64 yo F)Acc No.[id number]:12/01/2024 Patient:?JOSH FARRELLN :1960???Age:64 Y???Sex:Female Address:[place] [address] Subjective: * Chief Complaints: * ??? * Medical History:? * Surgical History:? * Hospitalization/Major Diagno stic Procedure:? * Medications:? Objective: Assessment: Plan: * Treatment: * Procedure Codes:? * true * Date:? Generated for Baironi antonia/Falynng/eTransmitting on:?03/23/2025 09:27 AM EDT
--- OUTSIDE RECORDS SUMMARY | 2025-03-23 09:28 | XMS_ITS ---
Author Organization [facility] Address [address] [place] [address] Care Team Providers Care Nail Feeder Name Role Phone Storm DENNIS, Darell Primary Care Provider Luis Escalera [phone] REASON FOR VISIT Patient presents today for issues with swallowing Encounters Encounter Location Date Provider Diagnosis [facility] [address] [place] [address] 12/01/2024 Luis Murguia Plan Of Treatment Next Appt Details Provider Name:Luis Murguia , 04/13/2025 10:10:00 AM, [address], [address], [place], [address], Progress Notes * BUDJOSHMICHAELOB:1960 (64 yo F)Acc No.[id number]:12/01/2024 Progress Notes Patient:?JOSH FARRELLN Provider:?Luis Murguia MD :1960???Age:64 Y???Sex:Female D ate:12/01/2024 Address:[address] [address], [place] Pcp:Darell Inman MD Subjective: * Chief Complaints: [...] MD Date:? 025 Generated for Pietro knight/Dilip/Cindyitting on:?03/23/2025 09:27 AM EDT
--- OUTSIDE RECORDS SUMMARY | 2025-03-23 09:28 | XMS_ITS | Patient Health Record ---
Author Organization [facility] Address [address] [facility] [address] [facility] [place] [address] Care Team Providers Care Lead Designer Name Role Phone Storm DENNIS, Darell Primary Care Provider Bob Mcnamara Unavailable [phone] Reason For Referral No Information Medications Medication [...] Status Risk Notes Problem Plantar fascial fibromatosis (M72.2) Active confirmed Plan Of Treatment Pending Test Test Name Order Date X ray : Foot, right 2V 10/25/2015 62442 I&D ABSCESS- SIMPLE,SINGLE 015 Insurance Providers Payer Name Payer Address Payer Phone Subscriber Number Group Number Insured Name Patient Relationship to Insured Coverage Start Date Coverage End Date [facility] [address] [place] [address] [id number] Ute Hawkins Self - patient is the insured Medical (General) History Medical History History ICD Code Stomach ulcer Surgical History Surgery Date(Month/Year) hysterectomy 1999 gall stones
--- OUTSIDE RECORDS SUMMARY | 2025-03-23 09:28 | XMS_ITS | Clinical Summary ---
Author Organization [facility] Address [address] [place] [address] Phone Care Team Providers Care Quality Assurance Assistant Name Role Phone Unavailable Primary Care Provider [...]
== END 2025-03-23 09:38 | disposition home or self-care (01) ==
PROVIDERS: PCP Internal Medicine; Visit Provider Internal Medicine
DX: M81.0 Age-related osteoporosis without current pathological fracture (principal); I42.9 Cardiomyopathy, unspecified; E78.00 Pure hypercholesterolemia, unspecified; L30.9 Dermatitis, unspecified; Z23 Encounter for immunization

== ENCOUNTER → 2025-03-23 09:01 | Outpatient (BNVA) | payer OTHER, SELFPAY | PROVIDERS: PCP Internal Medicine; Visit Provider Internal Medicine | DX: M81.0 Age-related osteoporosis without current pathological fracture (principal); Z23 Encounter for immunization; I42.9 Cardiomyopathy, unspecified; E78.00 Pure hypercholesterolemia, unspecified; L30.9 Dermatitis, unspecified; Z79.899 Other long term (current) drug therapy | CPT/HCPCS: 90471; 90715; 96127 ==

== ENCOUNTER 2025-03-24 13:37 | Outpatient (AMB) | payer OTHER, SELFPAY ==
--- OUTSIDE RECORDS SUMMARY | 2025-03-24 13:43 | XMS_ITS | Patient Health Record ---
Author Organization [facility] Address [address] [place] [address] Care Team Providers Care Sausage Machine Operator Name Role Phone Darell Inman MD Primary Care Provider Unavaila Luis Pritchard Unavailable [phone] Reason For Referral No Information Medications Medication [...] Status Risk Notes Problem Irritable bowel syndrome (38264808) Irritable bowel syndrome (K58.9) Active confirmed Problem 763026246 Encounter for screening for malignant neoplasm of colon (Z12.11) Active confirmed Problem Screening for malignant neoplasm of rectum (232264264) Encounter for screening for malignant neoplasm of rectum (Z12.12) Active confirmed Problem 571094730 Gastroesophageal reflux disease, esophagitis presence not specified (K21.9) Active confirmed Problem 44016725 Hiatal hernia (K44.9) Active confirmed Problem Left upper quadrant pain (537773012) Abdominal pain, acute, left upper quadrant (R10.12) Active confirmed Encounters Encounter Location Date Provider Diagnosis [facility] [address] [place] [address] 12/01/2024 Luis Murguia Plan Of Treatment Future Test Test Name Order Date UPPER GI ENDOSCOPY 09/20/2016 COLONOSCOPY 09/20/2016 Next Appt Details Provider Name:Luis Murguia , 04/13/2025 10:10:00 AM, [address], [address], [place], [address], Insurance Providers Payer Name Payer Address Payer Phone Subscriber Number Group Number Insured Name Patient Relationship to Insured Coverage Start Date Coverage End Date [facility] [address] [facility] [place] [phone] [id number] IZZY FARRELL Self - patient is the insured Medical (General) History Medical History History ICD Code Denies [place],DM,CVA,Lung disease,renal dise ase GERD--EGD in 2006-Large HH, gastritis, + H.pylori(s/p Rx), normal duodenal bx, neg. Gupta's and no sig. esophagitis Colonosocpy 04/2007--negative except for internal hemorrhoids Hypothyroidism IBS History of iron def anemia with negative w/u as above ERCP with sphincterotomy and CBD stone r emoval 12-25-2001 Spinal stenosis Urinary incontinence Hypertension Colonoscopy 2017 was negative EGD 8962-jqkoixzk-ntual HH--no esophagit is nor Gupta's COVID 10/2020 Surgical History Surgery Date(Month/Year) BEE Right knee replacement in 11/2020 at [facility]--preop ERCP with sphinct erotomy with removal of a common bile duct stone 2001 BTL
--- OUTSIDE RECORDS SUMMARY | 2025-03-24 13:44 | XMS_ITS | Clinical Summary ---
Author Organization [facility] Address [address] [place] [address] Phone Care Team Providers Care Systems Software Developer Name Role Phone Unavailable Primary Care Provider [...] patient's age to complete this topic Insurance [facility]
--- OUTSIDE RECORDS SUMMARY | 2025-03-24 13:44 | XMS_ITS ---
Author Organization [facility] Address [address] [place] [address] Care Team Providers Care Secondary Social Studies Teacher Name Role Phone Storm DENNIS, Darell Primary Care Provider Luis Escalera [phone] REASON FOR VISIT Patient presents today for issues with swallowing Encounters Encounter Location Date Provider Diagnosis [facility] [address] [place] [address] 12/01/2024 Luis Murguia Plan Of Treatment Next Appt Details Provider Name:Luis Murguia , 04/13/2025 10:10:00 AM, [address], [address], [place], [address], Progress Notes * BUDJOSHMICHAELOB:1960 (64 yo F)Acc No.[id number]:12/01/2024 Progress Notes Patient:?JOSH FARRELLN Provider:?Luis Murguia MD :1960???Age:64 Y???Sex:Female D ate:12/01/2024 Address:[address] [address], [place] Pcp:Darell Inman MD Subjective: * Chief Complaints: [...] MD Date:? 025 Generated for Pietro knight/Dilip/Cindyitting on:?03/24/2025 01:44 PM EDT
--- OUTSIDE RECORDS SUMMARY | 2025-03-24 13:44 | XMS_ITS ---
Author Organization [facility] Address [address] [place] [address] Care Team Providers Care Scow Captain Name Role Phone Storm DENNIS, Darell Primary Care Provider Luis Escalera [phone] REASON FOR VISIT GASSY Encounters Encounter Location Date Provider Diagnosis [facility] [address] [place] [address] 02/11/2024 Luis Murguia Plan Of Treatment Next Appt Details Provider Name:Luis Murguia , 04/13/2025 10:10:00 AM, [address], [address], [place], [address], Progress Notes * ANGELICA FARRELLOB:1960 (63 yo F)Acc No.[id number]:02/11/2024 Patient:?BUDJEANAIZZY :1960???Age:63 Y???Sex:Female Address:[address] [place] [address] * true * Date:? Generated for Printi ng/Falynng/eTransmitting on:?03/24/2025 01:43 PM EDT
--- OUTSIDE RECORDS SUMMARY | 2025-03-24 13:44 | XMS_ITS | Patient Health Record ---
Author Organization [facility] Address [address] [facility] [place] [address] Care Team Providers Care Materials Branch Chief Name Role Phone Storm DENNIS, Darell Primary Care Provider Bob Mcnamara Unavailable [phone] Reason For Referral No Information Medications Medication [...] X ray : Foot, right 2V 10/25/2015 68122 I&D ABSCESS- SIMPLE,SINGLE 015 Insurance Providers Payer Name Payer Address Payer Phone Subscriber Number Group Number Insured Name Patient Relationship to Insured Coverage Start Date Coverage End Date [facility] [address] [place] [address] [phone] [id number] Self - patient is the insured Medical (General) History Medical History History ICD Code Stomach ulcer Surgical History Surgery Date(Month/Year) hysterectomy 1999 gall stones
--- OUTSIDE RECORDS SUMMARY | 2025-03-24 13:44 | XMS_ITS ---
Author Organization [facility] Address [address] [place] [address] Care Team Providers Care Cam Maker Name Role Phone Storm DENNIS, Darell Primary Care Provider Luis Escalera [phone] Encounters Encounter Location Date Provider Diagnosis [facility] [address] [place] [address] 12/01/2024 Luis Murguia Plan Of Treatment Next Appt Details Provider Name:Luis Murguia , 04/13/2025 10:10:00 AM, [address], [address], [place], [address], Progress Notes * ANGELICA FARRELLOB:1960 (64 yo F)Acc No.[id number]:12/01/2024 Patient:?JOSH FARRELLN :1960???Age:64 Y???Sex:Female Address:[place] [address] Subjective: * Chief Complaints: * ??? * Medical History:? * Surgical History:? * Hospitalization/Major Diagno stic Procedure:? * Medications:? Objective: Assessment: Plan: * Treatment: * Procedure Codes:? * true * Date:? Generated for Baironi ng/Falynng/eTransmitting on:?03/24/2025 01:43 PM EDT
--- NOTE | 2025-03-24 14:38 | A.OFFVIS_ITS ---
Vital Signs 03/24/25 14:39 Height 4 ft 1 in Weight 151 lb 10.848 oz BMI 44.4 BP 120/64 Blood Pressure Location Lt brachial Position Sitting Pulse 53 Pulse Source Monitor Intake Visit Reasons: 6 mth f/up Intake Note: 6 mth f/up Extrusion Supervisor Required: No Accompanied by: Self / Same As Patient Allergies No Known Allergies Allergy (Unknown, Verified 03/23/25 09:25) Medication List - Last Reconciled 03/24/25 by Radu Harry MD albuterol sulfate 90 mcg/actuation (ProAir HFA) 2 puffs PO Q6H PRN alendronate 70 mg PO QWEEK ethwjiy-obpvfojspxuta-zjoiwhjg 250-250-65 mg (Excedrin Migraine) 1 tab PO .qd PRN atorvastatin 40 mg PO DAILY betamethasone dipropionate 0.05% 1 appl topical DAILY PRN 2 weeks budesonide 90 mcg/actuation (Pulmicort Flexhaler) 1 inh inhalation BID dicyclomine 10 mg PO DAILY 30 days diphenhydramine HCl (Benadryl Allergy) 50 mg PO Q8H PRN flecainide 1 tablet in morning and 2 tablets in the evening orally every 12 hours; metoprolol succinate ER 25 mg PO DAILY 90 days omeprazole 40 mg PO DAILY spironolactone 25 mg PO DAILY trazodone 100 mg PO BEDTIME triamcinolone acetonide 0.5% 1 appl topical TID HPI Comments Details: 64-year-old female who is here for 1st office visit. Recently she was and [facility] for headache. She had EKG performed at that time which showed ventricular bigeminy. Her heart rate was 40 beats per minute and the PVCs were not perfused. She did not have any dizziness or palpitations at that time and mainly presented for headache and elevated blood pressure. She said she was observed and discharged home eventually. She has strong family history of coronary disease. She has hypertension and currently taking lisinopril. She has longstanding history of dyspnea on exertion. She is not an asthmatic. She is saying her weight has been stable but she is overweight. 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 10/14/2023: She returns for follow-up. She underwent cardiac catheterization which did not show any significant coronary disease. After that she was started on flecainide 50 mg twice a day. Subsequent EKG showed frequent premature ventricular complexes. She was advised to increase the flecainide 100 mg twice a day. She returns today and is complaining of a lot of GI complaints. She has previous GI issues include a acid reflux but is saying that since she increase the medications she feels bloated and get some dominant discomfort. She is saying she was getting these symptoms before but there were since we increased the flecainide. Her pulse is quite regular today and is in 60s compared with 40s before because she previously did not perfuse the premature ventricular complexes. Other complaints currently. 12/18/23: She returns for follow-up. She has been doing well. No palpitations. Repeat EKG here showing sinus bradycardia without any PVCs. She is tolerating flecainide 50 mg in the morning and 100 at night better then 100 mg twice a day. No symptoms/signs of heart failure. 04/15/24: She is here for follow-up. Complaining of dizziness and lightheadedness. Blood pressure is 100/50. She is saying she has lost some weight and it appears she lost approximately 20 lb since 10/30/2023. I have advised her to stop the hydrochlorothiazide. Repeat echocardiography from 03/30/2024 has shown normal ejection fraction 55-60% without any wall motion abnormalities. 09/16/2024: She is here for follow-up. Doing well. No symptoms. EKGs showing sinus bradycardia without any PVCs. Blood pressure well controlled. 03/24/25: She is here for follow-up. She has noticed some palpitations off and on but they are short-lived and last for few sec. She has been taking medications regularly. No chest pain or shortness of breath. [facility] Medical History Multinodular goiter Obesity Back pain Hypertension PONV (postoperative nausea and vomiting) Arthritis GERD (gastroesophageal reflux disease) Anxiety Insomnia Hypertension Surgical History S/P total knee arthroplasty History of breast mammoplasty (~2008) History of rectal sphincterotomy (~2001) Hx of cholecystectomy (~2001) History of tubal ligation History of arthroscopy of left knee (~01/2012) History of hysterectomy Family History Father No problems noted. 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 Current occupational exposures/hazards: No Cognitive needs: No Hearing needs: No Vision needs: Yes (glasses) Review of Systems Const Denies chills, Denies fatigue, Denies fever(s), Denies frequent falls, Denies weakness, Denies weight gain and Denies weight loss ENT Denies dizziness Card Denies chest pain, Denies leg edema, Denies lightheadedness, Denies palpitations, Denies dyspnea and Denies dyspnea on exertion Resp Denies cough, Denies dyspnea and Denies dyspnea on exertion GI Denies hematochezia Musc Denies abnormal gait, Denies muscle weakness, Denies numbness, Denies radiating pain into limb and Denies tingling Neuro Denies abnormal gait, Denies dizziness, Denies frequent falls, Denies numbness, Denies tingling and Denies weakness Endo Denies fatigue and Denies palpitations Physical Exam Vital Signs: Last Vital Signs Pulse 53 03/24/25 14:39 BP 120/64 03/24/25 14:39 BMI result Body Mass Index 44.4 GENERAL APPEARANCE: in no acute distress, pleasant. NECK: no carotid bruit, no jugular venous distention. SKIN: no suspicious lesions, warm and dry. HEART: no murmurs, regular rate and rhythm. Bradycardic. LUNGS: clear to auscultation bilaterally. ABDOMEN: soft, nontender. EXTREMITIES: no edema. PERIPHERAL PULSES: equal. NEUROLOGIC: No gross deficits, AAO X 3 Office Procedures EKG Details: Sinus bradycardia 53 beats per minute, normal axis, can not rule out inferior infarct, nonspecific ST-T changes, QTC 418 milliseconds. [id number], Complete Assessment & Plan Assessment & Plan (1) PVC (premature ventricular contraction): Code(s): I49.3 - Ventricular premature depolarization Category: Medical (2) Cardiomyopathy: Code(s): I42.9 - Cardiomyopathy, unspecified Category: Medical (3) Hypertension: Code(s): I10 - Essential (primary) hypertension Category: Medical Qualifiers: Hypertension type: primary hypertension Qualified Code(s): I10 - Essential (primary) hypertension Plan 64 year female who is here for follow-up. She was seen for incidental diagnosis of premature ventricular complexes and nonischemic cardiomyopathy with mildly reduced ejection fraction. Clinically she has not developed any congestive heart failure. She underwent cardiac catheterization which did not show any coronary artery disease. Subsequent to that she was started on flecainide and metoprolol and since then had significant improvement in PVC burden and echocardiography in 03/30/2024 has shown normal ejection fraction. She will continue same medications for now. I have explained to her that if she had recurrence of PVCs or could not tolerate flecainide in the future or felt that she wants to get off the flecainide then we may have to pursue PVC ablation. Thank you for allowing me to participate in the care of your patient. Please feel free to contact me if you have any questions. Coding Level of Care Code Est Pt Level 4 (25879) Diagnoses PVC (premature ventricular contraction) I49.3 Cardiomyopathy I42.9 Primary hypertension I10 Hypertension type: primary hypertension CPT Codes EKG - CPT: 89179-Ngzefidojpbovlqtw, Complete ([id number])
[2025-03-24 14:39] VITALS: BP 120/64; PULSE 53; BMI 44.4
== END 2025-03-24 15:09 | disposition home or self-care (01) ==
PROVIDERS: PCP Internal Medicine; Visit Provider Internal Medicine Cardiovascular Disease
DX: I49.3 Ventricular premature depolarization (principal); I42.9 Cardiomyopathy, unspecified; I10 Essential (primary) hypertension
CPT/HCPCS: 93010; 99214

== ENCOUNTER → 2025-03-24 13:37 | Outpatient (BNVA) | payer OTHER, SELFPAY | PROVIDERS: PCP Internal Medicine; Visit Provider Internal Medicine Cardiovascular Disease | DX: I49.3 Ventricular premature depolarization (principal); I42.9 Cardiomyopathy, unspecified; I10 Essential (primary) hypertension | CPT/HCPCS: 93005 ==

== ENCOUNTER 2025-04-21 09:44 | Day surgery (SDC) | payer OTHER, SELFPAY ==
--- OUTSIDE RECORDS SUMMARY | 2025-04-13 13:02 | XMS_ITS | Patient Health Record ---
Author Organization [facility] Address [address] [place] [phone] Care Team Providers Care Warehouse Assistant Name Role Phone Darell Inman MD Primary Care Provider Lius Escalera Unavailable [phone] Allergies No Known Allergies Reason For Referral No Information Medications Medication SIG (Take, Route, Frequency, Duration) Notes Start Date End Date Status Dicyclomine HCl 10 MG 2 capsules Orally once or twice a day Active Metoprolol Succinate ER 25 MG 1 tablet Orally Once a day Active Omeprazole 40 MG 1 Orally Once a day Active Atorvastatin Calcium 40 MG Oral for 90 Days Active Flecainide Acetate 100 MG 0.5 tablet Ora lly every 12 hrs Active traZODone HCl 100 MG Orally Active Spironolactone 25 MG Oral for 30 Days Active Immunizations Vaccine Route Administration Date Status Comme nts Flu vaccine no Preserv 3 and > Unknown 08/11/2016 Admin istered Influenza Unknown 08/11/2020 Administered Problems Problem Type SNOMED Code ICD Code Onset Dates Problem Status W/U Status Risk Notes Problem Irritable bowel syndrome (42874072) Irritable bowel syndrome (K58.9) Active confirmed Problem 112135542 Encounter for screening for malignant neoplasm of colon (Z12.11) Active confirmed Problem Screening for malignant neoplasm of rectum (045987289) Encounter for screening for malignant neoplasm of rectum (Z12.12) Active confirmed Problem Dysphagia (75820928) Dysphagia (R13.10) Active confirmed Problem Gas (35061696) Gas (R14.3) Active confirmed Problem 160496034 Gastroesophageal reflux disease, esophagitis presence not specified (K21.9) Active confirmed Problem 77834421 Hiatal hernia (K44.9) Active confirmed Problem Left upper quadrant pain (755124347) Abdominal pain, acute, left upper quadrant (R10.12) Active confirmed Vital Signs Blood pressure diastolic 77 mm Hg 04/13/2025 Height 60.50 in 04/13/2025 Blood pressure systolic 111 mm Hg 04/13/2025 Weight 150 lbs 04/13/2025 BMI 28.81 kg/m2 04/13/2025 Procedures Procedure Date Ordered Date Performed Result Body Sit e UPPER GI ENDOSCOPY BALLOOON DILATION OF ESOPH 04/13/2025 N/A Encounters Encounter Location Date Provider Diagnosis [facility] [address] [place] [address] 04/13/2025 Luis Murguia Gastroesophageal ref lux disease, esophagitis presence not specified K21.9 ; Hiatal hernia K44.9 ; Encounter for screening for malignant neoplasm of colon Z12.11 ; Irritable bowel syndrome K58.9 ; Gas R14.3 ; Dysphagia R13.10 and Abnormal barium swallow R93.3 [facility] [address] [place] [phone] 12/01/2024 Luis Murguia Assessments Encounter Date Diagnosis (ICD Code) Assessment Notes Treatment Notes Treatment Clinical Notes Section Notes 04/13/2025 Gastroesophageal reflux disease, esophagitis presence not specified (ICD-10 - K21.9) Overall, Izzy appears quite well from a clinical standpoint. We did review her current upper GI symptoms which seem consistent with some esophageal dysmotility and/or esophageal spasm in relation to the known hiatal hernia and reflux. Given the question of some narrowing at the gastroesophageal junction on the barium swallow and her symptoms I did recommend a follow-up upper endoscopy with possible balloon dilation. Full consent is obtained from her for this, including risks of bleeding and perforation. The procedure will be done with monitored anesthesia care. In regard to her symptoms of gas and flatulence I did recommend she switch to a lactose-free milk to see if that can give her some relief of that. I also recommended using some lufs-oyw-vtknxno simethicone products such as Gas-X either daily or as needed. I did advise her to continue her dicyclomine as needed for the IBS and abdominal cramps as well. We did review that she will be due for a follow-up colonoscopy for further screening in 2027 given her negative exams in 2006 and 2016, as well as a negative family history of colon cancer. Izzy was comfortable with this plan. Thank you again for allowing me to participate in Izzy's care. I shall continue to keep you advised of her progress. 04/13/2025 Hiatal hernia (ICD-10 - K44.9) Overall, Izzy appears quite well from a clinical standpoint. We did review her current upper GI symptoms which seem consistent with some esophageal dysmotility and/or esophageal spasm in relation to the known hiatal hernia and reflux. Given the question of some narrowing at the gastroesophageal junction on the barium swallow and her symptoms I did recommend a follow-up upper endoscopy with possible balloon dilation. Full consent is obtained from her for this, including risks of bleeding and perforation. The procedure will be done with monitored anesthesia care. In regard to her symptoms of gas and flatulence I did recommend she switch to a lactose-free milk to see if that can give her some relief of that. I also recommended using some txio-ldw-kcnbhgh simethicone products such as Gas-X either daily or as needed. I did advise her to continue her dicyclomine as needed for the IBS and abdominal cramps as well. We did review that she will be due for a follow-up colonoscopy for further screening in 2026 given her negative exams in 2006 and 2016, as well as a negative family history of colon cancer. Izzy was comfortable with this plan. Thank you again for allowing me to participate in Izzy's care. I shall continue to keep you advised of her progress. 04/13/2025 Encounter for screening for malignant neoplasm of colon (ICD-10 - Z12.11) Overall, Izzy appears quite well from a clinical standpoint. We did review her current upper GI symptoms which seem consistent with some esophageal dysmotility and/or esophageal spasm in relation to the known hiatal hernia and reflux. Given the question of some narrowing at the gastroesophageal junction on the barium swallow and her symptoms I did recommend a follow-up upper endoscopy with possible balloon dilation. Full consent is obtained from her for this, including risks of bleeding and perforation. The procedure will be done with monitored anesthesia care. In regard to her symptoms of gas and flatulence I did recommend she switch to a lactose-free milk to see if that can give her some relief of that. I also recommended using some cbut-ntl-xbqipbh simethicone products such as Gas-X either daily or as needed. I did advise her to continue her dicyclomine as needed for the IBS and abdominal cramps as well. We did review that she will be due for a follow-up colonoscopy for further screening in 2026 given her negative exams in 2006 and 2016, as well as a negative family history of colon cancer. Izzy was comfortable with this plan. Thank you again for allowing me to participate in Izzy's care. I shall continue to keep you advised of her progress. 04/13/2025 Irritable bowel syndrome (ICD-10 - K58.9) Overall, Izzy appears quite well from a clinical standpoint. We did review her current upper GI symptoms which seem consistent with some esophageal dysmotility and/or esophageal spasm in relation to the known hiatal hernia and reflux. Given the question of some narrowing at the gastroesophageal junction on the barium swallow and her symptoms I did recommend a follow-up upper endoscopy with possible balloon dilation. Full consent is obtained from her for this, including risks of bleeding and perforation. The procedure will be done with monitored anesthesia care. In regard to her symptoms of gas and flatulence I did recommend she switch to a lactose-free milk to see if that can give her some relief of that. I also recommended using some gfje-xor-lmrizww simethicone products such as Gas-X either daily or as needed. I did advise her to continue her dicyclomine as needed for the IBS and abdominal cramps as well. We did review that she will be due for a follow-up colonoscopy for further screening in 2026 given her negative exams in 2006 and 2016, as well as a negative family history of colon cancer. Izzy was comfortable with this plan. Thank you again for allowing me to participate in Izzy's care. I shall continue to keep you advised of her progress. 04/13/2025 Gas (ICD-10 - R14.3) Switch to a Lactose-free milk like [place] Milk Use chewable simethicone pills for gas, like Gas-X, etc Overall, Izzy appears quite well from a clinical standpoint. We did review her current upper GI symptoms which seem consistent with some esophageal dysmotility and/or esophageal spasm in relation to the known hiatal hernia and reflux. Given the question of some narrowing at the gastroesophageal junction on the barium swallow and her symptoms I did recommend a follow-up upper endoscopy with possible balloon dilation. Full consent is obtained from her for this, including risks of bleeding and perforation. The procedure will be done with monitored anesthesia care. In regard to her symptoms of gas and flatulence I did recommend she switch to a lactose-free milk to see if that can give her some relief of that. I also recommended using some qbxc-gmx-cxoceju simethicone products such as Gas-X either daily or as needed. I did advise her to continue her dicyclomine as needed for the IBS and abdominal cramps as well. We did review that she will be due for a follow-up colonoscopy for further screening in 2026 given her negative exams in 2006 and 2016, as well as a negative family history of colon cancer. Izzy was comfortable with this plan. Thank you again for allowing me to participate in Izzy's care. I shall continue to keep you advised of her progress. 04/13/2025 Dysphagia (ICD-10 - R13.10) Overall, Izzy appears quite well from a clinical standpoint. We did review her current upper GI symptoms which seem consistent with some esophageal dysmotility and/or esophageal spasm in relation to the known hiatal hernia and reflux. Given the question of some narrowing at the gastroesophageal junction on the barium swallow and her symptoms I did recommend a follow-up upper endoscopy with possible balloon dilation. Full consent is obtained from her for this, including risks of bleeding and perforation. The procedure will be done with monitored anesthesia care. In regard to her symptoms of gas and flatulence I did recommend she switch to a lactose-free milk to see if that can give her some relief of that. I also recommended using some nwlk-juf-zqvzhqk simethicone products such as Gas-X either daily or as needed. I did advise her to continue her dicyclomine as needed for the IBS and abdominal cramps as well. We did review that she will be due for a follow-up colonoscopy for further screening in 2026 given her negative exams in 2006 and 2016, as well as a negative family history of colon cancer. Izzy was comfortable with this plan. Thank you again for allowing me to participate in Izzy's care. I shall continue to keep you advised of her progress. 04/13/2025 Abnormal barium swallow (ICD-10 - R93.3) Overall, Izzy appears quite well from a clinical standpoint. We did review her current upper GI symptoms which seem consistent with some esophageal dysmotility and/or esophageal spasm in relation to the known hiatal hernia and reflux. Given the question of some narrowing at the gastroesophageal junction on the barium swallow and her symptoms I did recommend a follow-up upper endoscopy with possible balloon dilation. Full consent is obtained from her for this, including risks of bleeding and perforation. The procedure will be done with monitored anesthesia care. In regard to her symptoms of gas and flatulence I did recommend she switch to a lactose-free milk to see if that can give her some relief of that. I also recommended using some yshx-ued-ahhsnlh simethicone products such as Gas-X either daily or as needed. I did advise her to continue her dicyclomine as needed for the IBS and abdominal cramps as well. We did review that she will be due for a follow-up colonoscopy for further screening in 2026 given her negative exams in 2006 and 2016, as well as a negative family history of colon cancer. Izzy was comfortable with this plan. Thank you again for allowing me to participate in Izzy's care. I shall continue to keep you advised of her progress. Plan Of Treatment Pending Test Test Name Order Date UPPER GI ENDOSCOPY BALLOOON DILATION OF ESOPH 04/13/2025 Future Test Test Name Order Date UPPER GI ENDOSCOPY 09/20/2016 COLONOSCOPY 09/20/2016 Next Appt Details Provider Name:Luis Ford Blade , 04/21/2025 11:30:00 AM, [address] [place] [address] , [place], [place], [phone], Insurance Providers Payer Name Payer Address Payer Phone Subscriber Number Group Number Insured Name Patient Relationship to Insured Coverage Start Date Coverage End Date [facility] [address] [place] [phone] [id number] IZZY FARRELL Self - patient is the insured 3 Medical (General) History Medical History History ICD Code Denies [place],DM,CVA,Lung disease,renal dise ase GERD--EGD in 2006-Large HH, gastritis, + H.pylori(s/p Rx), normal duodenal bx, neg. Gupta's and no sig. esophagitis Colonosocpy 04/2007--negative except for internal hemorrhoids Hypothyroidism IBS History of iron def anemia with negative w/u as above ERCP with sphincterotomy and CBD stone r emoval 12-25-2001 Spinal stenosis Urinary incontinence Hypertension Colonoscopy 2016 was negative EGD 3180-hpznvpad-hinwn HH--no esophagit is nor Gupta's COVID 10/2020 Surgical History Surgery Date(Month/Year) BTL CCY--preop ERCP with sphinct erotomy with removal of a common bile duct stone 2001 Right knee replacement in 11/2020 at [facility]
--- NOTE | 2025-04-20 08:51 | P.CONAN_ITS ---
HPI - Anesthesia Eval Consult details Narrative: 64yo F for Upper Endoscopy with Balloon Dilitation Cardiac optimized. Follows [facility] Cardiology for cardiomyopathy, PVCs, htn. Last eval 03/2025 PONV PMFSH Active Problems Active Problems: All Active Problems Eczema (Acute) Multinodular goiter (Acute) Thyroid nodule (Acute) Separation of left acromioclavicular joint (Acute) Shoulder pain (Acute) Asthma (Acute) Dyspnea on exertion (Acute) Environmental allergies (Acute) Cough (Acute) PVC (premature ventricular contraction) (Acute) Hypercholesteremia (Acute) S/P cardiac cath (Acute) Cardiomyopathy (Acute) Osteoporosis (Acute) Asymptomatic PVCs (Acute) Chest pain (Acute) GERD (gastroesophageal reflux disease) (Acute) Greater trochanteric bursitis (Acute) COVID-19 (Acute) Nail fungus (Acute) Obesity (Acute) Back pain (Acute) Hypertension (Acute) Physical exam (Acute) Neck pain (Acute) Status post total right knee replacement (Acute) Primary osteoarthritis of left knee (Acute) Pre-op exam (Acute) Past Medical History Medical History Multinodular goiter Obesity Back pain Hypertension PONV (postoperative nausea and vomiting) Arthritis GERD (gastroesophageal reflux disease) Anxiety Insomnia Hypertension Family History Family History Father No problems noted. Mother Heart disease Arthritis Blindness CVD (cardiovascular disease) Family history of problems with anesthesia: No Surgical History Surgical History S/P total knee arthroplasty History of breast mammoplasty (~2008) History of rectal sphincterotomy (~2001) Hx of cholecystectomy (~2001) History of tubal ligation History of arthroscopy of left knee (~01/2012) History of hysterectomy History of Problems with Anesthesia: Yes (PONV) Social History Social History Household Members: Family Housing: Apartment Are you a primary mall plant caretaker to a significant other at home: No Do you presently have visiting nurse or other home services: No Alcohol intake: never Comment: pt sleeping Patient Tobacco Use Status: Never used Tobacco e-Cigarette/Vaping Use: Never Used Second Hand Smoke Exposure: No Advance Directives Date on File: 12/08/20 service: No Current occupational status: employed 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 ECHO 2023 Conclusions: - Normal LV ejection fraction 55-60% with impaired relaxation filling pattern 10/2023 cardiac cath without signif CAD Assessment and Plan Assessment Anesthesia Assessment: Chart Reviewed Final Anesthetic Review Family History of Problems with Anesthesia: No History of Problems with Anesthesia: Yes (PONV)
[2025-04-21 11:30] VITALS: BMI 29.8
[2025-04-21 11:37] VITALS: PULSE 56; RESP 16; TEMP 36.7; O2SAT 99
--- NOTE | 2025-04-21 11:37 | P.CONAN_ITS ---
FORMERLY [facility] Active Problems Active Problems: All Active Problems Eczema (Acute) Multinodular goiter (Acute) Thyroid nodule (Acute) Separation of left acromioclavicular joint (Acute) Shoulder pain (Acute) Asthma (Acute) Dyspnea on exertion (Acute) Environmental allergies (Acute) Cough (Acute) PVC (premature ventricular contraction) (Acute) Hypercholesteremia (Acute) S/P cardiac cath (Acute) Cardiomyopathy (Acute) Osteoporosis (Acute) Asymptomatic PVCs (Acute) Chest pain (Acute) GERD (gastroesophageal reflux disease) (Acute) Greater trochanteric bursitis (Acute) COVID-19 (Acute) Nail fungus (Acute) Obesity (Acute) Back pain (Acute) Hypertension (Acute) Physical exam (Acute) Neck pain (Acute) Status post total right knee replacement (Acute) Primary osteoarthritis of left knee (Acute) Pre-op exam (Acute) Past Medical History Medical History Multinodular goiter Obesity Back pain Hypertension PONV (postoperative nausea and vomiting) Arthritis GERD (gastroesophageal reflux disease) Anxiety Insomnia Hypertension Functional capacity: independent ambulation Patient : No Family History Family History Father No problems noted. Mother Heart disease Arthritis Blindness CVD (cardiovascular disease) Family history of problems with anesthesia: No Surgical History Surgical History S/P total knee arthroplasty History of breast mammoplasty (~2008) History of rectal sphincterotomy (~2001) Hx of cholecystectomy (~2001) History of tubal ligation History of arthroscopy of left knee (~01/2012) History of hysterectomy History of Problems with Anesthesia: Yes (PONV) Social History Social History Household Members: Family Housing: Apartment Are you a primary nursing care attendant to a significant other at home: No Do you presently have visiting nurse or other home services: No Alcohol intake: never Comment: pt sleeping Patient Tobacco Use Status: Never used Tobacco e-Cigarette/Vaping Use: Never Used Second Hand Smoke Exposure: No Advance Directives: No Advance Directives Information Provided: Yes Advance Directives Date on File: 12/08/20 service: No Current occupational status: employed 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 Current occupational exposures/hazards: No Cognitive needs: No Hearing needs: No Vision needs: Yes (glasses) Meds Allergies Allergy/AdvReac Type Severity Reaction Status Date / Time No Known Allergies Allergy Unknown Verified 03/23/25 09:25 Exam Height,Weight and Vital Signs: Height 4 ft 11 in Weight 67 kg Airway Mallampati Class: II TM Dist: >3cm Neck ROM: Full Heart: RRR Lungs: CTA Assessment and Plan Assessment Anesthesia Assessment: Anesthesia Plan Discussed Final Anesthetic Review Family History of Problems with Anesthesia: No History of Problems with Anesthesia: Yes (PONV) NPO: Yes ASA Class: II Final Preanesthetic Review: Meds/Allgs Chart Reviewed, Consent Obtained/Reviewed and Anes Risks/Benef Reviewed Patient Risk: Low Procedure Risk: Low Anesthetic Plan Anesthetic Plan: MAC: Disposition: Standard PACU
[2025-04-21] MEDS: Lactated Ringers 1,000 ML 100 ML IVCONT (11:43)
--- NOTE | 2025-04-21 12:56 | P.BOP_ITS ---
Brief Operative Note Date of Service: 04/21/25 Pre-op diagnosis: Dysphagia Post-op diagnosis: other (Hiatal hernia, GERD) Procedure: EGD with Balloon dilation of EGJ with an 18mm to 19mm to 20mm balloon, and biopsies Surgeon: Luis Murguia MD Anesthesia: MAC Was an Pigment Making Supervisor used for this Procedure?: No Estimated blood loss (mL): 2.0 Pathology: other (A. EG Junction at 32cm B. Esophagus at 20cm) Condition: stable Disposition: PACU
[2025-04-21 12:57] VITALS: BP 121/56; PULSE 67; RESP 14; TEMP 36.7; O2SAT 98
[2025-04-21 13:12] VITALS: BP 147/73; PULSE 60; RESP 16; O2SAT 98
[2025-04-21 13:23] VITALS: BP 150/69; PULSE 61; RESP 16; TEMP 36.4; O2SAT 98
--- NOTE | 2025-04-21 14:01 | OP_ITS ---
DATE OF SERVICE: 04/21/2025 SURGEON: Luis Murguia MD INDICATIONS: The patient presents for evaluation of intermittent dysphagia and reflux. Full consent has been obtained from her for this, including risks of bleeding and perforation. PREOPERATIVE DIAGNOSIS: POSTOPERATIVE DIAGNOSIS: PROCEDURE PERFORMED: Esophagogastroduodenoscopy with balloon dilation of gastroesophageal junction, and biopsies. ESTIMATED BLOOD LOSS: COMPLICATIONS: ANESTHESIA: Medication used, monitored anesthesia care. ASSISTANTS: SPECIMENS: PREOPERATIVE DIAGNOSES: Dysphagia and reflux. POSTOPERATIVE DIAGNOSES: Dysphagia and reflux, moderate-sized hiatal hernia, rule out eosinophilic esophagitis, tortuous distal esophagus but without any definitive narrowing at EG junction. DESCRIPTION OF PROCEDURE: The patient was placed in the left lateral decubitus position. The Olympus video gastroscope was passed in the posterior oropharynx and upper esophagus under direct vision. The scope was passed slowly to the distal esophagus. The gastroesophageal junction appeared at 32 cm. This area was somewhat tortuous, but the scope easily entered the stomach. There was a moderate-sized hiatal hernia. The hiatal hernia mucosa appeared normal. The scope was advanced to the pylorus and the duodenum was cannulated to the descending portion. The duodenum, including the bulb, appeared normal without mass or ulceration. The scope was withdrawn back in the stomach. The gastric antrum and body appeared normal with good peristalsis. The scope was retroflexed visualizing the proximal stomach carefully, which appeared normal, without any sign of mass or ulceration. The scope was straightened and withdrawn back to the esophagus. The EG junction was seen at 32 cm. There was some slight irregularity consistent with reflux but no evidence of any esophagitis nor any definitive Gupta esophagus. There was no definiiyive stricture noted. I did use a [employer] incremental balloon to dilate the gastroesophageal junction from 18 mm to 19 mm to 20 mm at the recommended pressure for between 30 and 60 seconds each. Post dilation, there did not appear to be any appreciable heme or difference in the gastroesophageal junction. I did obtain biopsies at the EG junction at 32 cm. The scope was then withdrawn through the remainder of the esophagus, which appeared normal. I did not visualize any proximal esophageal rings. Biopsies were obtained in the proximal esophagus. The scope was withdrawn from the patient. She tolerated the procedure well and was returned to the recovery area in stable condition. IMPRESSION: 1. Moderate-sized hiatal hernia. 2. Status post balloon dilation of gastroesophageal junction. 3. Rule out eosinophilic esophagitis. PLAN: The results of the biopsies will be checked. She will continue her current regimen of omeprazole 40 mg daily for the reflux, which is working well for her. She will be observed in regard to her swallowing. If it continues to be problematic, then we may want to proceed with esophageal motility studies if need be. She will otherwise see me on a p.r.n. basis. She was advised not to use any aspirin and NSAIDs for 1 week. MD BLU Jiang/CRISTINA / [id number] MTDD
== END 2025-04-21 13:45 | disposition home or self-care (01) ==
PROVIDERS: PCP Internal Medicine; Visit Provider Internal Medicine
PROC: (CPT 43249; principal; 2025-04-21 11:30)
DX: R13.10 Dysphagia, unspecified (principal); K21.9 Gastro-esophageal reflux disease without esophagitis; K22.89 Other specified disease of esophagus; K44.9 Diaphragmatic hernia without obstruction or gangrene; I10 Essential (primary) hypertension; G47.00 Insomnia, unspecified; E03.9 Hypothyroidism, unspecified; K58.9 Irritable bowel syndrome, unspecified; D50.9 Iron deficiency anemia, unspecified; R14.3 Flatulence; Z79.899 Other long term (current) drug therapy
CPT/HCPCS: 43249; 43239; 88305; 88313; C1726; J2003; J2704

== ENCOUNTER 2025-04-27 08:17 | Outpatient (REF) | payer OTHER, SELFPAY ==
--- NOTE | ~2025-04-27 | MM_ITS ---
EXAMINATION: BONE DENSITOMETRY CLINICAL INDICATION: Asymptomatic menopausal state. Osteoporosis COMPARISON: DEXA bone densitometry 05/24/2017 TECHNIQUE: Using a [employer] dual-energy x-ray absorptiometry was performed of the lumbar spine and left hip. The images are of good technical quality. Summary results are attached. FINDINGS: AP SPINE L1-L4: BMD 0.940 g/cm2, Z-score -0.5, T-score -2.0, . LEFT FEMUR, NECK: BMD 0.824 g/cm2, Z-score -0.3, T-score -1.5, . IDENTIFIED RISK FACTORS: History of fracture is unaltered and a family history of fracture.. HISTORY OF FRACTURE: Left humeral/shoulder fracture. MEDICATIONS: None listed. MM/XR DEXA axial skeleton IMPRESSION: 1. DIAGNOSIS: Osteopenia based on the lowest T-score value of -1.5 in the lumbar spine applying World Health Organization criteria. Previously the lumbar spine T score measured -2.9 in 2017. The T score has clinically improved. 2. 10-YEAR FRACTURE RISK PREDICTION, FRAX: Major osteoporotic fracture 21.5% and hip risk of 3.7%. 3. Treatment Recommendations: NOF guidelines recommend consideration for treatment in postmenopausal women and men age 50 and older presenting with the following: -A hip or vertebral (clinical or morphometric) fracture. -T-score less than or equal to -2.5 at the femoral neck or spine after appropriate evaluation to exclude secondary causes. -Low bone mass at the hip or spine and a 10-year fracture probability by FRAX of greater than or equal to 3% for hip fracture or greater than or equal to 20% for major osteoporotic fracture based on the [place] adapted WHO algorithm. 4. All treatment decisions require clinical judgment and consideration of individual patient risk factors including patient preferences comorbidities, previous drug use, risk factors not captured the fact spondylosis and possible under overestimation of fracture risk at fractures. Additional medical evaluation for secondary causes of bone mineral density may be appropriate. FUTURE SCAN RECOMMENDATION: People with diagnosed cases of osteoporosis or at high risk for fracture should have regular bone mineral density tests. For patients eligible for Medicare, routine testing is allowed once every 2 years. The testing frequency can be increased to one year for patients who have rapidly progressing disease, those who are receiving or discontinuing medical therapy to restore bone mass, or have additional risk factors. Electronically signed by: Aime Trejo MD 04/27/2025 04:15 PM EDT
--- OUTSIDE RECORDS SUMMARY | 2025-04-27 08:24 | XMS_ITS | Patient Health Record ---
Author Organization [facility] Address [address] [place] [address] Care Team Providers Care Cut In Station Operator Name Role Phone Darell Inman MD Primary Care Provider Luis Escalera Unavailable [phone] Allergies No Known Allergies Results Component Value Reference Range Notes Pathology (Not yet reviewed by provider) Interpretation: Performing Lab:[facility], [address] [place] [address] Notes/Report: Name: Izzy Hawkins ge/Sex: 64/F : 1960 Unit#: [id number] Attend Dr: Luis Murguia MD Re04/21/25 Status : [facility] Location: [facility] Disch: SPEC : [id number] RECD : 04/21/25 STATUS: ALIRIO EAGLE NUM: [id number] ARIN: 04/21/25-[address] [facility] [address]: Luis Murguia MD ENTERED: 04/21/25-13 40 SP TYPE: Surgical OTHR DR: Darell Inman MD ORDERED: HE Stain/6, Gross Micro L4/2, Special st. 2, AB/PAS Addendum Addendum 1 Entered: 04/26/25 Additional level wit h AB/PAS on A is negative for intestinal metaplasia. Control stains appropriately. Addendum Signed ____ __(signature on file) Marilee Timblin 04/26/251720 Diagnosis A. Esophagogastric j unction, at 32 cm, biopsy: Squamocolumnar mucosa with minimal chronic inflammation and focal multilayered epithelium; no intestinal metaplasia seen on initial levels; nega tive for dysplasia (see comment). B. Esophagus, at 20 cm, biopsy: Squamous mucosa with no specific change; no evidence of eosinophilic esophag itis; no columnar mucosa present. Comment: (A): Additional leve l with AB/PAS stain pending; addendum to follow. Multilayered epithelium may be as sociated with Gupta's esophagus and follow-up is warranted. Clinical History Pre-Op Dx: GERD, dys phagia, diaphragmatic hernia Post-Op Dx: Hiatal hernia and reflux Microscopic Description Microscopic sections reviewed. Material Received A. EG junction bx's at 32 cm B. Esophagus bx's at 20 cm, r/o EOE CONTINUED ON NEXT PAGE Name: Izzy Hawkins ge/Sex: 64/F : 1960 Unit#: [id number] Attend Dr: Luis Murguia MD Re04/21/25 Status : [facility] Location: [facility] Disch: SPEC : [id number] RECD : 04/21/25-1328 STATUS: KVNGGary HERZOG NUM: [id number] ARIN: 04/21/25-[address] [facility] [address]: Luis Murguia MD ENTERED: 04/21/25-13 40 SP TYPE: Surgical OTHR DR: Darell Inman MD ORDERED: HE Stain/6, Gross Micro L4/2, Special st. 2, AB/PAS Gross Description Received in two parts. Part A: Received in formalin labeled ?EG junction bx's at 32 cm? are two wilson-pink irregular tissue fragments eac h measuring 0.35 cm, submitted in toto in a cassette labeled A. Part B: Received in formalin labeled ?esophagus bx's at 20 cm, rule out EOE? are three shankar-white and shankar- pink irregular and rectangular tissue fragments ranging from 0.15-0.35 cm, submitted in tot o in a cassette labeled B. CEDS Special studies orde red and performed: AB/PAS stains on A1. IHC S/NG Disclaimer NOTE: Unless otherwi se stated, all tissue is formalin-fixed and paraffin-embedded. Some or all of the immunohis tochemical tests reported herein may have been developed and their performance characte ristics determined by [facility]. They have not been cleared or appr anival by the U.S. Food and Drug Administration (FDA). However, the FDA has determined that such clearance or approval is not necessary. This laboratory is certified under the Clinical Laboratory Improvement Amendments of 1988 (CLIA) as qualified to perform high comp lexity clinical laboratory testing. Copies To: Darell Inman MD [facility] [address] [place], [place] [id number] Luis Murguia MD [facility] [address] [place] [address] Signed (si gnature on file) Marilee Timblin 04/22/25 1858 END OF REPORT Reason For Referral No Information Medications Medication [...] Status Risk Notes Problem Irritable bowel syndrome (00518610) Irritable bowel syndrome (K58.9) Active confirmed Problem 378093040 Encounter for screening for malignant neoplasm of colon (Z12.11) Active confirmed Problem Screening for malignant neoplasm of rectum (261210639) Encounter for screening for malignant neoplasm of rectum (Z12.12) Active confirmed Problem Dysphagia (14637967) Dysphagia (R13.10) Active confirmed Problem Gas (71983375) Gas (R14.3) Active confirmed Problem 624908503 Gastroesophageal reflux disease, esophagitis presence not specified (K21.9) Active confirmed Problem 70343982 Hiatal hernia (K44.9) Active confirmed Problem Left upper quadrant pain (286092366) Abdominal pain, acute, left upper quadrant (R10.12) Active confirmed Vital Signs Blood pressure diastolic 77 mm Hg 04/13/2025 Height 60.50 in 04/13/2025 Blood pressure systolic 111 mm Hg 04/13/2025 Weight 150 lbs 04/13/2025 BMI 28.81 kg/m2 04/13/2025 Procedures Procedure Date Ordered Date Performed Result Body Sit e UPPER GI ENDOSCOPY BALLOOON DILATION OF ESOPH 04/13/2025 N/A Encounters Encounter Location Date Provider Diagnosis [facility] Outpatient [address] [place] [id number] 04/21/2025 Luis Murguia [facility] [address] [place] [phone] 04/13/2025 Luis Murguia Gastroesophageal ref lux disease, esophagitis presence not specified K21.9 ; Dysphagia R13.10 ; Hiatal hernia K44.9 ; Encounter for screening for malignant neoplasm of colon Z12.11 ; Irritable bowel syndrome K58.9 ; Gas R14.3 and Abnormal barium swallow R93.3 [facility] [address] [place] [phone] 12/01/2024 Luis Murguia [facility] [address] [place] [phone] 04/19/2025 Luis Murguia Assessments Encounter Date Diagnosis (ICD Code) Assessment Notes Treatment Notes Treatment Clinical Notes Section Notes 04/13/2025 Dysphagia (ICD-10 - R13.10) Overall, Izzy [...] of that. I also recommended using some sxgf-gzo-tlqxhre simethicone products such as Gas-X either daily [...] keep you advised of her progress. 04/13/2025 Gastroesophageal reflux disease, esophagitis presence not [...] of that. I also recommended using some hdvf-fnk-zeyxvsk simethicone products such as Gas-X either daily [...] of that. I also recommended using some dgty-yip-kzkujxu simethicone products such as Gas-X either daily [...] of that. I also recommended using some izll-bxx-bauulgn simethicone products such as Gas-X either daily [...] of that. I also recommended using some ktrh-dyp-tcbqmpb simethicone products such as Gas-X either daily [...] R14.3) Switch to a Lactose-free milk like [employer] Use chewable simethicone pills for gas, [...] of that. I also recommended using some zsgx-lqq-dhaqahx simethicone products such as Gas-X either daily [...] of that. I also recommended using some dgam-tgr-cbaqhbg simethicone products such as Gas-X either daily [...] GI ENDOSCOPY BALLOOON DILATION OF ESOPH 04/13/2025 Pathology 04/21/2025 Future Test Test Name Order Date UPPER GI ENDOSCOPY 09/20/2016 COLONOSCOPY 09/20/2016 Insurance Providers Payer Name Payer Address Payer Phone Subscriber Number Group Number Insured Name Patient Relationship to Insured Coverage Start Date Coverage End Date [facility] [address] [facility] [place] [phone] [id number] IZZY HAWKINS Self - patient is the insured 3 Medical (General) History Medical History History ICD Code Denies [place],DM,CVA,Lung disease,renal dise ase GERD--EGD in 2006-Large HH, gastritis, + H.pylori(s/p Rx), normal duodenal bx, neg. Gupta's and no sig. esophagitis Colonosocpy 04/2007--negative except for internal hemorrhoids Hypothyroidism IBS History of iron def anemia with negative w/u as above ERCP with sphincterotomy and CBD stone r emoval --2001 Spinal stenosis Urinary incontinence Hypertension Colonoscopy 2017 was negative EGD 4066-wroblqfj-wksmq HH--no esophagit is nor Gupta's COVID 10/2020 Surgical History Surgery Date(Month/Year) BTL CCY--preop ERCP with sphinct erotomy with removal of a common bile duct stone 2001 Right knee replacement in 11/[address] [facility]
== END 2025-04-27 08:18 | disposition home or self-care (01) ==
LOC: HO.MAMMO 08:17
PROVIDERS: PCP Internal Medicine; Visit Provider Internal Medicine
DX: Z13.820 Encounter for screening for osteoporosis (principal); Z78.0 Asymptomatic menopausal state
CPT/HCPCS: 77080

== ENCOUNTER → 2025-04-27 08:45 | Outpatient (BNV) | payer OTHER, SELFPAY | PROVIDERS: PCP Internal Medicine; Visit Provider Radiology Diagnostic Radiology | DX: E28.39 Other primary ovarian failure (principal) | CPT/HCPCS: 77080 ==

== ENCOUNTER 2025-07-20 07:43 | Outpatient (AMB) | payer OTHER, SELFPAY ==
--- OUTSIDE RECORDS SUMMARY | 2024-12-01 10:20 | XMS_ITS ---
Author Organization [facility] Address [address] [place] [address] Care Team Providers Care Sugar Coating Hand Name Role Phone Storm DENNIS, Darell Primary Care Provider Luis Escalera [phone] REASON FOR VISIT Patient presents today for issues with swallowing Encounters Encounter Location Date Provider Diagnosis [facility] [address] [facility] [address] [place] [address] 12/01/2024 Luis Murguia Plan Of Treatment No Information Progress Notes * ANGELICA FARRELLOB:1960 (65 yo F)Acc No.[id number]:12/01/2024 Progress Notes Patient: IZZY BOWEN Provider: Troy Murguia MD :1960 A ge:64 Y S ex:Female Date:12/01/2024 Address:[address] [place] [address] [id number] Pcp:Darell Inman MD Subjective: * Chief Complaints: [...] Pending * Provider: Troy Murguia MD Date: 12/01/2024 Generated for Printi ng/Faxing/eTransmitting on: 0 07/20/2025 07:48 AM EDT
--- OUTSIDE RECORDS SUMMARY | 2025-04-21 07:30 | XMS_ITS ---
Author Organization [facility] Address [address] [place] [address] Care Team Providers Care Newspaper Managing Editor Name Role Phone Storm [place], Darell Primary Care Provider Luis Escalera Unavailable [phone] REASON FOR VISIT dysphagia,abn barium swallow,hiatal hernia., gerd Encounters Encounter Location Date Provider Diagnosis [facility] [address] [place] [phone] 04/21/2025 Luis Murguia Dysphagia R13.10 ; Gastro-esophageal [...] Notes * ANGELICA FARRELLOB:1960 (65 yo F)Acc No.[id number]:04/21/2025 EGD/MAC Patient: JOSH BOWENN Provider: Troy Murguia MD :1960 A ge:64 Y S ex:Female Date:04/21/2025 Address:[address] [place] [address] [id number] Pcp:Darell Inman MD Subjective: * Chief Complaints: * 1 . Dysphagia,abn barium swallow,hiatal hernia., gerd. * Medical History: Objective: * Vitals: Assessment: * Assessment: 1. D ysphagia - R13.10 (Primary) 2 . G sarah-esophageal reflux disease without esophagitis - K21.9 3 . H iatal hernia - K44.9 Plan: * Treatment: * Procedure Codes: 4 3249 ESOPH ENDOSCOPY, DILATION, 34220 UPPER GI ENDOSCOPY, BIOPSY, Modifiers: 59 * * The named appointment provid er may or may not be the originator of this progress note, and it is not deemed complete until electronically signed by the appointment provider. Sign off status: Pending * Provider: Troy Murguia MD Date: 0 04/21/2025 Generated for Pietro knight/Dilip/Cindyitting on: 0 07/20/2025 07:48 AM EDT
--- OUTSIDE RECORDS SUMMARY | 2025-07-20 07:48 | XMS_ITS | Patient Health Record ---
Author Organization [facility] Address [address] [place] [address] Care Team Providers Care Hay Stacker Operator Name Role Phone Darell Inman MD Primary Care Provider Luis Escalera Unavailable [phone] Allergies No Known Allergies Results Component Value Reference Range Notes Pathology (Not yet reviewed by provider) Interpretation: Performing Lab:[facility], [address] [place] [phone] Notes/Report: Reason For Referral No Information Medications Medication [...] Status Risk Notes Problem Irritable bowel syndrome (11948562) Irritable bowel syndrome (K58.9) Active confirmed Problem 073142027 Encounter for screening for malignant neoplasm of colon (Z12.11) Active confirmed Problem Screening for malignant neoplasm of rectum (527181089) Encounter for screening for malignant neoplasm of rectum (Z12.12) Active confirmed Problem Dysphagia (24218837) Dysphagia (R13.10) Active confirmed Problem Gas (16834084) Gas (R14.3) Active confirmed Problem 317936454 Gastroesophageal reflux disease, esophagitis presence not specified (K21.9) Active confirmed Problem 74940510 Hiatal hernia (K44.9) Active confirmed Problem Left upper quadrant pain (633967981) Abdominal pain, acute, left upper quadrant (R10.12) Active confirmed Vital Signs Blood pressure diastolic 77 mm Hg 04/13/2025 Height 60.50 in 04/13/2025 Blood pressure systolic 111 mm Hg 04/13/2025 Weight 150 lbs 04/13/2025 BMI 28.81 kg/m2 04/13/2025 Procedures Procedure Date Ordered Date Performed Result Body Sit e UPPER GI ENDOSCOPY BALLOOON DILATION OF ESOPH 04/13/2025 N/A Encounters Encounter Location Date Provider Diagnosis [facility] Outpatient [address] [place] [address] [id number] 04/21/2025 Luis Murguia Dysphagia R13.10 ; Gastro-esophageal reflux disease without esophagitis K21.9 and Hiatal hernia K44.9 [facility] [address] [place] [phone] 04/13/2025 Luis Murguia Gastroesophageal ref lux disease, esophagitis presence not specified K21.9 ; Dysphagia R13.10 ; Hiatal hernia K44.9 ; Encounter for screening for malignant neoplasm of colon Z12.11 ; Irritable bowel syndrome K58.9 ; Gas R14.3 and Abnormal barium swallow R93.3 [facility] [address] [place] [phone] 12/01/2024 Luis Murguia [facility] [address] [phone] 04/19/2025 Luis Murguia Assessments Encounter Date Diagnosis (ICD Code) Assessment Notes Treatment Notes Treatment Clinical Notes Section Notes 04/21/2025 Gastro-esophageal reflux disease without esophagitis (ICD-10 - K21.9) 04/21/2025 Dysphagia (ICD-10 - R13.10) 04/13/2025 Dysphagia (ICD-10 - R13.10) Overall, Izzy [...] of that. I also recommended using some ddcw-wdk-svnfmrb simethicone products such as Gas-X either daily [...] of that. I also recommended using some arml-jxz-lbzbydh simethicone products such as Gas-X either daily [...] to keep you advised of her progress. 04/21/2025 Hiatal hernia (ICD-10 - K44.9) 04/13/2025 Hiatal hernia (ICD-10 - K44.9) Overall, [...] of that. I also recommended using some ftyj-rbx-rdhbmma simethicone products such as Gas-X either daily [...] of that. I also recommended using some ggbd-rbr-xroamnc simethicone products such as Gas-X either daily [...] of that. I also recommended using some klro-gjo-kfilkmd simethicone products such as Gas-X either daily [...] R14.3) Switch to a Lactose-free milk like [employer] Use chewable simethicone pills for gas, [...] of that. I also recommended using some kbqn-gji-yghbnol simethicone products such as Gas-X either daily [...] of that. I also recommended using some rtpo-zjg-mnpziwd simethicone products such as Gas-X either daily [...] Insured Coverage Start Date Coverage End Date [facility] [address] [place] [phone] [id number] BUD IZZY Self - patient is the insured 3 Medical (General) History Medical History History ICD Code Denies [place],DM,CVA,Lung disease,renal dise ase GERD--EGD in 2006-Large HH, gastritis, + H.pylori(s/p Rx), normal duodenal bx, neg. Gupta's and no sig. esophagitis Colonosocpy 04/2007--negative except for internal hemorrhoids Hypothyroidism IBS History of iron def anemia with negative w/u as above ERCP with sphincterotomy and CBD stone r emoval --2001 Spinal stenosis Urinary incontinence Hypertension Colonoscopy 2016 was negative EGD 5782-hfzkomuf-izekz HH--no esophagit is nor Gupta's COVID 10/2020 Surgical History Surgery Date(Month/Year) BTL CCY--preop ERCP with sphinct erotomy with removal of a common bile duct stone 2001 Right knee replacement in 11/2020 at [facility]
--- OUTSIDE RECORDS SUMMARY | 2025-07-20 07:48 | XMS_ITS | Patient Health Record ---
Author Organization [facility] Address [address] [place] [address] Care Team Providers Care Accounts Receivable Coordinator Name Role Phone Darell Inman MD Primary Care Provider Bob Mcnamara Unavailable [phone] Reason For Referral No Information Medications Medication [...] Status Risk Notes Problem Plantar fascial fibromatosis (65622268) Plantar fascial fibromatosis (M72.2) Active confirmed Plan Of Treatment Pending Test Test Name Order Date X ray : Foot, right 2V 10/25/2015 [id number] I&D ABSCESS- SIMPLE,SINGLE 015 Insurance Providers Payer Name Payer Address Payer Phone Subscriber Number Group Number Insured Name Patient Relationship to Insured Coverage Start Date Coverage End Date [facility] [address] [place] [address] [id number] Self - patient is the insured Medical (General) History Medical History History ICD Code Stomach ulcer Surgical History Surgery Date(Month/Year) hysterectomy 1999 gall stones
--- OUTSIDE RECORDS SUMMARY | 2025-07-20 07:48 | XMS_ITS | Clinical Summary ---
Author Organization [facility] Address [address] [place] [address] Phone Care Team Providers Care Slab Conditioner Supervisor Name Role Phone Unavailable Primary Care Provider [...] 2008 Zoster Vaccines (1 of 2) 2008 Colorectal Cancer Screening: Colonoscopy 09/25/2024 Falls Risk Assessment 09/25/2024 Hepatitis C Screening 09/25/2024 Osteoporosis Screening (Bone Density Screening) 09/25/2024 Social Influencers of Health Screening 09/25/2024 Depression Screening 11/11/2024 COVID-19 Vaccine (1 - 2023-2 5 season) 2025 Influenza Vaccine (#1) 2025 RSV Immunization Adult Patie nts (1 [...] to complete this topic Insurance [facility]
--- NOTE | 2025-07-20 08:24 | A.OFFVIS_ITS ---
Vital Signs 07/20/25 08:25 Height 4 ft 11 in Weight 153 lb 14.122 oz BMI 31.1 BP 140/62 H Blood Pressure Location Lt brachial Position Sitting Pulse 59 Pulse Source Monitor Intake Visit Reasons: 4 mth f/up Environmental Engineering Assistant Required: No Allergies No Known Allergies Allergy (Unknown, Verified 07/20/25 08:26) Medication List - Last Reconciled 07/20/25 by Zoey Ayers, SALES ADVISOR-C albuterol sulfate 90 mcg/actuation (ProAir HFA) 2 puffs PO Q6H PRN alendronate 70 mg PO QWEEK copuhvb-qfsfqgxkabudu-prlacjnz 250-250-65 mg (Excedrin Migraine) 1 tab PO .qd PRN atorvastatin 40 mg PO DAILY betamethasone dipropionate 0.05% 1 appl topical DAILY PRN 2 weeks budesonide 90 mcg/actuation (Pulmicort Flexhaler) 1 inh inhalation BID dicyclomine 10 mg PO DAILY 30 days diphenhydramine HCl (Benadryl Allergy) 50 mg PO Q8H PRN flecainide 1 tablet in morning and 2 tablets in the evening orally every 12 hours; metoprolol succinate ER 25 mg PO DAILY 90 days omeprazole 40 mg PO DAILY spironolactone 25 mg PO DAILY trazodone 100 mg PO BEDTIME triamcinolone acetonide 0.5% 1 appl topical TID HPI HPI 4 mth f/up: Details: Kavon is a 65-year-old female past medical history of hypertension, mild obesity, nonischemic cardiomyopathy, frequent PVCs who is on flecainide and presents for follow-up. Today she reports that she has been feeling well overall. She is not noticing heart palpitations. She has been taking flecainide 2 tablets in the morning and 2 tablets in the evening. No chest discomfort at rest or with activity. Very mild shortness of breath with over exertion. No PND, orthopnea or edema. 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 Takes meds as directed. [facility] Medical History Multinodular goiter Obesity Back pain Hypertension PONV (postoperative nausea and vomiting) Arthritis GERD (gastroesophageal reflux disease) Anxiety Insomnia Hypertension Surgical History S/P total knee arthroplasty History of breast mammoplasty (~2008) History of rectal sphincterotomy (~2001) Hx of cholecystectomy (~2001) History of tubal ligation History of arthroscopy of left knee (~01/2012) History of hysterectomy Family History Father No problems noted. 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 Current occupational exposures/hazards: No Cognitive needs: No Hearing needs: No Vision needs: Yes (glasses) Review of Systems Const All systems reviewed & are unremarkable except as noted in HPI and below ENT Denies dizziness Card Denies chest pain, Denies chest pain at rest, Denies chest pain with activity, Denies rapid heart rate, Denies pedal edema, Denies edema, Denies leg edema, Denies lightheadedness, Denies palpitations, Denies dyspnea, Denies dyspnea on exertion and Denies orthopnea Resp Denies cough, Denies dyspnea and Denies dyspnea on exertion GI Denies hematochezia and Denies change in stool character Musc Denies abnormal gait, Denies limited range of motion, Denies muscle cramps, Denies muscle weakness, Denies numbness, Denies radiating pain into limb, Denies stiffness and Denies tingling Neuro Denies abnormal gait, Denies dizziness, Denies numbness and Denies tingling Endo Denies palpitations Physical Exam Vital Signs: Last Vital Signs Pulse 59 07/20/25 08:25 BP 140/62 H 07/20/25 08:25 BMI result Body Mass Index 31.1 Const General: cooperative, healthy appearing, comfortable and no acute distress Orientation/consciousness: patient oriented x3 Neck Neck: Yes normal visual inspection Resp Effort & Inspection: normal respiratory effort Auscultation: clear to auscultation bilaterally, no rales, no rhonchi and no wheezes Cardio Rate: regular rate Rhythm: regular rhythm Heart sounds: S1 normal heart sound present, S2 normal heart sound present, no gallops, no murmurs and no rubs Neuro General: patient oriented x3 Extrem General: Yes normal to inspection, No no pedal edema and No calf tenderness Psych Appearance: grossly normal Mental Status: mental status grossly normal Speech and movement: Normal speech and movement present Office Procedures EKG Details: Today, read by me, sinus bradycardia, rate 59, QTC 441 milliseconds [id number], Complete Assessment & Plan Assessment & Plan (1) PVC (premature ventricular contraction): Code(s): I49.3 - Ventricular premature depolarization Category: Medical Plan: History of frequent PVCs and ventricular bigeminy. Holter monitor 09/04/2023 showing sinus rhythm with frequent PVCs burden 26.6%. EKG today showing sinus bradycardia, rate 59, QTC 441 milliseconds. She is taking flecainide 100 mg b.i.d.. No recent heart palpitations. Continue current treatment. (2) S/P cardiac cath: Comment: Cardiac Cath with Dr Harry on 08/15/23 with angiographically normal coronary arteries. Code(s): Z98.890 - Other specified postprocedural states Category: Surgical (3) Cardiomyopathy: Code(s): I42.9 - Cardiomyopathy, unspecified Category: Medical Plan: Nonischemic cardiomyopathy in the setting of very frequent PVCs. Echocardiogram 08/01/2023 showed EF 45-50%. Cardiac catheterization had shown normal coronary arteries. She was treated with PVC control and repeat echocardiogram 03/25/2024 showed EF 55-60%. No signs of heart failure on examination. Continue metoprolo l, Aldactone, flecainide. (4) Hypertension: Code(s): I10 - Essential (primary) hypertension Category: Medical Qualifiers: Hypertension type: primary hypertension Qualified Code(s): I10 - Ess ential (primary) hypertension Plan: Blood pressure goal less than 130/80. Mildly elevated today. She tells me she had been on lisinopril in the past and it was stopped due to frequent cough. She has upcoming PCP visit. If blood pressure is still elevated than Arb can be added. No med changes made at this time. Reviewed low-salt diet. Plan I discussed with the patient the current management of her hypertension and non- ischemic cardiomyopathy with PVCs. We reviewed her medication regimen, including the discontinuation of lisinopril due to cough and the current use of spironolactone and metoprolol. The patient is advised to follow up with her primary care physician for further evaluation of her blood pressure and potential medication adjustments. We also discussed the option of switching to 100 mg flecainide tablets for dosing convenience. Medications: New flecainide 100 mg PO Q12H 180 tabs 1RF Discontinued flecainide Discontinued Reason: Doctor's Order 1 tablet in morning and 2 tablets in the evening orally every 12 hours; 270 tabs 1RF Patient Instructions: - Continue current medication regimen as prescribed. - Follow up with primary care physician for blood pressure evaluation and potential medication adjustments. - We are switching to 100 mg flecainide tablets for dosing convenience. Patient was informed and verbally consented to the use of an ambient scribe for clinic note documentation during this visit. Visit time spent on chart review, interview, assessment, orders, documentation. Coding Level of Care Code Est Pt Level 4 (68662) Complex EM visit Add On G2211 Diagnoses PVC (premature ventricular contraction) I49.3 S/P cardiac cath Z98.890 Cardiomyopathy I42.9 Primary hypertension I10 Hypertension type: primary hypertension CPT Codes EKG - CPT: 23530-[id number], Complete ([id number]) Time Spent (min) 32
[2025-07-20 08:25] VITALS: BP 140/62; PULSE 59; BMI 31.1
== END 2025-07-20 08:52 | disposition home or self-care (01) ==
LOC: HO.HCS 07:43
PROVIDERS: PCP Internal Medicine; Visit Provider Nurse Practitioner Family
DX: I49.3 Ventricular premature depolarization (principal); Z98.890 Other specified postprocedural states; I42.9 Cardiomyopathy, unspecified; I10 Essential (primary) hypertension
CPT/HCPCS: 93010; 99214; G2211

== ENCOUNTER → 2025-07-20 07:43 | Outpatient (BNVA) | payer OTHER, SELFPAY | PROVIDERS: PCP Internal Medicine; Visit Provider Nurse Practitioner Family | DX: I49.3 Ventricular premature depolarization (principal); Z98.890 Other specified postprocedural states; I10 Essential (primary) hypertension; Z68.31 Body mass index [BMI] 31.0-31.9, adult; I42.9 Cardiomyopathy, unspecified | CPT/HCPCS: 93005 ==

== ENCOUNTER 2025-08-21 08:12 | Outpatient (REF) | payer OTHER, SELFPAY ==
--- OUTSIDE RECORDS SUMMARY | 2025-08-21 08:14 | XMS_ITS | Clinical Summary ---
Author Organization [facility] Address [address] [place] [address] Phone Care Team Providers Care Yield Engineer Name Role Phone Unavailable Primary Care Provider [...] Last Done Comments Breast Cancer Screening 1958 Colorectal Cancer Screening: Colonoscopy 1958 DTaP,Tdap,and Td Vaccines (1 - Tdap) 1977 Pneumococcal Vaccine: 50+ Ye ars (1 of 1 - PCV) 2008 Zoster Vaccines (1 of 2) 2008 Falls Risk Assessment 09/25/2024 Hepatitis C Screening [...] patient's age to complete this topic Insurance [facility]
[2025-08-21 09:54] LABS: Alanine Aminotransferase 36 U/L (0-31); Albumin Level 4.6 g/dL (3.5-5.0); Alkaline Phosphatase 56 U/L (39-117); Anion Gap 10 (12-20); Aspartate Amino Transferase 33 U/L (5-31); Blood Urea Nitrogen 11 mg/dL (9-16); Calcium 9.3 mg/dL (8.4-10.2); Carbon Dioxide 30 mmol/L (22-29); Chloride 106 mmol/L (96-108); Cholesterol 137 mg/dL (<200); Estimated Glomerular Filt Rate > 60; HDL Cholesterol 57 mg/dL (>40); Potassium 4.1 mmol/L (3.3-5.1); Sodium 142 mmol/L (135-145); Total Protein 7.2 g/dL (6.5-8.0); Triglycerides 75 mg/dL (<150)
== END 2025-08-21 08:13 | disposition home or self-care (01) ==
LOC: HO.LAB 08:12
PROVIDERS: PCP Internal Medicine; Visit Provider Internal Medicine
DX: E78.00 Pure hypercholesterolemia, unspecified (principal); E78.5 Hyperlipidemia, unspecified; E55.9 Vitamin D deficiency, unspecified
CPT/HCPCS: 36415; 80053; 80061; 82306

== ENCOUNTER 2025-08-24 14:12 | Outpatient (AMB) | payer OTHER, SELFPAY ==
--- OUTSIDE RECORDS SUMMARY | 2024-12-01 10:20 | XMS_ITS ---
Author Organization [facility] Address [address] [place] [address] Care Team Providers Care Senior Underwriting Assistant Name Role Phone Storm DENNIS, Darell Primary Care Provider Luis Escalera [phone] REASON FOR VISIT Patient presents today for issues with swallowing Encounters Encounter Location Date Provider Diagnosis [facility] [address] [facility] [address] [place] [address] 12/01/2024 Luis Murguia Plan Of Treatment No Information Progress Notes * ANGELICA FARRELLOB:1960 (65 yo F)Acc No.[id number]:12/01/2024 Progress Notes Patient: IZZY BOWEN Provider: Troy Murguia MD :1960 A ge:64 Y S ex:Female Date:12/01/2024 Address:[address] [place] [address] [id number] Pcp:Darell Inman MD Subjective: * Chief Complaints: * 1 . Patient presents today for issues with swallowing. * Medical History: Objective: * Vitals: Assessment: Plan: * Treatment: * * The named appointment provid er may or may not be the originator of this progress note, and it is not deemed complete until electronically signed by the appointment provider. Sign off status: Pending * Provider: Troy Murguia MD Date: 0 12/01/2024 Generated for Printi ng/Falynng/eTransmitting on: 05:10 PM EDT
--- OUTSIDE RECORDS SUMMARY | 2025-04-21 07:30 | XMS_ITS ---
Author Organization [facility] Address [address] [place] [address] Care Team Providers Care User Experience Manager Name Role Phone Storm [place], Darell Primary Care Provider Luis Escalera Unavailable [phone] REASON FOR VISIT dysphagia,abn barium swallow,hiatal hernia., gerd Encounters Encounter Location Date Provider Diagnosis [facility] [address] [place] [phone] 04/21/2025 Luis Murguia Dysphagia R13.10 ; Gastro-esophageal [...] Notes * ANGELICA FARRELLOB:1960 (65 yo F)Acc No.[id number]:04/21/2025 EGD/MAC Patient: JOSH BOWENN Provider: Troy Murguia MD :1960 A ge:64 Y S ex:Female Date:04/21/2025 Address:[address] [place] [address] [id number] Pcp:Darell Inman MD Subjective: * Chief Complaints: * 1 . Dysphagia,abn barium swallow,hiatal hernia., gerd. * Medical History: Objective: * Vitals: Assessment: * Assessment: 1. D ysphagia - R13.10 (Primary) 2 . G sarah-esophageal reflux disease without esophagitis - K21.9 3 . H iatal hernia - K44.9 Plan: * Treatment: * Procedure Codes: 4 3249 ESOPH ENDOSCOPY, DILATION, 19835 UPPER GI ENDOSCOPY, BIOPSY, Modifiers: 59 * * The named appointment provid er may or may not be the originator of this progress note, and it is not deemed complete until electronically signed by the appointment provider. Sign off status: Pending * Provider: Troy Murguia MD Date: 0 04/21/2025 Generated for Pietro knight/Dilip/Gwensmitting on: 1 05:10 PM EDT
--- NOTE | 2025-08-24 14:16 | MHC.PC.OV ---
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 Plumbing Required: No Accompanied by: Self / Same As Patient Allergies No Known Allergies Allergy (Unknown, Verified 08/24/25 15:21) Medication List - Last Reconciled 08/24/25 by Jaqueline Lyons MD albuterol sulfate 90 mcg/actuation (ProAir HFA) 2 puffs PO Q6H PRN alendronate 70 mg PO QWEEK nrymsin-bylnlfxyjwvio-mhkffqtn 250-250-65 mg (Excedrin Migraine) 1 tab PO .qd PRN atorvastatin 40 mg PO DAILY betamethasone dipropionate 0.05% 1 appl topical DAILY PRN 2 weeks budesonide 90 mcg/actuation (Pulmicort Flexhaler) 1 inh inhalation BID dicyclomine 10 mg PO DAILY 30 days diphenhydramine HCl (Benadryl Allergy) 50 mg PO Q8H PRN flecainide 100 mg PO Q12H metoprolol succinate ER 25 mg PO DAILY 90 days omeprazole 40 mg PO DAILY spironolactone 25 mg PO DAILY trazodone 100 mg PO BEDTIME triamcinolone acetonide 0.5% 1 appl topical TID Tobacco use date assessed: 08/24/25 Fall risk assessment: 1 Fall in past year Last assessed Fall Risk: 08/24/25 Dental Screening Dental Screen Date: 08/24/25 Did you have a dental visit in the last 12 months?: No Did you have a dental problem in the last 6 months where you did not have access to dental care?: No Was dental information given to patient?: Patient has dentist HPI HPI Comments History of Present Illness Details The patient is a 65-year-old female presenting for an annual physical examination and management of chronic conditions. The patient has a history of osteopenia, identified during a bone density scan in April, managed with calcium and vitamin D supplementation. Osteoporosis is also present, with current management including alendronate therapy and potential referral for medication adjustment. Hyperlipidemia is managed with atorvastatin, with recent labs showing cholesterol at 137 mg/dL. The patient reports bilateral knee pain, with a history of right knee arthroplasty and symptomatic left knee. Preventative care includes a mammography last year and up-to-date pneumonia and tetanus vaccinations. [facility] Medical History (Updated 08/24/25 @ 15:34 by Jaqueline Lyons MD) Multinodular goiter Obesity Back pain Hypertension PONV (postoperative nausea and vomiting) Arthritis GERD (gastroesophageal reflux disease) Anxiety Insomnia Hypertension Surgical History S/P total knee arthroplasty History of breast mammoplasty (~2008) History of rectal sphincterotomy (~2001) Hx of cholecystectomy (~2001) History of tubal ligation History of arthroscopy of left knee (~01/2012) History of hysterectomy Family History Father No problems noted. 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 1. Little interest or pleasure in doing things: not at all 2. Feeling down, depressed, or hopeless: not at all 3. Trouble falling or staying asleep, or sleeping too much: not at all 4. Feeling tired or having little energy: not at all 5. Poor appetite or overeating: not at all 6. Feeling bad about yourself - or that you are a failure or have let yourself or your family down: not at all 7. Trouble concentrating on things, such as reading the newspaper or watching television: not at all 8. Moving or speaking so slowly that other people could have noticed. Or the opposite - being so fidgety or restless that you have been moving around a lot more than usual: not at all 9. Thoughts that you would be better off or of hurting yourself in some way: not at all Total score: 0 Depression Screening Interpretation: Negative Depression Screening Done: Yes 53863 - PHQ-9 Billing: Yes Source: Developed by Drs. Luis Corona, Kerry Kelly, Robbi Coley and colleagues, with an educational alin from [employer]. Thrive Questionnaire Date Thrive assessed: 03/23/25 I am a: Patient What is your living situation today?: I have a steady place to live Within the past 12 months, did the food you bought not last and you didn't have the money to get more?: Sometimes True Within the past 12 months, did you worry whether your food would run out before you got money to buy more?: I choose not to answer this question Do you have trouble paying for medicines?: No Do you have trouble getting transportation to medical appointments?: No Do you have trouble paying your heating and electricity bill?: No Do you have trouble taking care of your child, family member or friend?: No Do you have trouble with day-to-day activities such as bathing, preparing meals, shopping, managing finances, etc.?: No Are you currently unemployed and looking for a job?: No Are you interested in more education?: No Please select the resources that you would like help with: None Currently or been in a relationship where the following occur: I choose not to answer THRIVE Score: 1 AUDIT C Alcohol Use Questionnaire (AUDIT-C) 1. How often do you have a drink containing alcohol?: 2-4 times a month 2. How many drinks containing alcohol do you have on a typical day when you are drinking?: 1 or 2 3. How often do you have six or more drinks on one occasion?: Never Total Score: 2 KAYLIN-7 AMB Questionnaire KAYLIN-7 Date KAYLIN - 7 assessed: 03/23/25 Feeling nervous, anxious, or on edge: 0 = Not at all Not being able to stop or control worryin = Nearly every day Worrying too much about different things: 0 = Not at all Trouble relaxin = Not at all Being so restless that it is hard to sit still: 0 = Not at all Becoming easily annoyed or irritable: 0 = Not at all Feeling afraid as if something awful might happen: 0 = Not at all Total KAYLIN-7 score (0-4 normal; 5-9 mild; 10-14 moderate; 15-21 severe): 3 Source: Developed by Drs. Luis Corona, Kerry Kelly, oRbbi Coley and colleagues, with an educational alin from [employer]. KAYLIN-7 Assessment Billing KAYLIN-7 Assessment Tool: KAYLIN-7 Assessment 49333 Review of Systems Const All systems reviewed & are unremarkable except as noted in HPI and below Card Denies chest pain at rest, Denies chest pain with activity, Denies edema, Denies irregular heart rhythm, Denies claudication, Denies dyspnea, Denies dyspnea on exertion, Denies orthopnea, Denies paroxysmal nocturnal dyspnea and Denies slow heart rate Resp Denies cough, Denies dyspnea and Denies dyspnea on exertion GI Denies abdominal pain, Denies change in bowel habits, Denies excessive flatus, Denies nausea and Denies vomiting Physical exam (Primary Care) Vital Signs: Last Vital Signs Temp 97.1 F 08/24/25 14:18 Pulse 62 08/24/25 14:18 BP 126/68 08/24/25 14:18 Pulse Ox 97 08/24/25 14:18 Oxygen Delivery Method Room Air 08/24/25 14:18 BMI result Body Mass Index 31.4 Tobacco/Smoking Status: Tobacco use Status Tobacco use date assessed 08/24/25 08/24/25 14:21 Patient Tobacco Use Status Never used Tobacco 08/24/25 14:17 Tobacco use type 03/24/25 10:04 e-Cigarette/Vaping Use Never Used 08/24/25 14:17 PHQ-9: PHQ-9 Score PHQ-9: Total score 0 08/24/25 15:24 Depression Screening Interpretation: Negative Thrive Assessment: Date of Thrive Assessment Date Thrive assessed 03/23/25 08/24/25 14:17 Currently or been in a relationship where the following occur: I choose not to answer HENWV Head: Yes normal to inspection, Yes normocephalic and Yes atraumatic Ears: external ears normal Eyes General: appearance normal, both eyes and all related structures Eyelids: Yes eyelids normal Conjunctivae: conjunctivae normal Neck Neck: Yes normal visual inspection and Yes supple Resp Effort & Inspection: normal respiratory effort Auscultation: clear to auscultation bilaterally Cardio Jugular venous distension: no JVD Rate: regular rate Rhythm: regular rhythm Heart sounds: S1 normal heart sound present and S2 normal heart sound present GI Inspection: Yes normal to inspection Palpation (GI): Soft to palpation and nontender Auscultation: normal bowel sounds Skin General skin exam: no rashes or lesions noted Neuro General: no focal motor deficits Extrem General: Yes full ROM Psych Appearance: grossly normal Coding Level of Care Code Est Pt Level 3 (25251) Est Pt Prev Care >65y(70493) Diagnoses Physical exam Z00.00 Primary osteoarthritis of knees, bilateral M17.0 Additional Codes KAYLIN-7 Assessment Billing - KAYLIN-7 Assessment Tool: KAYLIN-7 Assessment 22528 ([id number]) PHQ-9 - 97434 - PHQ-9 Billing: Yes ([id number]) Time Spent (min) 33 Assessment & Plan Assessment & Plan (1) Physical exam: Code(s): Z00.00 - Encounter for general adult medical examination without abnormal findings Category: Medical (2) Primary osteoarthritis of knees, bilateral: Code(s): M17.0 - Bilateral primary osteoarthritis of knee Category: Medical Plan Plan 1. Physical exam Repeat in a year. 2. Bilateral Knee Pain The patient experiences bilateral knee pain, with a history of right knee arthroplasty and symptomatic left knee, and may benefit from orthopedic evaluation. Orders: Orders MM tomosynthesis screening BI Today Z12.31 - Encounter for screening mammogram for malignant neoplasm of breast Referrals Orthopedics Referral M17.0 - Bilateral primary osteoarthritis of knee Medications: Refilled dicyclomine 10 mg PO DAILY 30 caps 0RF 30 days
[2025-08-24 14:18] VITALS: BP 126/68; PULSE 62; TEMP 36.2; O2SAT 97; BMI 31.4
--- OUTSIDE RECORDS SUMMARY | 2025-08-24 17:10 | XMS_ITS | Patient Health Record ---
Author Organization [facility] Address [address] [place] [address] Care Team Providers Care Electrician Crane Maintenance Name Role Phone Darell Inman MD Primary Care Provider Luis Escalera Unavailable [phone] Allergies No Known Allergies Results Component Value Reference Range Notes Pathology (Not yet reviewed by provider) Interpretation: Performing Lab:[facility], [address] [place] [phone] Notes/Report: Reason For Referral No Information Medications Medication SIG (Take, Route, Frequency, Duration) Notes Start Date End Date Status Dicyclomine HCl 10 MG 2 capsules Orally once or twice a day Active Metoprolol Succinate ER 25 MG 1 tablet Orally Once a day Active Omeprazole 40 MG 1 Orally Once a day Active Atorvastatin Calcium 40 MG Oral; Duration: 90 Days Active Flecainide Acetate 100 MG 0.5 tablet Ora lly every 12 hrs Active traZODone HCl 100 MG Orally Active Spironolactone 25 MG Oral; Duration: 30 Days Active Immunizations Vaccine Route Administration Date Status Comme nts Flu vaccine no Preserv 3 and > Unknown 08/11/2016 Admin istered Influenza Unknown 08/11/2020 Administered Problems Problem Type SNOMED Code ICD Code Onset Dates Problem Status W/U Status Risk Notes Problem Irritable bowel syndrome (27883229) Irritable bowel syndrome (K58.9) Active confirmed Problem Screening for malignant neoplasm of colon (257222322) Encounter for screening for malignant neoplasm of colon (Z12.11) Active confirmed Problem Screening for malignant neoplasm of rectum (937312814) Encounter for screening for malignant neoplasm of rectum (Z12.12) Active confirmed Problem Dysphagia (30681860) Dysphagia (R13.10) Active confirmed Problem Gas (89776778) Gas (R14.3) Active confirmed Problem Gastroesophageal reflux disease (424723213) Gastroesophageal reflux disease, esophagitis presence not specified (K21.9) Active confirmed Problem Hiatal hernia (86529547) Hiatal hernia (K44.9) Active confirmed Problem Left upper quadrant pain (003448559) Abdominal pain, acute, left upper quadrant (R10.12) Active confirmed Vital Signs Blood pressure diastolic 77 mm Hg 04/13/2025 Height 60.50 in 04/13/2025 Blood pressure systolic 111 mm Hg 04/13/2025 Weight 150 lbs 04/13/2025 BMI 28.81 kg/m2 04/13/2025 Procedures Procedure Date Ordered Date Performed Result Body Sit e UPPER GI ENDOSCOPY BALLOOON DILATION OF ESOPH 04/13/2025 N/A Encounters Encounter Location Date Provider Diagnosis [facility] [place] [address] [place] [id number] 04/21/2025 Luis Murguia Dysphagia R13.10 ; Gastro-esophageal reflux disease without esophagitis K21.9 and Hiatal hernia K44.9 [facility] [address] [place] [phone] 04/13/2025 Luis Murguia Gastroesophageal ref lux disease, esophagitis presence not specified K21.9 ; Dysphagia R13.10 ; Hiatal hernia K44.9 ; Encounter for screening for malignant neoplasm of colon Z12.11 ; Irritable bowel syndrome K58.9 ; Gas R14.3 and Abnormal barium swallow R93.3 [facility] [address] [place] [phone] 12/01/2024 Luis Murguia [facility] [address] [address] 04/19/2025 Luis Murguia Assessments Encounter Date Diagnosis [...] of that. I also recommended using some bbyz-gse-jtpqkfa simethicone products such as Gas-X either daily [...] of that. I also recommended using some zacd-vch-ejwnfaf simethicone products such as Gas-X either daily [...] of that. I also recommended using some cgfs-vur-cuqhsri simethicone products such as Gas-X either daily [...] of that. I also recommended using some juyu-sbp-thrgeyw simethicone products such as Gas-X either daily [...] of that. I also recommended using some bwew-jzx-xqyjzgr simethicone products such as Gas-X either daily [...] R14.3) Switch to a Lactose-free milk like [place] Milk Use chewable simethicone pills for gas, [...] of that. I also recommended using some dnxp-koe-twhrwco simethicone products such as Gas-X either daily [...] of that. I also recommended using some gimn-ust-oavvyjf simethicone products such as Gas-X either daily [...] Start Date Coverage End Date [facility] [address] [place] [address] [id number] IZZY FARRELL Self - patient is the insured 3 Medical (General) History Medical History History ICD Code Denies [place],DM,CVA,Lung disease,renal dise ase GERD--EGD in 2006-Large HH, gastritis, + H.pylori(s/p Rx), normal duodenal bx, neg. Gupta's and no sig. esophagitis Colonosocpy 04/2007--negative except for internal hemorrhoids Hypothyroidism IBS History of iron def anemia with negative w/u as above ERCP with sphincterotomy and CBD stone r emoval --2001 Spinal stenosis Urinary incontinence Hypertension Colonoscopy 2017 was negative EGD [facility]--no esophagit is nor Gupta's COVID 10/2020 Surgical History Surgery Date(Month/Year) [facility] CCY--preop ERCP with sphinct erotomy with removal of a common bile duct stone 2001 Right knee replacement in 11/2020 at [facility]
--- OUTSIDE RECORDS SUMMARY | 2025-08-24 17:10 | XMS_ITS | Patient Health Record ---
Author Organization [facility] Address [address] [facility] [place] [address] Care Team Providers Care Assurance Auditor Name Role Phone Darell Inman MD Primary Care Provider Bob Anguiano Unavailable [phone] Reason For Referral No Information Medications Medication [...] Status Risk Notes Problem Plantar fascial fibromatosis (77419951) Plantar fascial fibromatosis (M72.2) Active confirmed Plan Of Treatment Pending Test Test Name Order Date X ray : Foot, right 2V 10/25/2015 65531 I&D ABSCESS- SIMPLE,SINGLE 015 Insurance Providers Payer Name Payer Address Payer Phone Subscriber Number Group Number Insured Name Patient Relationship to Insured Coverage Start Date Coverage End Date [facility] [address] [place] [address] [id number] Ute Self - patient is the insured Medical (General) History Medical History History ICD Code Stomach ulcer Surgical History Surgery Date(Month/Year) hysterectomy 1999 gall stones
== END 2025-08-24 15:34 | disposition home or self-care (01) ==
LOC: HO.HMCH 14:12
PROVIDERS: PCP Internal Medicine; Visit Provider Internal Medicine
DX: Z00.00 Encounter for general adult medical examination without abnormal findings (principal); M17.0 Bilateral primary osteoarthritis of knee

== ENCOUNTER → 2025-08-24 14:12 | Outpatient (BNVA) | payer OTHER, SELFPAY | PROVIDERS: PCP Internal Medicine; Visit Provider Internal Medicine | DX: Z00.00 Encounter for general adult medical examination without abnormal findings (principal); M17.0 Bilateral primary osteoarthritis of knee; M85.80 Other specified disorders of bone density and structure, unspecified site; E78.5 Hyperlipidemia, unspecified; M25.561 Pain in right knee; M25.562 Pain in left knee | CPT/HCPCS: 96127 ==

== ENCOUNTER 2025-10-28 13:04 | Outpatient (REF) | payer OTHER, SELFPAY ==
--- OUTSIDE RECORDS SUMMARY | 2024-12-01 09:20 | XMS_ITS ---
Author Organization [facility] Address [address] [place] [address] Care Team Providers Care Hospice Massage Therapist Name Role Phone Storm DENNIS, Darell Primary Care Provider Luis Escalera [phone] REASON FOR VISIT Patient presents today for issues with swallowing Encounters Encounter Location Date Provider Diagnosis [facility] [address] [facility] [address] [place] [address] 12/01/2024 Luis Murguia Plan Of Treatment No Information Progress Notes * JOSH FARRELLMICHAELOB:1960 (65 yo F)Acc No.[id number]:12/01/2024 Progress Notes Patient: IZZY BOWEN Provider: Troy Murguia MD :1960 A ge:64 Y S ex:Female Date:12/01/2024 Address:[address] [place] [address] [id number] Pcp:Darell Inman MD Subjective: * Chief Complaints: * P atient presents today for issues with swallowing Billing Information: * Procedure Codes: * The named appointment provid er may or may not be the originator of this progress note, and it is not deemed complete until electronically signed by the appointment provider. Sign off status: Pending * Provider: Troy Murguia MD Date: 0 12/01/2024 Generated for Pietro knight/Dilip/eTransmitting on: 12/29/2024 05:00 PM EST
--- OUTSIDE RECORDS SUMMARY | 2025-04-21 06:30 | XMS_ITS ---
Author Organization [facility] Address [address] [place] [address] Care Team Providers Care Fugitive Detective Name Role Phone Storm [place], Darell Primary Care Provider Luis Escalera [phone] REASON FOR VISIT dysphagia,abn barium swallow,hiatal hernia., gerd Encounters Encounter Location Date Provider Diagnosis [facility] [address] [place] [id number] 04/21/2025 Luis Murguia Dysphagia R13.10 ; Gastro-esophageal reflux disease without esophagitis K21.9 and Hiatal hernia K44.9 Assessments Encounter Date Diagnosis (ICD Code) Assessment Notes Treatment Notes Treatment Clinical Notes Section Notes 04/21/2025 Dysphagia (ICD-10 - R13.10) 04/21/2025 Gastro-esophagea l reflux disease without esophagitis (ICD-10 - K21.9) 04/21/2025 Hiatal hernia (ICD-10 - K44.9) Plan Of Treatment No Information Progress Notes * ANGELICA FARRELLOB:1960 (65 yo F)Acc No.[id number]:04/21/2025 EGD/MAC Patient: JOSH BOWENN Provider: Troy Murguia MD :1960 A ge:64 Y S ex:Female Date:04/21/2025 Address:[address] [place] [address] [id number] Pcp:Darell Inman MD Subjective: * Chief Complaints: * D ysphagia,abn barium swallow,hiatal hernia., gerd Assessment: * Assessment: 1. D ysphagia - R13.10 (Primary) 2 . G sarah-esophageal reflux disease without esophagitis - K21.9 3 . H iatal hernia - K44.9 Plan: * Procedure Codes: 4 3249 ESOPH ENDOSCOPY, [id number] UPPER GI ENDOSCOPY, BIOPSY, Modifiers: 59 Billing Information: * Procedure Codes: 22422 ESOPH ENDOSCOPY, DILATION. 62977 UPPER GI ENDOSCOPY, BIOPSY. Modifiers: 59 * The named appointment provid er may or may not be the originator of this progress note, and it is not deemed complete until electronically signed by the appointment provider. Sign off status: Pending * Provider: Troy Murguia MD Date: 0 04/21/2025 Generated for Pietro knight/Dilip/Cindyitting on: 1 12/29/2024 05:00 PM EST
--- NOTE | ~2025-10-28 | XR_ITS ---
EXAMINATION: XR KNEE 3 VIEWS BILATERAL CLINICAL INFORMATION: pain COMPARISON: None available. TECHNIQUE: Three views of the right and left knee. FINDINGS: Right: Prosthetic components of the total knee arthroplasty are appropriately aligned without periprosthetic fracture or abnormal lucency. No acute fracture. No joint effusion. Left: No subluxation. Subchondral sclerotic changes in the medial femorotibial joint. Narrowing of the medial femorotibial and patellofemoral joint spaces. Tricompartmental small osteophytes. No suprapatellar joint effusion. XR/XR Knee Sarthak 3V IMPRESSION: Right: Appropriate alignment of the right total knee arthroplasty without evidence of complications. Left: Mild tricompartmental degenerative changes, more pronounced in the medial femorotibial joint. Electronically signed by: Mami Rooney MD 10/28/2025 03:02 PM [facility]
--- OUTSIDE RECORDS SUMMARY | 2025-10-28 17:00 | XMS_ITS | Clinical Summary ---
Author Organization [facility] Address [address] [place] [address] Phone Care Team Providers Care Auto Service Representative Name Role Phone Unavailable Primary Care Provider [...] Depression Screening 11/11/2024 COVID-19 Vaccine (1 - 2024-2 6 season) 2025 Influenza Vaccine (#1) 2025 RSV [...] patient's age to complete this topic Insurance [facility]
--- OUTSIDE RECORDS SUMMARY | 2025-10-28 17:00 | XMS_ITS | Patient Health Record ---
Author Organization [facility] Address [address] [facility] [place] [address] Care Team Providers Care Brush Painter Name Role Phone Darell Inman MD Primary Care Provider Bob Anguiano Unavailable [phone] Reason For Referral No Information Medications Medication [...] Status Risk Notes Problem Plantar fascial fibromatosis (17777077) Plantar fascial fibromatosis (M72.2) Active confirmed Plan Of Treatment Pending Test Test Name Order Date X ray : Foot, right 2V 10/25/2015 76514 I&D ABSCESS- SIMPLE,SINGLE 015 Insurance Providers Payer Name Payer Address Payer Phone Subscriber Number Group Number Insured Name Patient Relationship to Insured Coverage Start Date Coverage End Date [facility] [address] [place] [address] [id number] [address]te Self - patient is the insured Medical (General) History Medical History History ICD Code Stomach ulcer Surgical History Surgery Date(Month/Year) hysterectomy 1999 gall stones
--- OUTSIDE RECORDS SUMMARY | 2025-10-28 17:00 | XMS_ITS | Patient Health Record ---
Author Organization [facility] Address [address] [place] [address] Care Team Providers Care Business Project Manager Name Role Phone Darell Inman MD Primary Care Provider Luis Escalera Unavailable [phone] Allergies No Known Allergies Results Component Value Reference Range Notes Pathology (Not yet reviewed by provider) Interpretation: Performing Lab:[facility], [address] [place] [phone] Notes/Report: Reason For Referral No Information Medications Medication SIG (Take, Route, Frequency, Duration) Notes Start Date End Date Status Dicyclomine HCl 10 MG Capsule 2 capsules Orally once or twice a day Active Metoprolol Succinate ER 25 MG Tablet Extended Release 24 Hour 1 tablet Orally Once a day Active Omeprazole 40 MG Capsule Delayed Release 1 Orally Once a day Activ e Atorvastatin Calcium 40 MG Tablet Oral; Duration: 90 Days Acti ve Flecainide Acetate 100 MG Tablet 0.5 tablet Orally every 12 hrs Active traZODone HCl 100 MG Tablet Orally Active Spironolactone 25 MG Tablet Oral; Duration: 30 Days Active Immunizations Vaccine Route Administration Date Status Comme nts Flu vaccine no Preserv 3 and > Unknown 08/11/2016 Admin istered Influenza Unknown 08/11/2020 Administered Social History Social History Additional Details Category Social Info Options Details Miscellaneous: Marital status: Single 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 [employer] Notes: Nonsmoker; no sig alcohol Nonsmoker; no sig alcohol Nonsmoker; no sig alcohol Nonsmoker; no sig alcohol Problems Problem Type SNOMED Code ICD Code Onset Dates Problem Status W/U Status Risk Notes Problem Irritable bowel syndrome (88535187) Irritable bowel syndrome (K58.9) Active confirmed Problem Screening for malignant neoplasm of colon (055161472) Encounter for screening for malignant neoplasm of colon (Z12.11) Active confirmed Problem Screening for malignant neoplasm of rectum (850292605) Encounter for screening for malignant neoplasm of rectum (Z12.12) Active confirmed Problem Dysphagia (70919354) Dysphagia (R13.10) Active confirmed Problem Gas (16477339) Gas (R14.3) Active confirmed Problem Gastroesophageal reflux disease (000675607) Gastroesophageal reflux disease, esophagitis presence not specified (K21.9) Active confirmed Problem Hiatal hernia (30857174) Hiatal hernia (K44.9) Active confirmed Problem Left upper quadrant pain (920762284) Abdominal pain, acute, left upper quadrant (R10.12) Active confirmed Vital Signs Blood pressure diastolic 77 mm Hg 04/13/2025 Height 60.50 in 04/13/2025 Blood pressure systolic 111 mm Hg 04/13/2025 Weight 150 lbs 04/13/2025 BMI 28.81 kg/m2 04/13/2025 Procedures Procedure Date Ordered Date Performed Result Body Sit e UPPER GI ENDOSCOPY BALLOOON DILATION OF ESOPH 04/13/2025 N/A Encounters Encounter Location Date Provider Diagnosis [facility] [place] [address] [place] [phone] 04/21/2025 Luis Murguia Dysphagia R13.10 ; Gastro-esophageal reflux disease without esophagitis K21.9 and Hiatal hernia K44.9 [facility] [address] [place] [phone] 04/13/2025 Luis Murguia Gastroesophageal ref lux disease, esophagitis presence not specified K21.9 ; Dysphagia R13.10 ; Hiatal hernia K44.9 ; Encounter for screening for malignant neoplasm of colon Z12.11 ; Irritable bowel syndrome K58.9 ; Gas R14.3 and Abnormal barium swallow R93.3 [facility] [address] [place] [phone] 12/01/2024 Luis Murguia [facility] [address] [address] 04/19/2025 Luis Murguia Assessments Encounter Date Diagnosis [...] of that. I also recommended using some usjd-oye-kltjvdi simethicone products such as Gas-X either daily [...] of that. I also recommended using some rfzx-pub-pojkxvd simethicone products such as Gas-X either daily [...] of that. I also recommended using some nbda-klw-rsthbhj simethicone products such as Gas-X either daily [...] 04/21/2025 Hiatal hernia (ICD-10 - K44.9) 04/13/2025 Encounter for screening for malignant neoplasm [...] of that. I also recommended using some wxwk-lki-adxnxlc simethicone products such as Gas-X either daily [...] of that. I also recommended using some fwan-qwp-mioexqh simethicone products such as Gas-X either daily [...] R14.3) Switch to a Lactose-free milk like [place] Milk Use chewable simethicone pills for gas, [...] of that. I also recommended using some wdbi-wtr-adswuon simethicone products such as Gas-X either daily [...] of that. I also recommended using some awmd-sra-veqmzfp simethicone products such as Gas-X either daily [...] Start Date Coverage End Date [facility] [place] [address] [id number] IZZY FARRELL Self - patient is the insured 3 Medical (General) History Medical History History ICD Code Denies [place],DM,CVA,Lung disease,renal dise ase GERD--EGD in 2006-Large HH, gastritis, + H.pylori(s/p Rx), normal duodenal bx, neg. Gupta's and no sig. esophagitis Colonosocpy 04/2007--negative except for internal hemorrhoids Hypothyroidism IBS History of iron def anemia with negative w/u as above ERCP with sphincterotomy and CBD stone r emoval 12-25-2001 Spinal stenosis Urinary incontinence Hypertension Colonoscopy 2017 was negative EGD 90[facility]--no esophagit is nor Gupta's COVID 10/2020 Surgical History Surgery Date(Month/Year) BEE Right knee replacement in 11/2020 at [facility]--preop ERCP with sphinct erotomy with removal of a common bile duct stone 2001 BTL
== END 2025-10-28 13:05 | disposition home or self-care (01) ==
LOC: HO.HOSX 13:04
PROVIDERS: Visit Provider Physician Assistant
DX: M17.12 Unilateral primary osteoarthritis, left knee (principal); Z96.651 Presence of right artificial knee joint
CPT/HCPCS: 20610; 73562; J0665; J1100; J2003

== ENCOUNTER 2025-10-28 14:38 | Outpatient (AMB) | payer OTHER, SELFPAY ==
--- NOTE | 2025-10-28 14:52 | MHC.OFFVIS ---
Vital Signs 10/28/25 14:54 Height 4 ft 11 in Weight 155 lb BMI 31.3 Intake Visit Reasons: Newprob- B/L primary OA of knee Intake Note: Ute is a 65 year old female who presents today as an established patient, new problem to evaluate bilateral knee pain. History of right knee TKA over [address] Stewart. States today she had to leave work early due to her pain. States pain at the anterior aspect of both knees, as well as the posterior aspect of her right knee. 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 Allergies No Known Allergies Allergy (Unknown, Verified 10/28/25 15:00) Medication List - Last Reconciled 10/28/25 by Yokasta Lantigua PA-C albuterol sulfate 90 mcg/actuation (ProAir HFA) 2 puffs PO Q6H PRN alendronate 70 mg PO QWEEK johuwrw-bldvcijmhwvek-mlewgevq 250-250-65 mg (Excedrin Migraine) 1 tab PO .qd PRN atorvastatin 40 mg PO DAILY betamethasone dipropionate 0.05% 1 appl topical DAILY PRN 2 weeks budesonide 90 mcg/actuation (Pulmicort Flexhaler) 1 inh inhalation BID dicyclomine 10 mg PO DAILY 30 days diphenhydramine HCl (Benadryl Allergy) 50 mg PO Q8H PRN flecainide 100 mg PO Q12H metoprolol succinate ER 25 mg PO DAILY 90 days omeprazole 40 mg PO DAILY spironolactone 25 mg PO DAILY trazodone 100 mg PO BEDTIME triamcinolone acetonide 0.5% 1 appl topical TID HPI Comments Details: History of Present Illness The patient is a 65 year old female presenting with a chief complaint of pain in both knees. She underwent a right total knee arthroplasty over five years ago with Dr. Stewart. She has had persistent pain in the right knee since the surgery and has not worked since then due to the pain. The patient reports pain in the front and on the medial side of her right knee. Her left knee has similar pain on the medial side. She endorses having undergone physical therapy previously. On review of systems, she denies fever, chills, and the knee is not red, hot, or notably swollen. Social History - Functional Status: The patient has not worked since her right knee replacement over 5 years ago due to persistent pain. [facility] Medical History Multinodular goiter Obesity Back pain Hypertension PONV (postoperative nausea and vomiting) Arthritis GERD (gastroesophageal reflux disease) Anxiety Insomnia Hypertension Surgical History S/P total knee arthroplasty History of breast mammoplasty (~2008) History of rectal sphincterotomy (~2001) Hx of cholecystectomy (~2001) History of tubal ligation History of arthroscopy of left knee (~01/2012) History of hysterectomy Family History Father No problems noted. 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 - Reports the right knee has limited ability to bend. - Constitutional: Denies fever and chills. - Integumentary: Denies knee redness or warmth. Physical Exam Exam Exam: Physical Exam - Right Knee: Full extension to 0 degrees. Flexion is limited to approximately 99-105 degrees. - Tenderness is present over the anterior and medial aspects. - Left Knee: Flexion is greater than the right knee. - Tenderness is present over the medial aspect. Vital Signs: BMI result Body Mass Index 31.3 Office Procedures AMB Joint Injection/Aspiration Joint Injection/Aspiration Primary Site: Left Knee Prep: site was prepped using aseptic technique, ethochloride spray was applied and injection warnings given Injected: 40 mg of, Decadron, with 3 mL of, 1% plain Lidocaine, 0.25% Bupivacaine and in the joint Approach Used: anterolateral Procedure: The patient tolerated the procedure well and there was some relief with the local anesthesia Coding 10294 - Glenohumeral/Tronchanteric Bursa/Intraarticular Procedure code (CPT) selection complete Assessment & Plan Assessment & Plan (1) Osteoarthritis of left knee: Code(s): M17.12 - Unilateral primary osteoarthritis, left knee Category: Medical Plan: 1. Left Knee Pain Secondary To Osteoarthritis The patient's left knee has mild arthritis with medial joint collapse and patellofemoral arthritis visible on x-ray. The plan is to begin with conservative treatments, including physical therapy and cortisone injections. A total knee replacement is the definitive option if these measures fail. She did consent to left knee steroid injection today which she tolerated well. (2) Status post total right knee replacement: Code(s): Z96.651 - Presence of right artificial knee joint Category: Surgical Plan: 2. Persistent Right Knee Pain Status Post Total Knee Arthroplasty The patient has chronic pain more than five years after a right TKA. Infection is considered a low likelihood given the absence of fever, chills, redness, or warmth. X-rays show no signs of loosening or failure of the prosthesis, but a rotational abnormality of the kneecap suggests it may not be tracking properly, which could be a source of discomfort. The differential diagnosis for her pain also includes tight hamstrings causing bursitis. Further physical therapy will be considered. A revision of the patellar component is a surgical possibility to improve tracking and will be discussed with Dr. Patino Plan Consent Patient was informed and verbally consented to the use of an ambient scribe for clinic note documentation during this visit. Orders: Orders XR Knee Sarthak 3V 10/28/25 M25.561 - Pain in right knee, M25.562 - Pain in left knee Coding Level of Care Code Est Pt Level 3 (42372) Add On Problem Visit Only Diagnoses Osteoarthritis of left knee M17.12 Status post total right knee replacement Z96.651 CPT Codes Coding - Joint 7: 21076 - Glenohumeral/Tronchanteric Bursa/Intraarticular ([id number])
[2025-10-28 14:54] VITALS: BMI 31.3
== END 2025-10-28 15:29 | disposition home or self-care (01) ==
LOC: HO.HOS 14:39
PROVIDERS: PCP Internal Medicine; Visit Provider Physician Assistant
DX: M17.12 Unilateral primary osteoarthritis, left knee (principal); Z96.651 Presence of right artificial knee joint
CPT/HCPCS: 20610; 99213

== ENCOUNTER → 2025-10-28 14:41 | Outpatient (BNV) | payer OTHER, SELFPAY | PROVIDERS: Visit Provider Radiology Body Imaging | DX: M17.12 Unilateral primary osteoarthritis, left knee (principal); Z96.651 Presence of right artificial knee joint | CPT/HCPCS: 73562 ==